=== PATIENT | female | born 1965 | race Native Hawaiian/Other Pacific Islander ===

== ENCOUNTER → 2018-08-21 | Outpatient (CLI) | payer OTHER ==
--- NOTE | 2018-08-22 11:48 | XR ---
Lumbosacral spine HISTORY: Low back pain 5 views of the lumbosacral spine correlated prior exam 12/30/2013 Lumbar vertebral bodies show preserved height. Bone mineralization is mildly reduced. No evident spon dylolysis. There is multilevel spondylosis. Anterolisthesis grade 1 L5-S1, L4-5. Loss of disc height present at L4-5 and L5-S1. Sclerosis present in the posterior elements. Sclerotic vascular calcifications present within the aorta. IMPRESSION: Degenerative disc disease, facet arthropathy, spinal listheses and osteopenia.
== END | disposition home or self-care (01) ==
LOC: RADXRYALE 16:14
PROVIDERS: ATTEND Internal Medicine
DX: M43.16 Spondylolisthesis, lumbar region (principal); M51.36 Other intervertebral disc degeneration, lumbar region; M46.96 Unspecified inflammatory spondylopathy, lumbar region; M85.88 Other specified disorders of bone density and structure, other site
CPT/HCPCS: 72110

== ENCOUNTER 2018-09-19 16:16 | Observation (INO) | payer OTHER ==
[2018-09-19] MEDS ORDERED: SODIUM CHLORIDE 0.9% 500 ML 500 ML IV STA (16:22)
[2018-09-19] MEDS ORDERED: LORazepam 2 MG/ML INJ IV STA (16:23)
--- NOTE | 2018-09-19 16:25 | ED ---
General Adult HPI - General Stated complaint: Chest Pain Time Seen by Provider: 09/19/18 16:16 Source: RN notes reviewed - History of Present Illness Initial comments: This is a 53-year-old female presents emergency Department with a past medical history significant for anxiety. Patient denies any history of diabetes hypertension high cholesterol or smoking. Patient states she just got 79 when she was given a sit down and watch TV and she felt a tingling sensation and tightness across her chest. Patient states he felt as though she couldn't get a full breath. Patient states she started getting tingling down both of her arms and into her hands and then both of her hands cramped up. Patient denies any recent fever chills or cough. Patient denies any headache patient denies numbness weakness. Patient denies lightheadedness dizziness or near syncopal episode. Patient denies any abdominal pain. Patient denies nausea vomiting or diarrhea. Patient denies any swelling to the legs or calf tenderness. Patient states by the time EMS got there all symptoms had resolved. - Related Data Home Medications Medication Instructions Recorded Confirmed Acetaminophen [Tylenol Arthritis] 650 mg PO Q8H PRN 09/19/18 09/19/18 Ibuprofen [Motrin] 600 mg PO BID 09/19/18 09/19/18 Naproxen Sodium [Aleve] 220 mg PO BID PRN 09/19/18 09/19/18 Allergies Allergy/AdvReac Type Severity Reaction Status Date / Time codeine AdvReac naueated Verified 09/19/18 16:52 and sleepy Review of Systems ROS Statement: Those systems with pertinent positive or pertinent negative responses have been documented in the HPI. ROS Other: All systems not noted in ROS Statement are negative. Past Medical History Past Medical History: COPD History of Any Multi-Drug Resistant Organisms: None Reported Past Surgical History: Section Past Psychological History: No Psychological Hx Reported Smoking Status: Former smoker Past Alcohol Use History: Occasional Past Drug Use History: None Reported General Exam - General Exam Comments Initial Comments: GENERAL: Patient is well-developed and well-nourished. Patient is nontoxic and well-h ydrated and is in mild distress. Patient seems very anxious. ENT: Neck is soft and supple. No significant lymphadenopathy is noted. Oropharynx is clear. Moist mucous membranes. Neck has full range of motion without eliciting any pain. EYES: The sclera were anicteric and conjunctiva were pink and moist. Extraocular movements were intact and pupils were equal round and reactive to light. E yelids were unremarkable. PULMONARY: Unlabored respirations. Good breath sounds bilaterally. No audible rales rhonchi or wheezing was noted. CARDIOVASCULAR: There is a regular rate and rhythm without any murmurs gallops or rubs. ABDOMEN: Soft and nontender with normal bowel sounds. No palpable organomegaly was noted. There is no palpable pulsatile mass. SKIN: Skin is clear with no lesions or rashes and otherwise unremarkable. NEUROLOGIC: Patient is alert and oriented x3. Cranial nerves II through XII are grossly intact. Motor and sensory are also intact. Normal speech, volume and content. Symmetrical smile. MUSCULOSKELETAL: Normal extremities with adequate strength and full range of motion. No lower extremity swelling or edema. No calf tenderness. LYMPHATICS: No significant lymphadenopathy is noted PSYCHIATRIC: Normal psychiatric evaluation. Course Vital Signs 09/19/18 16:20 Temperature 97.7 F Pulse Rate 64 Respiratory 20 Rate Blood Pressure 133/76 O2 Sat by Pulse 100 Oximetry Medical Decision Making - Medical Decision Making EKG shows normal sinus rhythm at 66 bpm GA interval 130 QRS is 94 QT interval 422 QTC is 442. Patient's EKG shows no ST segment elevation or depression or T wave abnormalities are noted. Patient felt better in the emergency department after the Ativan because of her chest pain shortness of breath I will keep her for 23 hours and repeat cardiac enzymes. I spoke with Dr. Soler he agreed to admit the patient admitted the patient wrote admitting orders. - Lab Data Result diagrams: 09/19/18 16:30 09/19/18 16:30 Lab Results 09/19/18 09/19/18 09/19/18 Range/Units 16:30 16:30 16:30 WBC 5.7 (3.8-10.6) k/uL RBC 4.44 (3.80-5.40) m/uL Hgb 13.7 (11.4-16.0) gm/dL Hct 40.6 (34.0-46.0) % MCV 91.4 (80.0-100.0) fL MCH 30.8 (25.0-35.0) pg MCHC 33.7 (31.0-37.0) g/dL RDW 13.2 (11.5-15.5) % Plt Count 261 (150-450) k/uL Neutrophils % 67 % Lymphocytes % 27 % Monocytes % 3 % Eosinophils % 2 % Basophils % 1 % Neutrophils # 3.8 (1.3-7.7) k/uL Lymphocytes # 1.5 (1.0-4.8) k/uL Monocytes # 0.1 (0-1.0) k/uL Eosinophils # 0.1 (0-0.7) k/uL Basophils # 0.0 (0-0.2) k/uL PT 9.8 (9.0-12.0) sec INR 0.9 (<1.2) APTT 24.3 (22.0-30.0) sec Sodium 141 (137-145) mmol/L Potassium 4.1 (3.5-5.1) mmol/L Chloride 111 H (98-107) mmol/L Carbon Dioxide 20 L (22-30) mmol/L Anion Gap 10 mmol/L BUN 12 (7-17) mg/dL Creatinine 0.73 (0.52-1.04) mg/dL Est GFR (CKD-EPI)AfAm >90 (>60 ml/min/1.73 sqM) Est GFR (CKD-EPI)NonAf >90 (>60 ml/min/1.73 sqM) Glucose 154 H (74-99) mg/dL Calcium 9.5 (8.4-10.2) mg/dL Magnesium 1.8 (1.6-2.3) mg/dL Total Bilirubin 0.7 (0.2-1.3) mg/dL AST 25 (14-36) U/L ALT 34 (9-52) U/L Alkaline Phosphatase 58 (38-126) U/L Troponin I (0.000-0.034) ng/mL Total Protein 6.9 (6.3-8.2) g/dL Albumin 4.1 (3.5-5.0) g/dL 09/19/18 Range/Units 16:30 WBC (3.8-10.6) k/uL RBC (3.80-5.40) m/uL Hgb (11.4-16.0) gm/dL Hct (34.0-46.0) % MCV (80.0-100.0) fL MCH (25.0-35.0) pg MCHC (31.0-37.0) g/dL RDW (11.5-15.5) % Plt Count (150-450) k/uL Neutrophils % % Lymphocytes % % Monocytes % % Eosinophils % % Basophils % % Neutrophils # (1.3-7.7) k/uL Lymphocytes # (1.0-4.8) k/uL Monocytes # (0-1.0) k/uL Eosinophils # (0-0.7) k/uL Basophils # (0-0.2) k/uL PT (9.0-12.0) sec INR (<1.2) APTT (22.0-30.0) sec Sodium (137-145) mmol/L Potassium (3.5-5.1) mmol/L Chloride (98-107) mmol/L Carbon Dioxide (22-30) mmol/L Anion Gap mmol/L BUN (7-17) mg/dL Creatinine (0.52-1.04) mg/dL Est GFR (CKD-EPI)AfAm (>60 ml/min/1.73 sqM) Est GFR (CKD-EPI)NonAf (>60 ml/min/1.73 sqM) Glucose (74-99) mg/dL Calcium (8.4-10.2) mg/dL Magnesium (1.6-2.3) mg/dL Total Bilirubin (0.2-1.3) mg/dL AST (14-36) U/L ALT (9-52) U/L Alkaline Phosphatase (38-126) U/L Troponin I <0.012 (0.000-0.034) ng/mL Total Protein (6.3-8.2) g/dL Albumin (3.5-5.0) g/dL Disposition Clinical Impression: Chest pain Disposition: ADMITTED IP TO THIS [facility] Referrals: Pat Tao MD [Primary Care Provider] - 1-2 days Time of Disposition: 18:28
[2018-09-19 16:54] LABS: ALT 34 U/L (9-52); AST 25 U/L (14-36); Albumin 4.1 g/dL (3.5-5.0); Alkaline Phosphatase 58 U/L (38-126); Anion Gap 10 mmol/L; Basophils % (A) 1 %; Blood Urea Nitrogen 12 mg/dL (7-17); Calcium 9.5 mg/dL (8.4-10.2); Carbon Dioxide 20 mmol/L (22-30); Chloride 111 mmol/L (98-107); Eosinophils # (A) 0.1 k/uL (0-0.7); Eosinophils % (A) 2 %; Glucose 154 mg/dL (74-99); HCT 40.6 % (34.0-46.0); HGB 13.7 gm/dL (11.4-16.0); Lymphocytes # (A) 1.5 k/uL (1.0-4.8); Lymphocytes % (A) 27 %; MCH 30.8 pg (25.0-35.0); MCHC 33.7 g/dL (31.0-37.0); MCV 91.4 fL (80.0-100.0); Magnesium 1.8 mg/dL (1.6-2.3); Monocytes # (A) 0.1 k/uL (0-1.0); Monocytes % (A) 3 %; Neutrophils # (A) 3.8 k/uL (1.3-7.7); Neutrophils % (A) 67 %; Platelet Count 261 k/uL (150-450); Potassium 4.1 mmol/L (3.5-5.1); RBC 4.44 m/uL (3.80-5.40); RDW 13.2 % (11.5-15.5); Sodium 141 mmol/L (137-145); Total Bilirubin 0.7 mg/dL (0.2-1.3); Total Protein 6.9 g/dL (6.3-8.2); WBC 5.7 k/uL (3.8-10.6)
[2018-09-19 16:56] LABS: INR 0.9 (<1.2); Partial Thromboplastin Time 24.3 sec (22.0-30.0); Prothrombin Time 9.8 sec (9.0-12.0)
--- NOTE | 2018-09-19 17:11 | XR ---
EXAMINATION TYPE: XR chest 2V DATE OF EXAM: 09/19/2018 COMPARISON: 11/14/2015 HISTORY: Chest pain TECHNIQUE: Frontal and lateral views of the chest are obtained. FINDINGS: Heart and mediastinum are normal. Lungs are clear. Diaphragm is normal. Bony thorax appear s normal. IMPRESSION: Normal chest. No change.
[2018-09-19] MEDS ORDERED: NITROGLYCERIN SL TABS 0.4 MG TAB SUBLINGUAL PRN (18:29)
[2018-09-20] MEDS: NITROGLYCERIN OINT 1 INCH/GM PACKET TOPICAL SCH ×2 (00:08→05:38)
[2018-09-20 05:51] LABS: Cholesterol 169 mg/dL (<200); HDL Cholesterol 34 mg/dL (40-60); LDL Cholesterol,Calculated 112 mg/dL (0-99); Triglycerides 115 mg/dL (<150)
[2018-09-20 07:52] VITALS: RESP 16
[2018-09-20] MEDS ORDERED: DOBUTamine DRIP for NUC MED 500 MG in DEXTROSE/WATER 1 250ML.BAG IV ONE (08:50)
[2018-09-20] MEDS ORDERED: ASPIRIN 325 MG TAB PO SCH (09:00)
[2018-09-20] MEDS ORDERED: ASPIRIN 81 MG PO SCH (09:00)
--- NOTE | 2018-09-20 09:40 | P.CRDCN ---
History of Present Illness History of present illness: This is a pleasant 53-year-old female past medical history significant for former nicotine dependence, she quit 15 years ago and chronic back pain secondary to arthritis. She denies history of hypertension, dyslipidemia, diabetes mellitus or coronary artery disease. She has never seen a cosmetics counter manager for any reason in the past. We have been asked to see her in consultation secondary to chest discomfort. She states yesterday he woke up after sleeping all day, she works the midnight shift, she had something small to eat and a wine cooler. About 15 minutes after eating and consuming a wine cooler she had an acute onset of a tightness in her chest. It started in the midsternal region and radiated out on both sides and the anterior chest wall. There is no radiation through to the back however she did feel bilateral arm heavy tingly sensation. The symptoms persisted for approximately 5 minutes and then started to increase in intensity. At that time she went to the restroom and forced herself to vomit to see if this would make her feel better unfortunately her pain persisted and then she started becoming short of breath. In total her symptoms lasted approximately 10 minutes and slowly started to subside and her own. By the time she arrived at the emergency department she was chest pain- free. She has had no further episodes of chest discomfort since arriving at the hospital. She is seen and examined resting comfortably in bed in no acute distress. EKG reveals sinus mechanism with no acute ST or T wave abnormalities noted. There is nonspecific male is noted on the EKG obtained at 345, repeat this morning was unremarkable. Chest x-ray is negative for an acute cardiopulmonary process. Laboratory data reviewed, WBC 5.7, hemoglobin 13.7, platelets 13.2, sodium 141, potassium 4.1, creatinine 0.73, magnesium 1.8, cardiac enzymes negative 3, LDL 112 and HDL 34. She takes no daily cardiac medications. At the time of my exam: CONSTITUTIONAL: Denies fever. Denies chills. EYES: Denies blurred vision. Denies vision changes. Denies eye pain. EARS, NOSE, MOUTH & THROAT: Denies headache. Denies sore throat. Denies ear pain. CARDIOVASCULAR: Denies chest pain. Denies shortness of breath. Denies orthopnea. Denies PND. Denies palpitations. RESPIRATORY: Denies cough. GASTROINTESTINAL: Denies abdominal pain. Denies diarrhea. Denies constipation. Denies nausea. Denies vomiting. MUSCULOSKELETAL: Denies myalgias. INTEGUMENTARY: Denies pruitis. Denies rash. NEUROLOGIC: Denies numbness. Denies tingling. Denies weakness. PSYCHIATRIC: Denies anxiety. Denies depression. ENDOCRINE: Denies fatigue. Denies weight change. Denies polydipsia. Denies polyurina. GENITOURINARY: Denies burning, hematuria or urgency with micturation. HEMATOLOGIC: Denies history of anemia. Denies bleeding. Blood pressure 133/60 heart rate 60 afebrile maintaining oxygen saturation on ro om air GENERAL: This is a 53-year-old female in no apparent distress at the time of my examination. HEENT: Head is atraumatic, normocephalic. Pupils are equal, round. Sclerae anicteric. Conjunctivae are clear. Mucous membranes of the mouth are moist. Neck is supple. There is no jugular venous distention. No carotid bruit is heard. LUNGS: Clear to auscultation no wheezes, rales or rhonchi. No chest wall tenderness is noted on palpation or with deep breathing. HEART: Regular rate and rhythm without murmurs, rubs or gallops. S1 and S2 heard. ABDOMEN: Soft, nontender. Bowel sounds are heard. No organomegaly noted. EXTREMITIES: No evidence of peripheral edema and no calf tenderness noted. VASCULAR: Radial and dorsalis pedis pulses palpated, no evidence of clubbing. NEUROLOGIC: Patient is awake, alert and oriented x3. ASSESSMENT Chest pain, atypical for angina. An acute coronary event has been ruled out. Dyslipidemia Significant family history of premature coronary artery disease with her mother suffering her first heart attack at approximately 50 years old resulting in bypass surgery. PLAN An acute coronary event has been ruled out. Check d-dimer and hemoglobin A1c. Obtain 2-D echocardiogram and Doppler study to assess cardiac structure and function. Perform dobutamine stress echocardiogram to assess for stress-induced ischemia. If stress test is normal she is stable from a cardiac perspective. Lifestyle modifications are recommended for lower LDL cholesterol no form of diet and exercise. Thank you kindly for this consultation. Nurse Practitioner note has been reviewed, I agree with a documented findings and plan of care. Patient was seen and examined. Past Medical History Past Medical History: COPD Additional Past Medical History / Comment(s): chronic lower back pain, arthritis in back History of Any Multi-Drug Resistant Organisms: None Reported Past Surgical History: Section Past Anesthesia/Blood Transfusion Reactions: No Reported Reaction Past Psychological History: No Psychological Hx Reported Smoking Status: Former smoker Past Alcohol Use History: Occasional Past Drug Use History: None Reported - Past Family History Mother Family Medical History: Coronary Artery Disease (CAD), Diabetes Mellitus, Myocardial Infarction ([place]) Additional Family Medical History / Comment(s): CABG, arthritis Father Family Medical History: Cancer Additional Family Medical History / Comment(s): lung cancer Sister(s) Family Medical History: Asthma Additional Family Medical History / Comment(s): depression, border line DM Brother(s) Additional Family Medical History / Comment(s): back surgeries, psoriasis Son(s) Family Medical History: No Reported History Medications and Allergies Home Medications Medication Instructions Recorded Confirmed Type Acetaminophen [Tylenol Arthritis] 650 mg PO Q8H PRN 09/19/18 09/19/18 History Ibuprofen [Motrin] 600 mg PO BID 09/19/18 09/19/18 History Naproxen Sodium [Aleve] 220 mg PO BID PRN 09/19/18 09/19/18 History Allergies Allergy/AdvReac Type Severity Reaction Status Date / Time codeine AdvReac naueated Verified 09/19/18 21:11 and sleepy Physical Exam Vitals: Vital Signs Temp Pulse Pulse Pulse Pulse Resp BP 09/20/18 07:47 98 F 60 16 09/20/18 03:54 98.5 F 70 14 09/20/18 03:05 15 09/19/18 23:36 15 09/19/18 23:23 98.0 F 90 15 09/19/18 20:00 15 09/19/18 19:27 97.9 F 54 L 15 09/19/18 19:00 133/61 09/19/18 18:30 131/39 09/19/18 18:15 127/77 09/19/18 18:00 118/67 09/19/18 17:45 118/67 09/19/18 17:30 127/73 09/19/18 17:15 122/63 09/19/18 17:00 151/77 09/19/18 16:30 133/76 09/19/18 16:20 97.7 F 64 20 133/76 BP BP Pulse Ox 09/20/18 07:47 133/60 97 09/20/18 03:54 135/79 99 09/20/18 03:05 09/19/18 23:36 09/19/18 23:23 153/77 97 09/19/18 20:00 09/19/18 19:27 131/80 99 09/19/18 19:00 97 09/19/18 18:30 97 09/19/18 18:15 96 09/19/18 18:00 09/19/18 17:45 98 09/19/18 17:30 09/19/18 17:15 94 L 09/19/18 17:00 98 09/19/18 16:30 97 09/19/18 16:20 100 Intake and Output 09/19/18 09/20/18 09/20/18 22:59 06:59 14:59 Other: Voiding Method Toilet Toilet Toilet # Voids 1 Weight 94.347 kg Results 09/19/18 16:30 09/19/18 16:30 Cardiac Enzymes 09/19/18 09/19/18 09/19/18 Range/Units 16:30 16:30 21:55 AST 25 (14-36) U/L Troponin I <0.012 <0.012 (0.000-0.034) ng/mL 09/20/18 Range/Units 05:31 AST (14-36) U/L Troponin I <0.012 (0.000-0.034) ng/mL Coagulation 09/19/18 Range/Units 16:30 PT 9.8 (9.0-12.0) sec APTT 24.3 (22.0-30.0) sec Lipids 09/20/18 Range/Units 05:31 Triglycerides 115 (<150) mg/dL Cholesterol 169 (<200) mg/dL HDL Cholesterol 34 L (40-60) mg/dL CBC 09/19/18 Range/Units 16:30 WBC 5.7 (3.8-10.6) k/uL RBC 4.44 (3.80-5.40) m/uL Hgb 13.7 (11.4-16.0) gm/dL Hct 40.6 (34.0-46.0) % Plt Count 261 (150-450) k/uL Comprehensive Metabolic Panel 09/19/18 Range/Units 16:30 Sodium 141 (137-145) mmol/L Potassium 4.1 (3.5-5.1) mmol/L Chloride 111 H (98-107) mmol/L Carbon Dioxide 20 L (22-30) mmol/L BUN 12 (7-17) mg/dL Creatinine 0.73 (0.52-1.04) mg/dL Glucose 154 H (74-99) mg/dL Calcium 9.5 (8.4-10.2) mg/dL AST 25 (14-36) U/L ALT 34 (9-52) U/L Alkaline Phosphatase 58 (38-126) U/L Total Protein 6.9 (6.3-8.2) g/dL Albumin 4.1 (3.5-5.0) g/dL Current Medications Generic Name Dose Route Start Last Admin Trade Name Freq PRN Reason Stop Dose Admin Aspirin 325 mg 09/20/18 09:00 Aspirin PO DAILY [facility] Nitroglycerin 1 inch 09/20/18 00:00 09/20/18 05:38 Nitro-Bid Oint TOPICAL Not Given Q6HR [facility] Nitroglycerin 0.4 mg 09/19/18 18:29 Nitrostat SUBLINGUAL Q5M PRN Chest Pain Intake and Output 09/19/18 09/20/18 09/20/18 22:59 06:59 14:59 Other: Voiding Method Toilet Toilet Toilet # Voids 1 Weight 94.347 kg 09/19/18 16:30 09/19/18 16:30
--- NOTE | 2018-09-20 10:35 | ECHOF ---
Referral Reason:cp MEASUREMENTS -------- HEIGHT: 152.4 cm WEIGHT: 94.3 kg BP: 133/60 RVIDd: 2.8 cm (< 3.3) IVSd: 0.9 cm (0.6 - 1.1) LVIDd: 4.6 cm (3.9 - 5.3) LVPWd: 1.3 cm (0.6 - 1.1) IVSs: 1.5 cm LVIDs: 3.6 cm LVPWs: 1.3 cm LAESV Index (A-L): 24.67 ml/m Ao Diam: 2.7 cm (2.0 - 3.7) AV Cusp: 1.9 cm (1.5 - 2.6) LA Diam: 3.7 cm (2.7 - 3.8) MV EXCURSION: 13.536 mm (> 18.000) MV EF SLOPE: 60 mm/s (70 - 150) EPSS: 1.0 cm MV E Omar: 1.07 m/s MV DecT: 286 ms MV A Omar: 0.80 m/s MV E/A Ratio: 1.34 RAP: 5.00 mmHg RVSP: 23.14 mmHg FINDINGS -------- Resting bradycardia (HR<60bpm). This was a technically adequate study. Left ventricular wall thickness is normal. Overall left ventricular systolic function is normal wit h, an EF between 55 - 60 %. The right ventricle is normal in size. The left atrium is mildly dilated. LA is midly dilated 29-33ml/m2. The right atrium is normal in size. Interatrial and interventricular septum intact. Trace amount of aortic regurgitation. There is trace mitral regurgitation. Mild tricuspid regurgitation present. Right ventricular systolic pressure is normal at < 35 mmHg. Trace/mild (physiologic) pulmonic regurgitation. The aortic root size is normal. Normal inferior vena cava with normal inspiratory collapse consistent with estimated right atrial pre ssure of 5 mmHg. There is no pericardial effusion. CONCLUSIONS -------- 1. Resting bradycardia (HR<60bpm). 2. This was a technically adequate study. 3. Left ventricular wall thickness is normal. 4. Overall left ventricular systolic function is normal with, an EF between 55 - 60 %. 5. The right ventricle is normal in size. 6. The left atrium is mildly dilated. 7. LA is midly dilated 29-33ml/m2. 8. The right atrium is normal in size. 9. Interatrial and interventricular septum intact. 10. Trace amount of aortic regurgitation. 11. There is trace mitral regurgitation. 12. Mild tricuspid regurgitation present. 13. Right ventricular systolic pressure is normal at < 35 mmHg. 14. Trace/mild (physiologic) pulmonic regurgitation. 15. The aortic root size is normal. 16. Normal inferior vena cava with normal inspiratory collapse consistent with estimated right atrial pressure of 5 mmHg. 17. There is no pericardial effusion. POT TENDER: Karli Archer RDCS
[2018-09-20 13:02] VITALS: BP 118/77; PULSE 86; TEMP 98.6
--- NOTE | 2018-09-20 13:02 | ECHOS ---
STRESS ECHOCARDIOGRAM INDICATIONS: Chest pain. MEDICATIONS: Aleve, Motrin, Tylenol arthritis. BASELINE HEART RATE: 64 BASELINE BLOOD PRESSURE: 105/72 MAXIMUM HEART RATE: 151 MAXIMUM BLOOD PRESSURE: 122/56 85% MPHR: 143 100% MPHR: 168 MAXIMUM STAGE REACHED: 3 TOTAL EXERCISE TIME: 7:35 CLINICAL INFORMATION: Baseline heart rate 64 beats per minute. Baseline blood pressure 105/72 mmHg. Baseline 12-lead ECG shows normal sinus rhythm with normal cardiac intervals. Patient received dobutamine infusion per protocol. There was no ECG evidence for ischemia. No arrhythmias were noted. No symptoms were noted. The baseline 2D echo images showed normal LV size systolic function without segmental wall motion abnormalities. With dobutamine infusion there was stepwise increment in overall LV contractility without development of any wall motion abnormalities. At recovery, regional global LV systolic function remained normal. IMPRESSION: No ECG or echocardiographic evidence for ischemia during dobutamine stress echo. MMODL / IJN: [id number] /
--- NOTE | 2018-09-20 14:54 | P.HPIM ---
History of Present Illness 53-year-old pleasant female came in with the retrosternal chest pain which is a sharp to pressure-like sensation without any radiation started after eating. Minutes immediately after eating and the having some wine. Patient does take naproxen, ibuprofen and extra strength Tylenol as needed for chronic back pain. Patient denied any cough patient's chest pain is not associated with the bleeding, not associated with the diaphoresis nausea lightheadedness. Patient was evaluated by cardiology patient's 3 sets of troponins are negative patient will stress test if that's negative patient will be discharged today he shouldn't does have a family history of premature coronary artery disease. Patient's LDL is 112. She does not have any history out of this medicine hypertension. Patient denied any shortness of breath patient's d-dimer is negative chest x-ray did not show any pneumonia. Review of Systems REVIEW OF SYSTEMS: CONSTITUTIONAL: No fever, no malaise, no fatigue. HEENT: No recent visual problems or hearing problems. Denied any sore throat. CARDIOVASCULAR: No orthopnea, PND, no palpitations, no syncope. PULMONARY: No shortness of breath, no cough, no hemoptysis. GASTROINTESTINAL: No diarrhea, no nausea, no vomiting, no abdominal pain. NEUROLOGICAL: No headaches, no weakness, no numbness. HEMATOLOGICAL: Denies any bleeding or petechiae. GENITOURINARY: Denies any burning micturition, frequency, or urgency. MUSCULOSKELETAL/RHEUMATOLOGICAL: Denies any joint pain, swelling, or any muscle pain. ENDOCRINE: Denies any polyuria or polydipsia. The rest of the 14-point review of systems is negative. Past Medical History Past Medical History: COPD Additional Past Medical History / Comment(s): chronic lower back pain, arthritis in back History of Any Multi-Drug Resistant Organisms: None Reported Past Surgical History: Section Past Anesthesia/Blood Transfusion Reactions: No Reported Reaction Past Psychological History: No Psychological Hx Reported Smoking Status: Former smoker Past Alcohol Use History: Occasional Past Drug Use History: None Reported - Past Family History Mother Family Medical History: Coronary Artery Disease (CAD), Diabetes Mellitus, Myocardial Infarction ([place]) Additional Family Medical History / Comment(s): CABG, arthritis Father Family Medical History: Cancer Additional Family Medical History / Comment(s): lung cancer Sister(s) Family Medical History: Asthma Additional Family Medical History / Comment(s): depression, border line DM Brother(s) Additional Family Medical History / Comment(s): back surgeries, psoriasis Son(s) Family Medical History: No Reported History Medications and Allergies Home Medications Medication Instructions Recorded Confirmed Type Acetaminophen [Tylenol Arthritis] 650 mg PO Q8H PRN 09/19/18 09/19/18 History Naproxen Sodium [Aleve] 220 mg PO BID PRN 09/19/18 09/19/18 History Omeprazole [PriLOSEC] 40 mg PO AC-BRKFST #14 capsule. 09/20/18 Rx Allergies Allergy/AdvReac Type Severity Reaction Status Date / Time codeine AdvReac naueated Verified 09/19/18 21:11 and sleepy Physical Exam Vitals: Vital Signs Temp Pulse Pulse Pulse Pulse Resp BP 09/20/18 13:00 98.6 F 86 16 09/20/18 07:47 98 F 60 16 09/20/18 03:54 98.5 F 70 14 09/20/18 03:05 15 09/19/18 23:36 15 09/19/18 23:23 98.0 F 90 15 09/19/18 20:00 15 09/19/18 19:27 97.9 F 54 L 15 09/19/18 19:00 133/61 09/19/18 18:30 131/39 09/19/18 18:15 127/77 09/19/18 18:00 118/67 09/19/18 17:45 118/67 09/19/18 17:30 127/73 09/19/18 17:15 122/63 09/19/18 17:00 151/77 09/19/18 16:30 133/76 09/19/18 16:20 97.7 F 64 20 133/76 BP BP BP Pulse Ox 09/20/18 13:00 118/77 98 09/20/18 07:47 133/60 97 09/20/18 03:54 135/79 99 09/20/18 03:05 09/19/18 23:36 09/19/18 23:23 153/77 97 09/19/18 20:00 09/19/18 19:27 131/80 99 09/19/18 19:00 97 05/09/19 18:30 97 09/19/18 18:15 96 09/19/18 18:00 09/19/18 17:45 98 09/19/18 17:30 09/19/18 17:15 94 L 09/19/18 17:00 98 09/19/18 16:30 97 09/19/18 16:20 100 Intake and Output 09/19/18 09/20/18 09/20/18 22:59 06:59 14:59 Other: Voiding Method Toilet Toilet Toilet # Voids 1 1 Weight 94.347 kg 94.347 kg PHYSICAL EXAMINATION: GENERAL: The patient is alert and oriented x3, not in any acute distress. Well developed, well nourished. HEENT: Pupils are round and equally reacting to light. EOMI. No scleral icterus. No conjunctival pallor. Normocephalic, atraumatic. No pharyngeal erythema. No thyromegaly. CARDIOVASCULAR: S1 and S2 present. No murmurs, rubs, or gallops. PULMONARY: Chest is clear to auscultation, no wheezing or crackles. ABDOMEN: Soft, nontender, nondistended, normoactive bowel sounds. No palpable organomegaly. MUSCULOSKELETAL: No joint swelling or deformity. EXTREMITIES: No cyanosis, clubbing, or pedal edema. NEUROLOGICAL: Gross neurological examination did not reveal any focal deficits. SKIN: No rashes. Results CBC & Chem 7: 09/19/18 16:30 09/19/18 16:30 Labs: Abnormal Lab Results - Last 24 Hours (Table) 09/19/18 09/20/18 Range/Units 16:30 05:31 Chloride 111 H (98-107) mmol/L Carbon Dioxide 20 L (22-30) mmol/L Glucose 154 H (74-99) mg/dL LDL Cholesterol, Calc 112 H (0-99) mg/dL HDL Cholesterol 34 L (40-60) mg/dL Thrombosis Risk Factor Assmnt - Choose All That Apply Any of the Below Risk Factors Present?: Yes Each Factor Represents 1 point: Abnormal pulmonary function (COPD), Age 41-60 years, Obesity (BMI >25) Other Risk Factors: No Other congenital or acquired thrombophilia - If yes, enter type in comment: No Thrombosis Risk Factor Assessment Total Risk Factor Score: 3 Thrombosis Risk Factor Assessment Level: Moderate Risk Assessment and Plan Plan: -chest pain atypical most related to gastroesophageal reflux disease patient was started on Prilosec asked her to avoid the nonsteroidal anti-inflammatories and if he she has to take those medications asked her to take Zantac with that after she is done with Prilosec course. Patient was ruled out acute coronary syndromes and unstable angina, underwent stress test if that's negative patient will be discharged today. Obesity: Counseling was provided -chronic low back pain.
--- NOTE | 2018-09-20 14:55 | P.DS ---
Providers Date of admission: 09/19/18 18:31 Attending physician: Aram Soler Consults: 09/19/18 18:31 Consult Physician Urgent Consulting Provider: [facility] Consult Reason/Comments: Chest pain Do you want consulting provider notified?: Yes Primary care physician: Pat Tao Hospital Course: please refer to my HPI Plan - Discharge Summary Discharge Rx Participant: No New Discharge Prescriptions: New Omeprazole [PriLOSEC] 40 mg PO AC-BRKFST #14 capsule. Discontinued Ibuprofen [Motrin] 600 mg PO BID No Action Naproxen Sodium [Aleve] 220 mg PO BID PRN PRN Reason: Pain Acetaminophen [Tylenol Arthritis] 650 mg PO Q8H PRN PRN Reason: Pain Discharge Medication List Acetaminophen [Tylenol Arthritis] 650 mg PO Q8H PRN 09/19/18 [History] Naproxen Sodium [Aleve] 220 mg PO BID PRN 09/19/18 [History] Omeprazole [PriLOSEC] 40 mg PO AC-BRKFST #14 capsule. 09/20/18 [Rx] Follow up Appointment(s)/Referral(s): Pat Tao MD [Primary Care Provider] - 3 Days Patient Instructions/Handouts: Chest Pain (DC) Discharge Disposition: HOME SELF-CARE
[2018-09-20 20:04] LABS: Hemoglobin A1C 5.8 % (4.0-6.0)
== END 2018-09-20 13:58 | disposition home or self-care (01) ==
LOC: EC 16:16 → 1SOBS 18:31
PROVIDERS: ADMIT Internal Medicine; ATTEND Internal Medicine
DX: R07.89 Other chest pain (principal); M47.9 Spondylosis, unspecified; K21.9 Gastro-esophageal reflux disease without esophagitis; J44.9 Chronic obstructive pulmonary disease, unspecified; E66.9 Obesity, unspecified; Z68.41 Body mass index [BMI] 40.0-44.9, adult; E78.5 Hyperlipidemia, unspecified; Z71.3 Dietary counseling and surveillance; I25.2 Old myocardial infarction; Z87.891 Personal history of nicotine dependence; Z82.49 Family history of ischemic heart disease and other diseases of the circulatory system; Z83.3 Family history of diabetes mellitus; Z82.5 Family history of asthma and other chronic lower respiratory diseases; Z81.8 Family history of other mental and behavioral disorders; Z80.1 Family history of malignant neoplasm of trachea, bronchus and lung
CPT/HCPCS: 96361; 96374; 99285; 36415; 93005; 93306; 93351; 85379; 80061; 80053; 83735; 84484 ×2; 85025; 85610; 85730; 83036; 71046; G0378 ×2; J2060; J1250

== ENCOUNTER → 2018-10-14 | Outpatient (CLI) | payer OTHER ==
--- NOTE | 2018-10-14 12:50 | XR ---
Right leg HISTORY: Trauma and pain 2 views of the right leg Bone mineralization, joint spaces and alignment are maintained. Soft tissue swelling suspected. There is a plantar calcaneal spur. IMPRESSION: No fracture or dislocation.
--- NOTE | 2018-10-14 12:52 | XR ---
Left ankle HISTORY: Trauma and pain 3 views of the left ankle Bone mineralization, joint spaces and alignment are maintained. There is a plantar calcaneal spur pre sent. Mild degenerative changes present within the foot and ankle with marginal spurring. IMPRESSION: No fracture or dislocation.
== END | disposition home or self-care (01) ==
LOC: RADXRYALE 11:18
PROVIDERS: ATTEND Internal Medicine
DX: M25.572 Pain in left ankle and joints of left foot (principal); M79.604 Pain in right leg

== ENCOUNTER 2018-11-03 07:07 | Emergency (ER) | payer OTHER ==
[2018-11-03] MEDS ORDERED: KETOROLAC 30 MG/ML 1 ML VIAL IVP STA (07:27)
[2018-11-03] MEDS ORDERED: SODIUM CHLORIDE 0.9% 500 ML 500 ML IV STA (07:27)
[2018-11-03] MEDS ORDERED: SODIUM CHLORIDE 0.9% 1,000 ML IV STA (07:27)
--- NOTE | 2018-11-03 07:43 | ED ---
Back Pain HPI - General Chief Complaint: Back Pain/Injury Stated Complaint: Back Pain Time Seen by Provider: 11/03/18 07:17 Source: patient, RN notes reviewed Mode of arrival: ambulatory Limitations: no limitations - History of Present Illness Initial Comments: 53-year-old female presents emergency Department with chief complaint of back pain. Patient she normally has chronic back pain and only takes Motrin for it. Patient is scheduled for injections from orthopedics. Patient reaches riding [place] and felt that she exacerbated her pain because of the bones. Patient states she does have mid low back pain but also complains of right flank pain which is new. Patient states she had chills last night states that she could not get warm. Patient states that she still feels worse today. She has not taken Tylenol or Motrin this morning. Denies any bowel bladder incontinence or retention. She has no current nausea vomiting diarrhea, melena hematochezia no dysuria no hematuria. - Related Data Home Medications Medication Instructions Recorded Confirmed Naproxen Sodium [Aleve] 220 mg PO BID PRN 09/19/18 09/19/18 Ibuprofen [Motrin] 800 mg PO Q6H PRN 11/03/18 11/03/18 Previous Rx's Medication Instructions Recorded Ibuprofen [Motrin] 600 mg PO Q8HR PRN #30 tab 11/03/18 Methocarbamol [Robaxin] 500 mg PO TID PRN #15 tab 11/03/18 traMADol HCl [Ultram] 50 mg PO Q6H PRN #12 tab 11/03/18 Allergies Allergy/AdvReac Type Severity Reaction Status Date / Time codeine AdvReac naueated Verified 11/03/18 09:16 and sleepy Review of Systems ROS Statement: Those systems with pertinent positive or pertinent negative responses have been documented in the HPI. ROS Other: All systems not noted in ROS Statement are negative. Past Medical History Past Medical History: COPD Additional Past Medical History / Comment(s): chronic lower back pain, arthritis in back History of Any Multi-Drug Resistant Organisms: None Reported Past Surgical History: Section Past Anesthesia/Blood Transfusion Reactions: No Reported Reaction Past Psychological History: No Psychological Hx Reported Smoking Status: Former smoker Past Alcohol Use History: Occasional Past Drug Use History: None Reported - Past Family History Mother Family Medical History: Coronary Artery Disease (CAD), Diabetes Mellitus, Myocardial Infarction ([place]) Additional Family Medical History / Comment(s): CABG, arthritis Father Family Medical History: Cancer Additional Family Medical History / Comment(s): lung cancer Sister(s) Family Medical History: Asthma Additional Family Medical History / Comment(s): depression, border line DM Brother(s) Additional Family Medical History / Comment(s): back surgeries, psoriasis Son(s) Family Medical History: No Reported History General Exam Limitations: no limitations General appearance: alert, in no apparent distress Head exam: Present: atraumatic, normocephalic, normal inspection Eye exam: Present: normal appearance, PERRL, EOMI. Absent: scleral icterus, conjunctival injection, periorbital swelling ENT exam: Present: normal exam, mucous membranes moist Neck exam: Present: normal inspection, full ROM. Absent: tenderness, meningismus, lymphadenopathy Respiratory exam: Present: normal lung sounds bilaterally. Absent: respiratory distress, wheezes, rales, rhonchi, stridor Cardiovascular Exam: Present: regular rate, normal rhythm, normal heart sounds. Absent: systolic murmur, diastolic murmur, rubs, gallop, clicks GI/Abdominal exam: Present: soft, tenderness, normal bowel sounds. Absent: distended, guarding, rebound, rigid Back exam: Present: CVA tenderness (R). Absent: CVA tenderness (L) Neurological exam: Present: alert, oriented X3, CN II-XII intact Skin exam: Present: warm, dry, intact, normal color. Absent: rash Course Vital Signs 11/03/18 11/03/18 07:11 07:45 Temperature 99 F 100.3 F H Pulse Rate 103 H Respiratory 18 Rate Blood Pressure 135/83 O2 Sat by Pulse 97 Oximetry Medical Decision Making - Medical Decision Making 53-year-old female presented for low back pain. Patient did have initial temperature 100.3. Patient CT, lab and urinalysis. There is no clear source for infection. Patient improved after Toradol. Patient will be discharged with ibuprofen, tramadol and Robaxin. Patient will follow-up with orthopedics return for any worsening symptoms. - Lab Data Result diagrams: 11/03/18 07:35 11/03/18 07:35 Lab Results 11/03/18 11/03/18 11/03/18 Range/Units 07:35 07:35 07:35 WBC 9.6 (3.8-10.6) k/uL RBC 4.69 (3.80-5.40) m/uL Hgb 14.3 (11.4-16.0) gm/dL Hct 42.3 (34.0-46.0) % MCV 90.2 (80.0-100.0) fL MCH 30.4 (25.0-35.0) pg MCHC 33.7 (31.0-37.0) g/dL RDW 14.0 (11.5-15.5) % Plt Count 290 (150-450) k/uL Neutrophils % 84 % Lymphocytes % 12 % Monocytes % 3 % Eosinophils % 0 % Basophils % 0 % Neutrophils # 8.0 H (1.3-7.7) k/uL Lymphocytes # 1.1 (1.0-4.8) k/uL Monocytes # 0.3 (0-1.0) k/uL Eosinophils # 0.0 (0-0.7) k/uL Basophils # 0.0 (0-0.2) k/uL Sodium 141 (137-145) mmol/L Potassium 4.0 (3.5-5.1) mmol/L Chloride 106 (98-107) mmol/L Carbon Dioxide 25 (22-30) mmol/L Anion Gap 10 mmol/L BUN 10 (7-17) mg/dL Creatinine 0.88 (0.52-1.04) mg/dL Est GFR (CKD-EPI)AfAm 88 (>60 ml/min/1.73 sqM) Est GFR (CKD-EPI)NonAf 76 (>60 ml/min/1.73 sqM) Glucose 113 H (74-99) mg/dL Plasma Lactic Acid Abdirizak 0.9 (0.7-2.0) mmol/L Calcium 9.1 (8.4-10.2) mg/dL Total Bilirubin 0.8 (0.2-1.3) mg/dL AST 22 (14-36) U/L ALT 36 (9-52) U/L Alkaline Phosphatase 78 (38-126) U/L Total Protein 7.3 (6.3-8.2) g/dL Albumin 4.4 (3.5-5.0) g/dL Lipase 93 (23-300) U/L Urine Color Urine Appearance (Clear) Urine pH (5.0-8.0) Ur Specific Lavinia (1.001-1.035) Urine Protein (Negative) Urine Glucose (UA) (Negative) Urine Ketones (Negative) Urine Blood (Negative) Urine Nitrite (Negative) Urine Bilirubin (Negative) Urine Urobilinogen (<2.0) mg/dL Ur Leukocyte Esterase (Negative) Urine RBC (0-5) /hpf Urine WBC (0-5) /hpf Urine Mucus (None) /hpf 11/03/18 Range/Units 07:35 WBC (3.8-10.6) k/uL RBC (3.80-5.40) m/uL Hgb (11.4-16.0) gm/dL Hct (34.0-46.0) % MCV (80.0-100.0) fL MCH (25.0-35.0) pg MCHC (31.0-37.0) g/dL RDW (11.5-15.5) % Plt Count (150-450) k/uL Neutrophils % % Lymphocytes % % Monocytes % % Eosinophils % % Basophils % % Neutrophils # (1.3-7.7) k/uL Lymphocytes # (1.0-4.8) k/uL Monocytes # (0-1.0) k/uL Eosinophils # (0-0.7) k/uL Basophils # (0-0.2) k/uL Sodium (137-145) mmol/L Potassium (3.5-5.1) mmol/L Chloride (98-107) mmol/L Carbon Dioxide (22-30) mmol/L Anion Gap mmol/L BUN (7-17) mg/dL Creatinine (0.52-1.04) mg/dL Est GFR (CKD-EPI)AfAm (>60 ml/min/1.73 sqM) Est GFR (CKD-EPI)NonAf (>60 ml/min/1.73 sqM) Glucose (74-99) mg/dL Plasma Lactic Acid Abdirizak (0.7-2.0) mmol/L Calcium (8.4-10.2) mg/dL Total Bilirubin (0.2-1.3) mg/dL AST (14-36) U/L ALT (9-52) U/L Alkaline Phosphatase (38-126) U/L Total Protein (6.3-8.2) g/dL Albumin (3.5-5.0) g/dL Lipase (23-300) U/L Urine Color Light Yellow Urine Appearance Clear (Clear) Urine pH 6.0 (5.0-8.0) Ur Specific Lavinia 1.007 (1.001-1.035) Urine Protein Negative (Negative) Urine Glucose (UA) Negative (Negative) Urine Ketones Negative (Negative) Urine Blood Small H (Negative) Urine Nitrite Negative (Negative) Urine Bilirubin Negative (Negative) Urine Urobilinogen <2.0 (<2.0) mg/dL Ur Leukocyte Esterase Trace H (Negative) Urine RBC 3 (0-5) /hpf Urine WBC 2 (0-5) /hpf Urine Mucus Rare H (None) /hpf Disposition Clinical Impression: Lumbar back pain Disposition: HOME SELF-CARE Condition: Stable Instructions (If sedation given, give patient instructions): Acute Low Back Pain (ED) Additional Instructions: Please return to the Emergency Department if symptoms worsen or any other concerns. Prescriptions: Ibuprofen [Motrin] 600 mg PO Q8HR PRN #30 tab PRN Reason: Pain Methocarbamol [Robaxin] 500 mg PO TID PRN #15 tab PRN Reason: muscle spasms traMADol HCl [Ultram] 50 mg PO Q6H PRN #12 tab PRN Reason: Pain Is patient prescribed a controlled substance at d/c from ED?: Yes When asked, does pt state using other controlled substances?: No If prescribed controlled substance>3 days was MAPS reviewed?: Prescribed <3 Days Referrals: Pat Tao MD [Primary Care Provider] - 1-2 days Time of Disposition: 09:18
[2018-11-03 08:05] LABS: Basophils % (A) 0 %; Eosinophils % (A) 0 %; HCT 42.3 % (34.0-46.0); HGB 14.3 gm/dL (11.4-16.0); Lymphocytes # (A) 1.1 k/uL (1.0-4.8); Lymphocytes % (A) 12 %; MCH 30.4 pg (25.0-35.0); MCHC 33.7 g/dL (31.0-37.0); MCV 90.2 fL (80.0-100.0); Mean Platelet Volume 6.9; Monocytes # (A) 0.3 k/uL (0-1.0); Monocytes % (A) 3 %; Neutrophils % (A) 84 %; Platelet Count 290 k/uL (150-450); RBC 4.69 m/uL (3.80-5.40); WBC 9.6 k/uL (3.8-10.6)
[2018-11-03 08:12] LABS: Appearance,Urine Clear (Clear); Bilirubin,Urine Negative (Negative); Blood,Urine Small (Negative); Color,Urine Light Yellow; Glucose,Urine (UA) Negative (Negative); Ketones,Urine Negative (Negative); Leukocyte Esterase,Urine Trace (Negative); Mucus,Urine Rare /hpf; Nitrite,Urine Negative (Negative); Protein,Urine Negative (Negative); RBC,Urine 3 /hpf (0-5); Specific Gravity,Urine 1.007 (1.001-1.035); Urobilinogen,Urine <2.0 mg/dL (<2.0)
[2018-11-03 08:16] LABS: Albumin 4.4 g/dL (3.5-5.0); Calcium 9.1 mg/dL (8.4-10.2); Total Bilirubin 0.8 mg/dL (0.2-1.3); Total Protein 7.3 g/dL (6.3-8.2)
--- NOTE | 2018-11-03 09:10 | CT ---
EXAMINATION TYPE: CT abdomen pelvis w con DATE OF EXAM: 11/03/2018 REFERENCE: Previous study dated 11/14/2015. HISTORY: Pain HISTORY: Bilat flank pain with fever CT DLP: 1257.9 mGy Automated exposure control for dose reduction was used. TECHNIQUE: Helical acquisition through the abdomen and pelvis was obtained following the oral ingesti on of without Oral Contrast and following intravenous administration of 100 mL of Isovue 300. The tamanna a was reformatted in axial, coronal and sagittal projections. FINDINGS: Visualized portions of the lungs are clear. There is no pleural or pericardial fluid. The heart is not enlarged. There is a stable 9 mm lesion in the lateral aspect of the left breast. There are 2 smaller lesions i n the lateral aspect of the right breast, also unchanged from previous. Within the abdomen, the liver, spleen and gallbladder appear normal. Both adrenal glands appear normal. There is no evidence of hydronephrosis or nephrolithiasis. The kidneys enhance homogeneously. The pancreas is unremarkable. There is mild atheromatous calcification of the aorta. There is no significant retroperitoneal, iliac or inguinal adenopathy. Uterus and ovaries appear unremarkable. The bladder is slightly thickened. There is minimal stranding in the perivesical the appendix is norm al. There are scattered diverticula throughout the left side of the colon without radiographic evidence o f diverticulitis. The appendix is normal. Small bowel loops are of normal caliber. No free fluid and no free air is seen. There is facet arthropathy in the lower lumbar spine and hypertrophic spondylosis in the upper spine. IMPRESSION: 1. NO EVIDENCE OF NEPHROLITHIASIS, HYDRONEPHROSIS OR PYELONEPHRITIS. NORMAL APPENDIX. 2. THICKENING OF THE BLADDER WALL WITH MILD STRANDING IN THE PERIVESICULAR FAT. PLEASE CORRELATE FOR CYSTITIS. 3. STABLE LESIONS IN BOTH BREASTS. 4. UNCOMPLICATED DIVERTICULOSIS OF THE LEFT SIDE OF THE COLON.
[2018-11-03 09:32] VITALS: BP 132/80; PULSE 86; RESP 16; TEMP 98.9
== END 2018-11-03 09:31 | disposition home or self-care (01) ==
LOC: EC 07:07
DX: M54.5 Low back pain (principal); Z88.5 Allergy status to narcotic agent; Z87.891 Personal history of nicotine dependence
CPT/HCPCS: 36415; 80053; 83605; 83690; 85025; 81001; 87040; 74177; 99284; 96374; 96361; J1885; Q9967

== ENCOUNTER 2018-12-05 15:34 | Observation (INO) | payer OTHER ==
--- NOTE | 2018-12-05 15:57 | ED ---
Chest Pain HPI - General Chief Complaint: Chest Pain Stated Complaint: Chest pain Time Seen by Provider: 12/05/18 15:46 Source: patient, family, RN notes reviewed, old records reviewed Mode of arrival: ambulatory Limitations: no limitations - History of Present Illness Initial Comments: This is a 51-year-old female the ER for evaluation chest pain. Patient has left-sided chest pain shortness of breath strong history of family heart disease. Patient has no prior cardiac evaluation. Patient very concerned with chest pain and shortness of breath currently sweating, no recent travel history no sick contacts no fever cough or congestion MD Complaint: chest pain -: hour(s) Onset: during rest Pain Location: substernal, left chest Pain Radiation: LUE Severity: moderate Severity scale (1-10): 4 Quality: aching, heaviness Improves With: nothing Worsens With: nothing Anginal Symptoms: diaphoresis, dyspnea Treatments Prior to Arrival: none - Related Data Home Medications Medication Instructions Recorded Confirmed Ibuprofen [Motrin] 800 mg PO Q6H PRN 11/03/18 12/05/18 Allergies Allergy/AdvReac Type Severity Reaction Status Date / Time codeine AdvReac Nausea & Verified 12/05/18 16:04 Vomiting Review of Systems ROS Statement: Those systems with pertinent positive or pertinent negative responses have been documented in the HPI. ROS Other: All systems not noted in ROS Statement are negative. EKG Findings - EKG Comments: EKG Findings:: EKG shows sinus rhythm rate of 63, WA 136, QRS 80, QTC 427 Past Medical History Past Medical History: COPD Additional Past Medical History / Comment(s): chronic lower back pain, arthritis in back History of Any Multi-Drug Resistant Organisms: None Reported Past Surgical History: Section Past Anesthesia/Blood Transfusion Reactions: No Reported Reaction Past Psychological History: No Psychological Hx Reported Smoking Status: Former smoker Past Alcohol Use History: Occasional Past Drug Use History: None Reported - Past Family History Mother Family Medical History: Coronary Artery Disease (CAD), Diabetes Mellitus, Myocardial Infarction ([place]) Additional Family Medical History / Comment(s): CABG, arthritis Father Family Medical History: Cancer Additional Family Medical History / Comment(s): lung cancer Sister(s) Family Medical History: Asthma Additional Family Medical History / Comment(s): depression, border line DM Brother(s) Additional Family Medical History / Comment(s): back surgeries, psoriasis Son(s) Family Medical History: No Reported History General Exam Limitations: no limitations General appearance: alert, in no apparent distress Head exam: Present: atraumatic, normocephalic, normal inspection Eye exam: Present: normal appearance, PERRL, EOMI. Absent: scleral icterus, conjunctival injection, periorbital swelling ENT exam: Present: normal exam, mucous membranes moist Neck exam: Present: normal inspection. Absent: tenderness, meningismus, lymphadenopathy Respiratory exam: Present: normal lung sounds bilaterally. Absent: respiratory distress, wheezes, rales, rhonchi, stridor Cardiovascular Exam: Present: regular rate, normal rhythm, normal heart sounds. Absent: systolic murmur, diastolic murmur, rubs, gallop, clicks GI/Abdominal exam: Present: soft, normal bowel sounds. Absent: distended, tenderness, guarding, rebound, rigid Extremities exam: Present: normal inspection, full ROM, normal capillary refill. Absent: tenderness, pedal edema, joint swelling, calf tenderness Back exam: Present: normal inspection Neurological exam: Present: alert, oriented X3, CN II-XII intact Psychiatric exam: Present: normal affect, normal mood Skin exam: Present: warm, dry, intact, normal color. Absent: rash Course Vital Signs 12/05/18 12/05/18 15:40 16:30 Temperature 97.8 F Pulse Rate 68 70 Respiratory 16 17 Rate Blood Pressure 145/92 142/79 O2 Sat by Pulse 100 97 Oximetry - Reevaluation(s) Reevaluation #1: 12/05/18 17:29 Medical record is reviewed Reevaluation #2: 12/05/18 17:29 Patient still currently and has been Chest Pain MDM - MDM 53 female the ER for evaluation. The for evasive chest pain history of heart disease family history of heart disease will admit for cardiac observation secondary shortness factors Critical Care Time Critical Care Time: Yes Total Critical Care Time: 31 Disposition Clinical Impression: Chest pain Disposition: ADMITTED IP TO THIS HOSP Condition: Undetermined Instructions (If sedation given, give patient instructions): Chest Pain (ED) Is patient prescribed a controlled substance at d/c from ED?: No Referrals: Pat Tao MD [Primary Care Provider] - 1-2 days
[2018-12-05 16:26] LABS: Basophils % (A) 1 %; Eosinophils # (A) 0.2 k/uL (0-0.7); Eosinophils % (A) 2 %; HCT 44.3 % (34.0-46.0); HGB 14.6 gm/dL (11.4-16.0); Lymphocytes # (A) 1.6 k/uL (1.0-4.8); Lymphocytes % (A) 21 %; MCH 30.3 pg (25.0-35.0); MCV 91.7 fL (80.0-100.0); Mean Platelet Volume 6.3; Monocytes # (A) 0.4 k/uL (0-1.0); Monocytes % (A) 5 %; Neutrophils # (A) 5.4 k/uL (1.3-7.7); Neutrophils % (A) 71 %; Platelet Count 283 k/uL (150-450); RBC 4.83 m/uL (3.80-5.40); RDW 12.8 % (11.5-15.5); WBC 7.7 k/uL (3.8-10.6)
--- NOTE | 2018-12-05 16:29 | XR ---
EXAMINATION TYPE: XR chest 2V DATE OF EXAM: 12/05/2018 COMPARISON: Chest x-ray September 19, 2018. HISTORY: Chest pain. TECHNIQUE: Frontal and lateral views of the chest are obtained. FINDINGS: There is lateral left basilar linear atelectasis. Low lung volumes are redemonstrated. Rig ht lung remains clear. Overlying EKG leads are present on current study. The cardiac silhouette size is within normal limits. The osseous structures are intact. IMPRESSION: New lateral left basilar linear atelectasis.
[2018-12-05 16:36] LABS: ALT 29 U/L (9-52); AST 28 U/L (14-36); African American GFR (CKD) >90 (>60 ml/min/1.73 sqM); Albumin 4.4 g/dL (3.5-5.0); Alkaline Phosphatase 71 U/L (38-126); Anion Gap 11 mmol/L; Blood Urea Nitrogen 16 mg/dL (7-17); Calcium 9.4 mg/dL (8.4-10.2); Carbon Dioxide 21 mmol/L (22-30); Chloride 110 mmol/L (98-107); Creatine Kinase 68 U/L (30-135); Glucose 118 mg/dL (74-99); Magnesium 1.9 mg/dL (1.6-2.3); Potassium 4.1 mmol/L (3.5-5.1); Sodium 142 mmol/L (137-145); Total Bilirubin 0.8 mg/dL (0.2-1.3); Total Protein 7.7 g/dL (6.3-8.2)
[2018-12-05 16:38] LABS: D-Dimer 0.38 mg/L FEU (<0.60); INR 0.9 (<1.2); Partial Thromboplastin Time 24.4 sec (22.0-30.0)
[2018-12-05] MEDS ORDERED: ASPIRIN 81 MG PO STA (17:27)
[2018-12-05] MEDS ORDERED: NITROGLYCERIN SL TABS 0.4 MG TAB SUBLINGUAL PRN (17:27)
[2018-12-05] MEDS ORDERED: HEPARIN SODIUM,PORCINE 5,000 UNIT/ML 1 ML VIAL IV ONE (17:27)
[2018-12-05] MEDS ORDERED: HEPARIN SODIUM,PORCINE 5,000 UNIT/ML 1 ML VIAL IV PRN (17:27)
[2018-12-05] MEDS ORDERED: HEPARIN SOD,PORK IN 0.45% NACL 25,000 UNIT in 0.45% NACL 1 250ML.BAG IV SCH (17:30)
[2018-12-05] MEDS: SODIUM CHLORIDE 0.9% 1,000 ML IV SCH (17:55)
[2018-12-05] MEDS ORDERED: IBUPROFEN 800 MG TAB PO PRN (18:50)
[2018-12-06 07:30] VITALS: BP 120/69; PULSE 53; RESP 17; TEMP 97.8
--- NOTE | 2018-12-06 07:30 | CONS ---
CONSULTATION Mrs. Breanne Murdock is a 53-year-old obese lady who has been in and out of the hospital with atypical chest pain. As recently as September of this year, she came into the hospital with episode of chest pain, had a dobutamine echo which was unremarkable for any ischemia. Her heart rate during the dobutamine echo was about 151 beats per minute. She came into the hospital with complaints of what she describes as having discomfort under her left breast, deep inside, like a cramp that comes and goes and lasts about 10- 15 seconds each time. This occurs randomly, not related to any physical activity. She does some work and doing some small parts, movement, she does not lift heavy objects and she does not recall doing any heavy work with the left arm. However, the pain seems very musculoskeletal, crampy, lasting a few seconds. She is asymptomatic at the time of my evaluation. PAST MEDICAL HISTORY: Remarkable for COPD. She has no history of diabetes, hypertension, or CVA. MEDICATIONS: She takes Motrin p.r.n. ALLERGIES: To CODEINE. REVIEW OF SYSTEMS: Unremarkable other than the above-mentioned facts. Recent hospitalization with chest pain and negative dobutamine echo. PHYSICAL EXAMINATION: Blood pressure is 118/70, pulse rate is 60 per minute. HEENT: Unremarkable, fundus was not examined by me. Neck is supple. No JVD. I do not hear a carotid bruit. There is no thyromegaly. Heart exam reveals S1, S2 heard normally in all areas without a rub, murmur or gallop. Lungs are clear. Abdomen is soft, nontender. Lower extremities reveal normal pulses. No edema. Central nervous system is normal. EKG revealed sinus mechanism, no acute changes. IMPRESSION: 1. Atypical chest pain in a patient with a negative dobutamine echo within the last 3- 4 months, specifically in September of this year. 2. Obesity. 3. History of chronic obstructive pulmonary disease, past history of smoker. RECOMMENDATIONS: I explained to the patient that the pain is atypical, musculoskeletal and recent dobutamine echo was negative. No further intervention is necessary. We will increase activity and she can take some nonsteroidal anti-inflammatory medications and consider physical therapy. No intervention is necessary from a cardiac standpoint. She can be discharged. Thank you very much for the consult. She has quit smoking according to her. MMODL / IJN: [id number] /
[2018-12-06] MEDS: SODIUM CHLORIDE 0.9% 1,000 ML IV SCH (07:35)
[2018-12-06 07:58] LABS: Mean Platelet Volume 6.9; Platelet Count 236 k/uL (150-450)
[2018-12-06 07:59] LABS: Cholesterol 175 mg/dL (<200); HDL Cholesterol 33 mg/dL (40-60); LDL Cholesterol,Calculated 120 mg/dL (0-99); Triglycerides 108 mg/dL (<150)
[2018-12-06] MEDS ORDERED: ATORVASTATIN 80 MG TAB PO SCH (09:00)
[2018-12-06] MEDS ORDERED: ASPIRIN 325 MG TAB PO SCH (09:00)
--- NOTE | 2018-12-06 10:54 | P.HPIM ---
History of Present Illness This is combined tension. And discharge summary Discharge diagnoses: Atypical chest pain, mostly musculoskeletal. Results Obesity Chronic back pain History of COPD. Not in acute exacerbation This is a pleasant 53 years old female with past medical history of COPD and chronic back pain and arthritis. Present because of chest pain of 2 days' duration. The patient chest pain felt like a cramp below her left breast associated with some tenderness with no dyspnea or fever. Patient's vitals is stable except for mild asymptomatic bradycardia. Labs are unremarkable CBC, BMP and liver enzymes. Troponin is negative x3, d-dimer is negative as 0.38 which is within normal limits. EKG showing normal sinus rhythm at 63. Chest x-ray left atelectasis. Patient has been evaluated by cardiology team, patient has recent negative dobutamine echo within the last 3-4 months. Patient was treated symptomatically and she showed interval improvement in her symptoms On the day of discharge patient denies chest pain as it is completely resolved, denies dyspnea, denied change in urine or bowel habits. No fever Cardiology cleared the patient for discharge Problems and management plan were discussed with the patient and he verbalized understanding and acceptance Patient was found stable and can be discharged home however he needs follow-up as an outpatient Gen: patient is a AAOx3, no distress CVS: S1-S2, RRR, no murmur Lungs: B/L CTA, no wheezing Abdomen: soft, no distention, no tenderness, positive bowel sounds Extremity: no leg edema or induration Time spent more than 35 minutes Past Medical History Past Medical History: COPD Additional Past Medical History / Comment(s): chronic lower back pain, arthritis in back History of Any Multi-Drug Resistant Organisms: None Reported Past Surgical History: Section Past Anesthesia/Blood Transfusion Reactions: No Reported Reaction Past Psychological History: No Psychological Hx Reported Smoking Status: Former smoker Past Alcohol Use History: Occasional Past Drug Use History: None Reported - Past Family History Mother Family Medical History: Coronary Artery Disease (CAD), Diabetes Mellitus, Myocardial Infarction ([place]) Additional Family Medical History / Comment(s): CABG, arthritis Father Family Medical History: Cancer Additional Family Medical History / Comment(s): lung cancer Sister(s) Family Medical History: Asthma Additional Family Medical History / Comment(s): depression, border line DM Brother(s) Additional Family Medical History / Comment(s): back surgeries, psoriasis Son(s) Family Medical History: No Reported History Medications and Allergies Home Medications Medication Instructions Recorded Confirmed Type Ibuprofen [Motrin] 800 mg PO Q6H PRN 11/03/18 12/05/18 History Allergies Allergy/AdvReac Type Severity Reaction Status Date / Time codeine AdvReac Nausea & Verified 12/05/18 16:04 Vomiting Physical Exam Vitals: Vital Signs Temp Pulse Pulse Resp BP BP Pulse Ox 12/06/18 07:29 97.8 F 53 L 17 120/69 100 12/06/18 03:58 97.7 F 57 L 16 102/62 97 12/05/18 23:41 98.1 F 57 L 16 116/70 99 12/05/18 18:21 97.8 F 61 18 123/79 99 12/05/18 18:13 70 18 131/82 99 12/05/18 17:30 79 18 132/63 12/05/18 17:00 64 18 142/79 97 12/05/18 16:30 70 17 142/79 97 12/05/18 15:40 97.8 F 68 16 145/92 100 Intake and Output 12/05/18 12/06/18 12/06/18 22:59 06:59 14:59 Intake Total 55 440 Balance 55 440 Intake: Intake, IV Titration 55 Amount Heparin Sod,Pork in 0.45% 55 NaCl 25,000 unit In 0.45 % NaCl 1 250ml.bag @ 10. 807 UNITS/KG/HR 10 mls/hr IV .Q24H JAYLAN Rx#: [id number] Oral 240 Other 200 Other: Voiding Method Toilet Toilet # Voids 2 Weight 92.533 kg Results CBC & Chem 7: 12/06/18 07:04 12/05/18 16:08 Labs: Abnormal Lab Results - Last 24 Hours (Table) 12/05/18 12/05/18 12/06/18 Range/Units 16:08 22:07 07:04 APTT 63.0 H (22.0-30.0) sec Chloride 110 H (98-107) mmol/L Carbon Dioxide 21 L (22-30) mmol/L Glucose 118 H (74-99) mg/dL LDL Cholesterol, Calc 120 H (0-99) mg/dL HDL Cholesterol 33 L (40-60) mg/dL Thrombosis Risk Factor Assmnt - Choose All That Apply Any of the Below Risk Factors Present?: Yes Each Factor Represents 1 point: Abnormal pulmonary function (COPD), Age 41-60 years, Obesity (BMI >25) Other Risk Factors: No Thrombosis Risk Factor Assessment Total Risk Factor Score: 3 Thrombosis Risk Factor Assessment Level: Moderate Risk
== END 2018-12-06 12:03 | disposition home or self-care (01) ==
LOC: EC 15:34 → 1SOBS 17:27
PROVIDERS: ADMIT Hospitalist; ATTEND Hospitalist
DX: R07.89 Other chest pain (principal); Z88.5 Allergy status to narcotic agent; E66.9 Obesity, unspecified; Z68.38 Body mass index [BMI] 38.0-38.9, adult; J44.9 Chronic obstructive pulmonary disease, unspecified; G89.29 Other chronic pain; M46.90 Unspecified inflammatory spondylopathy, site unspecified; Z87.891 Personal history of nicotine dependence; Z83.3 Family history of diabetes mellitus; Z80.1 Family history of malignant neoplasm of trachea, bronchus and lung; Z81.8 Family history of other mental and behavioral disorders; Z82.49 Family history of ischemic heart disease and other diseases of the circulatory system; Z82.5 Family history of asthma and other chronic lower respiratory diseases
CPT/HCPCS: 96366 ×2; 96376; 96365; 99291; 36415; 93005; 85379; 83880; 80061; 80053; 82550; 83690; 83735; 84484 ×2; 85025; 85049; 85610; 85730; 71046; G0378 ×2; J1644 ×2

== ENCOUNTER 2022-12-20 13:52 | Emergency (ER) | payer OTHER ==
[2022-12-20] MEDS ORDERED: SODIUM CHLORIDE 0.9% 1,000 ML IV STA (14:39)
--- NOTE | 2022-12-20 14:51 | ED ---
General Adult HPI - General Chief complaint: Abdominal Pain Stated complaint: abd pain, post op Time Seen by Provider: 12/20/22 14:10 Source: patient, RN notes reviewed Mode of arrival: wheelchair Limitations: no limitations - History of Present Illness Initial comments: 57-year-old female presents to the emergency department with chief complaint of abdominal pain. She states that recently underwent bowel resection with ileostomy placement. She states that the surgery was on . She was discharged home last , [id number]. She states that she was doing well was walking and had minimal pain at discharge. Since then, she has had pain in her rectum and abdomen. She states that she was initially passing blood clots through her rectum she states that this has improved but she reports she had some blood today. Dr. Marshall did her surgery at [facility]. She denies fever, chills. She states that she has been having good output in her ostomy bag. - Related Data Home Medications Medication Instructions Recorded Confirmed Acetaminophen [Tylenol Extra 500 - 1,000 mg PO Q6H PRN 12/20/22 12/20/22 Strength] Enoxaparin [Lovenox] 40 mg SQ HS 12/20/22 12/20/22 Ibuprofen [Motrin Ib] 400 mg PO Q6H PRN 12/20/22 12/20/22 Pregabalin [Lyrica] 25 mg PO Q6H 12/20/22 12/20/22 Allergies Allergy/AdvReac Type Severity Reaction Status Date / Time codeine AdvReac Nausea & Verified 12/20/22 15:02 Vomiting Review of Systems ROS Statement: Those systems with pertinent positive or pertinent negative responses have been documented in the HPI. ROS Other: All systems not noted in ROS Statement are negative. Past Medical History Past Medical History: Cancer, COPD Additional Past Medical History / Comment(s): chronic lower back pain, arthritis in back History of Any Multi-Drug Resistant Organisms: None Reported Past Surgical History: Bowel Resection, Section Additional Past Surgical History / Comment(s): + colostomy Past Anesthesia/Blood Transfusion Reactions: No Reported Reaction Past Psychological History: No Psychological Hx Reported Smoking Status: Never smoker Past Alcohol Use History: Occasional Past Drug Use History: None Reported - Past Family History Mother Family Medical History: Coronary Artery Disease (CAD), Diabetes Mellitus, Myocardial Infarction ([place]) Additional Family Medical History / Comment(s): CABG, arthritis Father Family Medical History: Cancer Additional Family Medical History / Comment(s): lung cancer Sister(s) Family Medical History: Asthma Additional Family Medical History / Comment(s): depression, border line DM Brother(s) Additional Family Medical History / Comment(s): back surgeries, psoriasis Son(s) Family Medical History: No Reported History General Exam Limitations: no limitations General appearance: alert, in no apparent distress Head exam: Present: atraumatic, normocephalic, normal inspection Eye exam: Present: normal appearance, PERRL, EOMI. Absent: scleral icterus, conjunctival injection, periorbital swelling ENT exam: Present: normal exam, mucous membranes moist Neck exam: Present: normal inspection. Absent: tenderness, meningismus, lymphadenopathy Respiratory exam: Present: normal lung sounds bilaterally. Absent: respiratory distress, wheezes, rales, rhonchi, stridor Cardiovascular Exam: Present: regular rate, normal rhythm, normal heart sounds. Absent: systolic murmur, diastolic murmur, rubs, gallop, clicks GI/Abdominal exam: Present: distended, tenderness, guarding, hyperactive bowel sounds. Absent: rebound, rigid Extremities exam: Present: normal inspection, full ROM, normal capillary refill. Absent: tenderness, pedal edema, joint swelling, calf tenderness Back exam: Present: normal inspection Neurological exam: Present: alert, oriented X3 Psychiatric exam: Present: normal affect, normal mood Skin exam: Present: warm, dry, intact, normal color. Absent: rash Course Vital Signs 12/20/22 12/20/22 12/20/22 13:53 14:00 15:04 Temperature 98.2 F 98.3 F 98.4 F Pulse Rate 110 H 92 90 Respiratory 26 H 20 18 Rate Blood Pressure 119/80 135/84 129/83 O2 Sat by Pulse 97 96 95 Oximetry 12/20/22 12/20/22 17:49 18:57 Temperature 98.9 F 99.1 F Pulse Rate 67 84 Respiratory 18 18 Rate Blood Pressure 111/61 109/76 O2 Sat by Pulse 100 99 Oximetry Medical Decision Making - Medical Decision Making Was pt. sent in by a medical professional or institution (, PA, SURVEILLANCE MANAGER, urgent care, hospital, or shelter...) When possible be specific @ -No Did you speak to anyone other than the patient for history (EMS, parent, family, police, friend...)? What history was obtained from this source @ -No Did you review nursing and triage notes (agree or disagree)? Why? @ -I reviewed and agree with nursing and triage notes Were old charts reviewed (outside hosp., previous admission, EMS record, old EKG, old radiological studies, urgent care reports/EKG's, shelter records)? Report findings @ -No old charts were reviewed Differential Diagnosis (chest pain, altered mental status, abdominal pain women, abdominal pain men, vaginal bleeding, weakness, fever, dyspnea, syncope, headache, dizziness, GI bleed, back pain, seizure, CVA, palpatations, mental health, musculoskeletal)? @ -Differential Abdominal Pain Women: Appendicitis, Cholecystitis, diverticulosis, ischemic bowel, pancreatitis, hepatitis, UTI, gastroenteritis, AAA, incarcerated hernia, bowel obstruction, constipation, inflammatory bowel, hepatitis, peptic ulcer disease, splenic infarction, perforated viscus, vulvitis, ovarian torsion, PID, kidney stone, placenta abruption, this is not meant to be an all-inclusive list EKG interpreted by me (3pts min.). @ -None X-rays interpreted by me (1pt min.). @ -None done CT interpreted by me (1pt min.). @ -CT abd pelvis showed large fluid collection with internal foci of air felt to reflect a leak and/or abscess, small bowel obstruction with possible in carceration or strangulation U/S interpreted by me (1pt. min.). @ -None done What testing was considered but not performed or refused? (CT, X-rays, U/S, labs)? Why? @ -None What meds were considered but not given or refused? Why? @ -None Did you discuss the management of the patient with other professionals (professionals i.e. DrNiyah, PA, SURVEILLANCE MANAGER, lab, RT, psych nurse, web content & social media manager, hoop cutter, teacher, field health officer, returned case inspector)? Give summary @ -Case discussed with Dr[facility] Carver at [facility] who is excepting of the ER to ER transfer.] Was smoking cessation discussed for >3mins.? @ -No Was critical care preformed (if so, how long)? @ -No Were there social determinants of health that impacted care today? How? (Homelessness, low income, unemployed, alcoholism, drug addiction, transportation, low edu. Level, literacy, decrease access to med. care, intermediate, rehab)? @ -No Was there de-escalation of care discussed even if they declined (Discuss DNR or withdrawal of care, Hospice)? DNR status @ -No What co-morbidities impacted this encounter? (DM, HTN, Smoking, COPD, CAD, Can cer, CVA, ARF, Chemo, Hep., AIDS, mental health diagnosis, sleep apnea, morbid obesity)? @ -None Was patient admitted / discharged? Hospital course, mention meds given and route, prescriptions, significant lab abnormalities, going to OR and other pertinent info. @ -Transferred. Patient presented to emergency department with chief complaint of abdominal pain. She recently underwent an ileostomy on at [facility] by Dr. Marshall and continues to have abdominal pain and rectal pain. CBC shows WBC 12.2, hemoglobin 11.2; UA shows sodium 131, potassium 4.6, UA shows 1+ protein, 1+ ketones, trace blood, 14 rbcs, [address] abd pelvis showed large fluid collection with internal foci of air which likely to reflect a leak and/or abscess, small bowel obstruction likely due to parastomal hernia with possible incarceration or strangulation. Patient received 3g of unasyn. Case was discussed with Dr. Carver [facility]. who is accepting of the ER to ER transfer of the patient for continuation of care. She was stable at time of transfer with fluids hanging at 75 mL/h. Case discussed with my attending, Dr. Cespedes Undiagnosed new problem with uncertain prognosis? @ -No Drug Therapy requiring intensive monitoring for toxicity (Heparin, Nitro, Insulin, Cardizem)? @ -No Were any procedures done? @ -No Diagnosis/symptom? @ -small bowel obstruction Acute, or Chronic, or Acute on Chronic? @ -acute Uncomplicated (without systemic symptoms) or Complicated (systemic symptoms)? @ -uncomplicated Side effects of treatment? @ -No Exacerbation, Progression, or Severe Exacerbation? @ -No Poses a threat to life or bodily function? How? (Chest pain, [place], [place], pneumonia, PE, COPD, DKA, ARF, appy, cholecystitis, CVA, Diverticulitis, Homicidal, Suicidal, threat to staff... and all critical care pts) @ -No - Lab Data Result diagrams: 12/20/22 14:45 12/20/22 14:45 Lab Results 12/20/22 12/20/22 12/20/22 Range/Units 14:45 14:45 14:45 WBC 12.2 H (3.8-10.6) k/uL RBC 3.57 L (3.80-5.40) m/uL Hgb 11.2 L (11.4-16.0) gm/dL Hct 33.4 L (34.0-46.0) % MCV 93.4 (80.0-100.0) fL MCH 31.4 (25.0-35.0) pg MCHC 33.6 (31.0-37.0) g/dL RDW 13.1 (11.5-15.5) % Plt Count 432 (150-450) k/uL MPV 7.5 Neutrophils % 85 % Lymphocytes % 8 % Monocytes % 5 % Eosinophils % 1 % Basophils % 0 % Neutrophils # 10.4 H (1.3-7.7) k/uL Lymphocytes # 1.0 (1.0-4.8) k/uL Monocytes # 0.6 (0-1.0) k/uL Eosinophils # 0.1 (0-0.7) k/uL Basophils # 0.0 (0-0.2) k/uL PT 10.5 (9.0-12.0) sec INR 1.0 (<1.2) APTT 26.6 (22.0-30.0) sec Sodium (137-145) mmol/L Potassium (3.5-5.1) mmol/L Chloride (98-107) mmol/L Carbon Dioxide (22-30) mmol/L Anion Gap mmol/L BUN (7-17) mg/dL Creatinine (0.52-1.04) mg/dL Est GFR (CKD-EPI)AfAm (>60 ml/min/1.73 sqM) Est GFR (CKD-EPI)NonAf (>60 ml/min/1.73 sqM) Glucose (74-99) mg/dL Plasma Lactic Acid Abdirizak (0.7-2.0) mmol/L Calcium (8.4-10.2) mg/dL Total Bilirubin (0.2-1.3) mg/dL AST (14-36) U/L ALT (4-34) U/L Alkaline Phosphatase (38-126) U/L Total Protein (6.3-8.2) g/dL Albumin (3.5-5.0) g/dL Amylase (30-110) U/L Lipase (23-300) U/L Urine Color Light Red Urine Appearance Cloudy H (Clear) Urine pH 6.0 (5.0-8.0) Ur Specific Overgaard 1.032 (1.001-1.035) Urine Protein 1+ H (Negative) Urine Glucose (UA) Negative (Negative) Urine Ketones 1+ H (Negative) Urine Blood Trace H (Negative) Urine Nitrite Negative (Negative) Urine Bilirubin 1+ H (Negative) Urine Urobilinogen 4.0 (<2.0) mg/dL Ur Leukocyte Esterase Moderate H (Negative) Urine RBC 14 H (0-5) /hpf Urine WBC 10 H (0-5) /hpf Ur Squamous Epith Cells 2 (0-4) /hpf Urine Mucus Few H (None) /hpf 12/20/22 12/20/22 Range/Units 14:45 14:45 WBC (3.8-10.6) k/uL RBC (3.80-5.40) m/uL Hgb (11.4-16.0) gm/dL Hct (34.0-46.0) % MCV (80.0-100.0) fL MCH (25.0-35.0) pg MCHC (31.0-37.0) g/dL RDW (11.5-15.5) % Plt Count (150-450) k/uL MPV Neutrophils % % Lymphocytes % % Monocytes % % Eosinophils % % Basophils % % Neutrophils # (1.3-7.7) k/uL Lymphocytes # (1.0-4.8) k/uL Monocytes # (0-1.0) k/uL Eosinophils # (0-0.7) k/uL Basophils # (0-0.2) k/uL PT (9.0-12.0) sec INR (<1.2) APTT (22.0-30.0) sec Sodium 131 L (137-145) mmol/L Potassium 4.6 (3.5-5.1) mmol/L Chloride 96 L (98-107) mmol/L Carbon Dioxide 23 (22-30) mmol/L Anion Gap 12 mmol/L BUN 15 (7-17) mg/dL Creatinine 0.71 (0.52-1.04) mg/dL Est GFR (CKD-EPI)AfAm >90 (>60 ml/min/1.73 sqM) Est GFR (CKD-EPI)NonAf >90 (>60 ml/min/1.73 sqM) Glucose 111 H (74-99) mg/dL Plasma Lactic Acid Abdirizak 1.2 (0.7-2.0) mmol/L Calcium 8.6 (8.4-10.2) mg/dL Total Bilirubin 1.1 (0.2-1.3) mg/dL AST 78 H (14-36) U/L ALT 59 H (4-34) U/L Alkaline Phosphatase 131 H (38-126) U/L Total Protein 6.9 (6.3-8.2) g/dL Albumin 3.3 L (3.5-5.0) g/dL Amylase 43 (30-110) U/L Lipase 169 (23-300) U/L Urine Color Urine Appearance (Clear) Urine pH (5.0-8.0) Ur Specific Overgaard (1.001-1.035) Urine Protein (Negative) Urine Glucose (UA) (Negative) Urine Ketones (Negative) Urine Blood (Negative) Urine Nitrite (Negative) Urine Bilirubin (Negative) Urine Urobilinogen (<2.0) mg/dL Ur Leukocyte Esterase (Negative) Urine RBC (0-5) /hpf Urine WBC (0-5) /hpf Ur Squamous Epith Cells (0-4) /hpf Urine Mucus (None) /hpf Disposition Clinical Impression: Small bowel obstruction, Post surgical complication, Anastomotic leak of intestine Disposition: OTHER INSTITUTION NOT DEFINED Condition: Stable Is patient prescribed a controlled substance at d/c from ED?: No Referrals: Pat Tao MD [Primary Care Provider] - 1-2 days Time of Disposition: 18:41 - Out of Hospital Transfer - Req. Specs Out of Hospital Transfer - Requested Specifics: Other Emergency Center ([facility]
[2022-12-20 14:56] LABS: Basophils % (A) 0 %; Eosinophils # (A) 0.1 k/uL (0-0.7); Eosinophils % (A) 1 %; HCT 33.4 % (34.0-46.0); HGB 11.2 gm/dL (11.4-16.0); Lymphocytes % (A) 8 %; MCH 31.4 pg (25.0-35.0); MCHC 33.6 g/dL (31.0-37.0); MCV 93.4 fL (80.0-100.0); Mean Platelet Volume 7.5; Monocytes # (A) 0.6 k/uL (0-1.0); Monocytes % (A) 5 %; Neutrophils # (A) 10.4 k/uL (1.3-7.7); Neutrophils % (A) 85 %; Platelet Count 432 k/uL (150-450); RBC 3.57 m/uL (3.80-5.40); RDW 13.1 % (11.5-15.5); WBC 12.2 k/uL (3.8-10.6)
[2022-12-20 15:04] LABS: Partial Thromboplastin Time 26.6 sec (22.0-30.0); Prothrombin Time 10.5 sec (9.0-12.0)
[2022-12-20 15:06] VITALS: RESP 18
[2022-12-20 15:12] LABS: ALT 59 U/L (4-34); AST 78 U/L (14-36); African American GFR (CKD) >90 (>60 ml/min/1.73 sqM); Albumin 3.3 g/dL (3.5-5.0); Alkaline Phosphatase 131 U/L (38-126); Amylase 43 U/L (30-110); Anion Gap 12 mmol/L; Blood Urea Nitrogen 15 mg/dL (7-17); Calcium 8.6 mg/dL (8.4-10.2); Carbon Dioxide 23 mmol/L (22-30); Chloride 96 mmol/L (98-107); Glucose 111 mg/dL (74-99); Lipase 169 U/L (23-300); Non-African American GFR(CKD) >90 (>60 ml/min/1.73 sqM); Potassium 4.6 mmol/L (3.5-5.1); Sodium 131 mmol/L (137-145); Total Bilirubin 1.1 mg/dL (0.2-1.3); Total Protein 6.9 g/dL (6.3-8.2)
[2022-12-20 15:35] LABS: Appearance,Urine Cloudy (Clear); Bilirubin,Urine 1+ (Negative); Blood,Urine Trace (Negative); Color,Urine Light Red; Glucose,Urine (UA) Negative (Negative); Ketones,Urine 1+ (Negative); Leukocyte Esterase,Urine Moderate (Negative); Mucus,Urine Few /hpf; Nitrite,Urine Negative (Negative); Protein,Urine 1+ (Negative); RBC,Urine 14 /hpf (0-5); Specific Gravity,Urine 1.032 (1.001-1.035); Squamous Epithelial Cell,Urine 2 /hpf (0-4); WBC,Urine 10 /hpf (0-5)
--- NOTE | 2022-12-20 16:28 | CT ---
EXAMINATION TYPE: CT abdomen pelvis w con DATE OF EXAM: 12/20/2022 COMPARISON: 11/03/2018 HISTORY: abdominal pain around stoma CT DLP: 1629.4 mGycm CONTRAST: CT scan of the abdomen and pelvis is performed without Oral Contrast and with IV Contrast, patient in jected with 100 mL of Isovue 300. FINDINGS: LUNG BASES-: No visible nodule. No infiltrate. LIVER/GB: No calcified gallstones. No space occupying hepatic lesion. Biliary tree is of normal ca liber. PANCREAS: No inflammation. No distinct mass. SPLEEN: No splenic enlargement. No lesion seen. ADRENALS: No nodule. No thickening. KIDNEYS/BLADDER: No hydronephrosis. No nephrolithiasis. No distinct renal mass. Urinary bladder g rossly unremarkable. BOWEL: Right upper quadrant ileostomy is noted. There appears to be a peristomal hernia which contain s a segment of small bowel. There is proximal dilatation of small bowel measuring up to 3.7 cm. There is stranding within the stomal sac. Anastomotic sutures low rectum. There is a large fluid collectio n with internal foci of air felt to reflect a leak and/or abscess measuring 8.6 x 6.3 x 3.4 cm within the presacral space. Normal appendix is visualized. No evidence for free intra-abdominal air. GENITAL ORGANS: No gross abnormality. LYMPH NODES: No greater than 1cm abdominal or pelvic lymph nodes are appreciated. AORTA: No significant abnormality. OSSEOUS STRUCTURES: No significant abnormality is seen. OTHER: No significant additional abnormality is seen. IMPRESSION: 1. Anastomotic sutures low rectum. There is a large fluid collection with internal foci of air felt t o reflect a leak and/or abscess measuring 8.6 x 6.3 x 3.4 cm within the presacral space. 2. Small bowel obstruction felt to be secondary to parastomal hernia with possible incarceration or s trangulation.
[2022-12-20] MEDS ORDERED: AMPICILLIN-SULBACTAM 3 GM in SODIUM CHLORIDE 0.9% 100 ML IVPB STA (16:41)
[2022-12-20] MEDS ORDERED: SODIUM CHLORIDE 0.9% 1,000 ML IV SCH (18:45)
[2022-12-20] MEDS ORDERED: PIPERACILLIN-TAZOBACTAM 3.375 GM in SODIUM CHLORIDE 0.9% 100 ML IVPB STA (18:48)
[2022-12-20 18:59] VITALS: BP 109/76; PULSE 84; TEMP 99.1
[2022-12-20] MEDS ORDERED: HYDROmorphone 0.5 MG/0.5 ML SYRINGE IVP STA (19:08)
== END 2022-12-20 19:14 | disposition other institution (70) ==
LOC: EC 13:52
DX: K91.83 Postprocedural hepatorenal syndrome (principal); K43.5 Parastomal hernia without obstruction or gangrene; K56.609 Unspecified intestinal obstruction, unspecified as to partial versus complete obstruction; J44.9 Chronic obstructive pulmonary disease, unspecified; Z88.5 Allergy status to narcotic agent
CPT/HCPCS: 36415; 80053; 82150; 83605; 83690; 85025; 85610; 85730; 81001; 87040; 74177; 99285; 96365; 96375; 96361; J0295; J1170; Q9967

== ENCOUNTER 2022-12-29 23:14 | Emergency (ER) | payer OTHER ==
[2022-12-29 23:51] VITALS: TEMP 98.1
[2022-12-30 01:06] LABS: Basophils % (A) 0 %; Eosinophils # (A) 0.1 k/uL (0-0.7); Eosinophils % (A) 1 %; HCT 33.6 % (34.0-46.0); HGB 10.9 gm/dL (11.4-16.0); Lymphocytes # (A) 0.8 k/uL (1.0-4.8); Lymphocytes % (A) 11 %; MCH 30.3 pg (25.0-35.0); MCHC 32.4 g/dL (31.0-37.0); MCV 93.6 fL (80.0-100.0); Mean Platelet Volume 7.1; Monocytes # (A) 0.4 k/uL (0-1.0); Monocytes % (A) 6 %; Neutrophils # (A) 5.4 k/uL (1.3-7.7); Neutrophils % (A) 81 %; Platelet Count 501 k/uL (150-450); RBC 3.59 m/uL (3.80-5.40); RDW 13.8 % (11.5-15.5); WBC 6.7 k/uL (3.8-10.6)
[2022-12-30 01:19] LABS: ALT 36 U/L (4-34); AST 35 U/L (14-36); African American GFR (CKD) >90 (>60 ml/min/1.73 sqM); Albumin 3.4 g/dL (3.5-5.0); Alkaline Phosphatase 81 U/L (38-126); Anion Gap 9 mmol/L; Blood Urea Nitrogen 17 mg/dL (7-17); Calcium 8.9 mg/dL (8.4-10.2); Carbon Dioxide 20 mmol/L (22-30); Chloride 109 mmol/L (98-107); Glucose 104 mg/dL (74-99); Lipase 414 U/L (23-300); Magnesium 1.9 mg/dL (1.6-2.3); Non-African American GFR(CKD) >90 (>60 ml/min/1.73 sqM); Potassium 4.2 mmol/L (3.5-5.1); Sodium 138 mmol/L (137-145); Total Bilirubin 0.4 mg/dL (0.2-1.3); Total Protein 6.9 g/dL (6.3-8.2)
[2022-12-30] MEDS ORDERED: PREGABALIN 25 MG CAP PO STA (01:50)
--- NOTE | 2022-12-30 03:05 | CT ---
EXAMINATION TYPE: CT abdomen pelvis w con CT DLP: 2014.8 mGycm, Automated exposure control for dose reduction was used. DATE OF EXAM: 12/30/2022 1:22 AM COMPARISON: CT abdomen pelvis most recent from 12/20/2022 . CLINICAL INDICATION:Female, 57 years old with history of Colostomy pain, inflammation; TECHNIQUE: Standard CT of the abdomen and pelvis following the administration of 100 cc of Isovue 3 00 IV contrast material. Coronal and sagittal reformats were performed. FINDINGS: LOWER CHEST: The visualized lungs are clear. Elevation the right hemidiaphragm. ABDOMEN LIVER: Unremarkable GALLBLADDER AND BILE DUCTS: Unremarkable. PANCREAS: Unremarkable. SPLEEN: Unremarkable. ADRENAL GLANDS: Unremarkable. KIDNEYS AND URETERS: No evidence of hydronephrosis or renal calculus. The kidneys enhance symmetrical ly. Contrast demonstrated within both collecting systems on the delayed phase. PELVIS BLADDER: Incompletely distended but grossly unremarkable. REPRODUCTIVE: Unremarkable. ABDOMEN & PELVIS STOMACH AND BOWEL: Stomach and duodenum are unremarkable. Anastomotic sutures are redemonstrated with in region of the rectum. Right lower quadrant ileostomy with similar parastomal hernia containing non obstructive small bowel. No fluid collection at the ileostomy site. The appendix is within normal madrigal its. No evidence of bowel obstruction. PERITONEUM/RETROPERITONEUM: No evidence of pneumoperitoneum or free fluid. There is a surgical drain identified in the presacral space with thickened decrease in previously seen gas and fluid collection with trace fluid and single focus of gas identified. VASCULATURE: Mild atherosclerotic calcifications are present throughout the abdominal aorta and its b ranches. No evidence of aortic aneurysm. MUSCULOSKELETAL: No acute osseous abnormalities. Grade 1 anterolisthesis of L4 on L5 without evidence of pars defects. LYMPH NODES: No gross evidence for lymphadenopathy. SOFT TISSUE/ABDOMINAL WALL: Few foci of gas and stranding within the anterior abdominal wall soft tis sues likely related to medication injection. IMPRESSION: 1. Significant decrease in previously seen air-fluid collection in the presacral space with trace fl uid and single focus of gas at the tip of the surgical drain. 2. Post surgical changes with right lower quadrant ileostomy with small parastomal hernia redemonstra cristopher. No organized fluid collection.
--- NOTE | 2022-12-30 03:23 | ED ---
General Adult HPI - General Chief complaint: Abdominal Pain Stated complaint: Pain in colostomy area Time Seen by Provider: 12/29/22 23:57 Source: patient Mode of arrival: wheelchair Limitations: no limitations - History of Present Illness Initial comments: This is a 57-year-old female with a past medical history including stage III: Cancer status post colectomy with ileostomy and rectal tube status post abscess presents emergency department for abdominal pain and troubles with her ostomy. The patient stated that she has had troubles with the ostomy sticking to her skin with tenderness around the ostomy site. The patient stated that she also had abdominal pain but did state that the information has decreased. The patient denied any fevers and chills was resting in bed in come to be. The patient denied any other acute pain or complaints. - Related Data Home Medications Medication Instructions Recorded Confirmed Acetaminophen [Tylenol Extra 500 - 1,000 mg PO Q6H PRN 12/20/22 12/20/22 Strength] Enoxaparin [Lovenox] 40 mg SQ HS 12/20/22 12/20/22 Ibuprofen [Motrin Ib] 400 mg PO Q6H PRN 12/20/22 12/20/22 Pregabalin [Lyrica] 25 mg PO Q6H 12/20/22 12/20/22 Allergies Allergy/AdvReac Type Severity Reaction Status Date / Time codeine AdvReac Nausea & Verified 12/20/22 15:02 Vomiting Review of Systems ROS Statement: Those systems with pertinent positive or pertinent negative responses have been documented in the HPI. ROS Other: All systems not noted in ROS Statement are negative. Past Medical History Past Medical History: Cancer, COPD Additional Past Medical History / Comment(s): chronic lower back pain, arthritis in back History of Any Multi-Drug Resistant Organisms: None Reported Past Surgical History: Bowel Resection, Section Additional Past Surgical History / Comment(s): + colostomy Past Anesthesia/Blood Transfusion Reactions: No Reported Reaction Past Psychological History: No Psychological Hx Reported Smoking Status: Never smoker Past Alcohol Use History: Occasional Past Drug Use History: None Reported - Past Family History Mother Family Medical History: Coronary Artery Disease (CAD), Diabetes Mellitus, Myocardial Infarction (IA) Additional Family Medical History / Comment(s): CABG, arthritis Father Family Medical History: Cancer Additional Family Medical History / Comment(s): lung cancer Sister(s) Family Medical History: Asthma Additional Family Medical History / Comment(s): depression, border line DM Brother(s) Additional Family Medical History / Comment(s): back surgeries, psoriasis Son(s) Family Medical History: No Reported History General Exam Limitations: no limitations General appearance: alert, in no apparent distress, obese Head exam: Present: atraumatic, normocephalic, normal inspection Eye exam: Present: normal appearance, PERRL Pupils: Present: normal accommodation ENT exam: Present: normal exam, normal oropharynx, mucous membranes moist Neck exam: Present: normal inspection, full ROM Respiratory exam: Present: normal lung sounds bilaterally Cardiovascular Exam: Present: regular rate, normal rhythm, normal heart sounds GI/Abdominal exam: Present: soft, tenderness (Mild TTP over the mid abdomen around the ostomy. Ileostomy in place and draining), normal bowel sounds Extremities exam: Present: normal inspection, full ROM Back exam: Present: normal inspection, full ROM Neurological exam: Present: alert, oriented X3, CN II-XII intact Psychiatric exam: Present: normal affect, normal mood Skin exam: Present: warm, dry Course Vital Signs 12/29/22 23:47 Temperature 98.1 F Pulse Rate 100 Respiratory 18 Rate Blood Pressure 114/71 O2 Sat by Pulse 100 Oximetry Medical Decision Making - Medical Decision Making Was pt. sent in by a medical professional or institution (RIMMA Christian, EDUCATION MANAGER, urgent care, hospital, or penitentiary...) When possible be specific @ -No Did you speak to anyone other than the patient for history (EMS, parent, family, police, friend...)? What history was obtained from this source @ -No Did you review nursing and triage notes (agree or disagree)? Why? @ -I reviewed and agree with nursing and triage notes Were old charts reviewed (outside hosp., previous admission, EMS record, old EKG, old radiological studies, urgent care reports/EKG's, penitentiary records)? Report findings @ -No old charts were reviewed Differential Diagnosis (chest pain, altered mental status, abdominal pain women, abdominal pain men, vaginal bleeding, weakness, fever, dyspnea, syncope, headache, dizziness, GI bleed, back pain, seizure, CVA, palpatations, mental health)? @ -Gastroenteritis, ostomy pain, cellulitis at the ostomy site, stomal hernia EKG interpreted by me (3pts min.). @ -None X-rays interpreted by me (1pt min.). @ -None done CT interpreted by me (1pt min.). @ -CT abdomen and pelvis with contrast was obtained and was interpreted by myself showing significant decrease in previously seen air fluid collection in the presacral space with trace fluid in single focus of gas the tip of the surgical drain. There is posterior cervical changes with right lower quadrant ileostomy with small parastomal hernia redemonstrated. There was no denies fluid collection. U/S interpreted by me (1pt. min.). @ -None done What testing was considered but not performed or refused? (CT, X-rays, U/S, labs)? Why? @ -None What meds were considered but not given or refused? Why? @ -None Did you discuss the management of the patient with other professionals (professionals i.e. , PA, EDUCATION MANAGER, lab, RT, psych nurse, social sciences professor, host/hostess ground, teacher, restoration officer, major case detective)? Give summary @ -No Was smoking cessation discussed for >3mins.? @ -No Was critical care preformed (if so, how long)? @ -No Were there social determinants of health that impacted care today? How? (Homelessness, low income, unemployed, alcoholism, drug addiction, marx sportation, low edu. Level, literacy, decrease access to med. care, [facility], rehab)? @ -No Was there de-escalation of care discussed even if they declined (Discuss DNR or withdrawal of care, Hospice)? DNR status @ -No What co-morbidities impacted this encounter? (DM, HTN, Smoking, COPD, CAD, Cancer, CVA, ARF, Chemo, Hep., AIDS, mental health diagnosis, sleep apnea, morbid obesity)? @ -Stage III colon cancer, ileostomy in place Was patient admitted / discharged? Hospital course, mention meds given and route, prescriptions, significant lab abnormalities, going to OR and other pertinent info. @ -The patient was seen and evaluated emergency department. Physical exam, the patient was resting in bed without any acute distress. Vital signs admission were stable. Due to the nature the patient's complaints, laboratory workup was obtained and was within normal limits. The patient's computed tomography scan was also obtained that was negative for any acute or worsening pathology. Myself and the nurse replaced the patient's ostomy bag and had good adhesive to the skin however was noted that we rechecked it, there was folding of the adhesive over the skin. The patient complained of continued leaking. The patient did have the ostia bag replaced once again and was told that there was no further material. In the emergency department that could assist with this. The patient was advised to follow-up with her surgeon for continued workup and evaluation as well as her ostomy nurse. The patient was agreeable to this and all her questions were answered. The patient was discharged home in stable condition. Undiagnosed new problem with uncertain prognosis? @ -No Drug Therapy requiring intensive monitoring for toxicity (Heparin, Nitro, Insulin, Cardizem)? @ -No Were any procedures done? @ -No Diagnosis/symptom? @ -Ostomy malfunction, abdominal pain Acute, or Chronic, or Acute on Chronic? @ -Acute on chronic Uncomplicated (without systemic symptoms) or Complicated (systemic symptoms)? @ -Complicated Side effects of treatment? @ -No Exacerbation, Progression, or Severe Exacerbation? @ -No Poses a threat to life or bodily function? How? (Chest pain, USA, IA, pneumonia, PE, COPD, DKA, ARF, appy, cholecystitis, CVA, Diverticulitis, Homicidal, Suicidal, threat to staff... and all critical care pts) @ -No - Lab Data Result diagrams: 12/30/22 00:55 12/30/22 00:55 Lab Results 12/30/22 12/30/22 Range/Units 00:55 00:55 WBC 6.7 (3.8-10.6) k/uL RBC 3.59 L (3.80-5.40) m/uL Hgb 10.9 L (11.4-16.0) gm/dL Hct 33.6 L (34.0-46.0) % MCV 93.6 (80.0-100.0) fL MCH 30.3 (25.0-35.0) pg MCHC 32.4 (31.0-37.0) g/dL RDW 13.8 (11.5-15.5) % Plt Count 501 H (150-450) k/uL MPV 7.1 Neutrophils % 81 % Lymphocytes % 11 % Monocytes % 6 % Eosinophils % 1 % Basophils % 0 % Neutrophils # 5.4 (1.3-7.7) k/uL Lymphocytes # 0.8 L (1.0-4.8) k/uL Monocytes # 0.4 (0-1.0) k/uL Eosinophils # 0.1 (0-0.7) k/uL Basophils # 0.0 (0-0.2) k/uL Sodium 138 (137-145) mmol/L Potassium 4.2 (3.5-5.1) mmol/L Chloride 109 H (98-107) mmol/L Carbon Dioxide 20 L (22-30) mmol/L Anion Gap 9 mmol/L BUN 17 (7-17) mg/dL Creatinine 0.74 (0.52-1.04) mg/dL Est GFR (CKD-EPI)AfAm >90 (>60 ml/min/1.73 sqM) Est GFR (CKD-EPI)NonAf >90 (>60 ml/min/1.73 sqM) Glucose 104 H (74-99) mg/dL Calcium 8.9 (8.4-10.2) mg/dL Magnesium 1.9 (1.6-2.3) mg/dL Total Bilirubin 0.4 (0.2-1.3) mg/dL AST 35 (14-36) U/L ALT 36 H (4-34) U/L Alkaline Phosphatase 81 (38-126) U/L Total Protein 6.9 (6.3-8.2) g/dL Albumin 3.4 L (3.5-5.0) g/dL Lipase 414 H (23-300) U/L Disposition Clinical Impression: Complication of ostomy, Abdominal pain Disposition: HOME SELF-CARE Condition: Stable Instructions (If sedation given, give patient instructions): Colostomy Care (ED), Abdominal Pain (ED) Is patient prescribed a controlled substance at d/c from ED?: No Referrals: Pat Tao MD [Primary Care Provider] - 1-2 days Time of Disposition: 03:20
[2022-12-30 05:12] VITALS: BP 124/71; PULSE 68; RESP 20
== END 2022-12-30 05:00 | disposition home or self-care (01) ==
LOC: EC 23:14
DX: K94.00 Colostomy complication, unspecified (principal); K43.5 Parastomal hernia without obstruction or gangrene; J44.9 Chronic obstructive pulmonary disease, unspecified; Z88.5 Allergy status to narcotic agent
CPT/HCPCS: 36415; 80053; 83690; 83735; 85025; 74177; 99284; Q9967

== ENCOUNTER 2023-06-29 22:14 | Emergency (ER) | payer OTHER ==
[2023-06-29 23:23] LABS: Basophils % (A) 1 %; Eosinophils # (A) 0.1 k/uL (0-0.7); Eosinophils % (A) 2 %; HCT 38.2 % (34.0-46.0); HGB 13.1 gm/dL (11.4-16.0); Lymphocytes # (A) 1.1 k/uL (1.0-4.8); Lymphocytes % (A) 18 %; MCH 31.7 pg (25.0-35.0); MCHC 34.3 g/dL (31.0-37.0); MCV 92.3 fL (80.0-100.0); Monocytes # (A) 0.4 k/uL (0-1.0); Monocytes % (A) 6 %; Neutrophils # (A) 4.2 k/uL (1.3-7.7); Neutrophils % (A) 72 %; Platelet Count 225 k/uL (150-450); RBC 4.14 m/uL (3.80-5.40); RDW 14.9 % (11.5-15.5); WBC 5.8 k/uL (3.8-10.6)
[2023-06-29 23:39] LABS: INR 0.9 (<1.2); Prothrombin Time 10.5 sec (10.0-12.5)
[2023-06-29 23:50] LABS: ALT 48 U/L (4-34); AST 53 U/L (14-36); African American GFR (CKD) >90 (>60 ml/min/1.73 sqM); Alkaline Phosphatase 76 U/L (38-126); Amylase 67 U/L (30-110); Anion Gap 7 mmol/L; Blood Urea Nitrogen 11 mg/dL (7-17); Calcium 9.3 mg/dL (8.4-10.2); Carbon Dioxide 24 mmol/L (22-30); Chloride 108 mmol/L (98-107); Glucose 130 mg/dL (74-99); Lipase 289 U/L (23-300); Non-African American GFR(CKD) 81 (>60 ml/min/1.73 sqM); Potassium 3.8 mmol/L (3.5-5.1); Sodium 139 mmol/L (137-145); Total Bilirubin 0.5 mg/dL (0.2-1.3)
[2023-06-30] MEDS: PANTOPRAZOLE 40 MG/10 ML VIAL IVP STA
[2023-06-30] MEDS: ONDANSETRON 4 MG/2 ML VIAL IVP STA (00:01)
[2023-06-30] MEDS: SODIUM CHLORIDE 0.9% 1,000 ML IV STA (00:01)
[2023-06-30] MEDS: MORPHINE SULFATE 4 MG/ML SYRINGE IVP STA (00:01)
--- NOTE | 2023-06-30 01:23 | CT ---
EXAM: CT Abdomen and Pelvis With Intravenous Contrast CLINICAL HISTORY: CT Reason: abdominal pain near hernia/colostomy TECHNIQUE: Axial computed tomography images of the abdomen and pelvis with intravenous contrast. CTDI is 28.3 mGy and DLP is 1428.6 mGy-cm. This CT exam was performed using one or more of the following dose reduction techniques: automated exposure control, adjustment of the mA and/or kV according to patient size, and/or use of iterative reconstruction technique. Coronal and sagittal reformatted images were created and reviewed. 462 images COMPARISON: 12/30/22 FINDINGS: Lung bases: Unremarkable. No mass. No consolidation. ABDOMEN: Liver: Mildly enlarged fatty liver. Gallbladder and bile ducts: Tiny stones in the gallbladder. No ductal dilation. Pancreas: Unremarkable. No mass. No ductal dilation. Spleen: Unremarkable. No splenomegaly. Adrenals: Unremarkable. No mass. Kidneys and ureters: Unremarkable. No solid mass. No hydronephrosis. Stomach and bowel: Rectal anastomosis. Moderate colonic ankylosis. Right mid abdominal parastomal hernia containing short segment of small bowel without associated bowel dilatation. Subtle stranding of herniated mesenteric fat and mild circumferential wall thickening of herniated loops of small bowel may suggest enteritis and possibly strangulation. PELVIS: Appendix: No findings to suggest acute appendicitis. Bladder: Unremarkable. No mass. Reproductive: Unremarkable as visualized. ABDOMEN and PELVIS: Intraperitoneal space: Unremarkable. No free air. No significant fluid collection. Bones/joints: 4 mm anterolisthesis of L4 on L5 and L5 on S1. Moderate compression defect at L5, new from the prior study, appears chronic. Soft tissues: See above. Vasculature: Unremarkable. No abdominal aortic aneurysm. Lymph nodes: Unremarkable. No enlarged lymph nodes. IMPRESSION: Right mid abdominal parastomal hernia containing short segment of small bowel without associated bowel dilatation. Subtle stranding of herniated mesenteric fat and mild circumferential wall thickening of herniated loops of small bowel may suggest enteritis and possibly strangulation. Please correlate clinically.
--- NOTE | 2023-06-30 01:54 | ED ---
General Adult HPI - General Chief complaint: Abdominal Pain Stated complaint: abd pain-hernia Time Seen by Provider: 06/29/23 22:33 Source: patient, RN notes reviewed, old records reviewed Mode of arrival: ambulatory Limitations: no limitations - History of Present Illness Initial comments: Patient is a 58-year-old female presents emergency department complaining of abdominal pain. Started earlier today when she was holding a baby. Has a known history of a hernia near her colostomy site. Is due to follow-up with her surgeon for reversal of the colostomy. Had a colostomy due to colon cancer. Was recently told she is cancer free. She denies any nausea or vomiting. Denies any change in bowel movements. Is still having adequate gas output into the ostomy bag as well as adequate stool output. Presents for further evaluation at this time. - Related Data Home Medications Medication Instructions Recorded Confirmed Acetaminophen [Tylenol Extra 500 - 1,000 mg PO Q6H PRN 12/20/22 12/20/22 Strength] Enoxaparin [Lovenox] 40 mg SQ HS 12/20/22 12/20/22 Ibuprofen [Motrin Ib] 400 mg PO Q6H PRN 12/20/22 12/20/22 Pregabalin [Lyrica] 25 mg PO Q6H 12/20/22 12/20/22 Allergies Allergy/AdvReac Type Severity Reaction Status Date / Time codeine AdvReac Nausea & Verified 06/29/23 22:19 Vomiting Review of Systems ROS Statement: Those systems with pertinent positive or pertinent negative responses have been documented in the HPI. Review of Systems: CONST: Denies fever EYES: Denies blurry vision ENT: Denies nasal congestion C/V: Denies Chest pain RESP: Denies shortness of breath GI: Endorses abdominal pain : Denies dysuria SKIN: Denies rash. MSK: Denies joint pain. NEURO: Denies headache ROS Other: All systems not noted in ROS Statement are negative. Past Medical History Past Medical History: Cancer, COPD Additional Past Medical History / Comment(s): chronic lower back pain, arthritis in back History of Any Multi-Drug Resistant Organisms: None Reported Past Surgical History: Bowel Resection, Section Additional Past Surgical History / Comment(s): + colostomy Past Anesthesia/Blood Transfusion Reactions: No Reported Reaction Past Psychological History: No Psychological Hx Reported Smoking Status: Never smoker Past Alcohol Use History: Occasional Past Drug Use History: None Reported - Past Family History Mother Family Medical History: Coronary Artery Disease (CAD), Diabetes Mellitus, Myocardial Infarction ([place]) Additional Family Medical History / Comment(s): CABG, arthritis Father Family Medical History: Cancer Additional Family Medical History / Comment(s): lung cancer Sister(s) Family Medical History: Asthma Additional Family Medical History / Comment(s): depression, border line DM Brother(s) Additional Family Medical History / Comment(s): back surgeries, psoriasis Son(s) Family Medical History: No Reported History General Exam - General Exam Comments Initial Comments: General: Appears in mild distress. HEAD: Normal with no signs of head trauma. EYES: PERRLA, EOMI, conjunctiva normal, no discharge. ENT: Hearing grossly intact, normal oropharynx. RESPIRATORY: Clear breath sounds bilaterally. No wheezes, rales, or rhonchi. C/V: Regular rate and rhythm. S1 and S2 auscultated, no edema, peripheral pulses 2+ and intact throughout ABD: Abdomen is soft, nondistended. Tender palpation around the ostomy site. Adequate drainage and stool output. No obvious skin changes. Hernia seems to be reducible on palpation. EXT: Normal range of motion, no obvious deformity SKIN: No rashes or lesions observed on exposed skin. NEURO: Alert and oriented x 4. Limitations: no limitations Course Vital Signs 06/29/23 06/30/23 22:16 00:02 Temperature 97.6 F Pulse Rate 88 74 Respiratory 26 H 12 Rate Blood Pressure 131/82 139/89 O2 Sat by Pulse 97 96 Oximetry Medical Decision Making - Medical Decision Making Was pt. sent in by a medical professional or institution (, PA, LEAD SOFTWARE DEVELOPER, urgent care, hospital, or fci...) When possible be specific @ -No Did you speak to anyone other than the patient for history (EMS, parent, family, police, friend...)? What history was obtained from this source @ -No Did you review nursing and triage notes (agree or disagree)? Why? @ -I reviewed and agree with nursing and triage notes Were old charts reviewed (outside hosp., previous admission, EMS record, old EKG, old radiological studies, urgent care reports/EKG's, fci records)? Report findings @ -Old charts reviewed Differential Diagnosis (chest pain, altered mental status, abdominal pain women, abdominal pain men, vaginal bleeding, weakness, fever, dyspnea, syncope, headache, dizziness, GI bleed, back pain, seizure, CVA, palpatations, mental health, musculoskeletal)? @ -Differential Abdominal Pain Women: Appendicitis, Cholecystitis, diverticulosis, ischemic bowel, pancreatitis, hepatitis, UTI, gastroenteritis, AAA, incarcerated hernia, bowel obstruction, constipation, inflammatory bowel, hepatitis, peptic ulcer disease, splenic infarction, perforated viscus, vulvitis, ovarian torsion, PID, kidney stone, placenta abruption, this is not meant to be an all-inclusive list EKG interpreted by me (3pts min.). @ -As above X-rays interpreted by me (1pt min.). @ -None done CT interpreted by me (1pt min.). @ -CT imaging reveals hernia with some surrounding mild inflammation. Could be enteritis. Clinically, does not appear to be strangulation. U/S interpreted by me (1pt. min.). @ -None done What testing was considered but not performed or refused? (CT, X-rays, U/S, labs)? Why? @ -None What meds were considered but not given or refused? Why? @ -None Did you discuss the management of the patient with other professionals (professionals i.e. , PA, LEAD SOFTWARE DEVELOPER, lab, RT, psych nurse, social work msw, book repairer, teacher, delinquency prevention officer, case checker)? Give summary @ -No Was smoking cessation discussed for >3mins.? @ -No Was critical care preformed (if so, how long)? @ -No Were there social determinants of health that impacted care today? How? (Homelessness, low income, unemployed, alcoholism, drug addiction, transportation, low edu. Level, literacy, decrease access to med. care, [facility], rehab)? @ -No Was there de-escalation of care discussed even if they declined (Discuss DNR or withdrawal of care, Hospice)? DNR status @ -No What co-morbidities impacted this encounter? (DM, HTN, Smoking, COPD, CAD, Cancer, CVA, ARF, Chemo, Hep., AIDS, mental health diagnosis, sleep apnea, morbid obesity)? @ -Colostomy Was patient admitted / discharged? Hospital course, mention meds given and route, prescriptions, significant lab abnormalities, going to OR and other pertinent info. @ -Based on the patient's presentation and physical exam, presents with hernia pain. Has slight pain at the site of her hernia. We will obtain abdominal labs laboratory studies as well as CT imaging. She will be given analgesia medications through the IV as well as fluids, Protonix, Zofran. Vital signs are within acceptable limits. Screening EKG shows no signs of acute ischemia. Patient's laboratory studies within acceptable limits including a normal lactic acid. No leukocytosis. Imaging does show presence of the hernia and in the correct clinical picture could be strangulation but could also be enteritis. I am not concerned for a strangulated hernia at this time with a normal lactic acid as well as resolution of the patient's symptoms. She is still having adequate stool output as well as gas output through the ostomy site. On reevaluation, patient is feeling improved. No pain. I discussed results with her. She feels comfortable going home. Follows up with her surgeon next week. Strict return precautions discussed. I instructed the patient to follow up with their PCP in the next 1-3 days. I explained that the patient should return to the emergency department if they experience any worsening symptoms. Strict return precautions were discussed with the patient. The patient expressed understanding of these instructions. I answered all questions that the patient had. The patient was discharged home in good condition with their prescriptions and follow up information. Undiagnosed new problem with uncertain prognosis? @ -No Drug Therapy requiring intensive monitoring for toxicity (Heparin, Nitro, Insulin, Cardizem)? @ -No Were any procedures done? @ -No Diagnosis/symptom? @ -Abdominal hernia pain Acute, or Chronic, or Acute on Chronic? @ -Acute Uncomplicated (without systemic symptoms) or Complicated (systemic symptoms)? @ -Complicated Side effects of treatment? @ -No Exacerbation, Progression, or Severe Exacerbation? @ -No Poses a threat to life or bodily function? How? (Chest pain, [place], [place], pneumonia, PE, COPD, DKA, ARF, appy, cholecystitis, CVA, Diverticulitis, Homicidal, Suicidal, threat to staff... and all critical care pts) @ -Unlikely - Lab Data Result diagrams: 06/29/23 23:00 06/29/23 23:00 Lab Results 02/16/24 02/16/24 02/16/24 Range/Units 23:00 23:00 23:00 WBC 5.8 (3.8-10.6) k/uL RBC 4.14 (3.80-5.40) m/uL Hgb 13.1 (11.4-16.0) gm/dL Hct 38.2 (34.0-46.0) % MCV 92.3 (80.0-100.0) fL MCH 31.7 (25.0-35.0) pg MCHC 34.3 (31.0-37.0) g/dL RDW 14.9 (11.5-15.5) % Plt Count 225 (150-450) k/uL MPV 7.0 Neutrophils % 72 % Lymphocytes % 18 % Monocytes % 6 % Eosinophils % 2 % Basophils % 1 % Neutrophils # 4.2 (1.3-7.7) k/uL Lymphocytes # 1.1 (1.0-4.8) k/uL Monocytes # 0.4 (0-1.0) k/uL Eosinophils # 0.1 (0-0.7) k/uL Basophils # 0.0 (0-0.2) k/uL PT 10.5 (10.0-12.5) sec INR 0.9 (<1.2) APTT 24.0 (22.0-30.0) sec Sodium 139 (137-145) mmol/L Potassium 3.8 (3.5-5.1) mmol/L Chloride 108 H (98-107) mmol/L Carbon Dioxide 24 (22-30) mmol/L Anion Gap 7 mmol/L BUN 11 (7-17) mg/dL Creatinine 0.81 (0.52-1.04) mg/dL Est GFR (CKD-EPI)AfAm >90 (>60 ml/min/1.73 sqM) Est GFR (CKD-EPI)NonAf 81 (>60 ml/min/1.73 sqM) Glucose 130 H (74-99) mg/dL Plasma Lactic Acid Abdirizak (0.7-2.0) mmol/L Calcium 9.3 (8.4-10.2) mg/dL Total Bilirubin 0.5 (0.2-1.3) mg/dL AST 53 H (14-36) U/L ALT 48 H (4-34) U/L Alkaline Phosphatase 76 (38-126) U/L Total Protein 7.0 (6.3-8.2) g/dL Albumin 4.0 (3.5-5.0) g/dL Amylase 67 (30-110) U/L Lipase 289 (23-300) U/L 06/29/23 Range/Units 23:00 WBC (3.8-10.6) k/uL RBC (3.80-5.40) m/uL Hgb (11.4-16.0) gm/dL Hct (34.0-46.0) % MCV (80.0-100.0) fL MCH (25.0-35.0) pg MCHC (31.0-37.0) g/dL RDW (11.5-15.5) % Plt Count (150-450) k/uL MPV Neutrophils % % Lymphocytes % % Monocytes % % Eosinophils % % Basophils % % Neutrophils # (1.3-7.7) k/uL Lymphocytes # (1.0-4.8) k/uL Monocytes # (0-1.0) k/uL Eosinophils # (0-0.7) k/uL Basophils # (0-0.2) k/uL PT (10.0-12.5) sec INR (<1.2) APTT (22.0-30.0) sec Sodium (137-145) mmol/L Potassium (3.5-5.1) mmol/L Chloride (98-107) mmol/L Carbon Dioxide (22-30) mmol/L Anion Gap mmol/L BUN (7-17) mg/dL Creatinine (0.52-1.04) mg/dL Est GFR (CKD-EPI)AfAm (>60 ml/min/1.73 sqM) Est GFR (CKD-EPI)NonAf (>60 ml/min/1.73 sqM) Glucose (74-99) mg/dL Plasma Lactic Acid Abdirizak 1.4 (0.7-2.0) mmol/L Calcium (8.4-10.2) mg/dL Total Bilirubin (0.2-1.3) mg/dL AST (14-36) U/L ALT (4-34) U/L Alkaline Phosphatase (38-126) U/L Total Protein (6.3-8.2) g/dL Albumin (3.5-5.0) g/dL Amylase (30-110) U/L Lipase (23-300) U/L - EKG Data -: EKG Interpreted by Me EKG Comments: 12-lead Electrocardiogram Interpretation Note EKG was reviewed and interpreted by myself. 12-lead ECG performed at 2311 is interpreted by me as revealing normal sinus rhythm at a rate of 59 beats per mi nute. [place] is normal. MI interval is 136 ms, QRS duration is 89 ms, QTc is 420 ms.. There were no ST or T wave abnormalities to suggest myocardial ischemia or injury. R wave progression across the precordium was satisfactory. By my interpretation this EKG is non-diagnostic for acute ischemia. Disposition Clinical Impression: Hernia, Abdominal pain Disposition: HOME SELF-CARE Condition: Good Instructions (If sedation given, give patient instructions): Abdominal Pain (ED) Is patient prescribed a controlled substance at d/c from ED?: No Referrals: Pat Tao MD [Primary Care Provider] - 1-2 days Time of Disposition: 01:52
[2023-06-30 02:41] VITALS: BP 136/74; PULSE 79; RESP 19; TEMP 98.4
== END 2023-06-30 02:46 | disposition home or self-care (01) ==
LOC: EC 22:14
DX: K43.5 Parastomal hernia without obstruction or gangrene (principal); J44.9 Chronic obstructive pulmonary disease, unspecified; Z88.5 Allergy status to narcotic agent
CPT/HCPCS: 74177; 80053; 82150; 83605; 83690; 85025; 85610; 85730; 93005; 96361; 96374; 96375; 99285

== ENCOUNTER 2024-10-27 13:31 | Inpatient (IN) | payer MEDICARE, OTHER ==
--- NOTE | 2024-10-27 13:47 | ED ---
General Adult HPI - General Chief complaint: Abdominal Pain Stated complaint: abd pain Time Seen by Provider: 10/27/24 13:34 Source: patient, RN notes reviewed Mode of arrival: EMS Limitations: no limitations - History of Present Illness Initial comments: Patient is a 59-year-old female present to the emergency department with concerns with abdominal discomfort. Onset of symptoms was 2 or 3 days ago. Patient has abdominal discomfort with associated nausea vomiting and diarrhea. Patient is having vomiting and diarrhea over 6 or 7 times per day. Patient does have history of colon cancer with colectomy and reversal. No fever. - Related Data Home Medications Medication Instructions Recorded Confirmed Acetaminophen Tab [Tylenol] 650 mg PO Q6H PRN 10/11/24 10/27/24 Naproxen Sodium [Aleve] 220 mg PO Q8H PRN 10/27/24 10/27/24 Allergies Allergy/AdvReac Type Severity Reaction Status Date / Time codeine AdvReac Nausea & Verified 10/27/24 15:06 Vomiting Review of Systems ROS Statement: Those systems with pertinent positive or pertinent negative responses have been documented in the HPI. ROS Other: All systems not noted in ROS Statement are negative. Constitutional: Denies: fever Eyes: Denies: eye pain ENT: Denies: ear pain Cardiovascular: Denies: chest pain Gastrointestinal: Reports: as per HPI, abdominal pain, nausea, vomiting, diarrhea Genitourinary: Denies: dysuria Musculoskeletal: Denies: back pain Past Medical History Past Medical History: Cancer, COPD Additional Past Medical History / Comment(s): chronic lower back pain, arthritis in back History of Any Multi-Drug Resistant Organisms: None Reported Past Surgical History: Bowel Resection, Section Additional Past Surgical History / Comment(s): + colostomy Past Anesthesia/Blood Transfusion Reactions: No Reported Reaction Past Psychological History: No Psychological Hx Reported Smoking Status: Never smoker Past Alcohol Use History: Occasional Past Drug Use History: Marijuana - Past Family History Mother Family Medical History: Coronary Artery Disease (CAD), Diabetes Mellitus, Myocardial Infarction ([place]) Additional Family Medical History / Comment(s): CABG, arthritis Father Family Medical History: Cancer Additional Family Medical History / Comment(s): lung cancer Sister(s) Family Medical History: Asthma Additional Family Medical History / Comment(s): depression, border line DM Brother(s) Additional Family Medical History / Comment(s): back surgeries, psoriasis Son(s) Family Medical History: No Reported History General Exam Limitations: no limitations General appearance: alert, in no apparent distress Head exam: Present: normocephalic Eye exam: Present: normal appearance Neck exam: Present: normal inspection Respiratory exam: Present: normal lung sounds bilaterally Cardiovascular Exam: Present: tachycardia Expanded Peripheral pulses: 2+: Radial (R), Radial (L), Posterior Tibialis (R), Posterior Tibialis (L) GI/Abdominal exam: Present: soft, tenderness (Moderate diffuse tenderness), normal bowel sounds. Absent: distended, guarding, rebound, rigid, pulsatile ma ss Extremities exam: Present: normal inspection. Absent: pedal edema, calf tenderness Neurological exam: Present: alert Psychiatric exam: Present: normal affect, normal mood Skin exam: Present: normal color Course Vital Signs 10/27/24 10/27/24 10/27/24 13:39 13:42 14:42 Temperature 96 F L Pulse Rate 114 H 111 H 102 H Respiratory 20 16 24 Rate Blood Pressure 113/99 98/62 164/102 O2 Sat by Pulse 94 L 95 98 Oximetry 10/27/24 14:53 Temperature Pulse Rate 79 Respiratory 24 Rate Blood Pressure 122/78 O2 Sat by Pulse 97 Oximetry EKG Findings - EKG Results: EKG: interpreted by ERMD (LVH criteria. Nonspecific T waves.), sinus rhythm, normal axis EKG shows: tachycardia Medical Decision Making - Medical Decision Making Was pt. sent in by a medical professional or institution (, PA, CONVEYOR MAN, urgent care, hospital, or intermediate...) When possible be specific @ -No Did you speak to anyone other than the patient for history (EMS, parent, family, police, friend...)? What history was obtained from this source @ -No Did you review nursing and triage notes (agree or disagree)? Why? @ -I reviewed and agree with nursing and triage notes Were old charts reviewed (outside hosp., previous admission, EMS record, old EKG, old radiological studies, urgent care reports/EKG's, intermediate records)? Report findings @ -No old charts were reviewed Differential Diagnosis (chest pain, altered mental status, abdominal pain women, abdominal pain men, vaginal bleeding, weakness, fever, dyspnea, syncope, headache, dizziness, GI bleed, back pain, seizure, CVA, palpatations, mental health, musculoskeletal)? @ -Differential Abdominal Pain Women: Appendicitis, Cholecystitis, diverticulosis, ischemic bowel, pancreatitis, hepatitis, UTI, gastroenteritis, AAA, incarcerated hernia, bowel obstruction, constipation, inflammatory bowel, hepatitis, peptic ulcer disease, splenic infarction, perforated viscus, vulvitis, ovarian torsion, PID, kidney stone, placenta abruption, this is not meant to be an all-inclusive list EKG interpreted by me (3pts min.). @ -As above X-rays interpreted by me (1pt min.). @ -None done CT interpreted by me (1pt min.). @ -CT scan shows significant edema/colitis to the entire colon. There are some ascites. This was discussed with radiologist U/S interpreted by me (1pt. min.). @ -None done What testing was considered but not performed or refused? (CT, X-rays, U/S, labs)? Why? @ -None What meds were considered but not given or refused? Why? @ -None Did you discuss the management of the patient with other professionals (professionals i.e. , PA, CONVEYOR MAN, lab, RT, psych nurse, social service worker, brick chimney builder, teacher, chief financial officer, correctional case records supervisor)? Give summary @ -Case discussed with radiologist. Case also discussed with Dr. Bull who will admit covering Dr. Tao. Was smoking cessation discussed for >3mins.? @ -No Was critical care preformed (if so, how long)? @ -No Were there social determinants of health that impacted care today? How? (Homelessness, low income, unemployed, alcoholism, drug addiction, transportation, low edu. Level, literacy, decrease access to med. care, long term, rehab)? @ -No Was there de-escalation of care discussed even if they declined (Discuss DNR or withdrawal of care, Hospice)? DNR status @ -No What co-morbidities impacted this encounter? (DM, HTN, Smoking, COPD, CAD, Cancer, CVA, ARF, Chemo, Hep., AIDS, mental health diagnosis, sleep apnea, morbid obesity)? @ -History of colostomy reversal 1 year ago Was patient admitted / discharged? Hospital course, mention meds given and route, prescriptions, significant lab abnormalities, going to OR and other pertinent info. @ -Patient presents with abdominal discomfort. White blood cell count elevated. CT scan concerning for severe edema/colitis. Patient will be admitted with surgical consult. Admission orders written. Consult placed. Patient was reevaluated, patient and family are updated. Undiagnosed new problem with uncertain prognosis? @ -No Drug Therapy requiring intensive monitoring for toxicity (Heparin, Nitro, Insuli n, Cardizem)? @ -No Were any procedures done? @ -No Diagnosis/symptom? @ -Colitis Acute, or Chronic, or Acute on Chronic? @ -Acute Uncomplicated (without systemic symptoms) or Complicated (systemic symptoms)? @ -Default Side effects of treatment? @ -No Exacerbation, Progression, or Severe Exacerbation? @ -No Poses a threat to life or bodily function? How? (Chest pain, [place], [place], pneumonia, PE, COPD, DKA, ARF, appy, cholecystitis, CVA, Diverticulitis, Homicidal, Suicidal, threat to staff... and all critical care pts) @ -No - Lab Data Result diagrams: 10/27/24 13:41 10/27/24 13:41 Lab Results 10/27/24 10/27/24 10/27/24 Range/Units 13:41 13:41 13:42 WBC 51.57 H* (4.50-10.00) 10*3/uL RBC 6.01 H (4.10-5.20) 10*6/uL Hgb 18.5 H D (12.0-15.0) g/dL Hct 53.5 H (37.2-46.3) % MCV 89.0 (80.0-97.0) fL MCH 30.8 (27.0-32.0) pg MCHC 34.6 (32.0-37.0) g/dL Plt Count 458 H (140-440) 10*3/uL MPV 8.8 L (9.5-12.2) fL Immature Gran % (Auto) 6.4 % Neutrophils % (Manual) 90 % Band Neuts % (Manual) 3 % Lymphocytes % (Manual) 3 % Monocytes % (Manual) 4 % Immature Gran # 3.31 H (0.00-0.04) 10*3/uL Neutrophils # (Manual) 47.96 H (1.3-7.7) k/uL Lymphocytes # (Manual) 1.55 (1.0-4.8) k/uL Monocytes # (Manual) 2.06 H (0-1.0) k/uL Nucleated RBCs 0 (0-0) /100 WBC Manual Slide Review Performed PT 14.3 H (10.0-12.5) sec INR 1.4 H (<1.2) APTT 24.4 (22.0-30.0) sec Sodium 136 L (137-145) mmol/L Potassium 4.8 (3.5-5.1) mmol/L Chloride 100 (98-107) mmol/L Carbon Dioxide 18 L (22-30) mmol/L Anion Gap 18 mmol/L BUN 17 (7-17) mg/dL Creatinine 2.05 H (0.52-1.04) mg/dL Est GFR (CKD-EPI)AfAm 30 (>60 ml/min/1.73 sqM) Est GFR (CKD-EPI)NonAf 26 (>60 ml/min/1.73 sqM) Glucose 191 H (74-99) mg/dL Calcium 8.6 (8.4-10.2) mg/dL Total Bilirubin 1.7 H (0.2-1.3) mg/dL AST 48 H (14-36) U/L ALT 24 (4-34) U/L Alkaline Phosphatase 86 (38-126) U/L Total Protein 6.5 (6.3-8.2) g/dL Albumin 3.3 L (3.5-5.0) g/dL Amylase 35 (30-110) U/L Lipase 18 L (23-300) U/L Disposition Clinical Impression: Colitis Disposition: ADMITTED IP TO THIS [facility] Condition: Serious Is patient prescribed a controlled substance at d/c from ED?: No Referrals: Pat Tao MD [Primary Care Provider] - 1-2 days Time of Disposition: 15:35
[2024-10-27] MEDS: SODIUM CHLORIDE 0.9% 1,000 ML IV ONE (13:51)
[2024-10-27] MEDS: DICYCLOMINE 10 MG/ML 2 ML AMP IM STA (13:52)
[2024-10-27] MEDS: FAMOTIDINE 20 MG/2 ML VIAL IV STA (13:52)
[2024-10-27 14:22] LABS: HCT 53.5 % (37.2-46.3); HGB 18.5 g/dL (12.0-15.0); MCH 30.8 pg (27.0-32.0); MCHC 34.6 g/dL (32.0-37.0); Mean Platelet Volume 8.8 fL (9.5-12.2); Platelet Count 458 10*3/uL (140-440); RBC 6.01 10*6/uL (4.10-5.20); RDW 13.4 % (11.5-14.5)
[2024-10-27 14:25] LABS: ALT 24 U/L (4-34); African American GFR (CKD) 30 (>60 ml/min/1.73 sqM); Amylase 35 U/L (30-110); Anion Gap 18 mmol/L; Blood Urea Nitrogen 17 mg/dL (7-17); Calcium 8.6 mg/dL (8.4-10.2); Carbon Dioxide 18 mmol/L (22-30); Chloride 100 mmol/L (98-107); Glucose 191 mg/dL (74-99); Lipase 18 U/L (23-300); Non-African American GFR(CKD) 26 (>60 ml/min/1.73 sqM); Sodium 136 mmol/L (137-145)
[2024-10-27 14:27] LABS: WBC 51.57 10*3/uL (4.50-10.00)
[2024-10-27 14:39] LABS: Albumin 3.3 g/dL (3.5-5.0); Potassium 4.8 mmol/L (3.5-5.1); Total Bilirubin 1.7 mg/dL (0.2-1.3); Total Protein 6.5 g/dL (6.3-8.2)
[2024-10-27 14:40] LABS: AST 48 U/L (14-36); Alkaline Phosphatase 86 U/L (38-126)
[2024-10-27] MEDS: ONDANSETRON 4 MG/2 ML VIAL IVP STA (14:50)
[2024-10-27] MEDS: HYDROmorphone 1 MG/ML 1 ML SYRINGE IVP STA (14:50)
--- NOTE | 2024-10-27 14:52 | CT ---
EXAMINATION TYPE: CT abdomen pelvis w con DATE OF EXAM: 10/27/2024 COMPARISON: 10/11/2024 CLINICAL INDICATION: Female, 59 years old with history of abdominal pain; PHH, low abd pain TECHNIQUE: Performed without Oral Contrast and with IV Contrast, patient injected with 100 ml mL of Isovue 300. CT DLP: 1187.[address] CTDI: mGy Automated exposure control for dose reduction was used. FINDINGS: There is been interval development of a small right effusion and a tiny left pleural effusion. There is a persistent 10 mm nodule in the left lung base posteriorly. There are stable small gallstones but no gallbladder wall thickening or distention. There is no bilia ry ductal dilatation. There is no focal mass or organomegaly involving the liver, pancreas, spleen or adrenal glands. There is no solid renal mass or hydronephrosis and there is homogeneous contrast enhancement of the r enal parenchyma. The caliber the abdominal aorta is normal is no retroperitoneal adenopathy or hemorr fabiana. There is marked diffuse submucosal edema and wall thickening throughout the colon consistent with an acute inflammatory process either inflammatory bowel disease such as ulcerative colitis or diffuse ba cterial infection of the colon. There is no bowel obstruction. There is no free air but there is mode rate ascites particularly within the pelvis and surrounding the liver and spleen. There are no focal osseous lesions. IMPRESSION: 1. Interval development of marked diffuse thickening of the colon wall from marked subcutaneous mucos al edema consistent with ulcerative colitis or other diffuse colitis. 2. Interval development of moderate ascites. 3. No bowel obstruction or abscess. 4. Interval development of small right pleural effusion and tiny left pleural effusion. 5. Persistent 10 mm left lower lobe pulmonary nodule. The nodule was not present on the prior CT abdo men and pelvis dated 12/30/2022 and was present on the CT abdomen pelvis dated 04/29/2024 but has grow n in the interval. CT of the chest is recommended to evaluate for the possibility of neoplasm. 6. Stable cholelithiasis. [facility], , 10/27/2024 2:50 PM
[2024-10-27 14:56] LABS: Band Neutrophils % 3 %; Lymphocytes # (M) 1.55 k/uL (1.0-4.8); Monocytes # (M) 2.06 k/uL (0-1.0); Neutrophils # (M) 47.96 k/uL (1.3-7.7); Neutrophils % (M) 90 %; Nucleated Red Blood Cells 0 /100 WBC (0-0); Total Cells Counted 100
[2024-10-27 15:01] LABS: INR 1.4 (<1.2); Partial Thromboplastin Time 24.4 sec (22.0-30.0); Prothrombin Time 14.3 sec (10.0-12.5)
[2024-10-27] MEDS: PIPERACILLIN-TAZOBACTAM 3.375 GM in SODIUM CHLORIDE 0.9% 100 ML IVPB SCH (15:08)
[2024-10-27] MEDS ORDERED: NALOXONE 0.4 MG/ML 1 ML VIAL IV PRN (15:35)
[2024-10-27] MEDS: SODIUM CHLORIDE 0.9% 1,000 ML IV SCH (15:59)
[2024-10-27] MEDS: VANCOMYCIN 125 MG CAPSULE PO STA (16:32)
[2024-10-27] MEDS: metroNIDAZOLE-NS PMX 500 MG in SALINE 1 100ML.BAG IVPB SCH (17:27)
[2024-10-27] MEDS: METOCLOPRAMIDE 5 MG/ML 2 ML VIAL IVP STA (17:27)
--- NOTE | 2024-10-27 20:59 | HP ---
HISTORY AND PHYSICAL CHIEF COMPLAINT: Abdomen discomfort, vomiting and diarrhea. HISTORY OF PRESENT ILLNESS: This 59-year-old woman with a past history of multiple medical problems including colon cancer reversal, was recently treated with UTI. The patient received a course of antibiotics, Augmentin for 10 days. There is no history of fever, rigors, or chills. White count is significantly elevated. The CT scan of the abdomen showed significant colitis. The patient had colon cancer surgery in [facility]. PAST MEDICAL HISTORY: Reviewed. Include COPD, colon cancer, DJD. Rest of history and chart is also reviewed. HOME MEDICATIONS: Reviewed include Naprosyn. ALLERGIES: Codeine. FAMILY HISTORY: History of CAD, myocardial infarction, CVA, and diabetes. SOCIAL HISTORY: Occasional alcohol. REVIEW OF SYSTEMS: A 14-point review of systems is negative, except as mentioned earlier. PHYSICAL EXAMINATION: VITAL SIGNS: Pulse is 79, blood pressure 110/70, and respirations 24. HEENT: Conjunctivae normal. NECK: No JVD. CARDIOVASCULAR: S1, S2. ABDOMEN: Soft mild diffuse discomfort. No guarding. No rigidity. LEGS: No edema. nervous system: Nonfocal. LABORATORY DATA: WBC 10.7, rest of the labs are noted. ASSESSMENT: 1. Significant severe colitis, possibly C difficile colitis. 2. Elevated WBC. 3. History of colon cancer. 4. Hyponatremia. 5. History of chronic obstructive pulmonary disease. 6. History of degenerative joint disease. RECOMMENDATIONS AND DISCUSSION: This 59-year-old woman presented with multiple complex medical issues. We will monitor the patient closely. I would recommend to continue current medications, symptomatic treatment. Vancomycin p.o. Closely follow with Dr. Park. C difficile testing. Guarded prognosis because of multiple complex medical conditions. For further recommendations, see orders for details. MMODL / IJN: [id number] /
[2024-10-27] MEDS: VANCOMYCIN 125 MG CAPSULE PO SCH (21:49)
[2024-10-27] MEDS: HEPARIN SODIUM,PORCINE 5,000 UNIT/ML 1 ML VIAL SQ SCH (21:49)
[2024-10-27] MEDS: HYDROmorphone 0.5 MG/0.5 ML SYRINGE IVP PRN (21:50)
[2024-10-28] MEDS: SIMETHICONE 40 MG/0.6 ML DROPS 2,000 MG/30 ML BOTTLE PO PRN (03:40)
[2024-10-28] MEDS: SODIUM CHLORIDE 0.9% 1,000 ML IV ONE (03:40)
[2024-10-28 04:34] LABS: HGB 18.8 g/dL (12.0-15.0); MCH 30.4 pg (27.0-32.0); MCHC 33.2 g/dL (32.0-37.0); MCV 91.7 fL (80.0-97.0); Mean Platelet Volume 9.3 fL (9.5-12.2); Platelet Count 477 10*3/uL (140-440); RBC 6.18 10*6/uL (4.10-5.20); RDW 13.9 % (11.5-14.5)
[2024-10-28 05:00] LABS: ALT 21 U/L (4-34); AST 31 U/L (14-36); African American GFR (CKD) 25 (>60 ml/min/1.73 sqM); Albumin 2.9 g/dL (3.5-5.0); Alkaline Phosphatase 111 U/L (38-126); Anion Gap 19 mmol/L; Blood Urea Nitrogen 24 mg/dL (7-17); Calcium 8.4 mg/dL (8.4-10.2); Carbon Dioxide 14 mmol/L (22-30); Chloride 103 mmol/L (98-107); Glucose 165 mg/dL (74-99); Non-African American GFR(CKD) 21 (>60 ml/min/1.73 sqM); Potassium 4.2 mmol/L (3.5-5.1); Sodium 136 mmol/L (137-145); Total Bilirubin 0.8 mg/dL (0.2-1.3); Total Protein 5.7 g/dL (6.3-8.2)
[2024-10-28 05:08] LABS: HCT 56.7 % (37.2-46.3); WBC 56.25 10*3/uL (4.50-10.00)
--- NOTE | 2024-10-28 05:20 | P.CONS ---
History of Present Illness - Reason for Consult Consult date: 10/27/24 Colitis Requesting physician: Harlan Valle - Chief Complaint Abdominal pain and diarrhea x 3 days - History of Present Illness Patient is a 59-year-old female with a past medical history significant for COPD chronic lower back pain recently completed course of antibiotic for UTI presenting to the hospital for evaluation of abdominal pain and diarrhea patient symptoms started with diarrhea about 3 days ago and the patient did have multiple episodes of loose stools on a daily basis patient denies any blood or mucus in the stool has been complaining of crampy lower abdominal pain moderate intensity did have nausea but no vomiting patient denies any high-grade fever on presentation to the hospital patient was afebrile and no fever have recorded subsequently patient was tachycardic mildly hypotensive not requiring pressor support not hypoxic or need for supplemental oxygen patient did have a white count of 51,000 creatinine is 2.05 lactic acid is elevated patient did have a abdominal pelvis CT that was reported as development of mild diffuse thickening of the colon wall from submucosal edema consistent with ulcerative colitis or diffuse colitis no bowel obstruction or abscess patient was started on Zosyn Case was discussed with me by the ER physician recommended to start the patient on oral vancomycin pending evaluation Review of Systems Positive point and negatives has been mentioned in the HPI, complete review of systems was performed and all other systems are negative Past Medical History Past Medical History: Cancer, COPD Additional Past Medical History / Comment(s): chronic lower back pain, arthritis in back History of Any Multi-Drug Resistant Organisms: None Reported Past Surgical History: Bowel Resection, Section Additional Past Surgical History / Comment(s): + colostomy Past Anesthesia/Blood Transfusion Reactions: No Reported Reaction Past Psychological History: No Psychological Hx Reported Smoking Status: Never smoker Past Alcohol Use History: Occasional Past Drug Use History: Marijuana - Past Family History Mother Family Medical History: Coronary Artery Disease (CAD), Diabetes Mellitus, Myocardial Infarction ([place]) Additional Family Medical History / Comment(s): CABG, arthritis Father Family Medical History: Cancer Additional Family Medical History / Comment(s): lung cancer Sister(s) Family Medical History: Asthma Additional Family Medical History / Comment(s): depression, border line DM Brother(s) Additional Family Medical History / Comment(s): back surgeries, psoriasis Son(s) Family Medical History: No Reported History Medications and Allergies Home Medications Medication Instructions Recorded Confirmed Type Acetaminophen Tab [Tylenol] 650 mg PO Q6H PRN 10/11/24 10/27/24 History Naproxen Sodium [Aleve] 220 mg PO Q8H PRN 10/27/24 10/27/24 History Allergies Allergy/AdvReac Type Severity Reaction Status Date / Time codeine AdvReac Nausea & Verified 10/27/24 15:06 Vomiting Physical Exam Vitals: Vital Signs Temp Pulse Resp BP Pulse Ox 10/27/24 17:00 98 20 101/80 95 10/27/24 16:00 100 20 126/80 98 10/27/24 14:53 79 24 122/78 97 10/27/24 14:42 102 H 24 164/102 98 10/27/24 13:42 111 H 16 98/62 95 10/27/24 13:39 96 F L 114 H 20 113/99 94 L Intake and Output 10/27/24 10/27/24 10/27/24 06:59 14:59 22:59 Other: Weight 80.513 kg GENERAL DESCRIPTION: Middle-age female lying in bed, no distress. No tachypnea or accessory muscle of respiration use. HEENT: Shows Pallor , no scleral icterus. Oral mucous membrane is dry. No ph aryngeal erythema or thrush NECK: Trachea central, no thyromegaly. LUNGS: Unlabored breathing. Clear to auscultation anteriorly. No wheeze or crackle. HEART: S1, S2, regular rate and rhythm. No loud murmur ABDOMEN: Soft, tenderness but no distention EXTREMITIES: No edema of feet. SKIN: No rash, no masses palpable. NEUROLOGICAL: The patient is awake, alert, oriented x3, mood and affect normal. Results CBC & Chem 7: 10/28/24 04:15 10/28/24 04:15 Labs: Abnormal Lab Results - Last 24 Hours (Table) 10/27/24 10/27/24 10/27/24 Range/Units 13:41 13:41 13:42 WBC 51.57 H* (4.50-10.00) 10*3/uL RBC 6.01 H (4.10-5.20) 10*6/uL Hgb 18.5 H D (12.0-15.0) g/dL Hct 53.5 H (37.2-46.3) % Plt Count 458 H (140-440) 10*3/uL MPV 8.8 L (9.5-12.2) fL Immature Gran # 3.31 H (0.00-0.04) 10*3/uL Neutrophils # (Manual) 47.96 H (1.3-7.7) k/uL Monocytes # (Manual) 2.06 H (0-1.0) k/uL PT 14.3 H (10.0-12.5) sec INR 1.4 H (<1.2) Sodium 136 L (137-145) mmol/L Carbon Dioxide 18 L (22-30) mmol/L Creatinine 2.05 H (0.52-1.04) mg/dL Glucose 191 H (74-99) mg/dL Plasma Lactic Acid Abdirizak (0.7-2.0) mmol/L Total Bilirubin 1.7 H (0.2-1.3) mg/dL AST 48 H (14-36) U/L Albumin 3.3 L (3.5-5.0) g/dL Lipase 18 L (23-300) U/L /16/ Range/Units 15:06 WBC (4.50-10.00) 10*3/uL RBC (4.10-5.20) 10*6/uL Hgb (12.0-15.0) g/dL Hct (37.2-46.3) % Plt Count (140-440) 10*3/uL MPV (9.5-12.2) fL Immature Gran # (0.00-0.04) 10*3/uL Neutrophils # (Manual) (1.3-7.7) k/uL Monocytes # (Manual) (0-1.0) k/uL PT (10.0-12.5) sec INR (<1.2) Sodium (137-145) mmol/L Carbon Dioxide (22-30) mmol/L Creatinine (0.52-1.04) mg/dL Glucose (74-99) mg/dL Plasma Lactic Acid Abdirizak 5.4 H* (0.7-2.0) mmol/L Total Bilirubin (0.2-1.3) mg/dL AST (14-36) U/L Albumin (3.5-5.0) g/dL Lipase (23-300) U/L Assessment and Plan (1) Sepsis Current Visit: Yes Status: Acute Code(s): A41.9 - SEPSIS, UNSPECIFIED ORGANISM SNOMED Code(s): 64681869 (2) Colitis Current Visit: Yes Status: Acute Code(s): K52.9 - NONINFECTIVE GASTROENTERITIS AND COLITIS, UNSPECIFIED SNOMED Code(s): 46278533 Plan: 1patient presented to hospital with sepsis in this patient who did have tachycardia mild hypotension elevated white count meeting currently for SIRS/sepsis source is likely C. difficile colitis in this patient with evidence of diffuse colitis seen on the CT and has recently completed a course of antibiotic for the UTI 2-we will recommend oral vancomycin 500 mg p.o. every 6 hours and IV Flagyl however discontinue Zosyn to decrease risk of any further worsening of her C. difficile colitis 3-stool for C. difficile has been requested pending collection also check a stool culture Family is at bedside question answered We will follow on clinical condition and cultures to further adjust medication if needed Thank you for this consultation we will follow the patient along with you Dictation was produced using [employer] dictation software. please excuse any gram matical, word or spelling errors. Time with Patient: Greater than 30
[2024-10-28 07:14] LABS: Band Neutrophils % 8 %; Lymphocytes # (M) 2.25 k/uL (1.0-4.8); Metamyelocytes # (M) 1.13 k/uL (0); Metamyelocytes % 2 %; Monocytes # (M) 3.94 k/uL (0-1.0); Neutrophils # (M) 48.93 k/uL (1.3-7.7); Neutrophils % (M) 79 %; Nucleated Red Blood Cells 0 /100 WBC (0-0); Total Cells Counted 100
[2024-10-28 07:57] LABS: Glucose,Whole Blood 205 mg/dL (70-110)
[2024-10-28] MEDS: ONDANSETRON 4 MG/2 ML VIAL IVP PRN (08:11)
[2024-10-28 08:20] LABS: Glucose,Whole Blood 191 mg/dL (70-110)
--- NOTE | 2024-10-28 08:43 | P.EN ---
A team was called for hypotension, severe abdominal pain, nausea, vomiting. Briefly, this is a 59-year-old female who presented to the ER on 10/27 with abdominal discomfort, associated nausea, vomiting, diarrhea. Patient has past medical history of colon cancer with colectomy and colostomy reversal. Per chart review, her urine cultures from 10/01 were positive for Klebsiella pneumonia and Citrobacter. She completed course of antibiotics. CT abdomen was done on admission and showed diffuse colitis. ID consulted, patient was started empirically on oral vancomycin and Flagyl for concern for possible C. difficile colitis. Upon my arrival, patient is in acute distress, having nausea, NBNB vomiting, her abdomen is soft, generalized severe tenderness to light touch, unable to appr eciate bowel sounds as patient does not allow for deeper pressure for auscultation. Her temperature was 96.6, heart rate in 100s, unmeasurable blood pressure, patient does have 1 peripheral IV, a team attempted multiple times to establish another peripheral IV without success. extremities are cool to touch, she is awake, alert, complains of generalized severe abdominal pain, nausea, vomiting. Family at bedside, updated. ICU called for patient to be transferred to room 265. Stat abdominal x-ray ordered and personally reviewed at bedside, colon appears to be distended,no free air, morning blood work reviewed, worsening leukocytosis 56.2, significant left shift, polycythemia sodium 136, potassium 4.2, worsening HOLDEN creatinine up to 2.43., Lactic acid persistently elevated and worsening to 8.2. Patient was continued on IV fluids at 100 cc/h Assessment and plan Shock, likely septic , unable to measure blood pressure Lactic acidosis Severe abdominal pain Diffuse colitis Differential diagnosis included fulminant C. difficile, ischemic colitis (no hx of CAD per chart review), bowel obstruction. Patient to continue IV fluids, vancomycin 500 p.o. every 6 hours plus IV metronidazole 500 mg every 8 hours, ID consulted, ICU nurse calling general surgery, patient to be transferred to ICU, plan for central line placement, possible a line. NPO. Family at bedside, updated. Continue symptomatic management with Zofran, opioids, continue IV Protonix 40 daily.Continue management per ICU.
--- NOTE | 2024-10-28 08:52 | XR ---
EXAMINATION TYPE: XR abdomen 1V DATE OF EXAM: 10/28/2024 8:27 AM COMPARISON: None. CLINICAL INDICATION: Female, 59 years old with history of increasing abd pain hx hernia repair, TECHNIQUE: XR abdomen 1V view(s) obtained. FINDINGS: There is a nonspecific bowel gas pattern. Psoas margins are normal. No organomegaly is present. IMPRESSION: 1. Nonspecific abdomen [facility], , 10/28/2024 8:49 AM
--- NOTE | 2024-10-28 09:20 | P.GSCN ---
History of Present Illness Consult date: 10/28/24 Reason for Consult: Abdominal pain, sepsis History of present illness: This a 59-year-old female who presented to the emergency room last night with complaints of abdominal pain. Patient was admitted to the hospitalist. Patient underwent CT scan which shows diffuse pancolitis with extremely thickened colonic wall. Patient developed hypotension this morning. She was transferred to the ICU. Patient has a previous history of antibiotic use. She underwent repair of hernia in August at [facility]. Patient was on antibiotics for suppose of UTI. Patient presented to [facility] ER on 531 with similar complaints of abdominal pain. Her CAT scan was reviewed and it appears that she may have had colitis at that time. Patient states her pain is increased. Past Medical History Past Medical History: Cancer, COPD Additional Past Medical History / Comment(s): chronic lower back pain, arthritis in back History of Any Multi-Drug Resistant Organisms: None Reported Past Surgical History: Bowel Resection, Section Additional Past Surgical History / Comment(s): + colostomy Past Anesthesia/Blood Transfusion Reactions: No Reported Reaction Past Psychological History: No Psychological Hx Reported Smoking Status: Never smoker Past Alcohol Use History: Occasional Past Drug Use History: Marijuana - Past Family History Mother Family Medical History: Coronary Artery Disease (CAD), Diabetes Mellitus, Myocardial Infarction ([place]) Additional Family Medical History / Comment(s): CABG, arthritis Father Family Medical History: Cancer Additional Family Medical History / Comment(s): lung cancer Sister(s) Family Medical History: Asthma Additional Family Medical History / Comment(s): depression, border line DM Brother(s) Additional Family Medical History / Comment(s): back surgeries, psoriasis Son(s) Family Medical History: No Reported History Medications and Allergies Home Medications Medication Instructions Recorded Confirmed Type Acetaminophen Tab [Tylenol] 650 mg PO Q6H PRN 10/11/24 10/27/24 History Naproxen Sodium [Aleve] 220 mg PO Q8H PRN 10/27/24 10/27/24 History Allergies Allergy/AdvReac Type Severity Reaction Status Date / Time codeine AdvReac Nausea & Verified 10/27/24 15:06 Vomiting Surgical - Exam Vital Signs Temp Pulse Resp BP Pulse Ox 96 F L 114 H 20 113/99 94 L 10/27/24 13:39 10/27/24 13:39 10/27/24 13:39 10/27/24 13:39 10/27/24 13:39 - General well developed, moderate distress - Eyes PERRL - ENT normal pinna - Neck no masses - Respiratory normal expansion - Cardiovascular Rhythm: regular - Abdomen Abdomen: tender (Diffuse tenderness with rebound guarding) Results - Labs 10/28/24 04:15 10/28/24 04:15 Abnormal Lab Results - Last 24 Hours (Table) 10/27/24 10/27/24 10/27/24 Range/Units 13:41 13:41 13:42 WBC 51.57 H* (4.50-10.00) 10*3/uL RBC 6.01 H (4.10-5.20) 10*6/uL Hgb 18.5 H D (12.0-15.0) g/dL Hct 53.5 H (37.2-46.3) % Plt Count 458 H (140-440) 10*3/uL MPV 8.8 L (9.5-12.2) fL Immature Gran # 3.31 H (0.00-0.04) 10*3/uL Neutrophils # (Manual) 47.96 H (1.3-7.7) k/uL Monocytes # (Manual) 2.06 H (0-1.0) k/uL Metamyelocytes # (Man) (0) k/uL PT 14.3 H (10.0-12.5) sec INR 1.4 H (<1.2) Sodium 136 L (137-145) mmol/L Carbon Dioxide 18 L (22-30) mmol/L BUN (7-17) mg/dL Creatinine 2.05 H (0.52-1.04) mg/dL Glucose 191 H (74-99) mg/dL POC Glucose (mg/dL) (70-110) mg/dL Plasma Lactic Acid Abdirizak (0.7-2.0) mmol/L Total Bilirubin 1.7 H (0.2-1.3) mg/dL AST 48 H (14-36) U/L Total Protein (6.3-8.2) g/dL Albumin 3.3 L (3.5-5.0) g/dL Lipase 18 L (23-300) U/L 10/27/24 10/27/24 10/27/24 Range/Units 15:06 18:02 21:06 WBC (4.50-10.00) 10*3/uL RBC (4.10-5.20) 10*6/uL Hgb (12.0-15.0) g/dL Hct (37.2-46.3) % Plt Count (140-440) 10*3/uL MPV (9.5-12.2) fL Immature Gran # (0.00-0.04) 10*3/uL Neutrophils # (Manual) (1.3-7.7) k/uL Monocytes # (Manual) (0-1.0) k/uL Metamyelocytes # (Man) (0) k/uL PT (10.0-12.5) sec INR (<1.2) Sodium (137-145) mmol/L Carbon Dioxide (22-30) mmol/L BUN (7-17) mg/dL Creatinine (0.52-1.04) mg/dL Glucose (74-99) mg/dL POC Glucose (mg/dL) (70-110) mg/dL Plasma Lactic Acid Abdirizak 5.4 H* 4.5 H* 3.5 H* (0.7-2.0) mmol/L Total Bilirubin (0.2-1.3) mg/dL AST (14-36) U/L Total Protein (6.3-8.2) g/dL Albumin (3.5-5.0) g/dL Lipase (23-300) U/L 10/27/24 10/28/24 10/28/24 Range/Units 23:54 04:15 04:15 WBC 56.25 H* (4.50-10.00) 10*3/uL RBC 6.18 H (4.10-5.20) 10*6/uL Hgb 18.8 H (12.0-15.0) g/dL Hct 56.7 H (37.2-46.3) % Plt Count 477 H (140-440) 10*3/uL MPV 9.3 L (9.5-12.2) fL Immature Gran # 5.06 H (0.00-0.04) 10*3/uL Neutrophils # (Manual) 48.93 H (1.3-7.7) k/uL Monocytes # (Manual) 3.94 H (0-1.0) k/uL Metamyelocytes # (Man) 1.13 H (0) k/uL PT (10.0-12.5) sec INR (<1.2) Sodium 136 L (137-145) mmol/L Carbon Dioxide 14 L (22-30) mmol/L BUN 24 H (7-17) mg/dL Creatinine 2.43 H (0.52-1.04) mg/dL Glucose 165 H (74-99) mg/dL POC Glucose (mg/dL) (70-110) mg/dL Plasma Lactic Acid Abdirizak 3.9 H* (0.7-2.0) mmol/L Total Bilirubin (0.2-1.3) mg/dL AST (14-36) U/L Total Protein 5.7 L (6.3-8.2) g/dL Albumin 2.9 L (3.5-5.0) g/dL Lipase (23-300) U/L 10/28/24 10/28/24 10/28/24 Range/Units 04:15 07:36 07:54 WBC (4.50-10.00) 10*3/uL RBC (4.10-5.20) 10*6/uL Hgb (12.0-15.0) g/dL Hct (37.2-46.3) % Plt Count (140-440) 10*3/uL MPV (9.5-12.2) fL Immature Gran # (0.00-0.04) 10*3/uL Neutrophils # (Manual) (1.3-7.7) k/uL Monocytes # (Manual) (0-1.0) k/uL Metamyelocytes # (Man) (0) k/uL PT (10.0-12.5) sec INR (<1.2) Sodium (137-145) mmol/L Carbon Dioxide (22-30) mmol/L BUN (7-17) mg/dL Creatinine (0.52-1.04) mg/dL Glucose (74-99) mg/dL POC Glucose (mg/dL) 205 H (70-110) mg/dL Plasma Lactic Acid Abdirizak 4.6 H* 8.2 H* (0.7-2.0) mmol/L Total Bilirubin (0.2-1.3) mg/dL AST (14-36) U/L Total Protein (6.3-8.2) g/dL Albumin (3.5-5.0) g/dL Lipase (23-300) U/L 10/28/24 Range/Units 08:19 WBC (4.50-10.00) 10*3/uL RBC (4.10-5.20) 10*6/uL Hgb (12.0-15.0) g/dL Hct (37.2-46.3) % Plt Count (140-440) 10*3/uL MPV (9.5-12.2) fL Immature Gran # (0.00-0.04) 10*3/uL Neutrophils # (Manual) (1.3-7.7) k/uL Monocytes # (Manual) (0-1.0) k/uL Metamyelocytes # (Man) (0) k/uL PT (10.0-12.5) sec INR (<1.2) Sodium (137-145) mmol/L Carbon Dioxide (22-30) mmol/L BUN (7-17) mg/dL Creatinine (0.52-1.04) mg/dL Glucose (74-99) mg/dL POC Glucose (mg/dL) 191 H (70-110) mg/dL Plasma Lactic Acid Abdirizak (0.7-2.0) mmol/L Total Bilirubin (0.2-1.3) mg/dL AST (14-36) U/L Total Protein (6.3-8.2) g/dL Albumin (3.5-5.0) g/dL Lipase (23-300) U/L Diabetes panel 10/27/24 10/28/24 Range/Units 13:41 04:15 Sodium 136 L 136 L (137-145) mmol/L Potassium 4.8 4.2 (3.5-5.1) mmol/L Chloride 100 103 (98-107) mmol/L Carbon Dioxide 18 L 14 L (22-30) mmol/L BUN 17 24 H (7-17) mg/dL Creatinine 2.05 H 2.43 H (0.52-1.04) mg/dL Glucose 191 H 165 H (74-99) mg/dL Calcium 8.6 8.4 (8.4-10.2) mg/dL AST 48 H 31 (14-36) U/L ALT 24 21 (4-34) U/L Alkaline Phosphatase 86 111 (38-126) U/L Total Protein 6.5 5.7 L (6.3-8.2) g/dL Albumin 3.3 L 2.9 L (3.5-5.0) g/dL Calcium panel 10/27/24 10/28/24 Range/Units 13:41 04:15 Calcium 8.6 8.4 (8.4-10.2) mg/dL Albumin 3.3 L 2.9 L (3.5-5.0) g/dL Pituitary panel 10/27/24 10/28/24 Range/Units 13:41 04:15 Sodium 136 L 136 L (137-145) mmol/L Potassium 4.8 4.2 (3.5-5.1) mmol/L Chloride 100 103 (98-107) mmol/L Carbon Dioxide 18 L 14 L (22-30) mmol/L BUN 17 24 H (7-17) mg/dL Creatinine 2.05 H 2.43 H (0.52-1.04) mg/dL Glucose 191 H 165 H (74-99) mg/dL Calcium 8.6 8.4 (8.4-10.2) mg/dL Adrenal panel 10/27/24 10/28/24 Range/Units 13:41 04:15 Sodium 136 L 136 L (137-145) mmol/L Potassium 4.8 4.2 (3.5-5.1) mmol/L Chloride 100 103 (98-107) mmol/L Carbon Dioxide 18 L 14 L (22-30) mmol/L BUN 17 24 H (7-17) mg/dL Creatinine 2.05 H 2.43 H (0.52-1.04) mg/dL Glucose 191 H 165 H (74-99) mg/dL Calcium 8.6 8.4 (8.4-10.2) mg/dL Total Bilirubin 1.7 H 0.8 (0.2-1.3) mg/dL AST 48 H 31 (14-36) U/L ALT 24 21 (4-34) U/L Alkaline Phosphatase 86 111 (38-126) U/L Total Protein 6.5 5.7 L (6.3-8.2) g/dL Albumin 3.3 L 2.9 L (3.5-5.0) g/dL - Imaging CT scan - abdomen: report reviewed (Evidence of toxic megacolon) Assessment and Plan Plan: 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 Patient's colitis source is not known at this time. She may have C. difficile or ischemic colitis. The patient will be fluid resuscitated. I discussed with the patient's family that she will require a subtotal colectomy due to her declining condition.
[2024-10-28] MEDS: LACTATED RINGERS 1,000 ML IV ONE ×3 (09:30→13:20)
--- NOTE | 2024-10-28 09:33 | OP ---
OPERATIVE REPORT DATE OF SERVICE : PROCEDURE: Left internal jugular triple-lumen catheter. PREOPERATIVE DIAGNOSIS: Administration of fluids and pressors. POSTOPERATIVE DIAGNOSIS: Administration of fluids and pressors. TRIPLE LUMEN CATHETER PLACEMENT: Indication: Hemodynamic monitoring/Intravenous access. A time-out was completed verifying correct patient, procedure, site, positioning, and implant(s) or special equipment if applicable. The patient was placed in a dependent position appropriate for triple lumen catheter placement based on the vein to be cannulated. The patient's left neck was prepped and draped in sterile fashion. 1% Lidocaine was used to anesthetize the surrounding skin area. A triple lumen 9F Cordis catheter was introduced into the left internal jugular using Seldinger technique. The catheter was threaded smoothly over the guide wire and appropriate blood return was obtained. Each lumen of the catheter was evacuated of air and flushed with sterile saline. The catheter was then sutured in place to the skin and a sterile dressing applied. Perfusion to the extremity distal to the point of catheter insertion was checked and found to be adequate. There was informed consent and universal timeout. The patient's procedure took place in room 265. We used the left internal jugular vein, we went via the posterior approach. There was good blood return from all 3 ports. The catheter was sutured in place. A sterile dressing was applied by the nurse. A chest x-ray was ordered. The tip of the catheter will be seen at the junction of the superior vena cava, right atrium. There was no immediate complication. The patient tolerated the procedure well. MMODL / IJN: [id number] /
--- NOTE | 2024-10-28 10:21 | XR ---
EXAMINATION TYPE: XR chest 1V portable DATE OF EXAM: 10/28/2024 10:03 AM COMPARISON: 12/05/2018 CLINICAL INDICATION: Female, 59 years old with history of central line insertion + NGT placement, TECHNIQUE: XR chest 1V portable view(s) obtained. FINDINGS: The heart size is normal. The pulmonary vasculature is normal. Left lower lobe infiltrate is present. Correlate for pneumonia Nasogastric tube is present with tip in the right upper quadrant. Left central venous catheter tip is within the deep right atrium. No pneumothorax evident. IMPRESSION: 1. Left lower lobe infiltrate. Correlate for atelectasis or pneumonia. 2. Lines and catheters discussed above. [facility], , 10/28/2024 10:19 AM
[2024-10-28] MEDS ORDERED: NOREPINEPHRINE 32 MG in SODIUM CHLORIDE 0.9% 218 ML IV SCH (10:30)
[2024-10-28] MEDS: PANTOPRAZOLE 40 MG/10 ML VIAL IV SCH (10:30)
[2024-10-28] MEDS ORDERED: fentaNYL (PF) 50 MCG/ML 2 ML AMP ONE (11:29)
[2024-10-28] MEDS ORDERED: LIDOCAINE 1% INJ 10MG/ML (20 ML MDV) ONE (11:29)
[2024-10-28] MEDS ORDERED: PROPOFOL 10 MG/ML 20 ML VIAL IV ONE (11:29)
[2024-10-28] MEDS ORDERED: PHENYLEPHRINE 10 MG/ML VIAL ONE (11:29)
[2024-10-28] MEDS ORDERED: ROCURONIUM 10 MG/ML (5 ML VIAL) IV ONE (11:29)
[2024-10-28] MEDS ORDERED: SUCCINYLCHOLINE CHLORIDE 200 MG/10 ML VIAL IV ONE (11:29)
[2024-10-28] MEDS ORDERED: MIDAZOLAM 2 MG/2 ML VIAL ONE (11:29)
[2024-10-28] MEDS ORDERED: ALBUMIN HUMAN 5% (25gm) 500 ML VIAL IVPB ONE (11:29)
[2024-10-28] MEDS: IV FLUID CONTINUATION 1,000 ML IV ONE (11:34)
--- NOTE | 2024-10-28 12:49 | P.CNPUL ---
History of Present Illness Consult date: 10/28/24 Requesting physician: Ed Bull Reason for consult: other Chief complaint: Abdominal pain. History of present illness: Pulmonary consult dated October 28, 2024. 59-year-old female seen today in the intensive care unit, room 265. The patient apparently came to the emergency department, on October 27 complaining of abdominal pain, nausea and vomiting. She was in the emergency room on October 11, with abdominal pain, and was discharged. Back on September 03, at [facility], she had surgery on her abdomen, i.e. hernia repair, and may be something more. Anyway, a rapid response was called on this patient this morning, for severe abdominal pain, tachycardia, and hypotension. For that reason, we brought the patient to the ICU, to be further evaluated. We see her today in room 265. She is on room air. She is getting saline bolus. She got Zosyn IV, and p.o. Flagyl. We placed a left internal jugular triple-lumen catheter in her. I did speak to the surgeon, who plans on taking her to the operating room. She does have a history of colon cancer, with previous colectomy and subsequent reversal. Current laboratory data includes a white count of 56.3, hemoglobin 18.8, hematocrit 56.7, and a platelet count of 477,000. Sodium 136, potassium 4.2, chlorides 103, CO2 14, anion gap 19, BUN 24, creatinine 2.43. Lactic acid went from 3.9 up to 10.2. Glucose 191. Calcium 8.4. Lipase 18. Amylase 35. Albumin 2.9. CT of the abdomen and pelvis shows marked diffuse thickening of the colon wall from marked subcutaneous mucosal edema consistent with ulcerative colitis or other diffuse colitis, moderate ascites, small right pleural effusion, 10 mm left lower lobe pulmonary nodule, and stable cholelithiasis. Plain film of the abdomen was nonspecific. Chest x-ray showed infiltrate or atelectasis in the left lower lobe, and a properly inserted, left internal jugular triple-lumen catheter. Review of Systems REVIEW OF SYSTEMS: CONSTITUTIONAL: [Negative.] NEUROLOGIC: [ Negative.] HEENT: [ Negative.] CARDIAC: [Negative.] PULMONARY: [Negative.] GI: Nausea, vomiting, abdominal pain. : [Negative.] RHEUMATOLOGIC: [ Negative.] IMMUNOLOGIC: [ Negative.] ENDOCRINE: [Negative. ] DERMATOLOGIC: [Negative.] Past Medical History Past Medical History: Cancer, COPD Additional Past Medical History / Comment(s): chronic lower back pain, arthritis in back History of Any Multi-Drug Resistant Organisms: None Reported Past Surgical History: Bowel Resection, Section Additional Past Surgical History / Comment(s): + colostomy Past Anesthesia/Blood Transfusion Reactions: No Reported Reaction Past Psychological History: No Psychological Hx Reported Smoking Status: Never smoker Past Alcohol Use History: Occasional Past Drug Use History: Marijuana - Past Family History Mother Family Medical History: Coronary Artery Disease (CAD), Diabetes Mellitus, Myocardial Infarction (SD) Additional Family Medical History / Comment(s): CABG, arthritis Father Family Medical History: Cancer Additional Family Medical History / Comment(s): lung cancer Sister(s) Family Medical History: Asthma Additional Family Medical History / Comment(s): depression, border line DM Brother(s) Additional Family Medical History / Comment(s): back surgeries, psoriasis Son(s) Family Medical History: No Reported History Medications and Allergies Home Medications Medication Instructions Recorded Confirmed Type Acetaminophen Tab [Tylenol] 650 mg PO Q6H PRN 10/11/24 10/27/24 History Naproxen Sodium [Aleve] 220 mg PO Q8H PRN 10/27/24 10/27/24 History Allergies Allergy/AdvReac Type Severity Reaction Status Date / Time codeine AdvReac Nausea & Verified 10/27/24 15:06 Vomiting Physical Exam Osteopathic Statement: *. No significant issues noted on an osteopathic structural exam other than those noted in the History and Physical/Consult. Vitals: Vital Signs Temp Pulse Pulse Resp BP BP Pulse Ox 10/28/24 11:15 123 H 21 119/106 96 10/28/24 11:00 117 H 14 129/109 93 L 10/28/24 10:45 121 H 19 126/98 10/28/24 10:30 118 H 17 114/86 91 L 10/28/24 10:15 122 H 17 67/50 92 L 10/28/24 10:00 126 H 27 H 100/43 91 L 10/28/24 09:45 134 H 21 140/117 96 10/28/24 09:30 138 H 16 140/117 90 L 10/28/24 09:15 97.5 F L 126 H 22 131/95 89 L 10/28/24 09:00 122 H 28 H 81/48 92 L 10/28/24 08:45 129 H 10 L 98/70 92 L 10/28/24 08:30 124 H 19 101/61 90 L 10/28/24 08:21 138 H 28 H 10/28/24 07:50 97.2 F L 130 H 18 99 10/28/24 04:00 97.6 F 106 H 18 119/87 95 10/28/24 01:03 109 H 17 10/28/24 00:00 98.0 F 112 H 18 90/62 94 L 10/27/24 21:00 97.8 F 105 H 17 92/64 93 L 10/27/24 20:02 103 H 20 123/86 96 10/27/24 18:59 104 H 20 133/90 96 10/27/24 17:00 98 20 101/80 95 10/27/24 16:00 100 20 126/80 98 10/27/24 14:53 79 24 122/78 97 10/27/24 14:42 102 H 24 164/102 98 10/27/24 13:42 111 H 16 98/62 95 10/27/24 13:39 96 F L 114 H 20 113/99 94 L Intake and Output 10/27/24 10/28/24 10/28/24 22:59 06:59 14:59 Intake Total 945 28 4502 Output Total 220 515 Balance 628 96 3541 Intake: IV 10 2120 Invasive Line 1 10 Invasive Line 2 20 Lactated Ringers 1,000 ml 1000 @ 999 mls/hr IV .Q1H1M ONE Rx#:[id number] Lactated Ringers 1,000 ml 1000 @ 999 mls/hr IV .Q1H1M ONE Rx#:[id number] metroNIDAZOLE-NS PMX 500 100 mg In Saline 1 100ml.bag @ 100 mls/hr IVPB Q8HR [facility] Rx#:[id number] Oral 520 Output: Gastric Drainage 450 Urine 200 45 Emesis 20 20 Other: Voiding Method Toilet Toilet Indwelling Catheter # Voids 1 1 Weight 80.513 kg 83.5 kg Oriented x 3, moderate to severe abdominal pain. HEENT examination is grossly unremarkable. Mucous membranes are dry. Neck supple. Full range of motion. No adenopathy thyromegaly or neck vein distention. Cardiovascular examination reveals regular rhythm rate. S1-S2 normal. No S3 or S4. No discernible murmur noted. Heart rate 130 bpm. Lungs reveal clear breath sounds. Breath sounds are equal bilaterally. No adventitious lung sounds including wheezes rhonchi or crackles. Abdomen soft and diffusely tender on palpation. No bowel sounds. Extremities are intact. No cyanosis clubbing or edema. Skin is without rash or lesion. Neurologic examination is brief but nonfocal. Results - Laboratory Findings CBC and BMP: 10/28/24 04:15 10/28/24 04:15 PT/INR, D-dimer PT 14.3 sec (10.0-12.5) H 10/27/24 13:42 INR 1.4 (<1.2) H 10/27/24 13:42 Abnormal lab findings: Abnormal Labs 10/27/24 10/27/24 10/27/24 13:41 13:41 13:42 WBC 51.57 H* RBC 6.01 H Hgb 18.5 H D Hct 53.5 H Plt Count 458 H MPV 8.8 L Immature Gran # 3.31 H Neutrophils # (Manual) 47.96 H Monocytes # (Manual) 2.06 H Metamyelocytes # (Man) PT 14.3 H INR 1.4 H Sodium 136 L Carbon Dioxide 18 L BUN Creatinine 2.05 H Glucose 191 H POC Glucose (mg/dL) Plasma Lactic Acid Abdirizak Total Bilirubin 1.7 H AST 48 H Total Protein Albumin 3.3 L Lipase 18 L 10/27/24 10/27/24 10/27/24 15:06 18:02 21:06 WBC RBC Hgb Hct Plt Count MPV Immature Gran # Neutrophils # (Manual) Monocytes # (Manual) Metamyelocytes # (Man) PT INR Sodium Carbon Dioxide BUN Creatinine Glucose POC Glucose (mg/dL) Plasma Lactic Acid Abdirizak 5.4 H* 4.5 H* 3.5 H* Total Bilirubin AST Total Protein Albumin Lipase 10/27/24 10/28/24 10/28/24 23:54 04:15 04:15 WBC 56.25 H* RBC 6.18 H Hgb 18.8 H Hct 56.7 H Plt Count 477 H MPV 9.3 L Immature Gran # 5.06 H Neutrophils # (Manual) 48.93 H Monocytes # (Manual) 3.94 H Metamyelocytes # (Man) 1.13 H PT INR Sodium 136 L Carbon Dioxide 14 L BUN 24 H Creatinine 2.43 H Glucose 165 H POC Glucose (mg/dL) Plasma Lactic Acid Abdirizak 3.9 H* Total Bilirubin AST Total Protein 5.7 L Albumin 2.9 L Lipase 10/28/24 10/28/24 10/28/24 04:15 07:36 07:54 WBC RBC Hgb Hct Plt Count MPV Immature Gran # Neutrophils # (Manual) Monocytes # (Manual) Metamyelocytes # (Man) PT INR Sodium Carbon Dioxide BUN Creatinine Glucose POC Glucose (mg/dL) 205 H Plasma Lactic Acid Abdirizak 4.6 H* 8.2 H* Total Bilirubin AST Total Protein Albumin Lipase 10/28/24 10/28/24 08:19 10:25 WBC RBC Hgb Hct Plt Count MPV Immature Gran # Neutrophils # (Manual) Monocytes # (Manual) Metamyelocytes # (Man) PT INR Sodium Carbon Dioxide BUN Creatinine Glucose POC Glucose (mg/dL) 191 H Plasma Lactic Acid Abdirizak 10.2 H* Total Bilirubin AST Total Protein Albumin Lipase - Diagnostic Findings Chest x-ray: image reviewed Assessment and Plan Assessment: Severe abdominal pain, with associated nausea and vomiting, secondary to diffuse colitis. Recent hernia repair, [facility], September 03, 2024. Profound leukocytosis, secondary to intra-abdominal process. Anion gap metabolic acidosis, secondary to lactic acidosis. Lactic acidemia. Acute kidney injury, likely secondary to hypotension, and ATN. Prior history of colon cancer, with colectomy/colostomy and subsequent reversal. Plan: Plan dated October 28, 2024. The patient was initially evaluated by the charge nurse in the ICU, because of a rapid response called on this patient. The patient was tachycardic and hypotensive, had severe abdominal pain, she was brought down to the intensive care unit, room 265. She was seen there, and we placed a left internal jugular triple-lumen catheter. She was seen by the surgeon, and the plan is for her to go to the operating room, sometime today. The patient had severe nausea, vom iting, and abdominal pain. CT scan of the abdomen and pelvis showed significant colitis, and the patient is acting septic. In addition, the patient may have acute kidney injury, secondary to ATN, and hypotension, as well as profound anion gap metabolic acidosis, secondary to lactic acidemia. All labs, x-rays, and medications are reviewed. The patient was placed on antibiotics. We will continue to follow the patient, make recommendations. She may end up coming back on the mechanical ventilator. Dictation was produced using [employer] dictation software. Please excuse any grammatical, word or spelling errors. Time with Patient: Greater than 30
[2024-10-28] MEDS ORDERED: PIPERACILLIN-TAZOBACTAM 3.375 GM in SODIUM CHLORIDE 0.9% 100 ML IVPB SCH (14:00)
[2024-10-28 14:03] LABS: ABG Base Excess -13.4 mmol/L; ABG HCO3 14 mmol/L (21-25); ABG Oxygen Saturation 99.2 % (94-97); ABG PCO2 37 mmHg (35-45); ABG PO2 169 mmHg (83-108); ABG TCO2 15 mmol/L (19-24); Allen Test Performed? Yes
[2024-10-28 14:06] LABS: ABG PH 7.19 (7.35-7.45)
--- NOTE | 2024-10-28 14:22 | XR ---
EXAMINATION TYPE: XR chest 1V portable DATE OF EXAM: 10/28/2024 2:04 PM COMPARISON: None. CLINICAL INDICATION: Female, 59 years old with history of ETT placement, difficulty breathing TECHNIQUE: XR chest 1V portable view(s) obtained. FINDINGS: The heart size is normal. The pulmonary vasculature is normal. Left lower lobe infiltrate is present. Left central venous catheter is present with tip in the superior vena cava region. No pneumothorax ev ident. Endotracheal tube tip is 1.2 cm above the blaine. This could be pulled back 1 cm for better po sitioning. Nasogastric transverse thorax. There is no pneumoperitoneum evident. Additional history obtained from the ICU nurse is the Patient h as had recent abdomen surgery. Report was called and case discussed with the patient's nurse by Dr. Ulloa by telephone at the time of interpretation. IMPRESSION: 1. Small left lower lobe infiltrate. Correlate for atelectasis. 2. Pneumoperitoneum from recent abdomen surgery. 3. Endotracheal tube 1.2 cm above the blaine. This can be pulled back 1 cm. 4. Additional lines and catheters discussed above. [facility], , 10/28/2024 2:19 PM
[2024-10-28] MEDS: PIPERACILLIN-TAZOBACTAM 3.375 GM in SODIUM CHLORIDE 0.9% 100 ML IVPB SCH (14:34)
[2024-10-28] MEDS: SODIUM BICARB 8.4% 50 ML SYR (1 MEQ/ML) IV STA (14:36)
[2024-10-28] MEDS: VANCOMYCIN ORAL SOLUTION 250 MG/5 ML BOTTLE PO SCH (14:37)
[2024-10-28] MEDS: HYDROmorphone 1 MG/ML 1 ML SYRINGE IVP PRN (14:45)
--- NOTE | 2024-10-28 15:29 | P.OP ---
Date of Procedure: 10/28/24 Preoperative Diagnosis: Toxic megacolon Postoperative Diagnosis: toxic megacolon Procedure(s) Performed: subtotal colectomy Anesthesia: JOLIE Surgeon: Reynaldo Pereira Estimated Blood Loss (ml): 150 Pathology: other (Colon) Condition: critical Disposition: ICU Operative Findings: toxic megacolon Description of Procedure: the patient was placed on the operative table in the supine position. She received general endotracheal anesthesia. Her abdomen was prepped and draped you sterile fashion. A midline skin incision was made and use electrocautery the subcu tissue divided. There was a previous hernia mesh located near the umbilicus. This was transected with the cautery. The adhesions to the anterior abdominal wall were lysed with sharp dissection. The Bookwalter space the wound. There was approximately 300 cc of ascites in the [place] cavity. This was aspirated. The colon was visualized. The colon appeared appeared to be dilated and very edematous. It had the appearance of a toxic colon. The right colon was mobilized by divide the white line of Toldt's. And then the terminal ileum was transected with a NICOLE stapler.P The right colon was mobilized. Then using electrocautery the white line of Toldt's was divided. The mesentery of the right colon was then transected with the LigaSure device.Patient presents today for suture removal. His left thigh incision is well-healed. The gastrocolic ligament was divided. And then the transverse colon mesentery was divided with the LigaSure device. The splenic flexure was mobilized with sharp and blunt dissectionP. And then the left colon was mobilized using was mobilized using electrocautery. The mesentery of the left colon was divided with the LigaSure device. The patient had a previous low anterior resection. The rectum was transected as long as possible. This was divided with a contour stapler. And then the mesentery was divided with the LigaSure device. The specimen sent to pathology. Several small bleeding points were coagulated.P Using electrocautery. The ileostomy was then brought up in the left upper quadrant the fascia was closed with looped #1 PDS suture. The skin was closed with radhames. The ileostomy was then matured using 3-0 Vicryl suture. Sterile dressing was applied. Patient was sent to the ICU Sterile dressing was applied. Patient was sent to the ICU In critical condition.
[2024-10-28] MEDS: IPRATROPIUM-ALBUTEROL 3 ML NEB INHALATION SCH (15:44)
--- NOTE | 2024-10-28 16:10 | P.PN ---
Subjective Progress Note Date: 10/28/24 Principal diagnosis: Reason for follow-up is sepsis/toxic megacolon Patient is a 59-year-old female with a past medical history significant for COPD chronic lower back pain recently completed course of antibiotic for UTI presenting to the hospital for evaluation of abdominal pain and diarrhea and evidence of significant colitis on the CT prompted this consultation patient was taken to the OR this morning status post subtotal colectomy. On today's evaluation that is 10/28/2024, Patient is afebrile this morning patient is currently intubated on the vent FiO2 of 60% patient is hemodynamic stable not requiring any pressor support no other changes reported by the nursing staff. Patient white count up to 56.25 this morning creatinine is 2.43 lactic acid of 6.0 Objective - Vital Signs Vital signs: Vital Signs Temp 97.5 F L 10/28/24 09:15 Pulse 123 H 10/28/24 11:15 Resp 21 10/28/24 11:15 BP 119/106 10/28/24 11:15 Pulse Ox 96 10/28/24 11:15 FiO2 Intake & Output 10/27/24 10/28/24 10/28/24 18:59 06:59 18:59 Intake Total 530 2110 Output Total 220 515 Balance 310 1595 Weight 80.513 kg 83.5 kg Intake: IV 10 2110 Invasive Line 1 10 Invasive Line 2 10 Lactated Ringers 1,000 ml 1000 @ 999 mls/hr IV .Q1H1M ONE Rx#:[id number] Lactated Ringers 1,000 ml 1000 @ 999 mls/hr IV .Q1H1M ONE Rx#:[id number] metroNIDAZOLE-NS PMX 500 100 mg In Saline 1 100ml.bag @ 100 mls/hr IVPB Q8HR [facility] Rx#:[id number] Oral 520 Output: Gastric Drainage 450 Urine 200 45 Emesis 20 20 Other: Voiding Method Toilet Indwelling Catheter # Voids 1 - Exam GENERAL DESCRIPTION: Middle-age female intubated on the vent RESPIRATORY SYSTEM: Unlabored breathing , decreased breath sounds at bases HEART: S1 S2 regular rate and rhythm , ABDOMEN: Soft , no tenderness EXTREMITIES: No edema feet - Labs CBC & Chem 7: 10/28/24 04:15 10/28/24 04:15 Labs: Abnormal Lab Results - Last 24 Hours (Table) 10/27/24 10/27/24 10/27/24 Range/Units 13:41 13:41 13:42 WBC 51.57 H* (4.50-10.00) 10*3/uL RBC 6.01 H (4.10-5.20) 10*6/uL Hgb 18.5 H D (12.0-15.0) g/dL Hct 53.5 H (37.2-46.3) % Plt Count 458 H (140-440) 10*3/uL MPV 8.8 L (9.5-12.2) fL Immature Gran # 3.31 H (0.00-0.04) 10*3/uL Neutrophils # (Manual) 47.96 H (1.3-7.7) k/uL Monocytes # (Manual) 2.06 H (0-1.0) k/uL Metamyelocytes # (Man) (0) k/uL PT 14.3 H (10.0-12.5) sec INR 1.4 H (<1.2) Sodium 136 L (137-145) mmol/L Carbon Dioxide 18 L (22-30) mmol/L BUN (7-17) mg/dL Creatinine 2.05 H (0.52-1.04) mg/dL Glucose 191 H (74-99) mg/dL POC Glucose (mg/dL) (70-110) mg/dL Plasma Lactic Acid Abdirizak (0.7-2.0) mmol/L Total Bilirubin 1.7 H (0.2-1.3) mg/dL AST 48 H (14-36) U/L Total Protein (6.3-8.2) g/dL Albumin 3.3 L (3.5-5.0) g/dL Lipase 18 L (23-300) U/L 10/27/24 10/27/24 10/27/24 Range/Units 15:06 18:02 21:06 WBC (4.50-10.00) 10*3/uL RBC (4.10-5.20) 10*6/uL Hgb (12.0-15.0) g/dL Hct (37.2-46.3) % Plt Count (140-440) 10*3/uL MPV (9.5-12.2) fL Immature Gran # (0.00-0.04) 10*3/uL Neutrophils # (Manual) (1.3-7.7) k/uL Monocytes # (Manual) (0-1.0) k/uL Metamyelocytes # (Man) (0) k/uL PT (10.0-12.5) sec INR (<1.2) Sodium (137-145) mmol/L Carbon Dioxide (22-30) mmol/L BUN (7-17) mg/dL Creatinine (0.52-1.04) mg/dL Glucose (74-99) mg/dL POC Glucose (mg/dL) (70-110) mg/dL Plasma Lactic Acid Abdirizak 5.4 H* 4.5 H* 3.5 H* (0.7-2.0) mmol/L Total Bilirubin (0.2-1.3) mg/dL AST (14-36) U/L Total Protein (6.3-8.2) g/dL Albumin (3.5-5.0) g/dL Lipase (23-300) U/L 10/27/24 10/28/24 10/28/24 Range/Units 23:54 04:15 04:15 WBC 56.25 H* (4.50-10.00) 10*3/uL RBC 6.18 H (4.10-5.20) 10*6/uL Hgb 18.8 H (12.0-15.0) g/dL Hct 56.7 H (37.2-46.3) % Plt Count 477 H (140-440) 10*3/uL MPV 9.3 L (9.5-12.2) fL Immature Gran # 5.06 H (0.00-0.04) 10*3/uL Neutrophils # (Manual) 48.93 H (1.3-7.7) k/uL Monocytes # (Manual) 3.94 H (0-1.0) k/uL Metamyelocytes # (Man) 1.13 H (0) k/uL PT (10.0-12.5) sec INR (<1.2) Sodium 136 L (137-145) mmol/L Carbon Dioxide 14 L (22-30) mmol/L BUN 24 H (7-17) mg/dL Creatinine 2.43 H (0.52-1.04) mg/dL Glucose 165 H (74-99) mg/dL POC Glucose (mg/dL) (70-110) mg/dL Plasma Lactic Acid Abdirizak 3.9 H* (0.7-2.0) mmol/L Total Bilirubin (0.2-1.3) mg/dL AST (14-36) U/L Total Protein 5.7 L (6.3-8.2) g/dL Albumin 2.9 L (3.5-5.0) g/dL Lipase (23-300) U/L 10/28/24 10/28/24 10/28/24 Range/Units 04:15 07:36 07:54 WBC (4.50-10.00) 10*3/uL RBC (4.10-5.20) 10*6/uL Hgb (12.0-15.0) g/dL Hct (37.2-46.3) % Plt Count (140-440) 10*3/uL MPV (9.5-12.2) fL Immature Gran # (0.00-0.04) 10*3/uL Neutrophils # (Manual) (1.3-7.7) k/uL Monocytes # (Manual) (0-1.0) k/uL Metamyelocytes # (Man) (0) k/uL PT (10.0-12.5) sec INR (<1.2) Sodium (137-145) mmol/L Carbon Dioxide (22-30) mmol/L BUN (7-17) mg/dL Creatinine (0.52-1.04) mg/dL Glucose (74-99) mg/dL POC Glucose (mg/dL) 205 H (70-110) mg/dL Plasma Lactic Acid Abdirizak 4.6 H* 8.2 H* (0.7-2.0) mmol/L Total Bilirubin (0.2-1.3) mg/dL AST (14-36) U/L Total Protein (6.3-8.2) g/dL Albumin (3.5-5.0) g/dL Lipase (23-300) U/L 10/28/24 10/28/24 Range/Units 08:19 10:25 WBC (4.50-10.00) 10*3/uL RBC (4.10-5.20) 10*6/uL Hgb (12.0-15.0) g/dL Hct (37.2-46.3) % Plt Count (140-440) 10*3/uL MPV (9.5-12.2) fL Immature Gran # (0.00-0.04) 10*3/uL Neutrophils # (Manual) (1.3-7.7) k/uL Monocytes # (Manual) (0-1.0) k/uL Metamyelocytes # (Man) (0) k/uL PT (10.0-12.5) sec INR (<1.2) Sodium (137-145) mmol/L Carbon Dioxide (22-30) mmol/L BUN (7-17) mg/dL Creatinine (0.52-1.04) mg/dL Glucose (74-99) mg/dL POC Glucose (mg/dL) 191 H (70-110) mg/dL Plasma Lactic Acid Abdirizak 10.2 H* (0.7-2.0) mmol/L Total Bilirubin (0.2-1.3) mg/dL AST (14-36) U/L Total Protein (6.3-8.2) g/dL Albumin (3.5-5.0) g/dL Lipase (23-300) U/L Assessment and Plan (1) Sepsis Current Visit: Yes Status: Acute Code(s): A41.9 - SEPSIS, UNSPECIFIED ORGANISM SNOMED Code(s): 88354147 (2) Colitis Current Visit: Yes Status: Acute Code(s): K52.9 - NONINFECTIVE GASTROENTERITIS AND COLITIS, UNSPECIFIED SNOMED Code(s): 48747094 Plan: 1patient presented to hospital with sepsis in this patient who did have tachycardia mild hypotension elevated white count meeting currently for SIRS/sepsis source is likely C. difficile colitis in this patient with evidence of diffuse colitis seen on the CT and has recently completed a course of antibiotic for the UTI 2-patient did have significant worsening of her clinical condition was taken to the OR status post subtotal colectomy concerning for toxic megacolon likely related to C. difficile ischemic colitis less likely but not excluded we will wait for the biopsy to be completed as stool for C. difficile was not collected 3patient has been started on Zosyn to continue long with oral vancomycin while waiting for the workup to be completed Family the bedside question answered Dictation was produced using [employer] dictation software. please excuse any grammatical, word or spelling errors. Time with Patient: Less than 30
[2024-10-28] MEDS: NOREPINEPHRINE 8 MG in SODIUM CHLORIDE 0.9% 250 ML IV SCH (16:45)
[2024-10-28] MEDS: CHLORHEXIDINE GLUCONATE 15 ML CUP MUCOUS MEM SCH (19:41)
--- NOTE | 2024-10-28 21:03 | PN ---
PROGRESS NOTE DATE OF SERVICE: 10/28/2024 SUBJECTIVE: This 59-year-old woman, who was admitted with significant colitis, had possibly ischemic colitis also. Dr. Caceres is planning surgery at this time. The patient had hypotension last night. The patient is on broad-spectrum IV antibiotics at this time. The patient has toxic megacolon also. PAST MEDICAL HISTORY: Reviewed. CURRENT MEDICATIONS: Reviewed. PHYSICAL EXAMINATION: VITAL SIGNS: Pulse is 117, blood pressure n and respirations 14. HEENT: Conjunctivae normal. NECK: No JVD. CARDIOVASCULAR: S1, S2. RESPIRATIONS: Decreased breath sound at the bases. A few scattered rhonchi. ABDOMEN: Soft, mild diffuse tenderness. No guarding. No mass. LEGS: No edema. NERVOUS SYSTEM: Nonfocal. LABORATORY DATA: Reviewed. Creatinine is 2.43. ASSESSMENT: 1. Significant severe colitis, possibly ischemic colitis or C diff colitis with toxic megacolon with hypotension and sepsis. toxic megacolon 2. Elevated WBC. 3. History of colon cancer. 4. Developing renal failure, acute. 5. Hyponatremia. 6. Chronic obstructive pulmonary disease. 7. History of degenerative joint disease. RECOMMENDATIONS: Recommend to continue current management and symptomatic treatment. Otherwise, closely follow with Surgery, continue broad-spectrum IV antibiotics and I would also recommend Nephrology consultation. Guarded prognosis because of multiple complex medical issues. Further recommendations, see orders for details. MMODL / IJN: [id number] / MTDD
[2024-10-29 05:11] LABS: HCT 34.2 % (37.2-46.3); MCHC 34.2 g/dL (32.0-37.0); MCV 90.7 fL (80.0-97.0); Mean Platelet Volume 9.3 fL (9.5-12.2); Platelet Count 333 10*3/uL (140-440); RBC 3.77 10*6/uL (4.10-5.20); RDW 13.8 % (11.5-14.5); WBC 28.69 10*3/uL (4.50-10.00)
[2024-10-29 05:23] LABS: ALT 13 U/L (4-34); AST 23 U/L (14-36); African American GFR (CKD) 30 (>60 ml/min/1.73 sqM); Albumin 2.1 g/dL (3.5-5.0); Alkaline Phosphatase 53 U/L (38-126); Anion Gap 10 mmol/L; Blood Urea Nitrogen 28 mg/dL (7-17); Calcium 7.6 mg/dL (8.4-10.2); Carbon Dioxide 19 mmol/L (22-30); Chloride 107 mmol/L (98-107); Glucose 146 mg/dL (74-99); Non-African American GFR(CKD) 26 (>60 ml/min/1.73 sqM); Potassium 3.2 mmol/L (3.5-5.1); Sodium 136 mmol/L (137-145); Total Bilirubin 0.7 mg/dL (0.2-1.3)
[2024-10-29 05:56] LABS: HGB 11.7 g/dL (12.0-15.0)
[2024-10-29 06:05] LABS: ABG Base Excess -4.2 mmol/L; ABG HCO3 22 mmol/L (21-25); ABG Oxygen Saturation 96.8 % (94-97); ABG PCO2 41 mmHg (35-45); ABG PH 7.33 (7.35-7.45); ABG PO2 84 mmHg (83-108); ABG TCO2 23 mmol/L (19-24)
[2024-10-29 06:07] LABS: Allen Test Performed? no
[2024-10-29] MEDS: POTASSIUM CHLORIDE 20 MEQ in WATER FOR INJECTION 1 100ML.BAG IVPB SCH (06:27)
[2024-10-29] MEDS: MAGNESIUM SULFATE-D5W PMX 1 GM in DEXTROSE/WATER 1 100ML.BAG IVPB SCH (06:28)
--- NOTE | 2024-10-29 07:42 | XR ---
"EXAMINATION TYPE: XR chest 1V portable DATE OF EXAM: 10/29/2024 5:40 AM COMPARISON: 10/28/2024 CLINICAL INDICATION: Female, 59 years old with history of Tube placement, difficulty breathing TECHNIQUE: XR chest 1V portable view(s) obtained. FINDINGS: The heart size is normal. The pulmonary vasculature is normal. Left lower lobe infiltrate is present. Small effusion may be present. Mild lateral right lung base i nfiltrate may be present. Correlate for atelectasis. Endotracheal tube tip 0.6 cm above the blaine. Pullback 2 cm. Nasogastric tube transverses the thorax with tip in the left upper quadrant of the abdomen. Left central venous catheter tip is in the right atrium Pneumoperitoneum remains present. IMPRESSION: 1. Bibasilar infiltrates, greater on the left. Correlate for atelectasis. A small left pleural effusi on may be present. 2. Persistent pneumoperitoneum. 3. Endotracheal tube tip low-lying and should be pulled back 2 cm. 4. Additional lines and catheters discussed above. A [place] level critical message alert has been initiated for Lee Posadas DO via the [employer] 36 0 | Critical Results System on 10/29/2024 7:39 AM. This message alert has been sent to Lee Posadas DO via the preferences provided by the clinician for the receipt of Radiology Critical Findings. [facility] ID [id number]. [facility], , 10/29/2024 7:39 AM"
[2024-10-29 08:32] LABS: Lymphocytes # (M) 1.43 k/uL (1.0-4.8); Monocytes # (M) 1.72 k/uL (0-1.0); Neutrophils # (M) 25.53 k/uL (1.3-7.7); Neutrophils % (M) 89 %; Nucleated Red Blood Cells 0 /100 WBC (0-0)
[2024-10-29 08:33] LABS: Total Cells Counted 100
--- NOTE | 2024-10-29 08:49 | P.EN ---
Attempted to see Ms. Murdock in consult yesterday. She was off the floor in OR for exploratory laparatomy. Full consult note will be available today.
--- NOTE | 2024-10-29 09:32 | P.NPCON ---
History of Present Illness - Reason for Consult acute renal failure - History of Present Illness Reason for consultation: Acute kidney injury History of present illness: Patient is a 59-year-old female seen in renal consultation for acute kidney injury. Patient came to the hospital on October 27, 2024 due to abdominal discomfort going on for about 2 to 3 days. She was also having nausea vomiting and diarrhea prior to admission. Patient does have history of colon cancer with colectomy and reversal. Patient was subsequently diagnosed with toxic megacolon and underwent subtotal colectomy on October 28, 2024. She did undergo CT with IV contrast on October 27, 2024. Currently intubated. On Levophed. Nonoliguric. Creatinine peaked at 2.4 this admission and is 2.08 today. Baseline creatinine from September 2024 0.7-0.8. I do see naproxen in her home medication list but unsure as to how often she was taking this. She is also receiving maintenance IV fluids and has received over 4 L of fluid bolus as well. Vital signs are stable. On Levophed. General: Resting in bed. HEENT: Intubated. LUNGS: Scattered rhonchi. HEART: Rate and Rhythm are regular. ABDOMEN: Colostomy noted. EXTREMITITES: No edema. Past Medical History Past Medical History: Cancer, COPD Additional Past Medical History / Comment(s): chronic lower back pain, arthritis in back History of Any Multi-Drug Resistant Organisms: None Reported Past Surgical History: Bowel Resection, Section Additional Past Surgical History / Comment(s): + colostomy Past Anesthesia/Blood Transfusion Reactions: No Reported Reaction Past Psychological History: No Psychological Hx Reported Smoking Status: Never smoker Past Alcohol Use History: Occasional Past Drug Use History: Marijuana - Past Family History Mother Family Medical History: Coronary Artery Disease (CAD), Diabetes Mellitus, Myocardial Infarction ([place]) Additional Family Medical History / Comment(s): CABG, arthritis Father Family Medical History: Cancer Additional Family Medical History / Comment(s): lung cancer Sister(s) Family Medical History: Asthma Additional Family Medical History / Comment(s): depression, border line DM Brother(s) Additional Family Medical History / Comment(s): back surgeries, psoriasis Son(s) Family Medical History: No Reported History Medications and Allergies Home Medications Medication Instructions Recorded Confirmed Type Acetaminophen Tab [Tylenol] 650 mg PO Q6H PRN 10/11/24 10/27/24 History Naproxen Sodium [Aleve] 220 mg PO Q8H PRN 10/27/24 10/27/24 History Allergies Allergy/AdvReac Type Severity Reaction Status Date / Time codeine AdvReac Nausea & Verified 10/27/24 15:06 Vomiting Physical Exam Vitals: Vital Signs Temp Pulse Resp BP Pulse Ox FiO2 10/29/24 08:00 97.8 F 118 H 20 85/55 98 50 10/29/24 07:00 134 H 20 99/64 97 10/29/24 06:00 140 H 20 96/60 97 10/29/24 05:00 141 H 14 103/61 96 10/29/24 04:00 99.4 F 141 H 14 106/72 95 50 10/29/24 03:36 50 10/29/24 03:18 80 10/29/24 03:16 80 10/29/24 03:00 135 H 20 89/63 97 10/29/24 02:00 137 H 20 96/61 97 10/29/24 01:00 135 H 20 108/69 97 10/29/24 00:45 50 10/29/24 00:00 129 H 20 95/58 96 10/28/24 23:00 129 H 20 101/58 97 10/28/24 22:58 80 10/28/24 22:57 80 10/28/24 22:00 123 H 20 94/49 97 10/28/24 21:00 122 H 20 81/63 97 10/28/24 20:31 116 H 20 10/28/24 20:24 116 H 20 50 10/28/24 20:00 97.6 F 116 H 20 93/59 97 60 10/28/24 19:57 80 10/28/24 19:00 118 H 20 86/66 98 10/28/24 18:00 124 H 20 131/89 99 10/28/24 17:00 121 H 20 138/88 99 10/28/24 16:03 117 H 10/28/24 16:00 97.6 F 115 H 20 147/96 98 60 10/28/24 15:47 116 H 10/28/24 15:43 60 10/28/24 15:28 80 10/28/24 15:15 109 H 20 145/89 99 10/28/24 15:00 104 H 20 100 80 10/28/24 14:45 126 H 20 100 10/28/24 14:30 113 H 20 149/91 100 10/28/24 14:15 108 H 20 145/94 100 10/28/24 14:00 106 H 20 145/94 100 10/28/24 13:48 104 H 23 10/28/24 13:37 100 10/28/24 13:31 100 10/28/24 11:15 123 H 21 119/106 96 10/28/24 11:00 117 H 14 129/109 93 L 10/28/24 10:45 121 H 19 126/98 10/28/24 10:30 118 H 17 114/86 91 L 10/28/24 10:15 122 H 17 67/50 92 L 10/28/24 10:00 126 H 27 H 100/43 91 L 10/28/24 09:45 134 H 21 140/117 96 10/28/24 09:30 138 H 16 140/117 90 L Intake and Output 10/28/24 10/29/24 10/29/24 22:59 06:59 14:59 Intake Total 999.532 887.676 5.063 Output Total 355 770 Balance 644.532 117.676 5.063 Intake: IV 900 800 Sodium Chloride 0.9% 1, 900 800 000 ml @ 100 mls/hr IV . Q10H JAYLAN Rx#:[id number] Intake, IV Titration 99.532 87.676 5.063 Amount Norepinephrine 8 mg In 5.063 Sodium Chloride 0.9% 250 ml @ 0.03 MCG/KG/MIN 4. 847 mls/hr IV .Q24H JAYLAN Rx#:[id number] propofoL 1,000 mg In 99.532 87.676 Empty Bag 1 bag @ 15 MCG/ KG/MIN 7.515 mls/hr IV . [id number] JAYLAN Rx#:[id number] Output: Gastric Drainage 500 Urine 355 270 Other: Voiding Method Indwelling Catheter Indwelling Catheter Weight 86.7 kg ABP, PAP, CO, CI - Last 8 Hours Arterial Blood Pressure 86/48 Arterial Blood Pressure 94/54 Results - Lab Results Most recent lab results ABG pH 7.33 (7.35-7.45) L 10/29/24 06:00 ABG pCO2 41 mmHg (35-45) 10/29/24 06:00 ABG pO2 84 mmHg (83-108) 10/29/24 06:00 ABG HCO3 22 mmol/L (21-25) 10/29/24 06:00 ABG O2 Saturation 96.8 % (94-97) 10/29/24 06:00 Calcium 7.6 mg/dL (8.4-10.2) L 10/29/24 05:00 Magnesium 1.6 mg/dL (1.6-2.3) 10/29/24 05:00 10/29/24 05:00 10/29/24 05:00 Assessment and Plan Plan: Assessment: 1. Acute kidney injury secondary to ATN secondary to septic shock. Also received IV contrast on October 27, 2024. Baseline creatinine 0.7-0.8 from September 30. Creatinine peaked at 2.4 this admission and is 2.0 today. No hydronephrosis noted on CAT scan. 2. 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 3. Metabolic acidosis secondary to acute kidney injury, GI losses, lactic acidosis and IV fluids. 4. Hypokalemia from poor intake. Replaced. 5. Septic shock secondary to colitis. Plan: Maintain IV fluids. Wean Levophed. 2 A of sodium bicarb IV push today. Potassium replaced. Continue to monitor renal function and urine output. Thank you for the consultation. I will continue to follow the patient with you during her hospital stay.
[2024-10-29] MEDS: SODIUM BICARB 8.4% 50 ML SYR (1 MEQ/ML) IV STA (09:35)
[2024-10-29 12:07] LABS: ABG Base Excess -1.1 mmol/L; ABG HCO3 24 mmol/L (21-25); ABG Oxygen Saturation 96.5 % (94-97); ABG PCO2 41 mmHg (35-45); ABG PH 7.38 (7.35-7.45); ABG PO2 80 mmHg (83-108); ABG TCO2 25 mmol/L (19-24)
[2024-10-29 16:31] LABS: Appearance,Urine Clear (Clear); Bilirubin,Urine Negative (Negative); Blood,Urine Trace (Negative); Color,Urine Yellow; Glucose,Urine (UA) Negative (Negative); Influenza A Not Detected (Not Detectd); Influenza B Not Detected (Not Detectd); Ketones,Urine Negative (Negative); Leukocyte Esterase,Urine Trace (Negative); Mucus,Urine Rare /hpf; Nitrite,Urine Negative (Negative); PH, Urine 5.5 (5.0-8.0); Protein,Urine Trace (Negative); RBC,Urine <1 /hpf (0-5); RSV Not Detected (Not Detectd); Specific Gravity,Urine 1.024 (1.001-1.035); Urobilinogen,Urine <2.0 mg/dL (<2.0); WBC,Urine 3 /hpf (0-5)
--- NOTE | 2024-10-29 18:55 | P.CONS ---
History of Present Illness - Reason for Consult Consult date: 10/29/24 hx rectal cancer Requesting physician: Ed Bull - Chief Complaint abd pain - History of Present Illness Ms Murdock is a pleasant 59 year old female with a history of rectal cancer, who follows with Dr. Patel. The patient first developed bleeding per rectum in late 2019. She was scheduled for a colonoscopy at the time but this was canceled due to the ongoing pandemic. She continued to have similar symptoms, and was ultimately scheduled for a colonoscopy and EGD on 03/02/22. EGD showed some chemical gastropathy in the antrum. However a mass was found in the rectum starting about 10 cm from the anal verge and extending for about 8 cm proximally. Biopsy was positive for invasive adenocarcinoma. The patient was then seen by colorectal surgery at [facility] and subsequently radiation oncology. CT of the chest abdomen and pelvis on 03/24/22 showed no evidence of metastatic disease. There was some mild hepatic steatosis noted. MRI of the rectum with and without contrast on 03/17/22 showed a T3c tumor penetrating greater than 5-15 mm beyond the muscularis. There was a 5 mm extranodal tumor deposits noted in the mesorectal space, as well as one lymph node, 0.8 cm that appeared to be positive in the mesorectal space, staging this as T3c N1 The patient was therefore recommended neoadjuvant treatment. The patient started concurrent chemoradiation with Xeloda in the last week of 04/04. She completed chemoradiation on 05/22/22. She then started FOLFOX on 06/21/22. She completed cycle 6 on 08/30/22. She was seen by CRS, and proceeded to surgery on 12/04/22. He had resection with creation of an ileostomy. Pathology revealed 2.8 cm residual tumor with 1/12 n odes positive. As the patient had had 6 cycles of preop, and had some residual disease at the time of surgery, it was decided to give her additional chemotherapy. She was started back on FOLFOX on 04/11/23, and is status post 4 more cycles ( total 10), completing those on 06/06/23. The patient then had ostomy reversal in 10/04. She was referred to surgery for follow-up colonoscopy, and ventral hernia repair with CRS at [facility]. She had attempted surgery in 04/06, but was found to have marked adhesions, which required lysis, as well as additional bowel resection. Hernia repair was not possible. At her last f/u in 06/2024 CT scan show no evidence of recurrence. The summary mentions previously noted lung nodules as being possibly in a different location compared to before, but review of the body of the report does not indicate any significant, concerning change. Plan was to continue surveillance and was referred to Dr. Kaufman locally to schedule follow-up colonoscopy. She had f/u scheduled on 10/28/[address] Patel but was missed due to current hospitalization. Patient presented to the emergency room with complaints of abdominal pain associated nausea vomiting diarrhea. CT abdomen pelvis showed interval development of marked diffuse thickening of the colon wall from marked subcutaneous mucosal edema consistent with ulcerative colitis or other diffuse colitis. Interval development of moderate ascites. No bowel obstruction or abscess noted. Persistent 10 mm left lower lobe pulmonary nodule. Patient underwent exploratory lap was noted to have toxic megacolon and underwent subtotal colectomy. Labs reviewed, WBC elevated at 56.2, hemoglobin 18.8, platelets 477,000. Creatinine 2.05, GFR 26. Lactic acid elevated at 5.4, bilirubin 1.7, AST 48, ALT 24, ALP 86. Amylase lipase WNL. Patient was seen in ICU today, currently ventilated. She continues on IV antibiotics. Blood culture negative. She has been hypotensive and is on pressors. Review of Systems 10 point ROS is negative except as stated in the HPI Past Medical History Past Medical History: Cancer, COPD Additional Past Medical History / Comment(s): chronic lower back pain, arthritis in back History of Any Multi-Drug Resistant Organisms: None Reported Past Surgical History: Bowel Resection, Section Additional Past Surgical History / Comment(s): + colostomy Past Anesthesia/Blood Transfusion Reactions: No Reported Reaction Past Psychological History: No Psychological Hx Reported Smoking Status: Never smoker Past Alcohol Use History: Occasional Past Drug Use History: Marijuana - Past Family History Mother Family Medical History: Coronary Artery Disease (CAD), Diabetes Mellitus, Myocardial Infarction ([place]) Additional Family Medical History / Comment(s): CABG, arthritis Father Family Medical History: Cancer Additional Family Medical History / Comment(s): lung cancer Sister(s) Family Medical History: Asthma Additional Family Medical History / Comment(s): depression, border line DM Brother(s) Additional Family Medical History / Comment(s): back surgeries, psoriasis Son(s) Family Medical History: No Reported History Medications and Allergies Home Medications Medication Instructions Recorded Confirmed Type Acetaminophen Tab [Tylenol] 650 mg PO Q6H PRN 10/11/24 10/27/24 History Naproxen Sodium [Aleve] 220 mg PO Q8H PRN 10/27/24 10/27/24 History Allergies Allergy/AdvReac Type Severity Reaction Status Date / Time codeine AdvReac Nausea & Verified 10/27/24 15:06 Vomiting Physical Exam Vitals: Vital Signs Temp Pulse Pulse Resp BP BP Pulse Ox 10/28/24 07:50 97.2 F L 130 H 18 99 10/28/24 04:00 97.6 F 106 H 18 119/87 95 10/28/24 01:03 109 H 17 10/28/24 00:00 98.0 F 112 H 18 90/62 94 L 10/27/24 21:00 97.8 F 105 H 17 92/64 93 L 10/27/24 20:02 103 H 20 123/86 96 10/27/24 18:59 104 H 20 133/90 96 10/27/24 17:00 98 20 101/80 95 10/27/24 16:00 100 20 126/80 98 10/27/24 14:53 79 24 122/78 97 10/27/24 14:42 102 H 24 164/102 98 10/27/24 13:42 111 H 16 98/62 95 10/27/24 13:39 96 F L 114 H 20 113/99 94 L Intake and Output 10/27/24 10/28/24 10/28/24 22:59 06:59 14:59 Intake Total 520 10 10 Output Total 220 Balance 300 10 10 Intake: IV 10 10 Invasive Line 1 10 Invasive Line 2 10 Oral 520 Output: Urine 200 Emesis 20 Other: Voiding Method Toilet Toilet Toilet # Voids 1 1 Weight 80.513 kg 83.5 kg - Constitutional General appearance: no acute distress - Respiratory ventilated - Cardiovascular skin warm and dry - Integumentary Integumentary: no cyanotic, no jaundiced - Neurologic sedated Results CBC & Chem 7: 10/29/24 05:00 10/29/24 05:00 Labs: Abnormal Lab Results - Last 24 Hours (Table) 10/27/24 10/27/24 10/27/24 Range/Units 13:41 13:41 13:42 WBC 51.57 H* (4.50-10.00) 10*3/uL RBC 6.01 H (4.10-5.20) 10*6/uL Hgb 18.5 H D (12.0-15.0) g/dL Hct 53.5 H (37.2-46.3) % Plt Count 458 H (140-440) 10*3/uL MPV 8.8 L (9.5-12.2) fL Immature Gran # 3.31 H (0.00-0.04) 10*3/uL Neutrophils # (Manual) 47.96 H (1.3-7.7) k/uL Monocytes # (Manual) 2.06 H (0-1.0) k/uL Metamyelocytes # (Man) (0) k/uL PT 14.3 H (10.0-12.5) sec INR 1.4 H (<1.2) Sodium 136 L (137-145) mmol/L Carbon Dioxide 18 L (22-30) mmol/L BUN (7-17) mg/dL Creatinine 2.05 H (0.52-1.04) mg/dL Glucose 191 H (74-99) mg/dL POC Glucose (mg/dL) (70-110) mg/dL Plasma Lactic Acid Abdirizak (0.7-2.0) mmol/L Total Bilirubin 1.7 H (0.2-1.3) mg/dL AST 48 H (14-36) U/L Total Protein (6.3-8.2) g/dL Albumin 3.3 L (3.5-5.0) g/dL Lipase 18 L (23-300) U/L 10/27/24 10/27/24 10/27/24 Range/Units 15:06 18:02 21:06 WBC (4.50-10.00) 10*3/uL RBC (4.10-5.20) 10*6/uL Hgb (12.0-15.0) g/dL Hct (37.2-46.3) % Plt Count (140-440) 10*3/uL MPV (9.5-12.2) fL Immature Gran # (0.00-0.04) 10*3/uL Neutrophils # (Manual) (1.3-7.7) k/uL Monocytes # (Manual) (0-1.0) k/uL Metamyelocytes # (Man) (0) k/uL PT (10.0-12.5) sec INR (<1.2) Sodium (137-145) mmol/L Carbon Dioxide (22-30) mmol/L BUN (7-17) mg/dL Creatinine (0.52-1.04) mg/dL Glucose (74-99) mg/dL POC Glucose (mg/dL) (70-110) mg/dL Plasma Lactic Acid Abdirizak 5.4 H* 4.5 H* 3.5 H* (0.7-2.0) mmol/L Total Bilirubin (0.2-1.3) mg/dL AST (14-36) U/L Total Protein (6.3-8.2) g/dL Albumin (3.5-5.0) g/dL Lipase (23-300) U/L 10/27/24 10/28/24 10/28/24 Range/Units 23:54 04:15 04:15 WBC 56.25 H* (4.50-10.00) 10*3/uL RBC 6.18 H (4.10-5.20) 10*6/uL Hgb 18.8 H (12.0-15.0) g/dL Hct 56.7 H (37.2-46.3) % Plt Count 477 H (140-440) 10*3/uL MPV 9.3 L (9.5-12.2) fL Immature Gran # 5.06 H (0.00-0.04) 10*3/uL Neutrophils # (Manual) 48.93 H (1.3-7.7) k/uL Monocytes # (Manual) 3.94 H (0-1.0) k/uL Metamyelocytes # (Man) 1.13 H (0) k/uL PT (10.0-12.5) sec INR (<1.2) Sodium 136 L (137-145) mmol/L Carbon Dioxide 14 L (22-30) mmol/L BUN 24 H (7-17) mg/dL Creatinine 2.43 H (0.52-1.04) mg/dL Glucose 165 H (74-99) mg/dL POC Glucose (mg/dL) (70-110) mg/dL Plasma Lactic Acid Abdirizak 3.9 H* (0.7-2.0) mmol/L Total Bilirubin (0.2-1.3) mg/dL AST (14-36) U/L Total Protein 5.7 L (6.3-8.2) g/dL Albumin 2.9 L (3.5-5.0) g/dL Lipase (23-300) U/L 10/28/24 10/28/24 10/28/24 Range/Units 04:15 07:36 07:54 WBC (4.50-10.00) 10*3/uL RBC (4.10-5.20) 10*6/uL Hgb (12.0-15.0) g/dL Hct (37.2-46.3) % Plt Count (140-440) 10*3/uL MPV (9.5-12.2) fL Immature Gran # (0.00-0.04) 10*3/uL Neutrophils # (Manual) (1.3-7.7) k/uL Monocytes # (Manual) (0-1.0) k/uL Metamyelocytes # (Man) (0) k/uL PT (10.0-12.5) sec INR (<1.2) Sodium (137-145) mmol/L Carbon Dioxide (22-30) mmol/L BUN (7-17) mg/dL Creatinine (0.52-1.04) mg/dL Glucose (74-99) mg/dL POC Glucose (mg/dL) 205 H (70-110) mg/dL Plasma Lactic Acid Abdirizak 4.6 H* 8.2 H* (0.7-2.0) mmol/L Total Bilirubin (0.2-1.3) mg/dL AST (14-36) U/L Total Protein (6.3-8.2) g/dL Albumin (3.5-5.0) g/dL Lipase (23-300) U/L 10/28/24 Range/Units 08:19 WBC (4.50-10.00) 10*3/uL RBC (4.10-5.20) 10*6/uL Hgb (12.0-15.0) g/dL Hct (37.2-46.3) % Plt Count (140-440) 10*3/uL MPV (9.5-12.2) fL Immature Gran # (0.00-0.04) 10*3/uL Neutrophils # (Manual) (1.3-7.7) k/uL Monocytes # (Manual) (0-1.0) k/uL Metamyelocytes # (Man) (0) k/uL PT (10.0-12.5) sec INR (<1.2) Sodium (137-145) mmol/L Carbon Dioxide (22-30) mmol/L BUN (7-17) mg/dL Creatinine (0.52-1.04) mg/dL Glucose (74-99) mg/dL POC Glucose (mg/dL) 191 H (70-110) mg/dL Plasma Lactic Acid Adbirizak (0.7-2.0) mmol/L Total Bilirubin (0.2-1.3) mg/dL AST (14-36) U/L Total Protein (6.3-8.2) g/dL Albumin (3.5-5.0) g/dL Lipase (23-300) U/L Abdominal x-ray: report reviewed CT scan - abdomen: report reviewed CT scan - pelvis: report reviewed Assessment and Plan (1) Rectal cancer Current Visit: No Status: Acute Priority: Medium Code(s): C20 - MALIGNANT NEOPLASM OF RECTUM SNOMED Code(s): 519306073 (2) Colitis Current Visit: Yes Status: Acute Priority: High Code(s): K52.9 - NONINFECTIVE GASTROENTERITIS AND COLITIS, UNSPECIFIED SNOMED Code(s): 44033900 (3) Sepsis Current Visit: Yes Status: Acute Priority: High Code(s): A41.9 - SEPSIS, UNSPECIFIED ORGANISM SNOMED Code(s): 34725349 Plan: Colitis, sepsis: Presented to the emergency room with complaints of abdominal pain associated nausea vomiting diarrhea. -CT abdomen pelvis showed interval development of marked diffuse thickening of the colon wall from marked subcutaneous mucosal edema. Interval development of moderate ascites. No bowel obstruction or abscess noted. -Underwent exploratory lap was noted to have toxic megacolon and underwent subtotal colectomy. Pathology pending -WBC elevated at 56.2, improving, today 28.6, likely leukemoid reaction -Continues on IV abx -Defer management to surgery and intensive care teams Rectal adenocarcinoma: -Oncology history as dictated in the HPI -Completed treatment in May 2023 -At last f/u, CT scans showed no evidence of recurrence. LLL nodule has been overall stable, continue to monitor -Plan was to continue in surveillance. Pt was referred to Dr. Kaufman for follow up colonoscopy. This will need to be rescheduled once patient has recovered from surgery/infection -Clinic f/u on 10/28 will be rescheduled Doctor attests: I performed a history and physical examination of this patient, developed impression and plan of care. Discussed with dictator. I agree with dictators note, documented as a scribe.
[2024-10-29] MEDS: IPRATROPIUM-ALBUTEROL 3 ML NEB INHALATION SCH (20:51)
--- NOTE | 2024-10-29 22:51 | P.PN ---
Subjective Progress Note Date: 10/29/24 Principal diagnosis: Reason for follow-up is sepsis/toxic megacolon Patient is a 59-year-old female with a past medical history significant for COPD chronic lower back pain recently completed course of antibiotic for UTI presenting to the hospital for evaluation of abdominal pain and diarrhea and evidence of significant colitis on the CT prompted this consultation patient was taken to the OR this morning status post subtotal colectomy. On today's evaluation that is 10/29/2024,the patient remains to be afebrile patient was intubated on the vent at the time of evaluation this morning FiO2 was 50% however the plan was for weaning off the vent patient is to be hemodynamically stable not requiring pressor support no other changes reported by nursing staff. Patient white count is down to 28.6,Creatinine is 2.08 blood cultures pending Objective - Vital Signs Vital signs: Vital Signs Temp 97.8 F 10/29/24 08:00 Pulse 126 H 10/29/24 10:07 Resp 20 10/29/24 10:07 BP 99/54 10/29/24 10:00 Pulse Ox 97 10/29/24 10:00 FiO2 50 10/29/24 09:57 Intake & Output 10/28/24 10/29/24 10/29/24 18:59 06:59 18:59 Intake Total 3069.369 1534.102 559.702 Output Total 855 925 155 Balance 2214.369 609.102 404.702 Weight 86.7 kg Intake: IV 3010 1300 500 Invasive Line 2 10 Lactated Ringers 1,000 ml 1000 @ 999 mls/hr IV .Q1H1M ONE Rx#:[id number] Lactated Ringers 1,000 ml 1000 @ 999 mls/hr IV .Q1H1M ONE Rx#:[id number] Sodium Chloride 0.9% 1, 500 1300 400 000 ml @ 100 mls/hr IV . Q10H [facility] Rx#:[id number] metroNIDAZOLE-NS PMX 500 100 100 mg In Saline 1 100ml.bag @ 100 mls/hr IVPB Q8HR [facility] Rx#:[id number] Intake, IV Titration 59.369 234.102 59.702 Amount Norepinephrine 8 mg In 29.434 Sodium Chloride 0.9% 250 ml @ 0.03 MCG/KG/MIN 4. 847 mls/hr IV .Q24H [facility] Rx#:[id number] propofoL 1,000 mg In 59.369 234.102 30.268 Empty Bag 1 bag @ 15 MCG/ KG/MIN 7.515 mls/hr IV . [id number] [facility] Rx#:[id number] Output: Gastric Drainage 450 500 Urine 285 425 155 Emesis 20 Estimated Blood Loss 100 Other: Voiding Method Indwelling Catheter Indwelling Catheter ABP, PAP, CO, CI - Last Documented Arterial Blood Pressure 119/56 - Exam GENERAL DESCRIPTION: Middle-age female intubated on the vent RESPIRATORY SYSTEM: Unlabored breathing , decreased breath sounds at bases HEART: S1 S2 regular rate and rhythm , ABDOMEN: Soft , no tenderness EXTREMITIES: No edema feet - Labs CBC & Chem 7: 10/29/24 05:00 10/29/24 05:00 Labs: Abnormal Lab Results - Last 24 Hours (Table) 10/28/24 10/28/24 10/28/24 Range/Units 07:36 13:50 13:58 WBC (4.50-10.00) 10*3/uL RBC (4.10-5.20) 10*6/uL Hgb (12.0-15.0) g/dL Hct (37.2-46.3) % MPV (9.5-12.2) fL Immature Gran # (0.00-0.04) 10*3/uL Neutrophils # (Manual) (1.3-7.7) k/uL Monocytes # (Manual) (0-1.0) k/uL ABG pH 7.19 L* (7.35-7.45) ABG pO2 169 H (83-108) mmHg ABG HCO3 14 L (21-25) mmol/L ABG Total CO2 15 L (19-24) mmol/L ABG O2 Saturation 99.2 H (94-97) % Sodium (137-145) mmol/L Potassium (3.5-5.1) mmol/L Carbon Dioxide (22-30) mmol/L BUN (7-17) mg/dL Creatinine (0.52-1.04) mg/dL Glucose (74-99) mg/dL Plasma Lactic Acid Abdirizak 6.0 H* (0.7-2.0) mmol/L Calcium (8.4-10.2) mg/dL Total Protein (6.3-8.2) g/dL Albumin (3.5-5.0) g/dL Procalcitonin 1.97 H (0.02-0.50) ng/mL 10/28/24 10/28/24 10/29/24 Range/Units 16:39 19:23 05:00 WBC 28.69 H (4.50-10.00) 10*3/uL RBC 3.77 L (4.10-5.20) 10*6/uL Hgb 11.7 L D (12.0-15.0) g/dL Hct 34.2 L (37.2-46.3) % MPV 9.3 L (9.5-12.2) fL Immature Gran # 3.14 H (0.00-0.04) 10*3/uL Neutrophils # (Manual) 25.53 H (1.3-7.7) k/uL Monocytes # (Manual) 1.72 H (0-1.0) k/uL ABG pH (7.35-7.45) ABG pO2 (83-108) mmHg ABG HCO3 (21-25) mmol/L ABG Total CO2 (19-24) mmol/L ABG O2 Saturation (94-97) % Sodium (137-145) mmol/L Potassium (3.5-5.1) mmol/L Carbon Dioxide (22-30) mmol/L BUN (7-17) mg/dL Creatinine (0.52-1.04) mg/dL Glucose (74-99) mg/dL Plasma Lactic Acid Abdirizak 3.6 H* 2.6 H* (0.7-2.0) mmol/L Calcium (8.4-10.2) mg/dL Total Protein (6.3-8.2) g/dL Albumin (3.5-5.0) g/dL Procalcitonin (0.02-0.50) ng/mL 10/29/24 10/29/24 Range/Units 05:00 06:00 WBC (4.50-10.00) 10*3/uL RBC (4.10-5.20) 10*6/uL Hgb (12.0-15.0) g/dL Hct (37.2-46.3) % MPV (9.5-12.2) fL Immature Gran # (0.00-0.04) 10*3/uL Neutrophils # (Manual) (1.3-7.7) k/uL Monocytes # (Manual) (0-1.0) k/uL ABG pH 7.33 L (7.35-7.45) ABG pO2 (83-108) mmHg ABG HCO3 (21-25) mmol/L ABG Total CO2 (19-24) mmol/L ABG O2 Saturation (94-97) % Sodium 136 L (137-145) mmol/L Potassium 3.2 L (3.5-5.1) mmol/L Carbon Dioxide 19 L (22-30) mmol/L BUN 28 H (7-17) mg/dL Creatinine 2.08 H (0.52-1.04) mg/dL Glucose 146 H (74-99) mg/dL Plasma Lactic Acid Abdirizak (0.7-2.0) mmol/L Calcium 7.6 L (8.4-10.2) mg/dL Total Protein 4.0 L (6.3-8.2) g/dL Albumin 2.1 L (3.5-5.0) g/dL Procalcitonin (0.02-0.50) ng/mL Microbiology - Last 24 Hours (Table) 10/27/24 14:40 Blood Culture - Preliminary Blood Assessment and Plan (1) Sepsis Current Visit: Yes Status: Acute Priority: High Code(s): A41.9 - SEPSIS, UNSPECIFIED ORGANISM SNOMED Code(s): 46071709 (2) Colitis Current Visit: Yes Status: Acute Priority: High Code(s): K52.9 - NONINFECTIVE GASTROENTERITIS AND COLITIS, UNSPECIFIED SNOMED Code(s): 83603396 Plan: 1patient presented to hospital with sepsis in this patient who did have tachycardia mild hypotension elevated white count meeting currently for SIRS/sepsis source is likely C. difficile colitis in this patient with evidence of diffuse colitis seen on the CT and has recently completed a course of antibiotic for the UTI 2-patient did have significant worsening of her clinical condition was taken to the OR status post subtotal colectomy concerning for toxic megacolon likely related to C. difficile ischemic colitis less likely but not excluded we will wait for the biopsy to be completed as stool for C. difficile was not collected 3patient white count is trending down down to 20,000, patient to continue Zosyn along with oral vancomycin and monitor clinical course closely Dictation was produced using [employer] dictation software. please excuse any grammatical, word or spelling errors. Time with Patient: Less than 30
[2024-10-30 00:04] LABS: Glucose,Whole Blood 91 mg/dL (70-110)
--- NOTE | 2024-10-30 04:30 | PN ---
PROGRESS NOTE DATE OF SERVICE: 10/29/2024 SUBJECTIVE: A 59-year-old female who was seen recently in the hospital, for abdominal pain. She came in with nausea, vomiting, abdominal pain. She was in the hospital previously, evaluated on the discharge. Prior to that, in August, she had surgery done at [facility]. The patient ended up going to the operating room yesterday. She is postop day #1, status post subtotal colectomy and ileostomy. She remains on mechanical ventilator. She is on volume assist-control, rate 20, tidal volume 350, FiO2 of 50%, and PEEP of 5. Blood gases show a pO2 of 84, pCO2 of 41, pH of 7.33. The patient is on propofol at 50 mcg/kg/minute, saline at 100 mL an hour, and norepinephrine has been weaned off. The patient will be coming off the propofol, for daily interruption of sedation and spontaneous breathing trial. She will get a full set of weaning parameters after 30 minutes, including a cuff leak test, RSBI, and evaluation of her neurologic status. If everything looks good, she may require extubation. Other than that, the patient is doing relatively well. She had an uneventful night according to the nurses. PHYSICAL EXAMINATION: VITAL SIGNS: Vital signs are unavailable. HEENT EXAMINATION: Grossly unremarkable. There is an orally placed endotracheal tube and NG tube. NECK: Supple, full range of motion. No adenopathy. Neck veins are flat. CARDIOVASCULAR EXAMINATION: Regular rhythm and rate. S1, S2 normal. Heart sounds are distant. LUNGS: Reveal scattered rhonchi. No wheezes or crackles. Breath sounds are equal. ABDOMEN: Soft. No bowel sounds. Ileostomy is noted. EXTREMITIES: Intact. No cyanosis, clubbing, or edema. SKIN: Without rash. NEUROLOGIC EXAMINATION: Could not be assessed as the patient is currently sedated. LABS: Unavailable. ASSESSMENT: 1. Postoperative day #1, status post subtotal colectomy and ileostomy for severe abdominal pain. 2. Recent hernia repair, at [facility]. 3. Previous history of colon cancer, with colectomy, colostomy, and reversal. 4. Abdominal sepsis with hypotension, resolved. PLAN: The patient will continue on antibiotics. The patient is postop day #1, status post subtotal colectomy with ileostomy. The patient is currently on propofol at 50. We will wean that off and give the patient a spontaneous breathing trial. The patient is also getting saline at 100 mL an hour. Blood gases this morning were good with a pO2 of 84, pCO2 of 41, and pH of 7.33. Those blood gases are consistent with a mild metabolic acidosis. We will continue to follow. Overall prognosis remains guarded. No additional recommendations are made. MMSHABNAML / IJN: [id number] /
--- NOTE | 2024-10-30 04:54 | PN ---
PROGRESS NOTE DATE OF SERVICE: 10/29/2024 SUBJECTIVE: This 59-year-old woman was admitted with significant colitis as well as toxic megacolon. Underwent surgery by Dr. Caceres. The patient is being mechanically intubated postoperative, the patient was on IV antibiotics. Multiple consultants are following the patient closely. The colon was dilated and very edematous. REVIEW OF SYSTEMS: A 14-point review of systems negative except as mentioned earlier. CURRENT MEDICATIONS: Reviewed. PHYSICAL EXAMINATION: VITAL SIGNS: Pulse is 121, blood pressure n respirations 14. HEENT: Conjunctivae normal. NECK: No JVD. CARDIOVASCULAR: S1, S2. RESPIRATIONS: Bilateral scattered rhonchi and crackles. ABDOMEN: Soft. n LABORATORY DATA: WBC 28.69, rest of the labs are noted. ASSESSMENT: 1. Significant severe colitis with toxic megacolon, with hypotension, sepsis, status post exploratory laparotomy and subtotal colectomy. 2. Postoperative mechanical ventilation and acute respiratory failure. 3. Acute renal failure, multifactorial. 4. History of colon cancer. 5. Elevated WBC. 6. Hypernatremia. 7. Chronic obstructive pulmonary disease. 8. History of degenerative joint disease. RECOMMENDATIONS: Continue current management and treatment otherwise at this time. Continue with broad- spectrum IV antibiotics. The cultures are negative so far. We will continue to monitor. White count is still elevated. Closely follow with multiple consultants. Prognosis extremely guarded because of the multiple complex medical issues and further recommendations to follow. MMODL / IJN: [id number] / MTDD
[2024-10-30 04:55] LABS: HCT 29.5 % (37.2-46.3); MCH 30.3 pg (27.0-32.0); MCHC 32.9 g/dL (32.0-37.0); MCV 92.2 fL (80.0-97.0); Mean Platelet Volume 9.1 fL (9.5-12.2); Platelet Count 244 10*3/uL (140-440); RDW 14.4 % (11.5-14.5)
[2024-10-30 05:02] LABS: HGB 9.7 g/dL (12.0-15.0)
--- NOTE | 2024-10-30 05:06 | PN ---
PROGRESS NOTE DATE OF SERVICE: 10/29/2024 SUBJECTIVE: The patient is postop day 1, status post subtotal colectomy for toxic megacolon. She remains in the ICU, intubated on mechanical ventilation. She is on a small dose of Levophed. She had been tachycardic. They did give Dilaudid, which did help bring down the heart rate some. Heart rate had been in the 130s, now down into 120s. WBC is down from 56 to 28. PHYSICAL EXAM: GENERAL: The patient is intubated and sedated. ABDOMEN: Soft. Incisional dressing clean, dry, and intact. ASSESSMENT: Toxic megacolon, status post subtotal colectomy. PLAN: Continue ICU management. Continue supportive care. Continue antibiotics. Continue blood pressure support. MMODL / IJN: [id number] /
[2024-10-30 05:07] LABS: ALT 14 U/L (4-34); AST 29 U/L (14-36); African American GFR (CKD) 46 (>60 ml/min/1.73 sqM); Albumin 1.9 g/dL (3.5-5.0); Alkaline Phosphatase 61 U/L (38-126); Anion Gap 4 mmol/L; Blood Urea Nitrogen 23 mg/dL (7-17); Calcium 7.5 mg/dL (8.4-10.2); Carbon Dioxide 25 mmol/L (22-30); Chloride 110 mmol/L (98-107); Glucose 110 mg/dL (74-99); Magnesium 2.3 mg/dL (1.6-2.3); Non-African American GFR(CKD) 40 (>60 ml/min/1.73 sqM); Potassium 3.3 mmol/L (3.5-5.1); Sodium 139 mmol/L (137-145); Total Bilirubin 0.7 mg/dL (0.2-1.3); Total Protein 3.8 g/dL (6.3-8.2)
[2024-10-30 05:26] LABS: Band Neutrophils % 14 %; Eosinophils # (M) 0.19 k/uL (0-0.7); Lymphocytes # (M) 0.76 k/uL (1.0-4.8); Metamyelocytes # (M) 0.57 k/uL (0); Metamyelocytes % 3 %; Monocytes # (M) 1.14 k/uL (0-1.0); Neutrophils # (M) 16.47 k/uL (1.3-7.7); Neutrophils % (M) 73 %; Nucleated Red Blood Cells 3 /100 WBC (0-0); Total Cells Counted 200; WBC 18.94 10*3/uL (4.50-10.00)
[2024-10-30] MEDS ORDERED: Potassium Replacement Protocol 1 EACH MISC MISCELLANE PRN (06:08)
[2024-10-30 06:28] LABS: Glucose,Whole Blood 96 mg/dL (70-110)
[2024-10-30] MEDS: POTASSIUM CHLORIDE 20 MEQ in WATER FOR INJECTION 1 100ML.BAG IVPB SCH (06:31)
--- NOTE | 2024-10-30 07:44 | XR ---
EXAMINATION TYPE: XR chest 1V portable DATE OF EXAM: 10/30/2024 5:29 AM COMPARISON: 10/29/2024 CLINICAL INDICATION: Female, 59 years old with history of Tube placement, TECHNIQUE: XR chest 1V portable view(s) obtained. FINDINGS: The heart size is normal. The pulmonary vasculature is normal. Bibasilar infiltrates are present. Small right pleural effusion may be present. Nasogastric tube transverses the thorax. Left central venous catheter tip is within the right atrium region IMPRESSION: 1. Bibasilar infiltrates with small right pleural effusion. [facility], , 10/30/2024 7:41 AM
--- NOTE | 2024-10-30 10:15 | P.PN ---
Subjective Patient is seen in follow-up for acute kidney injury. Renal function improving. On IV fluids. Extubated. Off Levophed. Vital signs are stable. General: No acute distress. HEENT: NG tube noted. LUNGS: No audible rhonchi or wheezes. HEART: Rate and Rhythm are regular. ABDOMEN: Colostomy noted. EXTREMITITES: No edema. Objective - Vital Signs Vital signs: Vital Signs Temp 97.8 F 10/30/24 08:00 Pulse 97 10/30/24 09:00 Resp 17 10/30/24 09:00 BP 103/70 10/30/24 07:00 Pulse Ox 95 10/30/24 09:00 FiO2 50 10/29/24 12:00 Intake & Output 10/29/24 10/30/24 10/30/24 18:59 06:59 18:59 Intake Total 1460.328 700 300 Output Total 495 725 255 Balance 965.328 -25 45 Weight 93.9 kg Intake: IV 1400 700 300 Piperacillin-Tazobactam 3 100 .375 gm In Sodium Chloride 0.9% 100 ml @ 25 mls/hr IVPB Q12H [facility] Rx# :[id number] Sodium Chloride 0.9% 1, 1100 600 300 000 ml @ 100 mls/hr IV . Q10H [facility] Rx#:[id number] metroNIDAZOLE-NS PMX 500 200 100 mg In Saline 1 100ml.bag @ 100 mls/hr IVPB Q8HR [facility] Rx#:[id number] Intake, IV Titration 60.328 Amount Norepinephrine 8 mg In 29.434 Sodium Chloride 0.9% 250 ml @ 0.03 MCG/KG/MIN 4. 847 mls/hr IV .Q24H [facility] Rx#:[id number] propofoL 1,000 mg In 30.894 Empty Bag 1 bag @ 15 MCG/ KG/MIN 7.515 mls/hr IV . [id number] [facility] Rx#:[id number] Output: Gastric Drainage 50 Urine 495 725 205 Other: Voiding Method Indwelling Catheter Indwelling Catheter Indwelling Catheter ABP, PAP, CO, CI - Last Documented Arterial Blood Pressure 136/57 - Labs CBC & Chem 7: 10/30/24 04:20 10/30/24 04:20 Labs: Abnormal Lab Results - Last 24 Hours (Table) 10/29/24 10/29/24 10/30/24 Range/Units 12:05 15:40 04:20 WBC 18.94 H (4.50-10.00) 10*3/uL RBC 3.20 L (4.10-5.20) 10*6/uL Hgb 9.7 L D (12.0-15.0) g/dL Hct 29.5 L (37.2-46.3) % MPV 9.1 L (9.5-12.2) fL Immature Gran # 1.66 H (0.00-0.04) 10*3/uL Neutrophils # (Manual) 16.47 H (1.3-7.7) k/uL Lymphocytes # (Manual) 0.76 L (1.0-4.8) k/uL Monocytes # (Manual) 1.14 H (0-1.0) k/uL Metamyelocytes # (Man) 0.57 H (0) k/uL Nucleated RBCs 3 H (0-0) /100 WBC ABG pO2 80 L (83-108) mmHg ABG Total CO2 25 H (19-24) mmol/L Potassium (3.5-5.1) mmol/L Chloride (98-107) mmol/L BUN (7-17) mg/dL Creatinine (0.52-1.04) mg/dL Glucose (74-99) mg/dL Calcium (8.4-10.2) mg/dL Total Protein (6.3-8.2) g/dL Albumin (3.5-5.0) g/dL Urine Protein Trace H (Negative) Urine Blood Trace H (Negative) Ur Leukocyte Esterase Trace H (Negative) Urine Mucus Rare H (None) /hpf 10/30/24 Range/Units 04:20 WBC (4.50-10.00) 10*3/uL RBC (4.10-5.20) 10*6/uL Hgb (12.0-15.0) g/dL Hct (37.2-46.3) % MPV (9.5-12.2) fL Immature Gran # (0.00-0.04) 10*3/uL Neutrophils # (Manual) (1.3-7.7) k/uL Lymphocytes # (Manual) (1.0-4.8) k/uL Monocytes # (Manual) (0-1.0) k/uL Metamyelocytes # (Man) (0) k/uL Nucleated RBCs (0-0) /100 WBC ABG pO2 (83-108) mmHg ABG Total CO2 (19-24) mmol/L Potassium 3.3 L (3.5-5.1) mmol/L Chloride 110 H (98-107) mmol/L BUN 23 H (7-17) mg/dL Creatinine 1.46 H (0.52-1.04) mg/dL Glucose 110 H (74-99) mg/dL Calcium 7.5 L (8.4-10.2) mg/dL Total Protein 3.8 L (6.3-8.2) g/dL Albumin 1.9 L (3.5-5.0) g/dL Urine Protein (Negative) Urine Blood (Negative) Ur Leukocyte Esterase (Negative) Urine Mucus (None) /hpf Microbiology - Last 24 Hours (Table) 10/27/24 14:40 Blood Culture - Preliminary Blood Assessment and Plan Plan: Assessment: 1. Acute kidney injury secondary to ATN secondary to septic shock. Also received IV contrast on October 27, 2024. Baseline creatinine 0.7-0.8 from September 2024. Creatinine peaked at 2.4 this admission and is 1.46 today. No hydronephrosis noted on CAT scan. 2. 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 3. Metabolic acidosis secondary to acute kidney injury, GI losses, lactic acidosis and IV fluids. Improved. 4. Hypokalemia from poor intake. Replaced. 5. Septic shock secondary to colitis. Currently off Levophed. Plan: Maintain IV fluids. Potassium replaced. Continue to monitor renal function and urine output.
--- NOTE | 2024-10-30 12:09 | P.PN ---
Subjective Progress Note Date: 10/30/24 Principal diagnosis: Abdominal pain. Pulmonary consult dated October 28, 2024. 59-year-old female seen today in the intensive care unit, room 265. The patient apparently came to the emergency department, on October 27 complaining of abdominal pain, nausea and vomiting. She was in the emergency room on October 11, with abdominal pain, and was discharged. Back on September 03, at [facility], she had surgery on her abdomen, i.e. hernia repair, and may be something more. Anyway, a rapid response was called on this patient this morning, for severe abdominal pain, tachycardia, and hypotension. For that reason, we brought the patient to the ICU, to be further evaluated. We see her today in room 265. She is on room air. She is getting saline bolus. She got Zosyn IV, and p.o. Flagyl. We placed a left internal jugular triple-lumen catheter in her. I did speak to the surgeon, who plans on taking her to the operating room. She does have a history of colon cancer, with previous colectomy and subsequent reversal. Current laboratory data includes a white count of 56.3, hemoglobin 18.8, hematocrit 56.7, and a platelet count of 477,000. Sodium 136, potassium 4.2, chlorides 103, CO2 14, anion gap 19, BUN 24, creatinine 2.43. Lactic acid went from 3.9 up to 10.2. Glucose 191. Calcium 8.4. Lipase 18. Amylase 35. Albumin 2.9. CT of the abdomen and pelvi s shows marked diffuse thickening of the colon wall from marked subcutaneous mucosal edema consistent with ulcerative colitis or other diffuse colitis, moderate ascites, small right pleural effusion, 10 mm left lower lobe pulmonary nodule, and stable cholelithiasis. Plain film of the abdomen was nonspecific. Chest x-ray showed infiltrate or atelectasis in the left lower lobe, and a properly inserted, left internal jugular triple-lumen catheter. Progress note dated October 30, 2024. The patient is seen today in room 265. She is postop day #2, status post subtotal colectomy with ileostomy. She was extubated yesterday, October 29. She is getting saline at 100 cc an hour. NG tube in place. She is getting nasal O2 at 4 L. She is resting comfortably in bed. She does have some abdominal disc omfort, at the surgical site. White count was 18.9, hemoglobin 9.7, hematocrit 29.5, platelet count 344,000. Sodium 139, potassium 3.3, chlorides 110, CO2 25, BUN 23, creatinine 1.46. Glucose was 96. Albumin 1.9. Blood gases prior to extubation, showed a PO2 of 80, pCO2 of 41, pH of 7.38. Blood cultures are currently negative or pending. Chest x-ray shows bibasilar infiltrates, with small right-sided pleural effusion. Objective - Vital Signs Vital signs: Vital Signs Temp 97.8 F 10/30/24 08:00 Pulse 65 10/30/24 11:21 Resp 18 10/30/24 11:21 BP 103/70 10/30/24 07:00 Pulse Ox 96 10/30/24 11:00 FiO2 50 10/29/24 12:00 Intake & Output 10/29/24 10/30/24 10/30/24 18:59 06:59 18:59 Intake Total 1460.328 700 700 Output Total 495 725 325 Balance 965.328 -25 375 Weight 93.9 kg Intake: IV 1400 700 700 Piperacillin-Tazobactam 3 100 100 .375 gm In Sodium Chloride 0.9% 100 ml @ 25 mls/hr IVPB Q12H [facility] Rx# :[id number] Sodium Chloride 0.9% 1, 1100 600 500 000 ml @ 100 mls/hr IV . Q10H [facility] Rx#:[id number] metroNIDAZOLE-NS PMX 500 200 100 100 mg In Saline 1 100ml.bag @ 100 mls/hr IVPB Q8HR [facility] Rx#:[id number] Intake, IV Titration 60.328 Amount Norepinephrine 8 mg In 29.434 Sodium Chloride 0.9% 250 ml @ 0.03 MCG/KG/MIN 4. 847 mls/hr IV .Q24H [facility] Rx#:[id number] propofoL 1,000 mg In 30.894 Empty Bag 1 bag @ 15 MCG/ KG/MIN 7.515 mls/hr IV . [id number] [facility] Rx#:[id number] Output: Gastric Drainage 50 Urine 495 725 275 Other: Voiding Method Indwelling Catheter Indwelling Catheter Indwelling Catheter ABP, PAP, CO, CI - Last Documented Arterial Blood Pressure 111/52 - Exam No acute distress, oriented 3. NG tube in place. Nasal O2 noted. HEENT examination is grossly unremarkable. Mucous membranes are moist. No oral lesions. Neck supple. Full range of motion. No adenopathy thyromegaly or neck vein distention. Cardiovascular examination reveals regular rhythm rate. S1-S2 normal. No S3 or S4. No discernible murmur noted. Lungs reveal mild scattered rhonchi. No wheezes. No crackles. Breath sounds equal bilaterally. Abdomen soft without bowel sounds. Ileostomy is noted. Extremities are intact. No cyanosis clubbing or edema. Skin is without rash or lesion. Neurologic examination is brief but nonfocal. - Labs CBC & Chem 7: 10/30/24 04:20 10/30/24 04:20 Labs: Abnormal Lab Results - Last 24 Hours (Table) 10/29/24 10/29/24 10/30/24 Range/Units 12:05 15:40 04:20 WBC 18.94 H (4.50-10.00) 10*3/uL RBC 3.20 L (4.10-5.20) 10*6/uL Hgb 9.7 L D (12.0-15.0) g/dL Hct 29.5 L (37.2-46.3) % MPV 9.1 L (9.5-12.2) fL Immature Gran # 1.66 H (0.00-0.04) 10*3/uL Neutrophils # (Manual) 16.47 H (1.3-7.7) k/uL Lymphocytes # (Manual) 0.76 L (1.0-4.8) k/uL Monocytes # (Manual) 1.14 H (0-1.0) k/uL Metamyelocytes # (Man) 0.57 H (0) k/uL Nucleated RBCs 3 H (0-0) /100 WBC ABG pO2 80 L (83-108) mmHg ABG Total CO2 25 H (19-24) mmol/L Potassium (3.5-5.1) mmol/L Chloride (98-107) mmol/L BUN (7-17) mg/dL Creatinine (0.52-1.04) mg/dL Glucose (74-99) mg/dL Calcium (8.4-10.2) mg/dL Total Protein (6.3-8.2) g/dL Albumin (3.5-5.0) g/dL Urine Protein Trace H (Negative) Urine Blood Trace H (Negative) Ur Leukocyte Esterase Trace H (Negative) Urine Mucus Rare H (None) /hpf 10/30/24 Range/Units 04:20 WBC (4.50-10.00) 10*3/uL RBC (4.10-5.20) 10*6/uL Hgb (12.0-15.0) g/dL Hct (37.2-46.3) % MPV (9.5-12.2) fL Immature Gran # (0.00-0.04) 10*3/uL Neutrophils # (Manual) (1.3-7.7) k/uL Lymphocytes # (Manual) (1.0-4.8) k/uL Monocytes # (Manual) (0-1.0) k/uL Metamyelocytes # (Man) (0) k/uL Nucleated RBCs (0-0) /100 WBC ABG pO2 (83-108) mmHg ABG Total CO2 (19-24) mmol/L Potassium 3.3 L (3.5-5.1) mmol/L Chloride 110 H (98-107) mmol/L BUN 23 H (7-17) mg/dL Creatinine 1.46 H (0.52-1.04) mg/dL Glucose 110 H (74-99) mg/dL Calcium 7.5 L (8.4-10.2) mg/dL Total Protein 3.8 L (6.3-8.2) g/dL Albumin 1.9 L (3.5-5.0) g/dL Urine Protein (Negative) Urine Blood (Negative) Ur Leukocyte Esterase (Negative) Urine Mucus (None) /hpf Microbiology - Last 24 Hours (Table) 10/27/24 14:40 Blood Culture - Preliminary Blood Assessment and Plan Assessment: Severe abdominal pain, with associated nausea and vomiting, secondary to diffuse colitis. Postoperative day #2, S/P exploratory laparotomy, subtotal colectomy, end ileostomy. Recent hernia repair, [facility], September 03, 2024. Profound leukocytosis, secondary to intra-abdominal process. Anion gap metabolic acidosis, secondary to lactic acidosis. Lactic acidemia. Acute kidney injury, likely secondary to hypotension, and ATN. Prior history of colon cancer, with colectomy/colostomy and subsequent reversal. Plan: Plan dated October 28, 2024. The patient was initially evaluated by the charge nurse in the ICU, because of a rapid response called on this patient. The patient was tachycardic and hypotensive, had severe abdominal pain, she was brought down to the intensive care unit, room 265. She was seen there, and we placed a left internal jugular triple-lumen catheter. She was seen by the surgeon, and the plan is for her to go to the operating room, sometime today. The patient had severe nausea, vomiting, and abdominal pain. CT scan of the abdomen and pelvis showed signi ficant colitis, and the patient is acting septic. In addition, the patient may have acute kidney injury, secondary to ATN, and hypotension, as well as profound anion gap metabolic acidosis, secondary to lactic acidemia. All labs, x-rays, and medications are reviewed. The patient was placed on antibiotics. We will continue to follow the patient, make recommendations. She may end up coming back on the mechanical ventilator. Dictation was produced using [employer] software. Please excuse any grammatical, word or spelling errors. Plan dated October 30, 2024. The patient is seen today in room 265. She is resting comfortably in bed. She is laying flat on her back. She is nasal O2 at 4 L. She has an NG tube in place. She is getting saline at 100 cc an hour. Today is postoperative day #2, status post subtotal colectomy with ileostomy. She came in with severe abdominal pain, nausea and vomiting. Labs, x-rays, and all medications are reviewed. We will continue to follow make recommendations along the way. Overall prognosis remains guarded. Recommend deep breathing, coughing, clearing of secretions, and hourly use of the incentive spirometer. Dictation was produced using [employer] software. Please excuse any grammatical, word or spelling errors. Time with Patient: Greater than 30
[2024-10-30 12:12] LABS: Phosphorus 2.8 mg/dL (2.5-4.5)
--- NOTE | 2024-10-30 12:22 | P.PN ---
Subjective Progress Note Date: 10/30/24 SURGICAL PROGRESS NOTE CHIEF COMPLAINT: Toxic megacolon HISTORY OF PRESENT ILLNESS: Postop day #2 status post subtotal colectomy for toxic megacolon. Patient was extubated yesterday. Patient reports pain is controlled. No output from her ostomy. Afebrile. Tachycardia improved. On 4 L nasal cannula. WBC is down from 28-18 Hgb 11.7-9.7 platelets 244 potassium 3.3 and being replaced albumin 1.9 creatinine 1.46 NG tube 50 mL output PHYSICAL EXAM: VITAL SIGNS: Reviewed. GENERAL: Well-developed in no acute distress. HEENT: No sclera icterus. Extraocular movements grossly intact. Moist buccal mucosa. Head is atraumatic, normocephalic. ABDOMEN: Soft. Nondistended. Incisional dressing clean dry and intact. Ostomy with no output. NEUROLOGIC: Alert and oriented. Cranial nerves II through XII grossly intact. ASSESSMENT: 1. Toxic megacolon 2. Severe protein calorie malnutrition 3. Hypokalemia PLAN: - Continue NG tube for decompression -Keep patient n.p.o. - Consult dietitian for TPN for nutrition support - Patient receiving potassium supplement - Continue pain management -Continue antibiotic -DVT prophylaxis subcu heparin and GI prophylaxis Proton[employer] Physician Vocational Nursing Instructor note has been reviewed by physician. Signing provider agrees with the documented findings, assessment, and plan of care. Objective - Vital Signs Vital signs: Vital Signs Temp 97.8 F 10/30/24 08:00 Pulse 65 10/30/24 11:21 Resp 18 10/30/24 11:21 BP 103/70 10/30/24 07:00 Pulse Ox 96 10/30/24 11:00 FiO2 50 10/29/24 12:00 Intake & Output 10/29/24 10/30/24 10/30/24 18:59 06:59 18:59 Intake Total 1460.328 700 700 Output Total 495 725 325 Balance 965.328 -25 375 Weight 93.9 kg Intake: IV 1400 700 700 Piperacillin-Tazobactam 3 100 100 .375 gm In Sodium Chloride 0.9% 100 ml @ 25 mls/hr IVPB Q12H [facility] Rx# :[id number] Sodium Chloride 0.9% 1, 1100 600 500 000 ml @ 100 mls/hr IV . Q10H [facility] Rx#:[id number] metroNIDAZOLE-NS PMX 500 200 100 100 mg In Saline 1 100ml.bag @ 100 mls/hr IVPB Q8HR [facility] Rx#:[id number] Intake, IV Titration 60.328 Amount Norepinephrine 8 mg In 29.434 Sodium Chloride 0.9% 250 ml @ 0.03 MCG/KG/MIN 4. 847 mls/hr IV .Q24H [facility] Rx#:[id number] propofoL 1,000 mg In 30.894 Empty Bag 1 bag @ 15 MCG/ KG/MIN 7.515 mls/hr IV . [id number] [facility] Rx#:[id number] Output: Gastric Drainage 50 Urine 495 725 275 Other: Voiding Method Indwelling Catheter Indwelling Catheter Indwelling Catheter ABP, PAP, CO, CI - Last Documented Arterial Blood Pressure 111/52 - Labs CBC & Chem 7: 10/30/24 04:20 10/30/24 04:20 Labs: Abnormal Lab Results - Last 24 Hours (Table) 10/29/24 10/30/24 10/30/24 Range/Units 15:40 04:20 04:20 WBC 18.94 H (4.50-10.00) 10*3/uL RBC 3.20 L (4.10-5.20) 10*6/uL Hgb 9.7 L D (12.0-15.0) g/dL Hct 29.5 L (37.2-46.3) % MPV 9.1 L (9.5-12.2) fL Immature Gran # 1.66 H (0.00-0.04) 10*3/uL Neutrophils # (Manual) 16.47 H (1.3-7.7) k/uL Lymphocytes # (Manual) 0.76 L (1.0-4.8) k/uL Monocytes # (Manual) 1.14 H (0-1.0) k/uL Metamyelocytes # (Man) 0.57 H (0) k/uL Nucleated RBCs 3 H (0-0) /100 WBC Potassium 3.3 L (3.5-5.1) mmol/L Chloride 110 H (98-107) mmol/L BUN 23 H (7-17) mg/dL Creatinine 1.46 H (0.52-1.04) mg/dL Glucose 110 H (74-99) mg/dL Calcium 7.5 L (8.4-10.2) mg/dL Total Protein 3.8 L (6.3-8.2) g/dL Albumin 1.9 L (3.5-5.0) g/dL Urine Protein Trace H (Negative) Urine Blood Trace H (Negative) Ur Leukocyte Esterase Trace H (Negative) Urine Mucus Rare H (None) /hpf Microbiology - Last 24 Hours (Table) 10/27/24 14:40 Blood Culture - Preliminary Blood
[2024-10-30] MEDS: FUROSEMIDE 10 MG/ML 4 ML VIAL IV STA (13:58)
[2024-10-30] MEDS: PIPERACILLIN-TAZOBACTAM 3.375 GM in SODIUM CHLORIDE 0.9% 100 ML IVPB SCH (14:10)
[2024-10-30] MEDS: SODIUM CHLORIDE 0.9% 1,000 ML IV ONE (14:11)
--- NOTE | 2024-10-30 14:45 | PN ---
PROGRESS NOTE DATE OF SERVICE: 10/30/2024 SUBJECTIVE: This is a 59-year-old woman was admitted with toxic megacolon, who underwent surgery by Dr. Pereira. The patient is mechanically ventilated, intubated, but currently the patient extubated. Also planning to start TPN at this time. The chest x-ray, which I reviewed personally showed somewhat fluid overload and some atelectasis also. I would recommend a single dose of Lasix and monitor the renal functions closely. Creatinine is 1.46, which is rather improvement from yesterday. Biopsies are pending at this time. Procalcitonin is elevated. Cultures also were negative so far. PAST MEDICAL HISTORY: Reviewed. REVIEW OF SYSTEMS: Could not be taken, the patient is slightly drowsy. CURRENT MEDICATIONS: Reviewed. PHYSICAL EXAMINATION: VITAL SIGNS: Pulse is 86, blood pressure 111/52, and respirations 10. HEENT: Conjunctivae normal. NECK: No JVD. CARDIOVASCULAR: S1, S2. RESPIRATIONS: Decreased breath sound at the bases. A few scattered rhonchi. ABDOMEN: Soft status post surgery. LEGS: No edema. NERVOUS SYSTEM: Nonfocal. LABORATORY DATA: WBC 18.94, which is improved. Rest of the labs are noted. ASSESSMENT: 1. Significant severe colitis with toxic megacolon with hypotension, sepsis, status post exploratory laparotomy and subtotal colectomy. 2. Postoperative mechanical ventilation with acute hypoxic respiratory failure, status post extubation. 3. Rule out acute congestive heart failure. 4. Acute renal failure, multifactorial. 5. History of colon cancer. 6. Elevated WBC. 7. Hypernatremia. 8. Hypokalemia. 9. Multiple complex medical issues. 10.History of chronic obstructive pulmonary disease. 11.History of degenerative joint disease. RECOMMENDATIONS AND DISCUSSION: Recommend to continue current management and continue symptomatic treatment. Otherwise TPN and monitor fluid electrolyte balance closely. Single dose of Lasix as mentioned earlier and I would also recommend a 2D echo with Doppler to evaluate the cardiac function. The previous 2D echo in 2019 showed ejection fraction about 55% to 60%. We will continue to monitor. See orders for further details and I will add bronchodilators also to the current regimen. Further recommendations to follow. MMODL / IJN: [id number] /
[2024-10-30] MEDS: LACTATED RINGERS 1,000 ML IV SCH (15:05)
[2024-10-30] MEDS: MVI, ADULT NO.4 WITH VIT K 10 ML, TRACE (CONC-1ML/DOSE) 1 ML in AMINO ACID 5%-D20W+LYTE... IV ONE (15:15)
[2024-10-30 19:09] LABS: Glucose,Whole Blood 124 mg/dL (70-110)
[2024-10-30] MEDS: ACETAMINOPHEN TAB 325 MG TAB PO PRN (21:03)
[2024-10-31 06:11] LABS: Glucose,Whole Blood 156 mg/dL (70-110)
[2024-10-31 06:31] LABS: HCT 26.4 % (37.2-46.3); HGB 8.6 g/dL (12.0-15.0); MCH 30.4 pg (27.0-32.0); MCHC 32.6 g/dL (32.0-37.0); MCV 93.3 fL (80.0-97.0); Mean Platelet Volume 8.8 fL (9.5-12.2); Platelet Count 189 10*3/uL (140-440); RBC 2.83 10*6/uL (4.10-5.20); RDW 14.9 % (11.5-14.5); WBC 10.85 10*3/uL (4.50-10.00)
[2024-10-31 07:24] LABS: Ionized Calcium 4.6 mg/dL (4.5-5.3)
[2024-10-31 07:33] LABS: ALT 13 U/L (4-34); AST 28 U/L (14-36); African American GFR (CKD) 77 (>60 ml/min/1.73 sqM); Albumin 1.8 g/dL (3.5-5.0); Alkaline Phosphatase 59 U/L (38-126); Anion Gap 3 mmol/L; Blood Urea Nitrogen 15 mg/dL (7-17); Calcium 7.5 mg/dL (8.4-10.2); Carbon Dioxide 25 mmol/L (22-30); Chloride 113 mmol/L (98-107); Glucose 124 mg/dL (74-99); Magnesium 2.2 mg/dL (1.6-2.3); Non-African American GFR(CKD) 67 (>60 ml/min/1.73 sqM); Phosphorus 2.1 mg/dL (2.5-4.5); Potassium 3.7 mmol/L (3.5-5.1); Sodium 141 mmol/L (137-145); Total Bilirubin 0.5 mg/dL (0.2-1.3); Total Protein 3.7 g/dL (6.3-8.2)
--- NOTE | 2024-10-31 08:42 | XR ---
EXAMINATION TYPE: XR chest 1V portable DATE OF EXAM: 10/31/2024 5:47 AM COMPARISON: 10/30/2024 CLINICAL INDICATION: Female, 59 years old with history of Tube placement, TECHNIQUE: XR chest 1V portable views of the chest are obtained. FINDINGS: Demonstrated are scattered senescent parenchymal change. Again noted are bilateral pleural effusions with underlying infiltrates and/or atelectasis. Cardiomegaly with pulmonary venous congestion. Left- sided central venous line unchanged in position. NG tube with its tip at the GE junction and should b e advanced. Hilar and mediastinal structures are within normal limits. Degenerative changes are seen of the dorsal spine. IMPRESSION: 1. Again noted are bilateral pleural effusions with underlying infiltrates and/or atelectasis. Cardi omegaly with pulmonary venous congestion. Left-sided central venous line unchanged in position. NG tu be with its tip at the GE junction and should be advanced. [facility], , 10/31/2024 8:39 AM
[2024-10-31] MEDS: POTASSIUM CHLORIDE 10 MEQ in WATER FOR INJECTION 1 100ML.BAG IVPB SCH (09:28)
[2024-10-31] MEDS: FAT EMULSION 20% 250 ML in EMPTY BAG 1 BAG IV SCH (09:52)
[2024-10-31 09:53] LABS: Lymphocytes # (M) 0.22 k/uL (1.0-4.8); Metamyelocytes # (M) 0.33 k/uL (0); Metamyelocytes % 3 %; Monocytes # (M) 0.43 k/uL (0-1.0); Myelocytes # (M) 0.22 k/uL (0); Myelocytes % 2 %; Neutrophils # (M) 9.77 k/uL (1.3-7.7); Neutrophils % (M) 90 %; Nucleated Red Blood Cells 1 /100 WBC (0-0); Total Cells Counted 200
[2024-10-31 09:55] LABS: Anisocytosis (M) Present
--- NOTE | 2024-10-31 10:06 | P.PN ---
Subjective Progress Note Date: 10/31/24 Patient is improving. She has no significant output through ileostomy. Her abdominal pain is improved. She is alert awake following commands. On exam vital signs appear stable. Abdomen is soft. Ileostomy is pink. Status post subtotal colectomy for toxic colon. Patient will continue receive supportive care. Objective - Vital Signs Vital signs: Vital Signs Temp 98.8 F 10/31/24 04:00 Pulse 93 10/31/24 09:22 Resp 14 10/31/24 07:00 BP 103/70 10/30/24 07:00 Pulse Ox 93 L 10/31/24 09:12 FiO2 50 10/29/24 12:00 Intake & Output 10/30/24 10/31/24 10/31/24 18:59 06:59 18:59 Intake Total 2200 1500 100 Output Total 1130 950 60 Balance 1070 550 40 Weight 93.9 kg 91.6 kg Intake: IV 2200 1500 100 Lactated Ringers 1,000 ml 210 840 70 @ 70 mls/hr IV .[id number] [facility] Rx#:[id number] Mvi, Adult No.4 with Vit 90 360 30 K 10 ml Trace (Conc-1Ml/ Dose) 1 ml In Amino Acid 5%-D20w+Lytes*E* 1,000 ml @ 30 mls/hr IV .Q24H [facility] Rx#:[id number] Piperacillin-Tazobactam 3 100 200 .375 gm In Sodium Chloride 0.9% 100 ml @ 25 mls/hr IVPB Q12H [facility] Rx# :[id number] Sodium Chloride 0.9% 1, 1700 000 ml @ 75 mls/hr IV . [id number] [facility] Rx#:[id number] metroNIDAZOLE-NS PMX 500 100 100 mg In Saline 1 100ml.bag @ 100 mls/hr IVPB Q8HR [facility] Rx#:[id number] Output: Gastric Drainage 250 150 Drainage 10 0 LUQ Ostomy 10 0 Urine 880 790 60 Other: Voiding Method Indwelling Catheter Indwelling Catheter ABP, PAP, CO, CI - Last Documented Arterial Blood Pressure 113/46 - Labs CBC & Chem 7: 10/31/24 06:10 10/31/24 06:10 Labs: Abnormal Lab Results - Last 24 Hours (Table) 10/30/24 10/31/24 10/31/24 Range/Units 19:08 06:10 06:10 WBC 10.85 H (4.50-10.00) 10*3/uL RBC 2.83 L (4.10-5.20) 10*6/uL Hgb 8.6 L (12.0-15.0) g/dL Hct 26.4 L (37.2-46.3) % MPV 8.8 L (9.5-12.2) fL Immature Gran # 0.75 H (0.00-0.04) 10*3/uL Neutrophils # (Manual) 9.77 H (1.3-7.7) k/uL Lymphocytes # (Manual) 0.22 L (1.0-4.8) k/uL Metamyelocytes # (Man) 0.33 H (0) k/uL Myelocytes # (Manual) 0.22 H (0) k/uL Nucleated RBCs 1 H (0-0) /100 WBC Chloride 113 H (98-107) mmol/L Glucose 124 H (74-99) mg/dL POC Glucose (mg/dL) 124 H (70-110) mg/dL Calcium 7.5 L (8.4-10.2) mg/dL Phosphorus 2.1 L (2.5-4.5) mg/dL Total Protein 3.7 L (6.3-8.2) g/dL Albumin 1.8 L (3.5-5.0) g/dL 10/31/24 Range/Units 06:10 WBC (4.50-10.00) 10*3/uL RBC (4.10-5.20) 10*6/uL Hgb (12.0-15.0) g/dL Hct (37.2-46.3) % MPV (9.5-12.2) fL Immature Gran # (0.00-0.04) 10*3/uL Neutrophils # (Manual) (1.3-7.7) k/uL Lymphocytes # (Manual) (1.0-4.8) k/uL Metamyelocytes # (Man) (0) k/uL Myelocytes # (Manual) (0) k/uL Nucleated RBCs (0-0) /100 WBC Chloride (98-107) mmol/L Glucose (74-99) mg/dL POC Glucose (mg/dL) 156 H (70-110) mg/dL Calcium (8.4-10.2) mg/dL Phosphorus (2.5-4.5) mg/dL Total Protein (6.3-8.2) g/dL Albumin (3.5-5.0) g/dL Microbiology - Last 24 Hours (Table) 10/27/24 14:40 Blood Culture - Preliminary Blood
--- NOTE | 2024-10-31 10:10 | P.PN ---
Subjective Patient is seen in follow-up for acute kidney injury. Renal function improving. On IV fluids. Also receiving TPN. Vital signs are stable. General: No acute distress. HEENT: NG tube noted. LUNGS: No audible rhonchi or wheezes. HEART: Rate and Rhythm are regular. ABDOMEN: Colostomy noted. EXTREMITITES: No edema. Objective - Vital Signs Vital signs: Vital Signs Temp 98.8 F 10/31/24 04:00 Pulse 93 10/31/24 09:22 Resp 14 10/31/24 07:00 BP 103/70 10/30/24 07:00 Pulse Ox 93 L 10/31/24 09:12 FiO2 50 10/29/24 12:00 Intake & Output 10/30/24 10/31/24 10/31/24 18:59 06:59 18:59 Intake Total 2200 1500 100 Output Total 1130 950 60 Balance 1070 550 40 Weight 93.9 kg 91.6 kg Intake: IV 2200 1500 100 Lactated Ringers 1,000 ml 210 840 70 @ 70 mls/hr IV .[id number] [facility] Rx#:[id number] Mvi, Adult No.4 with Vit 90 360 30 K 10 ml Trace (Conc-1Ml/ Dose) 1 ml In Amino Acid 5%-D20w+Lytes*E* 1,000 ml @ 30 mls/hr IV .Q24H [facility] Rx#:[id number] Piperacillin-Tazobactam 3 100 200 .375 gm In Sodium Chloride 0.9% 100 ml @ 25 mls/hr IVPB Q12H [facility] Rx# :[id number] Sodium Chloride 0.9% 1, 1700 000 ml @ 75 mls/hr IV . [id number] [facility] Rx#:[id number] metroNIDAZOLE-NS PMX 500 100 100 mg In Saline 1 100ml.bag @ 100 mls/hr IVPB Q8HR [facility] Rx#:[id number] Output: Gastric Drainage 250 150 Drainage 10 0 LUQ Ostomy 10 0 Urine 880 790 60 Other: Voiding Method Indwelling Catheter Indwelling Catheter ABP, PAP, CO, CI - Last Documented Arterial Blood Pressure 113/46 - Labs CBC & Chem 7: 10/31/24 06:10 10/31/24 06:10 Labs: Abnormal Lab Results - Last 24 Hours (Table) 10/30/24 10/31/24 10/31/24 Range/Units 19:08 06:10 06:10 WBC 10.85 H (4.50-10.00) 10*3/uL RBC 2.83 L (4.10-5.20) 10*6/uL Hgb 8.6 L (12.0-15.0) g/dL Hct 26.4 L (37.2-46.3) % MPV 8.8 L (9.5-12.2) fL Immature Gran # 0.75 H (0.00-0.04) 10*3/uL Neutrophils # (Manual) 9.77 H (1.3-7.7) k/uL Lymphocytes # (Manual) 0.22 L (1.0-4.8) k/uL Metamyelocytes # (Man) 0.33 H (0) k/uL Myelocytes # (Manual) 0.22 H (0) k/uL Nucleated RBCs 1 H (0-0) /100 WBC Chloride 113 H (98-107) mmol/L Glucose 124 H (74-99) mg/dL POC Glucose (mg/dL) 124 H (70-110) mg/dL Calcium 7.5 L (8.4-10.2) mg/dL Phosphorus 2.1 L (2.5-4.5) mg/dL Total Protein 3.7 L (6.3-8.2) g/dL Albumin 1.8 L (3.5-5.0) g/dL 10/31/24 Range/Units 06:10 WBC (4.50-10.00) 10*3/uL RBC (4.10-5.20) 10*6/uL Hgb (12.0-15.0) g/dL Hct (37.2-46.3) % MPV (9.5-12.2) fL Immature Gran # (0.00-0.04) 10*3/uL Neutrophils # (Manual) (1.3-7.7) k/uL Lymphocytes # (Manual) (1.0-4.8) k/uL Metamyelocytes # (Man) (0) k/uL Myelocytes # (Manual) (0) k/uL Nucleated RBCs (0-0) /100 WBC Chloride (98-107) mmol/L Glucose (74-99) mg/dL POC Glucose (mg/dL) 156 H (70-110) mg/dL Calcium (8.4-10.2) mg/dL Phosphorus (2.5-4.5) mg/dL Total Protein (6.3-8.2) g/dL Albumin (3.5-5.0) g/dL Microbiology - Last 24 Hours (Table) 10/27/24 14:40 Blood Culture - Preliminary Blood Assessment and Plan Plan: Assessment: 1. Acute kidney injury secondary to ATN secondary to septic shock. Also received IV contrast on October 27, 2024. Baseline creatinine 0.7-0.8 from September 2024. Creatinine peaked at 2.4 this admission and is 0.95 today. No hydronephrosis noted on CAT scan. 2. 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 3. Metabolic acidosis secondary to acute kidney injury, GI losses, lactic acidosis and IV fluids. Improved. 4. Hypokalemia from poor intake. Replaced. 5. Septic shock secondary to colitis. Currently off Levophed. Plan: Maintain IV fluids. TPN per surgery. Replace potassium as needed. Continue to monitor renal function and urine output.
[2024-10-31 11:32] LABS: Glucose,Whole Blood 139 mg/dL (70-110)
--- NOTE | 2024-10-31 12:17 | P.PN ---
Subjective Progress Note Date: 10/31/24 Principal diagnosis: Abdominal pain. Pulmonary consult dated October 28, 2024. 59-year-old female seen today in the intensive care unit, room 265. The patient apparently came to the emergency department, on October 27 complaining of abdominal pain, nausea and vomiting. She was in the emergency room on October 11, with abdominal pain, and was discharged. Back on September 03, at [facility], she had surgery on her abdomen, i.e. hernia repair, and may be something more. Anyway, a rapid response was called on this patient this morning, for severe abdominal pain, tachycardia, and hypotension. For that reason, we brought the patient to the ICU, to be further evaluated. We see her today in room 265. She is on room air. She is getting saline bolus. She got Zosyn IV, and p.o. Flagyl. We placed a left internal jugular triple-lumen catheter in her. I did speak to the surgeon, who plans on taking her to the operating room. She does have a history of colon cancer, with previous colectomy and subsequent reversal. Current laboratory data includes a white count of 56.3, hemoglobin 18.8, hematocrit 56.7, and a platelet count of 477,000. Sodium 136, potassium 4.2, chlorides 103, CO2 14, anion gap 19, BUN 24, creatinine 2.43. Lactic acid went from 3.9 up to 10.2. Glucose 191. Calcium 8.4. Lipase 18. Amylase 35. Albumin 2.9. CT of the abdomen and pelvi s shows marked diffuse thickening of the colon wall from marked subcutaneous mucosal edema consistent with ulcerative colitis or other diffuse colitis, moderate ascites, small right pleural effusion, 10 mm left lower lobe pulmonary nodule, and stable cholelithiasis. Plain film of the abdomen was nonspecific. Chest x-ray showed infiltrate or atelectasis in the left lower lobe, and a properly inserted, left internal jugular triple-lumen catheter. Progress note dated October 30, 2024. The patient is seen today in room 265. She is postop day #2, status post subtotal colectomy with ileostomy. She was extubated yesterday, October 29. She is getting saline at 100 cc an hour. NG tube in place. She is getting nasal O2 at 4 L. She is resting comfortably in bed. She does have some abdominal disc omfort, at the surgical site. White count was 18.9, hemoglobin 9.7, hematocrit 29.5, platelet count 344,000. Sodium 139, potassium 3.3, chlorides 110, CO2 25, BUN 23, creatinine 1.46. Glucose was 96. Albumin 1.9. Blood gases prior to extubation, showed a PO2 of 80, pCO2 of 41, pH of 7.38. Blood cultures are currently negative or pending. Chest x-ray shows bibasilar infiltrates, with small right-sided pleural effusion. Progress note dated November 08, 2024. 59-year-old female seen today in room 265. She is resting comfortably in bed. The patient is on 2 L nasal O2. NG tube remains in place. She is getting LR at 70 cc an hour, TPN at 30 cc an hour. She is on Zosyn. She is also getting p.o. Flagyl and vancomycin. Current laboratory data includes a white count of 10.9, hemoglobin 8.6, hematocrit 26.4, platelet count of 189,000. Sodium 141, potassium 3.7, chlorides 113, CO2 25, BUN 15, creatinine 0.95. Glucose is 139. Calcium 7.5. The rest of the labs look reasonable. Chest x-ray again shows bilateral pleural effusions, with bibasilar infiltrates, or atelectasis. Objective - Vital Signs Vital signs: Vital Signs Temp 98.7 F 10/31/24 08:00 Pulse 70 10/31/24 11:00 Resp 11 L 10/31/24 11:00 BP 103/70 10/30/24 07:00 Pulse Ox 96 10/31/24 11:00 FiO2 50 10/29/24 12:00 Intake & Output 10/30/24 10/31/24 10/31/24 18:59 06:59 18:59 Intake Total 2200 1500 380 Output Total 1130 950 510 Balance 1070 550 -130 Weight 93.9 kg 91.6 kg Intake: IV 2200 1500 380 Lactated Ringers 1,000 ml 210 840 350 @ 70 mls/hr IV .[id number] [facility] Rx#:[id number] Mvi, Adult No.4 with Vit 90 360 30 K 10 ml Trace (Conc-1Ml/ Dose) 1 ml In Amino Acid 5%-D20w+Lytes*E* 1,000 ml @ 30 mls/hr IV .Q24H [facility] Rx#:[id number] Piperacillin-Tazobactam 3 100 200 .375 gm In Sodium Chloride 0.9% 100 ml @ 25 mls/hr IVPB Q12H [facility] Rx# :[id number] Sodium Chloride 0.9% 1, 1700 000 ml @ 75 mls/hr IV . [id number] [facility] Rx#:[id number] metroNIDAZOLE-NS PMX 500 100 100 mg In Saline 1 100ml.bag @ 100 mls/hr IVPB Q8HR [facility] Rx#:[id number] Output: Gastric Drainage 250 150 Drainage 10 0 LUQ Ostomy 10 0 Urine 880 790 510 Other: Voiding Method Indwelling Catheter Indwelling Catheter Indwelling Catheter ABP, PAP, CO, CI - Last Documented Arterial Blood Pressure 135/50 - Exam No acute distress, oriented 3. NG tube in place. Nasal O2 noted. HEENT examination is grossly unremarkable. Mucous membranes are moist. No oral lesions. Neck supple. Full range of motion. No adenopathy thyromegaly or neck vein distention. Cardiovascular examination reveals regular rhythm rate. S1-S2 normal. No S3 or S4. No discernible murmur noted. Lungs reveal mild scattered rhonchi. No wheezes. No crackles. Breath sounds equal bilaterally. Abdomen soft without bowel sounds. Ileostomy is noted. Extremities are intact. No cyanosis clubbing or edema. Skin is without rash or lesion. Neurologic examination is brief but nonfocal. - Labs CBC & Chem 7: 10/31/24 06:10 10/31/24 06:10 Labs: Abnormal Lab Results - Last 24 Hours (Table) 10/30/24 10/31/24 10/31/24 Range/Units 19:08 06:10 06:10 WBC 10.85 H (4.50-10.00) 10*3/uL RBC 2.83 L (4.10-5.20) 10*6/uL Hgb 8.6 L (12.0-15.0) g/dL Hct 26.4 L (37.2-46.3) % MPV 8.8 L (9.5-12.2) fL Immature Gran # 0.75 H (0.00-0.04) 10*3/uL Neutrophils # (Manual) 9.77 H (1.3-7.7) k/uL Lymphocytes # (Manual) 0.22 L (1.0-4.8) k/uL Metamyelocytes # (Man) 0.33 H (0) k/uL Myelocytes # (Manual) 0.22 H (0) k/uL Nucleated RBCs 1 H (0-0) /100 WBC Chloride 113 H (98-107) mmol/L Glucose 124 H (74-99) mg/dL POC Glucose (mg/dL) 124 H (70-110) mg/dL Calcium 7.5 L (8.4-10.2) mg/dL Phosphorus 2.1 L (2.5-4.5) mg/dL Total Protein 3.7 L (6.3-8.2) g/dL Albumin 1.8 L (3.5-5.0) g/dL 10/31/24 10/31/24 Range/Units 06:10 11:30 WBC (4.50-10.00) 10*3/uL RBC (4.10-5.20) 10*6/uL Hgb (12.0-15.0) g/dL Hct (37.2-46.3) % MPV (9.5-12.2) fL Immature Gran # (0.00-0.04) 10*3/uL Neutrophils # (Manual) (1.3-7.7) k/uL Lymphocytes # (Manual) (1.0-4.8) k/uL Metamyelocytes # (Man) (0) k/uL Myelocytes # (Manual) (0) k/uL Nucleated RBCs (0-0) /100 WBC Chloride (98-107) mmol/L Glucose (74-99) mg/dL POC Glucose (mg/dL) 156 H 139 H (70-110) mg/dL Calcium (8.4-10.2) mg/dL Phosphorus (2.5-4.5) mg/dL Total Protein (6.3-8.2) g/dL Albumin (3.5-5.0) g/dL Microbiology - Last 24 Hours (Table) 10/27/24 14:40 Blood Culture - Preliminary Blood Assessment and Plan Assessment: Severe abdominal pain, with associated nausea and vomiting, secondary to diffuse colitis. Postoperative day #3, S/P exploratory laparotomy, subtotal colectomy, end ileostomy. Recent hernia repair, [facility], September 03, 2024. Profound leukocytosis, secondary to intra-abdominal process. Anion gap metabolic acidosis, secondary to lactic acidosis. Lactic acidemia. Acute kidney injury, likely secondary to hypotension, and ATN. Prior history of colon cancer, with colectomy/colostomy and subsequent reversal. Plan: Plan dated October 28, 2024. The patient was initially evaluated by the charge nurse in the ICU, because of a rapid response called on this patient. The patient was tachycardic and hypotensive, had severe abdominal pain, she was brought down to the intensive care unit, room 265. She was seen there, and we placed a left internal jugular triple-lumen catheter. She was seen by the surgeon, and the plan is for her to go to the operating room, sometime today. The patient had severe nausea, vomiting, and abdominal pain. CT scan of the abdomen and pelvis showed significant colitis, and the patient is acting septic. In addition, the patient may have acute kidney injury, secondary to ATN, and hypotension, as well as profound anion gap metabolic acidosis, secondary to lactic acidemia. All labs, x-rays, and medications are reviewed. The patient was placed on antibiotics. We will continue to follow the patient, make recommendations. She may end up coming back on the mechanical ventilator. Dictation was produced using [employer] software. Please excuse any grammatical, word or spelling errors. Plan dated October 30, 2024. The patient is seen today in room 265. She is resting comfortably in bed. She is laying flat on her back. She is nasal O2 at 4 L. She has an NG tube in place. She is getting saline at 100 cc an hour. Today is postoperative day #2, status post subtotal colectomy with ileostomy. She came in with severe abdominal pain, nausea and vomiting. Labs, x-rays, and all medications are reviewed. We will continue to follow make recommendations along the way. Overall prognosis remains guarded. Recommend deep breathing, coughing, clearing of secretions, and hourly use of the incentive spirometer. Dictation was produced using [employer] software. Please excuse any grammatical, word or spelling errors. Plan dated October 31, 2024. The patient is seen today in room 265. She remains critically ill. She is on 2 L of oxygen. She has an NG tube in place. She is getting LR at 70 cc an hour, and TPN at 30 cc an hour. She continues on IV Zosyn. She is also on oral Flagyl and oral vancomycin. All labs, x-rays, and medications are reviewed. The patient is postoperative day #3. She had a subtotal colectomy with ileostomy. She presented with severe abdominal pain. We will continue to follow and make recommendations along the way. Prognosis is guarded. Dictation was produced using [employer] software. Please excuse any grammatical, word or spelling errors. Time with Patient: Greater than 30
[2024-10-31] MEDS: SODIUM PHOSPHATE 15 MMOL in DEXTROSE 5% IN WATER 250 ML IVPB ONE (13:00)
--- NOTE | 2024-10-31 15:16 | P.PN ---
Subjective Progress Note Date: 10/30/24 Principal diagnosis: Reason for follow-up is sepsis/toxic megacolon Patient is a 59-year-old female with a past medical history significant for COPD chronic lower back pain recently completed course of antibiotic for UTI presenting to the hospital for evaluation of abdominal pain and diarrhea and evidence of significant colitis on the CT prompted this consultation patient was taken to the OR this morning status post subtotal colectomy. On today's evaluation that is 10/30/2024,the patient remains to be afebrile, patient has been extubated currently breathing comfortably on 4 L nasal cannula oxygen slightly poorly tolerated good historian, patient not requiring any pressor support no other changes reported by nursing staff Patient white count is down to 18.94 creatinine is 1.46 Objective - Vital Signs Vital signs: Vital Signs Temp 97.8 F 10/30/24 08:00 Pulse 87 10/30/24 11:01 Resp 14 10/30/24 11:01 BP 103/70 10/30/24 07:00 Pulse Ox 95 10/30/24 09:00 FiO2 50 10/29/24 12:00 Intake & Output 10/29/24 10/30/24 10/30/24 18:59 06:59 18:59 Intake Total 1460.328 700 600 Output Total 495 725 295 Balance 965.328 -25 305 Weight 93.9 kg Intake: IV 1400 700 600 Piperacillin-Tazobactam 3 100 100 .375 gm In Sodium Chloride 0.9% 100 ml @ 25 mls/hr IVPB Q12H [facility] Rx# :[id number] Sodium Chloride 0.9% 1, 1100 600 400 000 ml @ 100 mls/hr IV . Q10H [facility] Rx#:[id number] metroNIDAZOLE-NS PMX 500 200 100 100 mg In Saline 1 100ml.bag @ 100 mls/hr IVPB Q8HR [facility] Rx#:[id number] Intake, IV Titration 60.328 Amount Norepinephrine 8 mg In 29.434 Sodium Chloride 0.9% 250 ml @ 0.03 MCG/KG/MIN 4. 847 mls/hr IV .Q24H [facility] Rx#:[id number] propofoL 1,000 mg In 30.894 Empty Bag 1 bag @ 15 MCG/ KG/MIN 7.515 mls/hr IV . [id number] [facility] Rx#:[id number] Output: Gastric Drainage 50 Urine 495 725 245 Other: Voiding Method Indwelling Catheter Indwelling Catheter Indwelling Catheter ABP, PAP, CO, CI - Last Documented Arterial Blood Pressure 136/57 - Exam GENERAL DESCRIPTION: Middle-age female intubated on the vent RESPIRATORY SYSTEM: Unlabored breathing , decreased breath sounds at bases HEART: S1 S2 regular rate and rhythm , ABDOMEN: Soft , no tenderness EXTREMITIES: No edema feet - Labs CBC & Chem 7: 10/31/24 06:10 10/31/24 06:10 Labs: Abnormal Lab Results - Last 24 Hours (Table) 10/29/24 10/29/24 10/30/24 Range/Units 12:05 15:40 04:20 WBC 18.94 H (4.50-10.00) 10*3/uL RBC 3.20 L (4.10-5.20) 10*6/uL Hgb 9.7 L D (12.0-15.0) g/dL Hct 29.5 L (37.2-46.3) % MPV 9.1 L (9.5-12.2) fL Immature Gran # 1.66 H (0.00-0.04) 10*3/uL Neutrophils # (Manual) 16.47 H (1.3-7.7) k/uL Lymphocytes # (Manual) 0.76 L (1.0-4.8) k/uL Monocytes # (Manual) 1.14 H (0-1.0) k/uL Metamyelocytes # (Man) 0.57 H (0) k/uL Nucleated RBCs 3 H (0-0) /100 WBC ABG pO2 80 L (83-108) mmHg ABG Total CO2 25 H (19-24) mmol/L Potassium (3.5-5.1) mmol/L Chloride (98-107) mmol/L BUN (7-17) mg/dL Creatinine (0.52-1.04) mg/dL Glucose (74-99) mg/dL Calcium (8.4-10.2) mg/dL Total Protein (6.3-8.2) g/dL Albumin (3.5-5.0) g/dL Urine Protein Trace H (Negative) Urine Blood Trace H (Negative) Ur Leukocyte Esterase Trace H (Negative) Urine Mucus Rare H (None) /hpf 10/30/24 Range/Units 04:20 WBC (4.50-10.00) 10*3/uL RBC (4.10-5.20) 10*6/uL Hgb (12.0-15.0) g/dL Hct (37.2-46.3) % MPV (9.5-12.2) fL Immature Gran # (0.00-0.04) 10*3/uL Neutrophils # (Manual) (1.3-7.7) k/uL Lymphocytes # (Manual) (1.0-4.8) k/uL Monocytes # (Manual) (0-1.0) k/uL Metamyelocytes # (Man) (0) k/uL Nucleated RBCs (0-0) /100 WBC ABG pO2 (83-108) mmHg ABG Total CO2 (19-24) mmol/L Potassium 3.3 L (3.5-5.1) mmol/L Chloride 110 H (98-107) mmol/L BUN 23 H (7-17) mg/dL Creatinine 1.46 H (0.52-1.04) mg/dL Glucose 110 H (74-99) mg/dL Calcium 7.5 L (8.4-10.2) mg/dL Total Protein 3.8 L (6.3-8.2) g/dL Albumin 1.9 L (3.5-5.0) g/dL Urine Protein (Negative) Urine Blood (Negative) Ur Leukocyte Esterase (Negative) Urine Mucus (None) /hpf Microbiology - Last 24 Hours (Table) 10/27/24 14:40 Blood Culture - Preliminary Blood Assessment and Plan (1) Sepsis Current Visit: Yes Status: Acute Priority: High Code(s): A41.9 - SEPSIS, UNSPECIFIED ORGANISM SNOMED Code(s): 03558125 (2) Colitis Current Visit: Yes Status: Acute Priority: High Code(s): K52.9 - NONINFECTIVE GASTROENTERITIS AND COLITIS, UNSPECIFIED SNOMED Code(s): 73709305 Plan: 1patient presented to hospital with sepsis in this patient who did have tachycardia mild hypotension elevated white count meeting currently for SIRS/sepsis source is likely C. difficile colitis in this patient with evidence of diffuse colitis seen on the CT and has recently completed a course of antibiotic for the UTI 2-patient did have significant worsening of her clinical condition was taken to the OR status post subtotal colectomy concerning for toxic megacolon likely related to C. difficile ischemic colitis less likely but not excluded we will wait for the biopsy to be completed as stool for C. difficile was not collected 3patient white count is trending down and the patient has been extubated, patient to continue Zosyn along with oral vancomycin and continue with supportive care Dictation was produced using [employer] dictation software. please excuse any grammatical, word or spelling errors. Time with Patient: Less than 30
--- NOTE | 2024-10-31 15:18 | P.PN ---
Subjective Progress Note Date: 10/31/24 Principal diagnosis: Reason for follow-up is sepsis/toxic megacolon Patient is a 59-year-old female with a past medical history significant for COPD chronic lower back pain recently completed course of antibiotic for UTI presenting to the hospital for evaluation of abdominal pain and diarrhea and evidence of significant colitis on the CT prompted this consultation patient was taken to the OR this morning status post subtotal colectomy. On today's evaluation that is 10/31/2024, the patient continues to be afebrile, the patient is on 2 L nasal oxygen and breathing comfortably, the Pt denies having any chest pain or cough, the patient abdominal pain is current controlled no nausea vomiting. Patient white count is down to 10.85 creatinine 0.95 Objective - Vital Signs Vital signs: Vital Signs Temp 98.7 F 10/31/24 08:00 Pulse 70 10/31/24 11:00 Resp 11 L 10/31/24 11:00 BP 103/70 10/30/24 07:00 Pulse Ox 96 10/31/24 11:00 FiO2 50 10/29/24 12:00 Intake & Output 10/30/24 10/31/24 10/31/24 18:59 06:59 18:59 Intake Total 2200 1500 380 Output Total 1130 950 510 Balance 1070 550 -130 Weight 93.9 kg 91.6 kg Intake: IV 2200 1500 380 Lactated Ringers 1,000 ml 210 840 350 @ 70 mls/hr IV .[id number] [facility] Rx#:[id number] Mvi, Adult No.4 with Vit 90 360 30 K 10 ml Trace (Conc-1Ml/ Dose) 1 ml In Amino Acid 5%-D20w+Lytes*E* 1,000 ml @ 30 mls/hr IV .Q24H [facility] Rx#:[id number] Piperacillin-Tazobactam 3 100 200 .375 gm In Sodium Chloride 0.9% 100 ml @ 25 mls/hr IVPB Q12H [facility] Rx# :[id number] Sodium Chloride 0.9% 1, 1700 000 ml @ 75 mls/hr IV . [id number] [facility] Rx#:[id number] metroNIDAZOLE-NS PMX 500 100 100 mg In Saline 1 100ml.bag @ 100 mls/hr IVPB Q8HR [facility] Rx#:[id number] Output: Gastric Drainage 250 150 Drainage 10 0 LUQ Ostomy 10 0 Urine 880 790 510 Other: Voiding Method Indwelling Catheter Indwelling Catheter Indwelling Catheter ABP, PAP, CO, CI - Last Documented Arterial Blood Pressure 135/50 - Exam GENERAL DESCRIPTION: Middle-age female lying in bed in no distress HEENT: Oral thrush RESPIRATORY SYSTEM: Unlabored breathing , decreased breath sounds at bases HEART: S1 S2 regular rate and rhythm , ABDOMEN: Soft , no tenderness EXTREMITIES: No edema feet - Labs CBC & Chem 7: 10/31/24 06:10 10/31/24 06:10 Labs: Abnormal Lab Results - Last 24 Hours (Table) 10/30/24 10/31/24 10/31/24 Range/Units 19:08 06:10 06:10 WBC 10.85 H (4.50-10.00) 10*3/uL RBC 2.83 L (4.10-5.20) 10*6/uL Hgb 8.6 L (12.0-15.0) g/dL Hct 26.4 L (37.2-46.3) % MPV 8.8 L (9.5-12.2) fL Immature Gran # 0.75 H (0.00-0.04) 10*3/uL Neutrophils # (Manual) 9.77 H (1.3-7.7) k/uL Lymphocytes # (Manual) 0.22 L (1.0-4.8) k/uL Metamyelocytes # (Man) 0.33 H (0) k/uL Myelocytes # (Manual) 0.22 H (0) k/uL Nucleated RBCs 1 H (0-0) /100 WBC Chloride 113 H (98-107) mmol/L Glucose 124 H (74-99) mg/dL POC Glucose (mg/dL) 124 H (70-110) mg/dL Calcium 7.5 L (8.4-10.2) mg/dL Phosphorus 2.1 L (2.5-4.5) mg/dL Total Protein 3.7 L (6.3-8.2) g/dL Albumin 1.8 L (3.5-5.0) g/dL 10/31/24 10/31/24 Range/Units 06:10 11:30 WBC (4.50-10.00) 10*3/uL RBC (4.10-5.20) 10*6/uL Hgb (12.0-15.0) g/dL Hct (37.2-46.3) % MPV (9.5-12.2) fL Immature Gran # (0.00-0.04) 10*3/uL Neutrophils # (Manual) (1.3-7.7) k/uL Lymphocytes # (Manual) (1.0-4.8) k/uL Metamyelocytes # (Man) (0) k/uL Myelocytes # (Manual) (0) k/uL Nucleated RBCs (0-0) /100 WBC Chloride (98-107) mmol/L Glucose (74-99) mg/dL POC Glucose (mg/dL) 156 H 139 H (70-110) mg/dL Calcium (8.4-10.2) mg/dL Phosphorus (2.5-4.5) mg/dL Total Protein (6.3-8.2) g/dL Albumin (3.5-5.0) g/dL Microbiology - Last 24 Hours (Table) 10/27/24 14:40 Blood Culture - Preliminary Blood Assessment and Plan (1) Sepsis Current Visit: Yes Status: Acute Priority: High Code(s): A41.9 - SEPSIS, UNSPECIFIED ORGANISM SNOMED Code(s): 70189983 (2) Colitis Current Visit: Yes Status: Acute Priority: High Code(s): K52.9 - NONINFEC TIVE GASTROENTERITIS AND COLITIS, UNSPECIFIED SNOMED Code(s): 74987033 (3) Oral thrush Current Visit: Yes Status: Acute Code(s): B37.0 - CANDIDAL STOMATITIS SNOM ED Code(s): 08683991 Plan: 1patient presented to hospital with sepsis in this patient who did have tachycardia mild hypotension elevated white count meeting currently for SIRS/sepsis source is likely C. 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 difficile ischemic colitis less likely but not excluded, histopathology given the differential of ischemic colitis versus C. difficile colitis 3patient white count has normalized patient is currently being Zosyn along with oral vancomycin stool for C. difficile collected results will be followed 4oral thrush we will add nystatin swish and swallow Dictation was produced using [employer] software. please excuse any grammatical, word or spelling errors. Time with Patient: Less than 30
[2024-10-31] MEDS: NYSTATIN 100,000 UNIT/ML SUSP 500,000 UNIT/5 ML CUP PO SCH (15:32)
--- NOTE | 2024-10-31 17:14 | P.PN ---
Subjective Progress Note Date: 10/31/24 59-year-old female, came to the emergency department, on October 27 complaining of abdominal pain, nausea and vomiting. She was in the emergency room on October 11, with abdominal pain, and was discharged. Back on September 03, at [facility], she had surgery on her abdomen. Earlier this morning, a rapid response was called on this patient this morning, for severe abdominal pain, tachycardia, and hypotension. Patient was transferred to the ICU, to be further evaluated. --She got Zosyn IV, and p.o. Flagyl. We placed a left internal jugular triple- lumen catheter in her. I did speak to the surgeon, who plans on taking her to the operating room. She does have a history of colon cancer, with previous colectomy and subsequent reversal. Blood work revealed a white count of 56.3, hemoglobin 18.8, hematocrit 56.7, and a platelet count of 477,000. Sodium 136, potassium 4.2, chlorides 103, CO2 14, anion gap 19, BUN 24, creatinine 2.43. Lactic acid went from 3.9 up to 10.2. Glucose 191. Calcium 8.4. Lipase 18. Amylase 35. Albumin 2.9. -CT of the abdomen and pelvis shows marked diffuse thickening of the colon wall from marked subcutaneous mucosal edema consistent with ulcerative colitis or other diffuse colitis, moderate ascites, small right pleural effusion, 10 mm left lower lobe pulmonary nodule, and stable cholelithiasis. - Abdominal x-ray was nonspecific. Chest x-ray showed infiltrate or atelectasis in the left lower lobe, and a properly inserted, left internal jugular triple- lumen catheter. Objective - Vital Signs Vital signs: Vital Signs Temp 98.7 F 10/31/24 08:00 Pulse 70 10/31/24 11:00 Resp 11 L 10/31/24 11:00 BP 103/70 10/30/24 07:00 Pulse Ox 96 10/31/24 11:00 FiO2 50 10/29/24 12:00 Intake & Output 10/30/24 10/31/24 10/31/24 18:59 06:59 18:59 Intake Total 2200 1500 310 Output Total 1130 950 410 Balance 1070 550 -100 Weight 93.9 kg 91.6 kg Intake: IV 2200 1500 310 Lactated Ringers 1,000 ml 210 840 280 @ 70 mls/hr IV .[id number] [facility] Rx#:[id number] Mvi, Adult No.4 with Vit 90 360 30 K 10 ml Trace (Conc-1Ml/ Dose) 1 ml In Amino Acid 5%-D20w+Lytes*E* 1,000 ml @ 30 mls/hr IV .Q24H [facility] Rx#:[id number] Piperacillin-Tazobactam 3 100 200 .375 gm In Sodium Chloride 0.9% 100 ml @ 25 mls/hr IVPB Q12H [facility] Rx# :[id number] Sodium Chloride 0.9% 1, 1700 000 ml @ 75 mls/hr IV . [id number] [facility] Rx#:[id number] metroNIDAZOLE-NS PMX 500 100 100 mg In Saline 1 100ml.bag @ 100 mls/hr IVPB Q8HR [facility] Rx#:[id number] Output: Gastric Drainage 250 150 Drainage 10 0 LUQ Ostomy 10 0 Urine 880 790 410 Other: Voiding Method Indwelling Catheter Indwelling Catheter Indwelling Catheter ABP, PAP, CO, CI - Last Documented Arterial Blood Pressure 135/50 - Exam No acute distress, oriented 3. NG tube in place. Nasal O2 noted. HEENT examination is grossly unremarkable. Mucous membranes are moist. No oral lesions. Neck supple. Full range of motion. No adenopathy thyromegaly or neck vein distention. Cardiovascular examination reveals regular rhythm rate. S1-S2 normal. No S3 or S4. No discernible murmur noted. Lungs reveal mild scattered rhonchi. No wheezes. No crackles. Breath sounds equal bilaterally. Abdomen soft without bowel sounds. Ileostomy is noted. Extremities are intact. No cyanosis clubbing or edema. Skin is without rash or lesion. Neurologic examination is brief but nonfocal. - Labs CBC & Chem 7: 10/31/24 06:10 10/31/24 14:12 Labs: Abnormal Lab Results - Last 24 Hours (Table) 10/30/24 10/31/24 10/31/24 Range/Units 19:08 06:10 06:10 WBC 10.85 H (4.50-10.00) 10*3/uL RBC 2.83 L (4.10-5.20) 10*6/uL Hgb 8.6 L (12.0-15.0) g/dL Hct 26.4 L (37.2-46.3) % MPV 8.8 L (9.5-12.2) fL Immature Gran # 0.75 H (0.00-0.04) 10*3/uL Neutrophils # (Manual) 9.77 H (1.3-7.7) k/uL Lymphocytes # (Manual) 0.22 L (1.0-4.8) k/uL Metamyelocytes # (Man) 0.33 H (0) k/uL Myelocytes # (Manual) 0.22 H (0) k/uL Nucleated RBCs 1 H (0-0) /100 WBC Chloride 113 H (98-107) mmol/L Glucose 124 H (74-99) mg/dL POC Glucose (mg/dL) 124 H (70-110) mg/dL Calcium 7.5 L (8.4-10.2) mg/dL Phosphorus 2.1 L (2.5-4.5) mg/dL Total Protein 3.7 L (6.3-8.2) g/dL Albumin 1.8 L (3.5-5.0) g/dL 10/31/24 Range/Units 06:10 WBC (4.50-10.00) 10*3/uL RBC (4.10-5.20) 10*6/uL Hgb (12.0-15.0) g/dL Hct (37.2-46.3) % MPV (9.5-12.2) fL Immature Gran # (0.00-0.04) 10*3/uL Neutrophils # (Manual) (1.3-7.7) k/uL Lymphocytes # (Manual) (1.0-4.8) k/uL Metamyelocytes # (Man) (0) k/uL Myelocytes # (Manual) (0) k/uL Nucleated RBCs (0-0) /100 WBC Chloride (98-107) mmol/L Glucose (74-99) mg/dL POC Glucose (mg/dL) 156 H (70-110) mg/dL Calcium (8.4-10.2) mg/dL Phosphorus (2.5-4.5) mg/dL Total Protein (6.3-8.2) g/dL Albumin (3.5-5.0) g/dL Microbiology - Last 24 Hours (Table) 10/27/24 14:40 Blood Culture - Preliminary Blood Assessment and Plan Assessment: Severe abdominal pain, with associated nausea and vomiting, secondary to diffuse colitis. -- Postoperative day #3, S/P exploratory laparotomy, subtotal colectomy, end ileostomy. Recent hernia repair, [facility], September 03, 2024. Profound leukocytosis, secondary to intra-abdominal process; patient remains on IV Zosyn, oral Flagyl and oral vancomycin. Anion gap metabolic acidosis, secondary to lactic acidosis. Lactic acidemia related to diffuse colitis; continue to monitor and trend lactic acid levels. Acute kidney injury, likely secondary to hypotension, and ATN; slowly improving; patient remains on IV fluids; nephrology on board. Prior history of colon cancer, with colectomy/colostomy and subsequent reversal DVT prophylaxis; SCDs/subcu heparin CODE STATUS; full code
[2024-10-31] MEDS: MVI, ADULT NO.4 WITH VIT K 10 ML, TRACE (CONC-1ML/DOSE) 1 ML, CALCIUM GLUCONATE 1 GM, S... IV SCH (17:21)
[2024-10-31 18:11] LABS: Glucose,Whole Blood 132 mg/dL (70-110)
--- NOTE | 2024-10-31 18:29 | CA ---
Transthoracic Echo Report Name: Breanne Murdock Age: 59 Gender: F : 1965 Exam Date: 10/31/2024 07:52 Exam Location: [place] Echo Ht (in): 60 Wt (lb): 207 Ordering Physician: Ed Bull MD Attending/Referring Phys: Interface Engineer Jackie Hutchinosn RDCS Procedure CPT: Indications: chf Cardiac Hx: Technical Quality: Fair Contrast 1: Total Dose (mL): Contrast 2: Total Dose (mL): MEASUREMENTS (Male / Female) Normal Values 2D ECHO LV Diastolic Diameter PLAX 4.5 cm 4.2 - 5.9 / 3.9 - 5.3 cm LV Systolic Diameter PLAX 3.0 cm IVS Diastolic Thickness 1.2 cm 0.6 - 1.0 / 0.6 - 0.9 cm LVPW Diastolic Thickness 1.1 cm 0.6 - 1.0 / 0.6 - 0.9 cm LV Relative Wall Thickness 0.5 RV Internal Dim ED PLAX 2.3 cm LVOT Diameter 2.0 cm LA Systolic Diameter LX 3.2 cm 3.0 - 4.0 / 2.7 - 3.8 cm M-MODE Aortic Root Diameter MM 2.7 cm LA Systolic Diameter MM 3.7 cm LA Ao Ratio MM 1.4 AV Cusp Separation MM 1.7 cm DOPPLER AV Peak Velocity 178.6 cm/s AV Peak Gradient 12.8 mmHg MV Area PHT 3.0 cm??? Mitral E Point Velocity 96.2 cm/s Mitral A Point Velocity 112.7 cm/s Mitral E to A Ratio 0.9 MV Deceleration Time 254.5 ms TR Peak Velocity 245.4 cm/s TR Peak Gradient 24.1 mmHg Right Ventricular Systolic Press 28.9 mmHg FINDINGS Left Ventricle Left ventricular ejection fraction is estimated at 55-60 %. Mildly increased septal wall thickness. Mildly increased posterior wall thickness. Normal left ventricular systolic function with no obvious regional wall motion abnormalities. Left ventricular cavity size normal. Right Ventricle Mild right ventricular dilatation. Right ventricular systolic pressure within normal limits. Right Atrium Mild right atrial dilatation. Left Atrium Mild left atrial dilatation. Mitral Valve Structurally normal mitral valve. Trace to mild mitral regurgitation. No mitral stenosis. Aortic Valve Trileaflet aortic valve. No aortic valve stenosis or regurgitation. Tricuspid Valve Structurally normal tricuspid valve. Trace to mild tricuspid regurgitation.no tricuspid stenosis. Pulmonic Valve Structurally normal pulmonic valve. Trace pulmonic regurgitation. No pulmonic stenosis. Pericardium No pericardial effusion. Left pleural effusion. Aorta Normal size aortic root and proximal ascending aorta. CONCLUSIONS Normal LV systolic function Mild RV enlargement No significant valvular abnormalities noted Previewed by: Dr. Ab Navarro MD (Electronically Signed) Final Date: 31 October 2024 18:28
[2024-11-01] LABS: Glucose,Whole Blood 138 mg/dL (70-110)
[2024-11-01 04:00] LABS: ALT 12 U/L (4-34); AST 27 U/L (14-36); African American GFR (CKD) 89 (>60 ml/min/1.73 sqM); Albumin 1.9 g/dL (3.5-5.0); Alkaline Phosphatase 70 U/L (38-126); Anion Gap 5 mmol/L; Blood Urea Nitrogen 11 mg/dL (7-17); Calcium 7.5 mg/dL (8.4-10.2); Carbon Dioxide 27 mmol/L (22-30); Chloride 105 mmol/L (98-107); Glucose 124 mg/dL (74-99); Magnesium 1.9 mg/dL (1.6-2.3); Non-African American GFR(CKD) 77 (>60 ml/min/1.73 sqM); Phosphorus 2.8 mg/dL (2.5-4.5); Potassium 3.7 mmol/L (3.5-5.1); Sodium 137 mmol/L (137-145); Total Bilirubin 0.4 mg/dL (0.2-1.3); Total Protein 3.8 g/dL (6.3-8.2)
[2024-11-01 06:09] LABS: Glucose,Whole Blood 129 mg/dL (70-110)
[2024-11-01] MEDS: MAGNESIUM SULFATE-D5W PMX 1 GM in DEXTROSE/WATER 1 100ML.BAG IVPB ONE (06:13)
[2024-11-01] MEDS: POTASSIUM CHLORIDE 10 MEQ in WATER FOR INJECTION 1 100ML.BAG IVPB SCH (06:14)
[2024-11-01 08:14] LABS: Basophils # (A) 0.04 10*3/uL (0.00-0.10); Basophils % (A) 0.4 %; Eosinophils # (A) 0.08 10*3/uL (0.04-0.35); Eosinophils % (A) 0.8 %; HCT 28.5 % (37.2-46.3); Lymphocytes # (A) 0.58 10*3/uL (0.90-5.00); Lymphocytes % (A) 6.1 %; MCH 30.3 pg (27.0-32.0); MCHC 31.6 g/dL (32.0-37.0); Mean Platelet Volume 9.5 fL (9.5-12.2); Monocytes # (A) 1.02 10*3/uL (0.20-1.00); Monocytes % (A) 10.7 %; Neutrophils # (A) 7.07 10*3/uL (1.80-7.70); Neutrophils % (A) 73.8 %; Platelet Count 237 10*3/uL (140-440); RBC 2.97 10*6/uL (4.10-5.20); RDW 15.1 % (11.5-14.5); WBC 9.57 10*3/uL (4.50-10.00)
--- NOTE | 2024-11-01 09:46 | P.PN ---
Subjective Progress Note Date: 11/01/24 Principal diagnosis: Abdominal pain. Pulmonary consult dated October 28, 2024. 59-year-old female seen today in the intensive care unit, room 265. The patient apparently came to the emergency department, on October 27 complaining of abdominal pain, nausea and vomiting. She was in the emergency room on October 11, with abdominal pain, and was discharged. Back on September 03, at [facility], she had surgery on her abdomen, i.e. hernia repair, and may be something more. Anyway, a rapid response was called on this patient this morning, for severe abdominal pain, tachycardia, and hypotension. For that reason, we brought the patient to the ICU, to be further evaluated. We see her today in room 265. She is on room air. She is getting saline bolus. She got Zosyn IV, and p.o. Flagyl. We placed a left internal jugular triple-lumen catheter in her. I did speak to the surgeon, who plans on taking her to the operating room. She does have a history of colon cancer, with previous colectomy and subsequent reversal. Current laboratory data includes a white count of 56.3, hemoglobin 18.8, hematocrit 56.7, and a platelet count of 477,000. Sodium 136, potassium 4.2, chlorides 103, CO2 14, anion gap 19, BUN 24, creatinine 2.43. Lactic acid went from 3.9 up to 10.2. Glucose 191. Calcium 8.4. Lipase 18. Amylase 35. Albumin 2.9. CT of the abdomen and pelvi s shows marked diffuse thickening of the colon wall from marked subcutaneous mucosal edema consistent with ulcerative colitis or other diffuse colitis, moderate ascites, small right pleural effusion, 10 mm left lower lobe pulmonary nodule, and stable cholelithiasis. Plain film of the abdomen was nonspecific. Chest x-ray showed infiltrate or atelectasis in the left lower lobe, and a properly inserted, left internal jugular triple-lumen catheter. Progress note dated October 30, 2024. The patient is seen today in room 265. She is postop day #2, status post subtotal colectomy with ileostomy. She was extubated yesterday, October 29. She is getting saline at 100 cc an hour. NG tube in place. She is getting nasal O2 at 4 L. She is resting comfortably in bed. She does have some abdominal disc omfort, at the surgical site. White count was 18.9, hemoglobin 9.7, hematocrit 29.5, platelet count 344,000. Sodium 139, potassium 3.3, chlorides 110, CO2 25, BUN 23, creatinine 1.46. Glucose was 96. Albumin 1.9. Blood gases prior to extubation, showed a PO2 of 80, pCO2 of 41, pH of 7.38. Blood cultures are currently negative or pending. Chest x-ray shows bibasilar infiltrates, with small right-sided pleural effusion. Progress note dated October 31, 2024. 59-year-old female seen today in room 265. She is resting comfortably in bed. The patient is on 2 L nasal O2. NG tube remains in place. She is getting LR at 70 cc an hour, TPN at 30 cc an hour. She is on Zosyn. She is also getting p.o. Flagyl and vancomycin. Current laboratory data includes a white count of 10.9, hemoglobin 8.6, hematocrit 26.4, platelet count of 189,000. Sodium 141, potassium 3.7, chlorides 113, CO2 25, BUN 15, creatinine 0.95. Glucose is 139. Calcium 7.5. The rest of the labs look reasonable. Chest x-ray again shows bilateral pleural effusions, with bibasilar infiltrates, or atelectasis. Progress note dated November 01, 2024. 59-year-old female seen in room 265. She is resting comfortably in bed. She is postop day #4. She had a subtotal colectomy with ileostomy. She came in initially with abdominal discomfort. She is on 2 L of oxygen. She is getting LR at 70 cc an hour. She is getting TPN at 55 cc an hour. White count is 9.6, hemoglobin 9, hematocrit 28.5, platelet count is normal. Sodium 137, potassium 3.7, chlorides 105, CO2 27, BUN 11, creatinine 0.84. Glucose 129. Albumin is 1.9. Micro is thus far negative. No chest x-ray today. The patient is currently on Zosyn, Flagyl IV, and oral vancomycin. Objective - Vital Signs Vital signs: Vital Signs Temp 98.5 F 11/01/24 08:00 Pulse 86 11/01/24 09:00 Resp 17 11/01/24 09:00 BP 127/72 11/01/24 09:00 Pulse Ox 96 11/01/24 09:00 FiO2 50 10/29/24 12:00 Intake & Output 10/31/24 11/01/24 11/01/24 18:59 06:59 18:59 Intake Total 2183.5 1675 500 Output Total 1170 1225 465 Balance 1013.5 450 35 Weight 91.5 kg Intake: IV 940 1070 445 Lactated Ringers 1,000 ml 910 770 190 @ 50 mls/hr IV .Q20H [facility] Rx#:[id number] Magnesium Sulfate-D5w Pmx 100 1 gm In Dextrose/Water 1 100ml.bag @ 100 mls/hr IVPB ONCE [facility] Rx#: [id number] Mvi, Adult No.4 with Vit 30 55 K 10 ml Trace (Conc-1Ml/ Dose) 1 ml In Amino Acid 5%-D20w+Lytes*E* 1,000 ml @ 30 mls/hr IV .Q24H [facility] Rx#:[id number] Piperacillin-Tazobactam 3 100 .375 gm In Sodium Chloride 0.9% 100 ml @ 25 mls/hr IVPB Q12H [facility] Rx# :[id number] Potassium Chloride 10 meq 100 100 In Water For Injection 1 100ml.bag @ 100 mls/hr IVPB Q1H [facility] Rx#: [id number] metroNIDAZOLE-NS PMX 500 100 mg In Saline 1 100ml.bag @ 100 mls/hr IVPB Q8HR [facility] Rx#:[id number] Intake, IV Titration 783.5 Amount Mvi, Adult No.4 with Vit 783.5 K 10 ml Trace (Conc-1Ml/ Dose) 1 ml In Amino Acid 5%-D20w+Lytes*E* 1,000 ml @ 30 mls/hr IV .Q24H [facility] Rx#:[id number] TPN/PPN 460 605 55 Mvi, Adult No.4 with Vit 460 605 55 K 10 ml Trace (Conc-1Ml/ Dose) 1 ml In Amino Acid 5%-D20w+Lytes*E* 1,000 ml @ 30 mls/hr IV .Q24H [facility] Rx#:[id number] Output: Drainage 0 LUQ Ostomy 0 Urine 1160 1150 465 Stool 10 75 Other: Voiding Method Indwelling Catheter Indwelling Catheter Indwelling Catheter ABP, PAP, CO, CI - Last Documented Arterial Blood Pressure 136/49 - Exam No acute distress, oriented 3. NG tube in place. Nasal O2 noted. HEENT examination is grossly unremarkable. Mucous membranes are moist. No oral lesions. Neck supple. Full range of motion. No adenopathy thyromegaly or neck vein distention. Cardiovascular examination reveals regular rhythm rate. S1-S2 normal. No S3 or S4. No discernible murmur noted. Lungs reveal mild scattered rhonchi. No wheezes. No crackles. Breath sounds equal bilaterally. Abdomen soft without bowel sounds. Ileostomy is noted. Extremities are intact. No cyanosis clubbing or edema. Skin is without rash or lesion. Neurologic examination is brief but nonfocal. - Labs CBC & Chem 7: 11/01/24 02:50 11/01/24 02:50 Labs: Abnormal Lab Results - Last 24 Hours (Table) 10/31/24 10/31/24 10/31/24 Range/Units 06:10 11:30 18:09 RBC (4.10-5.20) 10*6/uL Hgb (12.0-15.0) g/dL Hct (37.2-46.3) % MCHC (32.0-37.0) g/dL Immature Gran # (0.00-0.04) 10*3/uL Neutrophils # (Manual) 9.77 H (1.3-7.7) k/uL Lymphocytes # (0.90-5.00) 10*3/uL Lymphocytes # (Manual) 0.22 L (1.0-4.8) k/uL Monocytes # (0.20-1.00) 10*3/uL Metamyelocytes # (Man) 0.33 H (0) k/uL Myelocytes # (Manual) 0.22 H (0) k/uL Nucleated RBCs 1 H (0-0) /100 WBC Glucose (74-99) mg/dL POC Glucose (mg/dL) 139 H 132 H (70-110) mg/dL Calcium (8.4-10.2) mg/dL Total Protein (6.3-8.2) g/dL Albumin (3.5-5.0) g/dL Stool Lactoferrin (Negative) 10/31/24 10/31/24 11/01/24 Range/Units 19:26 23:59 02:50 RBC (4.10-5.20) 10*6/uL Hgb (12.0-15.0) g/dL Hct (37.2-46.3) % MCHC (32.0-37.0) g/dL Immature Gran # (0.00-0.04) 10*3/uL Neutrophils # (Manual) (1.3-7.7) k/uL Lymphocytes # (0.90-5.00) 10*3/uL Lymphocytes # (Manual) (1.0-4.8) k/uL Monocytes # (0.20-1.00) 10*3/uL Metamyelocytes # (Man) (0) k/uL Myelocytes # (Manual) (0) k/uL Nucleated RBCs (0-0) /100 WBC Glucose 124 H (74-99) mg/dL POC Glucose (mg/dL) 138 H (70-110) mg/dL Calcium 7.5 L (8.4-10.2) mg/dL Total Protein 3.8 L (6.3-8.2) g/dL Albumin 1.9 L (3.5-5.0) g/dL Stool Lactoferrin Positive A (Negative) 11/01/24 11/01/24 Range/Units 02:50 06:08 RBC 2.97 L (4.10-5.20) 10*6/uL Hgb 9.0 L (12.0-15.0) g/dL Hct 28.5 L (37.2-46.3) % MCHC 31.6 L (32.0-37.0) g/dL Immature Gran # 0.78 H (0.00-0.04) 10*3/uL Neutrophils # (Manual) (1.3-7.7) k/uL Lymphocytes # 0.58 L (0.90-5.00) 10*3/uL Lymphocytes # (Manual) (1.0-4.8) k/uL Monocytes # 1.02 H (0.20-1.00) 10*3/uL Metamyelocytes # (Man) (0) k/uL Myelocytes # (Manual) (0) k/uL Nucleated RBCs (0-0) /100 WBC Glucose (74-99) mg/dL POC Glucose (mg/dL) 129 H (70-110) mg/dL Calcium (8.4-10.2) mg/dL Total Protein (6.3-8.2) g/dL Albumin (3.5-5.0) g/dL Stool Lactoferrin (Negative) Assessment and Plan Assessment: Severe abdominal pain, with associated nausea and vomiting, secondary to diffuse colitis. Postoperative day #4, S/P exploratory laparotomy, subtotal colectomy, end ileostomy. Recent hernia repair, [facility], September 03, 2024. Profound leukocytosis, secondary to intra-abdominal process. Anion gap metabolic acidosis, secondary to lactic acidosis. Lactic acidemia. Acute kidney injury, likely secondary to hypotension, and ATN. Prior history of colon cancer, with colectomy/colostomy and subsequent reversal. Plan: Plan dated October 28, 2024. The patient was initially evaluated by the charge nurse in the ICU, because of a rapid response called on this patient. The patient was tachycardic and hypotensive, had severe abdominal pain, she was brought down to the intensive care unit, room 265. She was seen there, and we placed a left internal jugular triple-lumen catheter. She was seen by the surgeon, and the plan is for her to go to the operating room, sometime today. The patient had severe nausea, vomiting, and abdominal pain. CT scan of the abdomen and pelvis showed significant colitis, and the patient is acting septic. In addition, the patient may have acute kidney injury, secondary to ATN, and hypotension, as well as profound anion gap metabolic acidosis, secondary to lactic acidemia. All labs, x-rays, and medications are reviewed. The patient was placed on antibiotics. We will continue to follow the patient, make recommendations. She may end up coming back on the mechanical ventilator. Dictation was produced using [employer] software. Please excuse any grammatical, word or spelling errors. Plan dated October 30, 2024. The patient is seen today in room 265. She is resting comfortably in bed. She is laying flat on her back. She is nasal O2 at 4 L. She has an NG tube in place. She is getting saline at 100 cc an hour. Today is postoperative day #2, status post subtotal colectomy with ileostomy. She came in with severe abdominal pain, nausea and vomiting. Labs, x-rays, and all medications are reviewed. We will continue to follow make recommendations along the way. Overall prognosis remains guarded. Recommend deep breathing, coughing, clearing of secretions, and hourly use of the incentive spirometer. Dictation was produced using [employer] software. Please excuse any grammatical, word or spelling errors. Plan dated October 31, 2024. The patient is seen today in room 265. She remains critically ill. She is on 2 L of oxygen. She has an NG tube in place. She is getting LR at 70 cc an hour, and TPN at 30 cc an hour. She continues on IV Zosyn. She is also on oral Flagyl and oral vancomycin. All labs, x-rays, and medications are reviewed. The patient is postoperative day #3. She had a subtotal colectomy with ileostomy. She presented with severe abdominal pain. We will continue to follow and make recommendations along the way. Prognosis is guarded. Dictation was produced using [employer] software. Please excuse any grammatical, word or spelling errors. Plan dated November 01, 2024. The patient is seen today in room 265. She continues on nasal O2 2 L. She is getting lactated Ringer's at 70 cc an hour. The patient is getting TPN at 55 cc an hour. Labs, x-rays, and medications are reviewed. Today's postop day #4. She continues to use the incentive spirometer, but is not motivated to use it. We will continue to follow make recommendations. Prognosis is guarded. Dictation was produced using [employer] software. Please excuse any grammatical, word or spelling errors. Time with Patient: Less than 30
--- NOTE | 2024-11-01 09:47 | P.PN ---
Subjective Patient is seen in follow-up for acute kidney injury. Renal function back to baseline. On IV fluids. Also receiving TPN. Vital signs are stable. General: No acute distress. HEENT: NG tube noted. LUNGS: No audible rhonchi or wheezes. HEART: Rate and Rhythm are regular. ABDOMEN: Colostomy noted. EXTREMITITES: No edema. Objective - Vital Signs Vital signs: Vital Signs Temp 98.5 F 11/01/24 08:00 Pulse 86 11/01/24 09:00 Resp 17 11/01/24 09:00 BP 127/72 11/01/24 09:00 Pulse Ox 96 11/01/24 09:00 FiO2 50 10/29/24 12:00 Intake & Output 10/31/24 11/01/24 11/01/24 18:59 06:59 18:59 Intake Total 2183.5 1675 500 Output Total 1170 1225 465 Balance 1013.5 450 35 Weight 91.5 kg Intake: IV 940 1070 445 Lactated Ringers 1,000 ml 910 770 190 @ 50 mls/hr IV .Q20H [facility] Rx#:[id number] Magnesium Sulfate-D5w Pmx 100 1 gm In Dextrose/Water 1 100ml.bag @ 100 mls/hr IVPB ONCE ONE Rx#: [id number] Mvi, Adult No.4 with Vit 30 55 K 10 ml Trace (Conc-1Ml/ Dose) 1 ml In Amino Acid 5%-D20w+Lytes*E* 1,000 ml @ 30 mls/hr IV .Q24H [facility] Rx#:[id number] Piperacillin-Tazobactam 3 100 .375 gm In Sodium Chloride 0.9% 100 ml @ 25 mls/hr IVPB Q12H [facility] Rx# :[id number] Potassium Chloride 10 meq 100 100 In Water For Injection 1 100ml.bag @ 100 mls/hr IVPB Q1H [facility] Rx#: [id number] metroNIDAZOLE-NS PMX 500 100 mg In Saline 1 100ml.bag @ 100 mls/hr IVPB Q8HR [facility] Rx#:[id number] Intake, IV Titration 783.5 Amount Mvi, Adult No.4 with Vit 783.5 K 10 ml Trace (Conc-1Ml/ Dose) 1 ml In Amino Acid 5%-D20w+Lytes*E* 1,000 ml @ 30 mls/hr IV .Q24H [facility] Rx#:[id number] TPN/PPN 460 605 55 Mvi, Adult No.4 with Vit 460 605 55 K 10 ml Trace (Conc-1Ml/ Dose) 1 ml In Amino Acid 5%-D20w+Lytes*E* 1,000 ml @ 30 mls/hr IV .Q24H [facility] Rx#:[id number] Output: Drainage 0 LUQ Ostomy 0 Urine 1160 1150 465 Stool 10 75 Other: Voiding Method Indwelling Catheter Indwelling Catheter Indwelling Catheter ABP, PAP, CO, CI - Last Documented Arterial Blood Pressure 136/49 - Labs CBC & Chem 7: 11/01/24 02:50 11/01/24 02:50 Labs: Abnormal Lab Results - Last 24 Hours (Table) 10/31/24 10/31/24 10/31/24 Range/Units 06:10 11:30 18:09 RBC (4.10-5.20) 10*6/uL Hgb (12.0-15.0) g/dL Hct (37.2-46.3) % MCHC (32.0-37.0) g/dL Immature Gran # (0.00-0.04) 10*3/uL Neutrophils # (Manual) 9.77 H (1.3-7.7) k/uL Lymphocytes # (0.90-5.00) 10*3/uL Lymphocytes # (Manual) 0.22 L (1.0-4.8) k/uL Monocytes # (0.20-1.00) 10*3/uL Metamyelocytes # (Man) 0.33 H (0) k/uL Myelocytes # (Manual) 0.22 H (0) k/uL Nucleated RBCs 1 H (0-0) /100 WBC Glucose (74-99) mg/dL POC Glucose (mg/dL) 139 H 132 H (70-110) mg/dL Calcium (8.4-10.2) mg/dL Total Protein (6.3-8.2) g/dL Albumin (3.5-5.0) g/dL Stool Lactoferrin (Negative) 10/31/24 10/31/24 11/01/24 Range/Units 19:26 23:59 02:50 RBC (4.10-5.20) 10*6/uL Hgb (12.0-15.0) g/dL Hct (37.2-46.3) % MCHC (32.0-37.0) g/dL Immature Gran # (0.00-0.04) 10*3/uL Neutrophils # (Manual) (1.3-7.7) k/uL Lymphocytes # (0.90-5.00) 10*3/uL Lymphocytes # (Manual) (1.0-4.8) k/uL Monocytes # (0.20-1.00) 10*3/uL Metamyelocytes # (Man) (0) k/uL Myelocytes # (Manual) (0) k/uL Nucleated RBCs (0-0) /100 WBC Glucose 124 H (74-99) mg/dL POC Glucose (mg/dL) 138 H (70-110) mg/dL Calcium 7.5 L (8.4-10.2) mg/dL Total Protein 3.8 L (6.3-8.2) g/dL Albumin 1.9 L (3.5-5.0) g/dL Stool Lactoferrin Positive A (Negative) 11/01/24 11/01/24 Range/Units 02:50 06:08 RBC 2.97 L (4.10-5.20) 10*6/uL Hgb 9.0 L (12.0-15.0) g/dL Hct 28.5 L (37.2-46.3) % MCHC 31.6 L (32.0-37.0) g/dL Immature Gran # 0.78 H (0.00-0.04) 10*3/uL Neutrophils # (Manual) (1.3-7.7) k/uL Lymphocytes # 0.58 L (0.90-5.00) 10*3/uL Lymphocytes # (Manual) (1.0-4.8) k/uL Monocytes # 1.02 H (0.20-1.00) 10*3/uL Metamyelocytes # (Man) (0) k/uL Myelocytes # (Manual) (0) k/uL Nucleated RBCs (0-0) /100 WBC Glucose (74-99) mg/dL POC Glucose (mg/dL) 129 H (70-110) mg/dL Calcium (8.4-10.2) mg/dL Total Protein (6.3-8.2) g/dL Albumin (3.5-5.0) g/dL Stool Lactoferrin (Negative) Assessment and Plan Plan: Assessment: 1. Acute kidney injury secondary to ATN secondary to septic shock. Also received IV contrast on October 27, 2024. Baseline creatinine 0.7-0.8 from September 2024. Creatinine peaked at 2.4 this admission and is 0.84 today. No hydronephrosis noted on CAT scan. 2. 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 3. Metabolic acidosis secondary to acute kidney injury, GI losses, lactic acidosis and IV fluids. Improved. 4. Hypokalemia from poor intake. Patient replaced. 5. Septic shock secondary to colitis. Currently off Levophed. Plan: Maintain IV fluids. Decrease rate to 50 cc an hour. TPN per surgery. Continue to monitor renal function and urine output.
--- NOTE | 2024-11-01 10:00 | P.PN ---
Subjective Progress Note Date: 11/01/24 The patient is resting in her bed. She has some complaints incisional pain. She had output through her ileostomy. Exam vital signs appear stable. And soft. Pathology is reviewed. It is presumed the patient had C. difficile colitis. Patient will continue medical management. She is improving. Objective - Vital Signs Vital signs: Vital Signs Temp 98.5 F 11/01/24 08:00 Pulse 86 11/01/24 09:00 Resp 17 11/01/24 09:00 BP 127/72 11/01/24 09:00 Pulse Ox 96 11/01/24 09:00 FiO2 50 10/29/24 12:00 Intake & Output 10/31/24 11/01/24 11/01/24 18:59 06:59 18:59 Intake Total 2183.5 1675 500 Output Total 1170 1225 465 Balance 1013.5 450 35 Weight 91.5 kg Intake: IV 940 1070 445 Lactated Ringers 1,000 ml 910 770 190 @ 50 mls/hr IV .Q20H [facility] Rx#:[id number] Magnesium Sulfate-D5w Pmx 100 1 gm In Dextrose/Water 1 100ml.bag @ 100 mls/hr IVPB ONCE ONE Rx#: [id number] Mvi, Adult No.4 with Vit 30 55 K 10 ml Trace (Conc-1Ml/ Dose) 1 ml In Amino Acid 5%-D20w+Lytes*E* 1,000 ml @ 30 mls/hr IV .Q24H [facility] Rx#:[id number] Piperacillin-Tazobactam 3 100 .375 gm In Sodium Chloride 0.9% 100 ml @ 25 mls/hr IVPB Q12H [facility] Rx# :[id number] Potassium Chloride 10 meq 100 100 In Water For Injection 1 100ml.bag @ 100 mls/hr IVPB Q1H [facility] Rx#: [id number] metroNIDAZOLE-NS PMX 500 100 mg In Saline 1 100ml.bag @ 100 mls/hr IVPB Q8HR [facility] Rx#:[id number] Intake, IV Titration 783.5 Amount Mvi, Adult No.4 with Vit 783.5 K 10 ml Trace (Conc-1Ml/ Dose) 1 ml In Amino Acid 5%-D20w+Lytes*E* 1,000 ml @ 30 mls/hr IV .Q24H [facility] Rx#:[id number] TPN/PPN 460 605 55 Mvi, Adult No.4 with Vit 460 605 55 K 10 ml Trace (Conc-1Ml/ Dose) 1 ml In Amino Acid 5%-D20w+Lytes*E* 1,000 ml @ 30 mls/hr IV .Q24H [facility] Rx#:[id number] Output: Drainage 0 LUQ Ostomy 0 Urine 1160 1150 465 Stool 10 75 Other: Voiding Method Indwelling Catheter Indwelling Catheter Indwelling Catheter ABP, PAP, CO, CI - Last Documented Arterial Blood Pressure 136/49 - Labs CBC & Chem 7: 11/01/24 02:50 11/01/24 02:50 Labs: Abnormal Lab Results - Last 24 Hours (Table) 10/31/24 10/31/24 10/31/24 Range/Units 11:30 18:09 19:26 RBC (4.10-5.20) 10*6/uL Hgb (12.0-15.0) g/dL Hct (37.2-46.3) % MCHC (32.0-37.0) g/dL Immature Gran # (0.00-0.04) 10*3/uL Lymphocytes # (0.90-5.00) 10*3/uL Monocytes # (0.20-1.00) 10*3/uL Glucose (74-99) mg/dL POC Glucose (mg/dL) 139 H 132 H (70-110) mg/dL Calcium (8.4-10.2) mg/dL Total Protein (6.3-8.2) g/dL Albumin (3.5-5.0) g/dL Stool Lactoferrin Positive A (Negative) 10/31/24 11/01/24 11/01/24 Range/Units 23:59 02:50 02:50 RBC 2.97 L (4.10-5.20) 10*6/uL Hgb 9.0 L (12.0-15.0) g/dL Hct 28.5 L (37.2-46.3) % MCHC 31.6 L (32.0-37.0) g/dL Immature Gran # 0.78 H (0.00-0.04) 10*3/uL Lymphocytes # 0.58 L (0.90-5.00) 10*3/uL Monocytes # 1.02 H (0.20-1.00) 10*3/uL Glucose 124 H (74-99) mg/dL POC Glucose (mg/dL) 138 H (70-110) mg/dL Calcium 7.5 L (8.4-10.2) mg/dL Total Protein 3.8 L (6.3-8.2) g/dL Albumin 1.9 L (3.5-5.0) g/dL Stool Lactoferrin (Negative) 11/01/24 Range/Units 06:08 RBC (4.10-5.20) 10*6/uL Hgb (12.0-15.0) g/dL Hct (37.2-46.3) % MCHC (32.0-37.0) g/dL Immature Gran # (0.00-0.04) 10*3/uL Lymphocytes # (0.90-5.00) 10*3/uL Monocytes # (0.20-1.00) 10*3/uL Glucose (74-99) mg/dL POC Glucose (mg/dL) 129 H (70-110) mg/dL Calcium (8.4-10.2) mg/dL Total Protein (6.3-8.2) g/dL Albumin (3.5-5.0) g/dL Stool Lactoferrin (Negative)
[2024-11-01 11:54] LABS: Glucose,Whole Blood 119 mg/dL (70-110)
--- NOTE | 2024-11-01 15:26 | P.PN ---
Subjective Progress Note Date: 11/01/24 Principal diagnosis: Reason for follow-up is sepsis/toxic megacolon Patient is a 59-year-old female with a past medical history significant for COPD chronic lower back pain recently completed course of antibiotic for UTI presenting to the hospital for evaluation of abdominal pain and diarrhea and evidence of significant colitis on the CT prompted this consultation patient was taken to the OR this morning status post subtotal colectomy. On today's evaluation that is 11/02/2023, patient did have a temperature of 99.2 F at noon and denies having any chills, patient is on 2 L nasal cannula oxygen and breathing comfortably no chest pain or cough, the patient did not have any nausea vomiting abdominal pain is currently controlled. Patient white count is 9.57, creatinine 0.84 stool for C. difficile came back negative blood culture negative Objective - Vital Signs Vital signs: Vital Signs Temp 99.2 F 11/01/24 12:00 Pulse 87 11/01/24 12:00 Resp 20 11/01/24 12:00 BP 125/70 11/01/24 12:00 Pulse Ox 94 L 11/01/24 12:00 FiO2 50 10/29/24 12:00 Intake & Output 10/31/24 11/01/24 11/01/24 18:59 06:59 18:59 Intake Total 2183.5 1675 1705.5 Output Total 1170 1225 770 Balance 1013.5 450 935.5 Weight 91.5 kg Intake: IV 940 1070 655 Lactated Ringers 1,000 ml 910 770 290 @ 50 mls/hr IV .Q20H [facility] Rx#:[id number] Magnesium Sulfate-D5w Pmx 100 1 gm In Dextrose/Water 1 100ml.bag @ 100 mls/hr IVPB ONCE ONE Rx#: [id number] Mvi, Adult No.4 with Vit 30 165 K 10 ml Trace (Conc-1Ml/ Dose) 1 ml In Amino Acid 5%-D20w+Lytes*E* 1,000 ml @ 30 mls/hr IV .Q24H [facility] Rx#:[id number] Piperacillin-Tazobactam 3 100 .375 gm In Sodium Chloride 0.9% 100 ml @ 25 mls/hr IVPB Q12H [facility] Rx# :[id number] Potassium Chloride 10 meq 100 100 In Water For Injection 1 100ml.bag @ 100 mls/hr IVPB Q1H [facility] Rx#: [id number] metroNIDAZOLE-NS PMX 500 100 mg In Saline 1 100ml.bag @ 100 mls/hr IVPB Q8HR [facility] Rx#:[id number] Intake, IV Titration 783.5 995.5 Amount Mvi, Adult No.4 with Vit 995.5 K 10 ml Trace (Conc-1Ml/ Dose) 1 ml Calcium Gluconate 1 gm Sodium Acetate 15 meq Potassium Acetate 10 meq Magnesium Sulfate gm 1 gm Potassium Phosphate 15 mmol In Amino Acids 5 %/Dextrose 20 % 1,000 ml @ 55 mls/hr IV .[id number] [facility] Rx#: [id number] Mvi, Adult No.4 with Vit 783.5 K 10 ml Trace (Conc-1Ml/ Dose) 1 ml In Amino Acid 5%-D20w+Lytes*E* 1,000 ml @ 30 mls/hr IV .Q24H [facility] Rx#:[id number] TPN/PPN 460 605 55 Mvi, Adult No.4 with Vit 460 605 55 K 10 ml Trace (Conc-1Ml/ Dose) 1 ml In Amino Acid 5%-D20w+Lytes*E* 1,000 ml @ 30 mls/hr IV .Q24H [facility] Rx#:[id number] Output: Drainage 0 LUQ Ostomy 0 Urine 1160 1150 770 Stool 10 75 Other: Voiding Method Indwelling Catheter Indwelling Catheter Indwelling Catheter ABP, PAP, CO, CI - Last Documented Arterial Blood Pressure 136/49 - Exam GENERAL DESCRIPTION: Middle-age female lying in bed in no distress HEENT: Oral thrush RESPIRATORY SYSTEM: Unlabored breathing , decreased breath sounds at bases HEART: S1 S2 regular rate and rhythm , ABDOMEN: Soft , no tenderness EXTREMITIES: No edema feet - Labs CBC & Chem 7: 11/01/24 02:50 11/01/24 02:50 Labs: Abnormal Lab Results - Last 24 Hours (Table) 10/31/24 10/31/24 10/31/24 Range/Units 18:09 19:26 23:59 RBC (4.10-5.20) 10*6/uL Hgb (12.0-15.0) g/dL Hct (37.2-46.3) % MCHC (32.0-37.0) g/dL Immature Gran # (0.00-0.04) 10*3/uL Lymphocytes # (0.90-5.00) 10*3/uL Monocytes # (0.20-1.00) 10*3/uL Glucose (74-99) mg/dL POC Glucose (mg/dL) 132 H 138 H (70-110) mg/dL Calcium (8.4-10.2) mg/dL Total Protein (6.3-8.2) g/dL Albumin (3.5-5.0) g/dL Stool Lactoferrin Positive A (Negative) 11/01/24 11/01/24 11/01/24 Range/Units 02:50 02:50 06:08 RBC 2.97 L (4.10-5.20) 10*6/uL Hgb 9.0 L (12.0-15.0) g/dL Hct 28.5 L (37.2-46.3) % MCHC 31.6 L (32.0-37.0) g/dL Immature Gran # 0.78 H (0.00-0.04) 10*3/uL Lymphocytes # 0.58 L (0.90-5.00) 10*3/uL Monocytes # 1.02 H (0.20-1.00) 10*3/uL Glucose 124 H (74-99) mg/dL POC Glucose (mg/dL) 129 H (70-110) mg/dL Calcium 7.5 L (8.4-10.2) mg/dL Total Protein 3.8 L (6.3-8.2) g/dL Albumin 1.9 L (3.5-5.0) g/dL Stool Lactoferrin (Negative) 11/01/24 Range/Units 11:52 RBC (4.10-5.20) 10*6/uL Hgb (12.0-15.0) g/dL Hct (37.2-46.3) % MCHC (32.0-37.0) g/dL Immature Gran # (0.00-0.04) 10*3/uL Lymphocytes # (0.90-5.00) 10*3/uL Monocytes # (0.20-1.00) 10*3/uL Glucose (74-99) mg/dL POC Glucose (mg/dL) 119 H (70-110) mg/dL Calcium (8.4-10.2) mg/dL Total Protein (6.3-8.2) g/dL Albumin (3.5-5.0) g/dL Stool Lactoferrin (Negative) Assessment and Plan (1) Sepsis Current Visit: Yes Status: Acute Priority: High Code(s): A41.9 - SEPSIS, UNSPECIFIED ORGANISM SNOMED Code(s): 01544636 (2) Colitis Current Visit: Yes Status: Acute Priority: High Code(s): K52.9 - NONINFECTIVE GASTROENTERITIS AND COLITIS, UNSPECIFIED SNOMED Code(s): 18781687 (3) Oral thrush Current Visit: Yes Status: Acute Code(s): B37.0 - CANDIDAL STOMATITIS SNOMED Code(s): 79220116 Plan: 1patient presented to hospital with sepsis in this patient who did have tachycardia mild hypotension elevated white count meeting currently for S IRS/sepsis source is likely C. 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 difficile ischemic colitis less likely but not excluded, histopathology given the differential of ischemic colitis versus C. difficile colitis 3patient white count has normalized patient stool C. difficile came back negative discontinue vancomycin continue with Zosyn and monitor clinical course closely 4oral thrush continue with nystatin swish and swallow Dictation was produced using [employer] dictation software. please excuse any grammatical, word or spelling errors. Time with Patient: Less than 30
[2024-11-01 18:28] LABS: Glucose,Whole Blood 126 mg/dL (70-110)
[2024-11-02 03:51] LABS: ALT 13 U/L (4-34); AST 30 U/L (14-36); African American GFR (CKD) >90 (>60 ml/min/1.73 sqM); Albumin 2.1 g/dL (3.5-5.0); Alkaline Phosphatase 68 U/L (38-126); Anion Gap 5 mmol/L; Blood Urea Nitrogen 12 mg/dL (7-17); Calcium 7.8 mg/dL (8.4-10.2); Carbon Dioxide 28 mmol/L (22-30); Chloride 102 mmol/L (98-107); Glucose 128 mg/dL (74-99); Non-African American GFR(CKD) >90 (>60 ml/min/1.73 sqM); Phosphorus 3.1 mg/dL (2.5-4.5); Sodium 135 mmol/L (137-145); Total Bilirubin 0.5 mg/dL (0.2-1.3); Total Protein 4.2 g/dL (6.3-8.2)
[2024-11-02 06:10] LABS: Glucose,Whole Blood 144 mg/dL (70-110)
[2024-11-02 08:33] LABS: Basophils # (A) 0.02 10*3/uL (0.00-0.10); Basophils % (A) 0.3 %; Eosinophils # (A) 0.16 10*3/uL (0.04-0.35); HCT 31.1 % (37.2-46.3); HGB 9.9 g/dL (12.0-15.0); Lymphocytes % (A) 8.8 %; MCH 30.6 pg (27.0-32.0); MCHC 31.8 g/dL (32.0-37.0); Mean Platelet Volume 9.4 fL (9.5-12.2); Monocytes # (A) 1.06 10*3/uL (0.20-1.00); Monocytes % (A) 13.3 %; Neutrophils # (A) 5.53 10*3/uL (1.80-7.70); Platelet Count 285 10*3/uL (140-440); RBC 3.24 10*6/uL (4.10-5.20)
--- NOTE | 2024-11-02 08:56 | P.PN ---
Subjective Progress Note Date: 11/02/24 Patient has had some output through the ileostomy. She feels slightly better than yesterday. On exam vital signs were stable. Abdomen soft. Stoma was pink. Status post subtotal colectomy for presumed C. difficile toxic colon. Patient is improving. She will be most likely downgraded to the surgical floor today. She can start clear liquids Objective - Vital Signs Vital signs: Vital Signs Temp 98.8 F 11/02/24 04:00 Pulse 74 11/02/24 07:00 Resp 17 11/02/24 07:00 BP 129/69 11/02/24 07:00 Pulse Ox 94 L 11/02/24 07:00 FiO2 50 10/29/24 12:00 Intake & Output 11/01/24 11/02/24 11/02/24 18:59 06:59 18:59 Intake Total 2545.5 1690.5 50 Output Total 1750 2400 200 Balance 795.5 -709.5 -150 Weight 91.1 kg Intake: IV 1495 650 50 Lactated Ringers 1,000 ml 690 550 50 @ 50 mls/hr IV .Q20H [facility] Rx#:[id number] Mvi, Adult No.4 with Vit 605 K 10 ml Trace (Conc-1Ml/ Dose) 1 ml In Amino Acid 5%-D20w+Lytes*E* 1,000 ml @ 30 mls/hr IV .Q24H [facility] Rx#:[id number] Potassium Chloride 10 meq 100 In Water For Injection 1 100ml.bag @ 100 mls/hr IVPB Q1H [facility] Rx#: [id number] metroNIDAZOLE-NS PMX 500 100 100 mg In Saline 1 100ml.bag @ 100 mls/hr IVPB Q8HR [facility] Rx#:[id number] Intake, IV Titration 995.5 1040.5 Amount Mvi, Adult No.4 with Vit 995.5 1040.5 K 10 ml Trace (Conc-1Ml/ Dose) 1 ml Calcium Gluconate 1 gm Sodium Acetate 15 meq Potassium Acetate 10 meq Magnesium Sulfate gm 1 gm Potassium Phosphate 15 mmol In Amino Acids 5 %/Dextrose 20 % 1,000 ml @ 55 mls/hr IV .P44T32G [facility] Rx#: [id number] TPN/PPN 55 Mvi, Adult No.4 with Vit 55 K 10 ml Trace (Conc-1Ml/ Dose) 1 ml In Amino Acid 5%-D20w+Lytes*E* 1,000 ml @ 30 mls/hr IV .Q24H [facility] Rx#:[id number] Output: Urine 1750 2350 200 Stool 50 Other: Voiding Method Indwelling Catheter Indwelling Catheter ABP, PAP, CO, CI - Last Documented Arterial Blood Pressure 136/49 - Labs CBC & Chem 7: 11/02/24 02:36 11/02/24 02:36 Labs: Abnormal Lab Results - Last 24 Hours (Table) 11/01/24 11/01/24 11/01/24 Range/Units 02:50 11:52 18:27 RBC (4.10-5.20) 10*6/uL Hgb (12.0-15.0) g/dL Hct (37.2-46.3) % MCHC (32.0-37.0) g/dL MPV (9.5-12.2) fL Immature Gran # (0.00-0.04) 10*3/uL Lymphocytes # 0.58 L (0.90-5.00) 10*3/uL Monocytes # 1.02 H (0.20-1.00) 10*3/uL Sodium (137-145) mmol/L Glucose (74-99) mg/dL POC Glucose (mg/dL) 119 H 126 H (70-110) mg/dL Calcium (8.4-10.2) mg/dL Total Protein (6.3-8.2) g/dL Albumin (3.5-5.0) g/dL 11/02/24 11/02/24 11/02/24 Range/Units 02:36 02:36 06:08 RBC 3.24 L (4.10-5.20) 10*6/uL Hgb 9.9 L (12.0-15.0) g/dL Hct 31.1 L (37.2-46.3) % MCHC 31.8 L (32.0-37.0) g/dL MPV 9.4 L (9.5-12.2) fL Immature Gran # 0.53 H (0.00-0.04) 10*3/uL Lymphocytes # (0.90-5.00) 10*3/uL Monocytes # (0.20-1.00) 10*3/uL Sodium 135 L (137-145) mmol/L Glucose 128 H (74-99) mg/dL POC Glucose (mg/dL) 144 H (70-110) mg/dL Calcium 7.8 L (8.4-10.2) mg/dL Total Protein 4.2 L (6.3-8.2) g/dL Albumin 2.1 L (3.5-5.0) g/dL Microbiology - Last 24 Hours (Table) 10/27/24 14:40 Blood Culture - Final Blood
--- NOTE | 2024-11-02 10:47 | P.PN ---
Subjective Patient is seen in follow-up for acute kidney injury. Renal function back to baseline. Receiving TPN. Now on clear liquid diet. Vital signs are stable. General: No acute distress. HEENT: On nasal cannula. LUNGS: No audible rhonchi or wheezes. HEART: Rate and Rhythm are regular. ABDOMEN: Colostomy noted. EXTREMITITES: No edema. Objective - Vital Signs Vital signs: Vital Signs Temp 98.8 F 11/02/24 08:00 Pulse 76 11/02/24 09:00 Resp 20 11/02/24 09:00 BP 130/78 11/02/24 09:00 Pulse Ox 93 L 11/02/24 09:00 FiO2 50 10/29/24 12:00 Intake & Output 11/01/24 11/02/24 11/02/24 18:59 06:59 18:59 Intake Total 2545.5 1690.5 310 Output Total 1750 2400 575 Balance 795.5 -709.5 -265 Weight 91.1 kg Intake: IV 1495 650 310 Lactated Ringers 1,000 ml 690 550 100 @ 50 mls/hr IV .Q20H [facility] Rx#:[id number] Mvi, Adult No.4 with Vit 110 K 10 ml Trace (Conc-1Ml/ Dose) 1 ml Calcium Gluconate 1 gm Sodium Acetate 15 meq Potassium Acetate 10 meq Magnesium Sulfate gm 1 gm Potassium Phosphate 15 mmol In Amino Acids 5 %/Dextrose 20 % 1,000 ml @ 55 mls/hr IV .[id number] [facility] Rx#: [id number] Mvi, Adult No.4 with Vit 605 K 10 ml Trace (Conc-1Ml/ Dose) 1 ml In Amino Acid 5%-D20w+Lytes*E* 1,000 ml @ 30 mls/hr IV .Q24H [facility] Rx#:[id number] Potassium Chloride 10 meq 100 In Water For Injection 1 100ml.bag @ 100 mls/hr IVPB Q1H [facility] Rx#: [id number] metroNIDAZOLE-NS PMX 500 100 100 100 mg In Saline 1 100ml.bag @ 100 mls/hr IVPB Q8HR [facility] Rx#:[id number] Intake, IV Titration 995.5 1040.5 Amount Mvi, Adult No.4 with Vit 995.5 1040.5 K 10 ml Trace (Conc-1Ml/ Dose) 1 ml Calcium Gluconate 1 gm Sodium Acetate 15 meq Potassium Acetate 10 meq Magnesium Sulfate gm 1 gm Potassium Phosphate 15 mmol In Amino Acids 5 %/Dextrose 20 % 1,000 ml @ 55 mls/hr IV .[id number] [facility] Rx#: [id number] TPN/PPN 55 Mvi, Adult No.4 with Vit 55 K 10 ml Trace (Conc-1Ml/ Dose) 1 ml In Amino Acid 5%-D20w+Lytes*E* 1,000 ml @ 30 mls/hr IV .Q24H [facility] Rx#:[id number] Output: Urine 1750 2350 575 Stool 50 Other: Voiding Method Indwelling Catheter Indwelling Catheter Indwelling Catheter ABP, PAP, CO, CI - Last Documented Arterial Blood Pressure 136/49 - Labs CBC & Chem 7: 11/02/24 02:36 11/02/24 02:36 Labs: Abnormal Lab Results - Last 24 Hours (Table) 11/01/24 11/01/24 11/02/24 Range/Units 11:52 18:27 02:36 RBC (4.10-5.20) 10*6/uL Hgb (12.0-15.0) g/dL Hct (37.2-46.3) % MCHC (32.0-37.0) g/dL MPV (9.5-12.2) fL Immature Gran # (0.00-0.04) 10*3/uL Lymphocytes # (0.90-5.00) 10*3/uL Monocytes # (0.20-1.00) 10*3/uL Sodium 135 L (137-145) mmol/L Glucose 128 H (74-99) mg/dL POC Glucose (mg/dL) 119 H 126 H (70-110) mg/dL Calcium 7.8 L (8.4-10.2) mg/dL Total Protein 4.2 L (6.3-8.2) g/dL Albumin 2.1 L (3.5-5.0) g/dL 11/02/24 11/02/24 Range/Units 02:36 06:08 RBC 3.24 L (4.10-5.20) 10*6/uL Hgb 9.9 L (12.0-15.0) g/dL Hct 31.1 L (37.2-46.3) % MCHC 31.8 L (32.0-37.0) g/dL MPV 9.4 L (9.5-12.2) fL Immature Gran # 0.53 H (0.00-0.04) 10*3/uL Lymphocytes # 0.70 L (0.90-5.00) 10*3/uL Monocytes # 1.06 H (0.20-1.00) 10*3/uL Sodium (137-145) mmol/L Glucose (74-99) mg/dL POC Glucose (mg/dL) 144 H (70-110) mg/dL Calcium (8.4-10.2) mg/dL Total Protein (6.3-8.2) g/dL Albumin (3.5-5.0) g/dL Microbiology - Last 24 Hours (Table) 10/31/24 19:26 Stool Culture - Preliminary Stool 10/27/24 14:40 Blood Culture - Final Blood Assessment and Plan Plan: Assessment: 1. Acute kidney injury secondary to ATN secondary to septic shock. Also rece ived IV contrast on October 27, 2024. Baseline creatinine 0.7-0.8 from September 2024. Creatinine peaked at 2.4 this admission and is 0.69 today. No hydronephrosis noted on CAT scan. 2. 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 3. Metabolic acidosis secondary to acute kidney injury, GI losses, lactic acidosis and IV fluids. Improved. 4. Hypokalemia from poor intake. Replaced. Better. 5. Septic shock secondary to colitis. Currently off Levophed. Plan: Encouraged oral intake. TPN per surgery. Continue to monitor renal function and urine output.
--- NOTE | 2024-11-02 10:58 | P.PN ---
Subjective Progress Note Date: 11/02/24 Principal diagnosis: Abdominal pain. Pulmonary consult dated October 28, 2024. 59-year-old female seen today in the intensive care unit, room 265. The patient apparently came to the emergency department, on October 27 complaining of abdominal pain, nausea and vomiting. She was in the emergency room on October 11, with abdominal pain, and was discharged. Back on September 03, at [facility], she had surgery on her abdomen, i.e. hernia repair, and may be something more. Anyway, a rapid response was called on this patient this morning, for severe abdominal pain, tachycardia, and hypotension. For that reason, we brought the patient to the ICU, to be further evaluated. We see her today in room 265. She is on room air. She is getting saline bolus. She got Zosyn IV, and p.o. Flagyl. We placed a left internal jugular triple-lumen catheter in her. I did speak to the surgeon, who plans on taking her to the operating room. She does have a history of colon cancer, with previous colectomy and subsequent reversal. Current laboratory data includes a white count of 56.3, hemoglobin 18.8, hematocrit 56.7, and a platelet count of 477,000. Sodium 136, potassium 4.2, chlorides 103, CO2 14, anion gap 19, BUN 24, creatinine 2.43. Lactic acid went from 3.9 up to 10.2. Glucose 191. Calcium 8.4. Lipase 18. Amylase 35. Albumin 2.9. CT of the abdomen and pelvi s shows marked diffuse thickening of the colon wall from marked subcutaneous mucosal edema consistent with ulcerative colitis or other diffuse colitis, moderate ascites, small right pleural effusion, 10 mm left lower lobe pulmonary nodule, and stable cholelithiasis. Plain film of the abdomen was nonspecific. Chest x-ray showed infiltrate or atelectasis in the left lower lobe, and a properly inserted, left internal jugular triple-lumen catheter. Progress note dated October 30, 2024. The patient is seen today in room 265. She is postop day #2, status post subtotal colectomy with ileostomy. She was extubated yesterday, October 29. She is getting saline at 100 cc an hour. NG tube in place. She is getting nasal O2 at 4 L. She is resting comfortably in bed. She does have some abdominal disc omfort, at the surgical site. White count was 18.9, hemoglobin 9.7, hematocrit 29.5, platelet count 344,000. Sodium 139, potassium 3.3, chlorides 110, CO2 25, BUN 23, creatinine 1.46. Glucose was 96. Albumin 1.9. Blood gases prior to extubation, showed a PO2 of 80, pCO2 of 41, pH of 7.38. Blood cultures are currently negative or pending. Chest x-ray shows bibasilar infiltrates, with small right-sided pleural effusion. Progress note dated October 31, 2024. 59-year-old female seen today in room 265. She is resting comfortably in bed. The patient is on 2 L nasal O2. NG tube remains in place. She is getting LR at 70 cc an hour, TPN at 30 cc an hour. She is on Zosyn. She is also getting p.o. Flagyl and vancomycin. Current laboratory data includes a white count of 10.9, hemoglobin 8.6, hematocrit 26.4, platelet count of 189,000. Sodium 141, potassium 3.7, chlorides 113, CO2 25, BUN 15, creatinine 0.95. Glucose is 139. Calcium 7.5. The rest of the labs look reasonable. Chest x-ray again shows bilateral pleural effusions, with bibasilar infiltrates, or atelectasis. Progress note dated November 01, 2024. 59-year-old female seen in room 265. She is resting comfortably in bed. She is postop day #4. She had a subtotal colectomy with ileostomy. She came in initially with abdominal discomfort. She is on 2 L of oxygen. She is getting LR at 70 cc an hour. She is getting TPN at 55 cc an hour. White count is 9.6, hemoglobin 9, hematocrit 28.5, platelet count is normal. Sodium 137, potassium 3.7, chlorides 105, CO2 27, BUN 11, creatinine 0.84. Glucose 129. Albumin is 1.9. Micro is thus far negative. No chest x-ray today. The patient is currently on Zosyn, Flagyl IV, and oral vancomycin. Progress note dated November 02, 2024. 59-year-old female seen today in room 265. She is postoperative day #5, status post subtotal colectomy, end ileostomy. She is on 2 L of oxygen. She is getting TPN at 55 cc an hour, and lactated Ringer's at 50 cc an hour. Current labs include a white count 8, hemoglobin 9.9, hematocrit 31.1, platelet count 285,000. Sodium 135, potassium 4, chlorides 102, CO2 28, BUN 12, creatinine 0.69. Glucose is 144. Albumin is 2.1. Objective - Vital Signs Vital signs: Vital Signs Temp 98.8 F 11/02/24 08:00 Pulse 76 11/02/24 09:00 Resp 20 11/02/24 09:00 BP 130/78 11/02/24 09:00 Pulse Ox 93 L 11/02/24 09:00 FiO2 50 10/29/24 12:00 Intake & Output 11/01/24 11/02/24 11/02/24 18:59 06:59 18:59 Intake Total 2545.5 1690.5 310 Output Total 1750 2400 575 Balance 795.5 -709.5 -265 Weight 91.1 kg Intake: IV 1495 650 310 Lactated Ringers 1,000 ml 690 550 100 @ 50 mls/hr IV .Q20H [facility] Rx#:[id number] Mvi, Adult No.4 with Vit 110 K 10 ml Trace (Conc-1Ml/ Dose) 1 ml Calcium Gluconate 1 gm Sodium Acetate 15 meq Potassium Acetate 10 meq Magnesium Sulfate gm 1 gm Potassium Phosphate 15 mmol In Amino Acids 5 %/Dextrose 20 % 1,000 ml @ 55 mls/hr IV .[id number] [facility] Rx#: [id number] Mvi, Adult No.4 with Vit 605 K 10 ml Trace (Conc-1Ml/ Dose) 1 ml In Amino Acid 5%-D20w+Lytes*E* 1,000 ml @ 30 mls/hr IV .Q24H [facility] Rx#:[id number] Potassium Chloride 10 meq 100 In Water For Injection 1 100ml.bag @ 100 mls/hr IVPB Q1H [facility] Rx#: [id number] metroNIDAZOLE-NS PMX 500 100 100 100 mg In Saline 1 100ml.bag @ 100 mls/hr IVPB Q8HR [facility] Rx#:[id number] Intake, IV Titration 995.5 1040.5 Amount Mvi, Adult No.4 with Vit 995.5 1040.5 K 10 ml Trace (Conc-1Ml/ Dose) 1 ml Calcium Gluconate 1 gm Sodium Acetate 15 meq Potassium Acetate 10 meq Magnesium Sulfate gm 1 gm Potassium Phosphate 15 mmol In Amino Acids 5 %/Dextrose 20 % 1,000 ml @ 55 mls/hr IV .[id number] [facility] Rx#: [id number] TPN/PPN 55 Mvi, Adult No.4 with Vit 55 K 10 ml Trace (Conc-1Ml/ Dose) 1 ml In Amino Acid 5%-D20w+Lytes*E* 1,000 ml @ 30 mls/hr IV .Q24H [facility] Rx#:[id number] Output: Urine 1750 2350 575 Stool 50 Other: Voiding Method Indwelling Catheter Indwelling Catheter Indwelling Catheter ABP, PAP, CO, CI - Last Documented Arterial Blood Pressure 136/49 - Exam No acute distress, oriented 3. HEENT examination is grossly unremarkable. Mucous membranes are moist. No oral lesions. Neck supple. Full range of motion. No adenopathy thyromegaly or neck vein distention. Cardiovascular examination reveals regular rhythm rate. S1-S2 normal. No S3 or S4. No discernible murmur noted. Lungs reveal mild scattered rhonchi. No wheezes. No crackles. Breath sounds equal bilaterally. Abdomen soft without bowel sounds. Ileostomy is noted. Extremities are intact. No cyanosis clubbing or edema. Skin is without rash or lesion. Neurologic examination is brief but nonfocal. - Labs CBC & Chem 7: 11/02/24 02:36 11/02/24 02:36 Labs: Abnormal Lab Results - Last 24 Hours (Table) 11/01/24 11/01/24 11/02/24 Range/Units 11:52 18:27 02:36 RBC (4.10-5.20) 10*6/uL Hgb (12.0-15.0) g/dL Hct (37.2-46.3) % MCHC (32.0-37.0) g/dL MPV (9.5-12.2) fL Immature Gran # (0.00-0.04) 10*3/uL Lymphocytes # (0.90-5.00) 10*3/uL Monocytes # (0.20-1.00) 10*3/uL Sodium 135 L (137-145) mmol/L Glucose 128 H (74-99) mg/dL POC Glucose (mg/dL) 119 H 126 H (70-110) mg/dL Calcium 7.8 L (8.4-10.2) mg/dL Total Protein 4.2 L (6.3-8.2) g/dL Albumin 2.1 L (3.5-5.0) g/dL 11/02/24 11/02/24 Range/Units 02:36 06:08 RBC 3.24 L (4.10-5.20) 10*6/uL Hgb 9.9 L (12.0-15.0) g/dL Hct 31.1 L (37.2-46.3) % MCHC 31.8 L (32.0-37.0) g/dL MPV 9.4 L (9.5-12.2) fL Immature Gran # 0.53 H (0.00-0.04) 10*3/uL Lymphocytes # 0.70 L (0.90-5.00) 10*3/uL Monocytes # 1.06 H (0.20-1.00) 10*3/uL Sodium (137-145) mmol/L Glucose (74-99) mg/dL POC Glucose (mg/dL) 144 H (70-110) mg/dL Calcium (8.4-10.2) mg/dL Total Protein (6.3-8.2) g/dL Albumin (3.5-5.0) g/dL Microbiology - Last 24 Hours (Table) 10/31/24 19:26 Stool Culture - Preliminary Stool 10/27/24 14:40 Blood Culture - Final Blood Assessment and Plan Assessment: Severe abdominal pain, with associated nausea and vomiting, secondary to diffuse colitis. Postoperative day #5, S/P exploratory laparotomy, subtotal colectomy, end ileostomy. Recent hernia repair, [facility], September 03, 2024. Profound leukocytosis, secondary to intra-abdominal process. Anion gap metabolic acidosis, secondary to lactic acidosis. Lactic acidemia. Acute kidney injury, likely secondary to hypotension, and ATN. Prior history of colon cancer, with colectomy/colostomy and subsequent reversal. Plan: Plan dated October 28, 2024. The patient was initially evaluated by the charge nurse in the ICU, because of a rapid response called on this patient. The patient was tachycardic and hypotensive, had severe abdominal pain, she was brought down to the intensive care unit, room 265. She was seen there, and we placed a left internal jugular triple-lumen catheter. She was seen by the surgeon, and the plan is for her to go to the operating room, sometime today. The patient had severe nausea, vomiting, and abdominal pain. CT scan of the abdomen and pelvis showed significant colitis, and the patient is acting septic. In addition, the patient may have acute kidney injury, secondary to ATN, and hypotension, as well as profound anion gap metabolic acidosis, secondary to lactic acidemia. All labs, x-rays, and medications are reviewed. The patient was placed on antibiotics. We will continue to follow the patient, make recommendations. She may end up coming back on the mechanical ventilator. Dictation was produced using [employer] software. Please excuse any grammatical, word or spelling errors. Plan dated October 30, 2024. The patient is seen today in room 265. She is resting comfortably in bed. She is laying flat on her back. She is nasal O2 at 4 L. She has an NG tube in place. She is getting saline at 100 cc an hour. Today is postoperative day #2, status post subtotal colectomy with ileostomy. She came in with severe abdominal pain, nausea and vomiting. Labs, x-rays, and all medications are rev iewed. We will continue to follow make recommendations along the way. Overall prognosis remains guarded. Recommend deep breathing, coughing, clearing of secretions, and hourly use of the incentive spirometer. Dictation was produced using [employer] software. Please excuse any grammatical, word or spelling errors. Plan dated October 31, 2024. The patient is seen today in room 265. She remains critically ill. She is on 2 L of oxygen. She has an NG tube in place. She is getting LR at 70 cc an hour, and TPN at 30 cc an hour. She continues on IV Zosyn. She is also on oral Flagyl and oral vancomycin. All labs, x-rays, and medications are reviewed. The patient is postoperative day #3. She had a subtotal colectomy with ileostomy. She presented with severe abdominal pain. We will continue to follow and make recommendations along the way. Prognosis is guarded. Dictation was produced using [employer] software. Please excuse any grammatical, word or spelling errors. Plan dated November 01, 2024. The patient is seen today in room 265. She continues on nasal O2 2 L. She is getting lactated Ringer's at 70 cc an hour. The patient is getting TPN at 55 cc an hour. Labs, x-rays, and medications are reviewed. Today's postop day #4. She continues to use the incentive spirometer, but is not motivated to use it. We will continue to follow make recommendations. Prognosis is guarded. Dictation was produced using [employer] software. Please excuse any grammatical, word or spelling errors. Plan dated November 02, 2024. The patient was seen today in room 265. She is has not been real good about using her incentive spirometer. Clinically, she is progressing nicely. She has postop day #5. Labs, x-rays, and all medications are reviewed. The patient continues on TPN at 55 cc an hour. We will continue to follow make recommendations where appropriate. Overall prognosis remains guarded. Dictation was produced using [employer] software. Please excuse any grammatical, word or spelling errors. Time with Patient: Less than 30
[2024-11-02 11:38] LABS: Glucose,Whole Blood 141 mg/dL (70-110)
--- NOTE | 2024-11-02 16:07 | P.PN ---
Subjective Progress Note Date: 11/01/24 59-year-old female, came to the emergency department, on October 27 complaining of abdominal pain, nausea and vomiting. She was in the emergency room on October 11, with abdominal pain, and was discharged. Back on September 03, at [facility], she had surgery on her abdomen. Earlier this morning, a rapid response was called on this patient this morning, for severe abdominal pain, tachycardia, and hypotension. Patient was transferred to the ICU, to be further evaluated. --She got Zosyn IV, and p.o. Flagyl. We placed a left internal jugular triple- lumen catheter in her. I did speak to the surgeon, who plans on taking her to the operating room. She does have a history of colon cancer, with previous colectomy and subsequent reversal. Blood work revealed a white count of 56.3, hemoglobin 18.8, hematocrit 56.7, and a platelet count of 477,000. Sodium 136, potassium 4.2, chlorides 103, CO2 14, anion gap 19, BUN 24, creatinine 2.43. Lactic acid went from 3.9 up to 10.2. Glucose 191. Calcium 8.4. Lipase 18. Amylase 35. Albumin 2.9. -CT of the abdomen and pelvis shows marked diffuse thickening of the colon wall from marked subcutaneous mucosal edema consistent with ulcerative colitis or other diffuse colitis, moderate ascites, small right pleural effusion, 10 mm left lower lobe pulmonary nodule, and stable cholelithiasis. - Abdominal x-ray was nonspecific. Chest x-ray showed infiltrate or atelectasis in the left lower lobe, and a properly inserted, left internal jugular triple- lumen catheter. 11/02/2024 Patient is seen and evaluated in ICU with family at bedside; resting comfortably in bedside chair. She is postop day #4. She had a subtotal colectomy with ileostomy. She came in initially with abdominal discomfort. She is on 2 L of oxygen. She is getting LR at 70 cc an hour. She is getting TPN at 55 cc an hour. Blood work is reviewed white count is 9.6, hemoglobin 9, hematocrit 28.5, platelet count is normal. Sodium 137, potassium 3.7, chlorides 105, CO2 27, BUN 11, creatinine 0.84. Glucose 129. Albumin is 1.9. Micro is thus far negative. -- The patient is currently on Zosyn, Flagyl IV, and oral vancomycin. -Patient to continue with TPN and is currently at 55 cc an hour - Encouraged to use incentive spirometer; increase activity Objective - Vital Signs Vital signs: Vital Signs Temp 98.5 F 11/01/24 08:00 Pulse 86 11/01/24 09:00 Resp 17 11/01/24 09:00 BP 127/72 11/01/24 09:00 Pulse Ox 96 11/01/24 09:00 FiO2 50 10/29/24 12:00 Intake & Output 10/31/24 11/01/24 11/01/24 18:59 06:59 18:59 Intake Total 2183.5 1675 500 Output Total 1170 1225 465 Balance 1013.5 450 35 Weight 91.5 kg Intake: IV 940 1070 445 Lactated Ringers 1,000 ml 910 770 190 @ 50 mls/hr IV .Q20H [facility] Rx#:[id number] Magnesium Sulfate-D5w Pmx 100 1 gm In Dextrose/Water 1 100ml.bag @ 100 mls/hr IVPB [facility] Rx#: [id number] Mvi, Adult No.4 with Vit 30 55 K 10 ml Trace (Conc-1Ml/ Dose) 1 ml In Amino Acid 5%-D20w+Lytes*E* 1,000 ml @ 30 mls/hr IV .Q24H [facility] Rx#:[id number] Piperacillin-Tazobactam 3 100 .375 gm In Sodium Chloride 0.9% 100 ml @ 25 mls/hr IVPB Q12H [facility] Rx# :[id number] Potassium Chloride 10 meq 100 100 In Water For Injection 1 100ml.bag @ 100 mls/hr IVPB Q1H [facility] Rx#: [id number] metroNIDAZOLE-NS PMX 500 100 mg In Saline 1 100ml.bag @ 100 mls/hr IVPB Q8HR [facility] Rx#:[id number] Intake, IV Titration 783.5 Amount Mvi, Adult No.4 with Vit 783.5 K 10 ml Trace (Conc-1Ml/ Dose) 1 ml In Amino Acid 5%-D20w+Lytes*E* 1,000 ml @ 30 mls/hr IV .Q24H [facility] Rx#:[id number] TPN/PPN 460 605 55 Mvi, Adult No.4 with Vit 460 605 55 K 10 ml Trace (Conc-1Ml/ Dose) 1 ml In Amino Acid 5%-D20w+Lytes*E* 1,000 ml @ 30 mls/hr IV .Q24H [facility] Rx#:[id number] Output: Drainage 0 LUQ Ostomy 0 Urine 1160 1150 465 Stool 10 75 Other: Voiding Method Indwelling Catheter Indwelling Catheter Indwelling Catheter ABP, PAP, CO, CI - Last Documented Arterial Blood Pressure 136/49 - Exam No acute distress, oriented 3. NG tube in place. Nasal O2 noted. HEENT examination is grossly unremarkable. Mucous membranes are moist. No oral lesions. Neck supple. Full range of motion. No adenopathy thyromegaly or neck vein distention. Cardiovascular examination reveals regular rhythm rate. S1-S2 normal. No S3 or S4. No discernible murmur noted. Lungs reveal mild scattered rhonchi. No wheezes. No crackles. Breath sounds equal bilaterally. Abdomen soft without bowel sounds. Ileostomy is noted. Extremities are intact. No cyanosis clubbing or edema. Skin is without rash or lesion. Neurologic examination is brief but nonfocal. - Labs CBC & Chem 7: 11/02/24 02:36 11/02/24 02:36 Labs: Abnormal Lab Results - Last 24 Hours (Table) 10/31/24 10/31/24 10/31/24 Range/Units 11:30 18:09 19:26 RBC (4.10-5.20) 10*6/uL Hgb (12.0-15.0) g/dL Hct (37.2-46.3) % MCHC (32.0-37.0) g/dL Immature Gran # (0.00-0.04) 10*3/uL Lymphocytes # (0.90-5.00) 10*3/uL Monocytes # (0.20-1.00) 10*3/uL Glucose (74-99) mg/dL POC Glucose (mg/dL) 139 H 132 H (70-110) mg/dL Calcium (8.4-10.2) mg/dL Total Protein (6.3-8.2) g/dL Albumin (3.5-5.0) g/dL Stool Lactoferrin Positive A (Negative) 10/31/24 11/01/2411/01/25 Range/Units 23:59 02:50 02:50 RBC 2.97 L (4.10-5.20) 10*6/uL Hgb 9.0 L (12.0-15.0) g/dL Hct 28.5 L (37.2-46.3) % MCHC 31.6 L (32.0-37.0) g/dL Immature Gran # 0.78 H (0.00-0.04) 10*3/uL Lymphocytes # 0.58 L (0.90-5.00) 10*3/uL Monocytes # 1.02 H (0.20-1.00) 10*3/uL Glucose 124 H (74-99) mg/dL POC Glucose (mg/dL) 138 H (70-110) mg/dL Calcium 7.5 L (8.4-10.2) mg/dL Total Protein 3.8 L (6.3-8.2) g/dL Albumin 1.9 L (3.5-5.0) g/dL Stool Lactoferrin (Negative) 11/01/24 Range/Units 06:08 RBC (4.10-5.20) 10*6/uL Hgb (12.0-15.0) g/dL Hct (37.2-46.3) % MCHC (32.0-37.0) g/dL Immature Gran # (0.00-0.04) 10*3/uL Lymphocytes # (0.90-5.00) 10*3/uL Monocytes # (0.20-1.00) 10*3/uL Glucose (74-99) mg/dL POC Glucose (mg/dL) 129 H (70-110) mg/dL Calcium (8.4-10.2) mg/dL Total Protein (6.3-8.2) g/dL Albumin (3.5-5.0) g/dL Stool Lactoferrin (Negative) Assessment and Plan Assessment: Severe abdominal pain, with associated nausea and vomiting, secondary to diffuse colitis. -- Postoperative day #3, S/P exploratory laparotomy, subtotal colectomy, end ileostomy. Recent hernia repair, [facility], September 03, 2024. Profound leukocytosis, secondary to intra-abdominal process; patient remains on IV Zosyn, oral Flagyl and oral vancomycin. Anion gap metabolic acidosis, secondary to lactic acidosis. Lactic acidemia related to diffuse colitis; continue to monitor and trend lactic acid levels. Acute kidney injury, likely secondary to hypotension, and ATN; slowly improving; patient remains on IV fluids; nephrology on board. Prior history of colon cancer, with colectomy/colostomy and subsequent reversal DVT prophylaxis; SCDs/subcu heparin CODE STATUS; full code
--- NOTE | 2024-11-02 16:09 | P.PN ---
Subjective Progress Note Date: 11/02/24 59-year-old female, came to the emergency department, on October 27 complaining of abdominal pain, nausea and vomiting. She was in the emergency room on October 11, with abdominal pain, and was discharged. Back on September 03, at [facility], she had surgery on her abdomen. Earlier this morning, a rapid response was called on this patient this morning, for severe abdominal pain, tachycardia, and hypotension. Patient was transferred to the ICU, to be further evaluated. --She got Zosyn IV, and p.o. Flagyl. We placed a left internal jugular triple- lumen catheter in her. I did speak to the surgeon, who plans on taking her to the operating room. She does have a history of colon cancer, with previous colectomy and subsequent reversal. Blood work revealed a white count of 56.3, hemoglobin 18.8, hematocrit 56.7, and a platelet count of 477,000. Sodium 136, potassium 4.2, chlorides 103, CO2 14, anion gap 19, BUN 24, creatinine 2.43. Lactic acid went from 3.9 up to 10.2. Glucose 191. Calcium 8.4. Lipase 18. Amylase 35. Albumin 2.9. -CT of the abdomen and pelvis shows marked diffuse thickening of the colon wall from marked subcutaneous mucosal edema consistent with ulcerative colitis or other diffuse colitis, moderate ascites, small right pleural effusion, 10 mm left lower lobe pulmonary nodule, and stable cholelithiasis. - Abdominal x-ray was nonspecific. Chest x-ray showed infiltrate or atelectasis in the left lower lobe, and a properly inserted, left internal jugular triple- lumen catheter. 11/01/2024 Patient is seen and evaluated in ICU with family at bedside; resting comfortably in bedside chair. She is postop day #4. She had a subtotal colectomy with ileostomy. She came in initially with abdominal discomfort. She is on 2 L of oxygen. She is getting LR at 70 cc an hour. She is getting TPN at 55 cc an hour. Blood work is reviewed white count is 9.6, hemoglobin 9, hematocrit 28.5, platelet count is normal. Sodium 137, potassium 3.7, chlorides 105, CO2 27, BUN 11, creatinine 0.84. Glucose 129. Albumin is 1.9. Micro is thus far negative. -- The patient is currently on Zosyn, Flagyl IV, and oral vancomycin. -Patient to continue with TPN and is currently at 55 cc an hour - Encouraged to use incentive spirometer; increase activity 11/02/2024 Patient is seen and evaluated resting in bedside recliner; reports feeling better since NG tube was removed Vital signs are reviewed and remained stable with temperature of 98.8, pulse 76, respiration 20 blood pressure 130/78 and O2 saturation of 93% on an FiO2 50% postoperative day #5, status post subtotal colectomy, end ileostomy. - She is getting TPN at 55 cc an hour, and lactated Ringer's at 50 cc an hour. - Current labs include a white count 8, hemoglobin 9.9, hematocrit 31.1, platelet count 285,000. Sodium 135, potassium 4, chlorides 102, CO2 28, BUN 12, creatinine 0.69. Glucose is 144. Albumin is 2.1. - Patient continued to show slow recovery; continue with current management Objective - Vital Signs Vital signs: Vital Signs Temp 98.8 F 11/02/24 08:00 Pulse 76 11/02/24 09:00 Resp 20 11/02/24 09:00 BP 130/78 11/02/24 09:00 Pulse Ox 93 L 11/02/24 09:00 FiO2 50 10/29/24 12:00 Intake & Output 11/01/24 11/02/24 11/02/24 18:59 06:59 18:59 Intake Total 2545.5 1690.5 310 Output Total 1750 2400 575 Balance 795.5 -709.5 -265 Weight 91.1 kg Intake: IV 1495 650 310 Lactated Ringers 1,000 ml 690 550 100 @ 50 mls/hr IV .Q20H [facility] Rx#:[id number] Mvi, Adult No.4 with Vit 110 K 10 ml Trace (Conc-1Ml/ Dose) 1 ml Calcium Gluconate 1 gm Sodium Acetate 15 meq Potassium Acetate 10 meq Magnesium Sulfate gm 1 gm Potassium Phosphate 15 mmol In Amino Acids 5 %/Dextrose 20 % 1,000 ml @ 55 mls/hr IV .[id number] [facility] Rx#: [id number] Mvi, Adult No.4 with Vit 605 K 10 ml Trace (Conc-1Ml/ Dose) 1 ml In Amino Acid 5%-D20w+Lytes*E* 1,000 ml @ 30 mls/hr IV .Q24H [facility] Rx#:[id number] Potassium Chloride 10 meq 100 In Water For Injection 1 100ml.bag @ 100 mls/hr IVPB Q1H [facility] Rx#: [id number] metroNIDAZOLE-NS PMX 500 100 100 100 mg In Saline 1 100ml.bag @ 100 mls/hr IVPB Q8HR [facility] Rx#:[id number] Intake, IV Titration 995.5 1040.5 Amount Mvi, Adult No.4 with Vit 995.5 1040.5 K 10 ml Trace (Conc-1Ml/ Dose) 1 ml Calcium Gluconate 1 gm Sodium Acetate 15 meq Potassium Acetate 10 meq Magnesium Sulfate gm 1 gm Potassium Phosphate 15 mmol In Amino Acids 5 %/Dextrose 20 % 1,000 ml @ 55 mls/hr IV .[id number] [facility] Rx#: [id number] TPN/PPN 55 Mvi, Adult No.4 with Vit 55 K 10 ml Trace (Conc-1Ml/ Dose) 1 ml In Amino Acid 5%-D20w+Lytes*E* 1,000 ml @ 30 mls/hr IV .Q24H [facility] Rx#:[id number] Output: Urine 1750 2350 575 Stool 50 Other: Voiding Method Indwelling Catheter Indwelling Catheter Indwelling Catheter ABP, PAP, CO, CI - Last Documented Arterial Blood Pressure 136/49 - Exam No acute distress, oriented 3. NG tube in place. Nasal O2 noted. HEENT examination is grossly unremarkable. Mucous membranes are moist. No oral lesions. Neck supple. Full range of motion. No adenopathy thyromegaly or neck vein distention. Cardiovascular examination reveals regular rhythm rate. S1-S2 normal. No S3 or S4. No discernible murmur noted. Lungs reveal mild scattered rhonchi. No wheezes. No crackles. Breath sounds equal bilaterally. Abdomen soft without bowel sounds. Ileostomy is noted. Extremities are intact. No cyanosis clubbing or edema. Skin is without rash or lesion. Neurologic examination is brief but nonfocal. - Labs CBC & Chem 7: 11/02/24 02:36 11/02/24 02:36 Labs: Abnormal Lab Results - Last 24 Hours (Table) 11/01/24 11/01/24 11/02/24 Range/Units 11:52 18:27 02:36 RBC (4.10-5.20) 10*6/uL Hgb (12.0-15.0) g/dL Hct (37.2-46.3) % MCHC (32.0-37.0) g/dL MPV (9.5-12.2) fL Immature Gran # (0.00-0.04) 10*3/uL Lymphocytes # (0.90-5.00) 10*3/uL Monocytes # (0.20-1.00) 10*3/uL Sodium 135 L (137-145) mmol/L Glucose 128 H (74-99) mg/dL POC Glucose (mg/dL) 119 H 126 H (70-110) mg/dL Calcium 7.8 L (8.4-10.2) mg/dL Total Protein 4.2 L (6.3-8.2) g/dL Albumin 2.1 L (3.5-5.0) g/dL 11/02/24 11/02/24 Range/Units 02:36 06:08 RBC 3.24 L (4.10-5.20) 10*6/uL Hgb 9.9 L (12.0-15.0) g/dL Hct 31.1 L (37.2-46.3) % MCHC 31.8 L (32.0-37.0) g/dL MPV 9.4 L (9.5-12.2) fL Immature Gran # 0.53 H (0.00-0.04) 10*3/uL Lymphocytes # 0.70 L (0.90-5.00) 10*3/uL Monocytes # 1.06 H (0.20-1.00) 10*3/uL Sodium (137-145) mmol/L Glucose (74-99) mg/dL POC Glucose (mg/dL) 144 H (70-110) mg/dL Calcium (8.4-10.2) mg/dL Total Protein (6.3-8.2) g/dL Albumin (3.5-5.0) g/dL Microbiology - Last 24 Hours (Table) 10/31/24 19:26 Stool Culture - Preliminary Stool 10/27/24 14:40 Blood Culture - Final Blood Assessment and Plan Assessment: Severe abdominal pain, with associated nausea and vomiting, secondary to diffuse colitis. -- Postoperative day #3, S/P exploratory laparotomy, subtotal colectomy, end ileostomy. Recent hernia repair, [facility], September 03, 2024. Profound leukocytosis, secondary to intra-abdominal process; patient remains on IV Zosyn, oral Flagyl and oral vancomycin. Anion gap metabolic acidosis, secondary to lactic acidosis. Lactic acidemia related to diffuse colitis; continue to monitor and trend lactic acid levels. Acute kidney injury, likely secondary to hypotension, and ATN; slowly improving; patient remains on IV fluids; nephrology on board. Prior history of colon cancer, with colectomy/colostomy and subsequent reversal DVT prophylaxis; SCDs/subcu heparin CODE STATUS; full code
--- NOTE | 2024-11-02 16:13 | P.PN ---
Subjective Progress Note Date: 11/02/24 Principal diagnosis: Reason for follow-up is sepsis/toxic megacolon Patient is a 59-year-old female with a past medical history significant for COPD chronic lower back pain recently completed course of antibiotic for UTI presenting to the hospital for evaluation of abdominal pain and diarrhea and evidence of significant colitis on the CT prompted this consultation patient was taken to the OR this morning status post subtotal colectomy. On today's evaluation that is 11/02/2024, Patient is afebrile patient is currently on 2 L nasal oxygen the patient is breathing comfortably the patient is hemodynamically stable and has been downgraded to the telemetry floor no medically worsening reported by the nursing staff. The patient white count is 8.0 creatinine 0.69 Objective - Vital Signs Vital signs: Vital Signs Temp 98.5 F 11/02/24 13:31 Pulse 79 11/02/24 13:31 Resp 16 11/02/24 13:31 BP 138/74 11/02/24 13:31 Pulse Ox 96 11/02/24 13:31 FiO2 50 10/29/24 12:00 Intake & Output 11/01/24 11/02/24 11/02/24 18:59 06:59 18:59 Intake Total 2545.5 1690.5 730 Output Total 1750 2400 1150 Balance 795.5 -709.5 -420 Weight 91.1 kg Intake: IV 1495 650 730 Lactated Ringers 1,000 ml 690 550 300 @ 50 mls/hr IV .Q20H [facility] Rx#:[id number] Mvi, Adult No.4 with Vit 330 K 10 ml Trace (Conc-1Ml/ Dose) 1 ml Calcium Gluconate 1 gm Sodium Acetate 15 meq Potassium Acetate 10 meq Magnesium Sulfate gm 1 gm Potassium Phosphate 15 mmol In Amino Acids 5 %/Dextrose 20 % 1,000 ml @ 55 mls/hr IV .[id number] [facility] Rx#: [id number] Mvi, Adult No.4 with Vit 605 K 10 ml Trace (Conc-1Ml/ Dose) 1 ml In Amino Acid 5%-D20w+Lytes*E* 1,000 ml @ 30 mls/hr IV .Q24H [facility] Rx#:[id number] Potassium Chloride 10 meq 100 In Water For Injection 1 100ml.bag @ 100 mls/hr IVPB Q1H [facility] Rx#: [id number] metroNIDAZOLE-NS PMX 500 100 100 100 mg In Saline 1 100ml.bag @ 100 mls/hr IVPB Q8HR [facility] Rx#:[id number] Intake, IV Titration 995.5 1040.5 Amount Mvi, Adult No.4 with Vit 995.5 1040.5 K 10 ml Trace (Conc-1Ml/ Dose) 1 ml Calcium Gluconate 1 gm Sodium Acetate 15 meq Potassium Acetate 10 meq Magnesium Sulfate gm 1 gm Potassium Phosphate 15 mmol In Amino Acids 5 %/Dextrose 20 % 1,000 ml @ 55 mls/hr IV .[id number] [facility] Rx#: [id number] TPN/PPN 55 Mvi, Adult No.4 with Vit 55 K 10 ml Trace (Conc-1Ml/ Dose) 1 ml In Amino Acid 5%-D20w+Lytes*E* 1,000 ml @ 30 mls/hr IV .Q24H [facility] Rx#:[id number] Output: Urine 1750 2350 1150 Stool 50 Other: Voiding Method Indwelling Catheter Indwelling Catheter Indwelling Catheter ABP, PAP, CO, CI - Last Documented Arterial Blood Pressure 136/49 - Labs CBC & Chem 7: 11/02/24 02:36 11/02/24 02:36 Labs: Abnormal Lab Results - Last 24 Hours (Table) 11/01/24 11/02/24 11/02/24 Range/Units 18:27 02:36 02:36 RBC 3.24 L (4.10-5.20) 10*6/uL Hgb 9.9 L (12.0-15.0) g/dL Hct 31.1 L (37.2-46.3) % MCHC 31.8 L (32.0-37.0) g/dL MPV 9.4 L (9.5-12.2) fL Immature Gran # 0.53 H (0.00-0.04) 10*3/uL Lymphocytes # 0.70 L (0.90-5.00) 10*3/uL Monocytes # 1.06 H (0.20-1.00) 10*3/uL Sodium 135 L (137-145) mmol/L Glucose 128 H (74-99) mg/dL POC Glucose (mg/dL) 126 H (70-110) mg/dL Calcium 7.8 L (8.4-10.2) mg/dL Total Protein 4.2 L (6.3-8.2) g/dL Albumin 2.1 L (3.5-5.0) g/dL 11/02/24 11/02/24 Range/Units 06:08 11:37 RBC (4.10-5.20) 10*6/uL Hgb (12.0-15.0) g/dL Hct (37.2-46.3) % MCHC (32.0-37.0) g/dL MPV (9.5-12.2) fL Immature Gran # (0.00-0.04) 10*3/uL Lymphocytes # (0.90-5.00) 10*3/uL Monocytes # (0.20-1.00) 10*3/uL Sodium (137-145) mmol/L Glucose (74-99) mg/dL POC Glucose (mg/dL) 144 H 141 H (70-110) mg/dL Calcium (8.4-10.2) mg/dL Total Protein (6.3-8.2) g/dL Albumin (3.5-5.0) g/dL Microbiology - Last 24 Hours (Table) 10/31/24 19:26 Stool Culture - Preliminary Stool 10/27/24 14:40 Blood Culture - Final Blood Assessment and Plan (1) Sepsis Current Visit: Yes Status: Acute Priority: High Code(s): A41.9 - SEPSIS, UNSPECIFIED ORGANISM SNOMED Code(s): 33062726 (2) Colitis Current Visit: Yes Status: Acute Priority: High Code(s): K52.9 - NONINFECTIVE GASTROENTERITIS AND COLITIS, UNSPECIFIED SNOMED Code(s): 45227709 (3) Oral thrush Current Visit: Yes Status: Acute Code(s): B37.0 - CANDIDAL STOMATITIS SNOMED Code(s): 43343338 Plan: 1patient presented to hospital with sepsis in this patient who did have tachycardia mild hypotension elevated white count meeting currently for SIRS/sepsis source is likely C. 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 difficile ischemic colitis less likely but not excluded, histopathology given the differential of ischemic colitis versus C. difficile colitis 3patient white count has normalized patient stool C. difficile came back negative vancomycin has been discontinued patient currently on Zosyn to continue will transition to short course of oral antibiotic on discharge 4oral thrush continue with nystatin swish and swallow Dictation was produced using [employer] dictation software. please excuse any grammatical, word or spelling errors. Time with Patient: Less than 30
[2024-11-02 18:02] LABS: Glucose,Whole Blood 151 mg/dL (70-110)
[2024-11-02] MEDS: MVI, ADULT NO.4 WITH VIT K 10 ML, TRACE (CONC-1ML/DOSE) 1 ML, CALCIUM GLUCONATE 1 GM, S... IV SCH (23:54)
[2024-11-03 00:13] LABS: Glucose,Whole Blood 166 mg/dL (70-110)
[2024-11-03 05:33] LABS: African American GFR (CKD) >90 (>60 ml/min/1.73 sqM); Anion Gap 6 mmol/L; Blood Urea Nitrogen 13 mg/dL (7-17); Calcium 7.9 mg/dL (8.4-10.2); Carbon Dioxide 28 mmol/L (22-30); Chloride 101 mmol/L (98-107); Glucose 141 mg/dL (74-99); Magnesium 1.8 mg/dL (1.6-2.3); Non-African American GFR(CKD) >90 (>60 ml/min/1.73 sqM); Phosphorus 3.1 mg/dL (2.5-4.5); Potassium 3.9 mmol/L (3.5-5.1); Sodium 135 mmol/L (137-145)
[2024-11-03 06:14] LABS: Glucose,Whole Blood 166 mg/dL (70-110)
--- NOTE | 2024-11-03 09:20 | P.PN ---
Subjective 59-year-old female, came to the emergency department, on October 27 complaining of abdominal pain, nausea and vomiting. She was in the emergency room on October 11, with abdominal pain, and was discharged. Back on September 03, at [facility], she had surgery on her abdomen. Earlier this morning, a rapid response was called on this patient this morning, for severe abdominal pain, tachycardia, and hypotension. Patient was transferred to the ICU, to be further evaluated. --She got Zosyn IV, and p.o. Flagyl. We placed a left internal jugular triple- lumen catheter in her. I did speak to the surgeon, who plans on taking her to the operating room. She does have a history of colon cancer, with previous colectomy and subsequent reversal. Blood work revealed a white count of 56.3, hemoglobin 18.8, hematocrit 56.7, and a platelet count of 477,000. Sodium 136, potassium 4.2, chlorides 103, CO2 14, anion gap 19, BUN 24, creatinine 2.43. Lactic acid went from 3.9 up to 10.2. Glucose 191. Calcium 8.4. Lipase 18. Amylase 35. Albumin 2.9. -CT of the abdomen and pelvis shows marked diffuse thickening of the colon wall from marked subcutaneous mucosal edema consistent with ulcerative colitis or other diffuse colitis, moderate ascites, small right pleural effusion, 10 mm left lower lobe pulmonary nodule, and stable cholelithiasis. - Abdominal x-ray was nonspecific. Chest x-ray showed infiltrate or atelectasis in the left lower lobe, and a properly inserted, left internal jugular triple- lumen catheter. 11/01/2024 Patient is seen and evaluated in ICU with family at bedside; resting comfortably in bedside chair. She is postop day #4. She had a subtotal colectomy with ileostomy. She came in initially with abdominal discomfort. She is on 2 L of oxygen. She is getting LR at 70 cc an hour. She is getting TPN at 55 cc an hour. Blood work is reviewed white count is 9.6, hemoglobin 9, hematocrit 28.5, platelet count is normal. Sodium 137, potassium 3.7, chlorides 105, CO2 27, BUN 11, creatinine 0.84. Glucose 129. Albumin is 1.9. Micro is thus far negative. -- The patient is currently on Zosyn, Flagyl IV, and oral vancomycin. -Patient to continue with TPN and is currently at 55 cc an hour - Encouraged to use incentive spirometer; increase activity 11/02/2024 Patient is seen and evaluated resting in bedside recliner; reports feeling better since NG tube was removed Vital signs are reviewed and remained stable with temperature of 98.8, pulse 76, respiration 20 blood pressure 130/78 and O2 saturation of 93% on an FiO2 50% postoperative day #5, status post subtotal colectomy, end ileostomy. - She is getting TPN at 55 cc an hour, and lactated Ringer's at 50 cc an hour. - Current labs include a white count 8, hemoglobin 9.9, hematocrit 31.1, platelet count 285,000. Sodium 135, potassium 4, chlorides 102, CO2 28, BUN 12, creatinine 0.69. Glucose is 144. Albumin is 2.1. - Patient continued to show slow recovery; continue with current management 11/03 Patient presents with severe colitis status post expiratory laparotomy and subtotal colectomy and end ileostomy Ileostomy on the left lower quadrant with formed brown stool in it Vertical wound with dressing in place with surrounding expected abdominal tender ness patient still getting TPN via central line, she might benefit from PICC line She remains on Flagyl, IV Zosyn as well Potassium 3.9, magnesium 1.9 today Objective - Vital Signs Vital signs: Vital Signs Temp 98.4 F 11/03/24 08:00 Pulse 74 11/03/24 08:00 Resp 16 11/03/24 08:00 BP 144/76 11/03/24 08:00 Pulse Ox 96 11/03/24 08:00 FiO2 50 10/29/24 12:00 Intake & Output 11/02/24 11/03/24 11/03/24 18:59 06:59 18:59 Intake Total 1410 1260 Output Total 1700 3100 Balance -290 -1840 Intake: IV 1410 1260 Lactated Ringers 1,000 ml 550 600 @ 50 mls/hr IV .Q20H [facility] Rx#:[id number] Mvi, Adult No.4 with Vit 660 660 K 10 ml Trace (Conc-1Ml/ Dose) 1 ml Calcium Gluconate 1 gm Sodium Acetate 15 meq Potassium Acetate 10 meq Magnesium Sulfate gm 1 gm Potassium Phosphate 15 mmol In Amino Acids 5 %/Dextrose 20 % 1,000 ml @ 55 mls/hr IV .[id number] [facility] Rx#: [id number] metroNIDAZOLE-NS PMX 500 200 mg In Saline 1 100ml.bag @ 100 mls/hr IVPB Q8HR [facility] Rx#:[id number] Output: Drainage 100 LUQ Ostomy 100 Urine 1700 3000 Other: Voiding Method Indwelling Catheter Indwelling Catheter Indwelling Catheter ABP, PAP, CO, CI - Last Documented Arterial Blood Pressure 136/49 - Exam GENERAL: The patient is alert and oriented x3, not in any acute distress. Well developed, well nourished. HEENT: Pupils are round and equally reacting to light. EOMI. No scleral icterus. No conjunctival pallor. Normocephalic, atraumatic. No pharyngeal erythema. No thyromegaly. CARDIOVASCULAR: S1 and S2 present. No murmurs, rubs, or gallops. PULMONARY: Chest is clear to auscultation, no wheezing , no crackles. -ABDOMEN: Soft, nontender, nondistended, normoactive bowel sounds. No palpable organomegaly. Central vertical wound with dressing in place. Left lower quadrant estomy in place MUSCULOSKELETAL: No joint swelling or deformity. EXTREMITIES: No cyanosis, clubbing, or pedal edema. NEUROLOGICAL: Gross neurological examination did not reveal any focal deficits. SKIN: No rashes. no petechiae. - Labs CBC & Chem 7: 11/02/24 02:36 11/03/24 04:32 Labs: Abnormal Lab Results - Last 24 Hours (Table) 11/02/24 11/02/24 11/03/24 Range/Units 11:37 18:01 00:11 Sodium (137-145) mmol/L Glucose (74-99) mg/dL POC Glucose (mg/dL) 141 H 151 H 166 H (70-110) mg/dL Calcium (8.4-10.2) mg/dL 11/03/24 11/03/24 Range/Units 04:32 06:12 Sodium 135 L (137-145) mmol/L Glucose 141 H (74-99) mg/dL POC Glucose (mg/dL) 166 H (70-110) mg/dL Calcium 7.9 L (8.4-10.2) mg/dL Microbiology - Last 24 Hours (Table) 06/20/25 19:26 Stool Culture - Preliminary Stool Assessment and Plan Assessment: Severe abdominal pain, with associated nausea and vomiting, secondary to diffuse colitis. -- Postoperative day #3, S/P exploratory laparotomy, subtotal colectomy, end ileostomy. Recent hernia repair, [facility], September 03, 2024. Profound leukocytosis, secondary to intra-abdominal process; patient remains on IV Zosyn, oral Flagyl and oral vancomycin. Anion gap metabolic acidosis, secondary to lactic acidosis. Lactic acidemia related to diffuse colitis; continue to monitor and trend lactic acid levels. Acute kidney injury, likely secondary to hypotension, and ATN; slowly improving; patient remains on IV fluids; nephrology on board. Prior history of colon cancer, with colectomy/colostomy and subsequent reversal DVT prophylaxis; SCDs/subcu heparin CODE STATUS; full code
--- NOTE | 2024-11-03 10:56 | P.PN ---
Subjective Progress Note Date: 11/03/24 SURGICAL PROGRESS NOTE CHIEF COMPLAINT: Toxic megacolon HISTORY OF PRESENT ILLNESS: Postop day #6 status post subtotal colectomy for toxic megacolon. Patient remains in the ICU. She reports she is feeling better. Her ostomy is functioning. She is tolerating the clear liquids. Pain is controlled. Afebrile. PHYSICAL EXAM: VITAL SIGNS: Reviewed. GENERAL: Well-developed in no acute distress. HEENT: No sclera icterus. Extraocular movements grossly intact. Moist buccal mucosa. Head is atraumatic, normocephalic. ABDOMEN: Soft. Nondistended. Colostomy with stool present NEUROLOGIC: Alert and oriented. Cranial nerves II through XII grossly intact. ASSESSMENT: 1. Toxic megacolon 2. Severe protein calorie malnutrition PLAN: -Advance diet to full liquids -Continue pain management -Encourage patient to increase activity level -Encourage patient to use incentive spirometer -Continue antibiotics -Continue TPN -DVT prophylaxis subcu heparin and GI prophylaxis Protonix Physician Yard Hostler note has been reviewed by physician. Signing provider agrees with the documented findings, assessment, and plan of care. Objective - Vital Signs Vital signs: Vital Signs Temp 98.4 F 11/03/24 08:00 Pulse 74 11/03/24 08:00 Resp 16 11/03/24 08:00 BP 144/76 11/03/24 08:00 Pulse Ox 96 11/03/24 08:00 FiO2 50 10/29/24 12:00 Intake & Output 11/02/24 11/03/24 11/03/24 18:59 06:59 18:59 Intake Total 1410 1260 Output Total 1700 3100 400 Balance -290 -1840 -400 Intake: IV 1410 1260 Lactated Ringers 1,000 ml 550 600 @ 50 mls/hr IV .Q20H [facility] Rx#:[id number] Mvi, Adult No.4 with Vit 660 660 K 10 ml Trace (Conc-1Ml/ Dose) 1 ml Calcium Gluconate 1 gm Sodium Acetate 15 meq Potassium Acetate 10 meq Magnesium Sulfate gm 1 gm Potassium Phosphate 15 mmol In Amino Acids 5 %/Dextrose 20 % 1,000 ml @ 55 mls/hr IV .[id number] [facility] Rx#: [id number] metroNIDAZOLE-NS PMX 500 200 mg In Saline 1 100ml.bag @ 100 mls/hr IVPB Q8HR [facility] Rx#:[id number] Output: Drainage 100 LUQ Ostomy 100 Urine 1700 3000 400 Other: Voiding Method Indwelling Catheter Indwelling Catheter Indwelling Catheter ABP, PAP, CO, CI - Last Documented Arterial Blood Pressure 136/49 - Labs CBC & Chem 7: 11/02/24 02:36 11/03/24 04:32 Labs: Abnormal Lab Results - Last 24 Hours (Table) 11/02/24 11/02/24 11/03/24 Range/Units 11:37 18:01 00:11 Sodium (137-145) mmol/L Glucose (74-99) mg/dL POC Glucose (mg/dL) 141 H 151 H 166 H (70-110) mg/dL Calcium (8.4-10.2) mg/dL 11/03/24 11/03/24 Range/Units 04:32 06:12 Sodium 135 L (137-145) mmol/L Glucose 141 H (74-99) mg/dL POC Glucose (mg/dL) 166 H (70-110) mg/dL Calcium 7.9 L (8.4-10.2) mg/dL Microbiology - Last 24 Hours (Table) 10/31/24 19:26 Stool Culture - Preliminary Stool Meryl albicans
[2024-11-03 11:45] LABS: Glucose,Whole Blood 165 mg/dL (70-110)
--- NOTE | 2024-11-03 11:56 | P.PN ---
Subjective Progress Note Date: 11/03/24 Pulmonary consult dated October 28, 2024. 59-year-old female seen today in the intensive care unit, room 265. The patient apparently came to the emergency department, on October 27 complaining of abdominal pain, nausea and vomiting. She was in the emergency room on October 11, with abdominal pain, and was discharged. Back on September 03, at [facility], she had surgery on her abdomen, i.e. hernia repair, and may be something more. Anyway, a rapid response was called on this patient this merlyn ng, for severe abdominal pain, tachycardia, and hypotension. For that reason, we brought the patient to the ICU, to be further evaluated. We see her today in room 265. She is on room air. She is getting saline bolus. She got Zosyn IV, and p.o. Flagyl. We placed a left internal jugular triple-lumen catheter in her. I did speak to the surgeon, who plans on taking her to the operating room. She does have a history of colon cancer, with previous colectomy and subsequent reversal. Current laboratory data includes a white count of 56.3, hemoglobin 18.8, hematocrit 56.7, and a platelet count of 477,000. Sodium 136, potassium 4.2, chlorides 103, CO2 14, anion gap 19, BUN 24, creatinine 2.43. Lactic acid went from 3.9 up to 10.2. Glucose 191. Calcium 8.4. Lipase 18. Amylase 35. Albumin 2.9. CT of the abdomen and pelvis shows marked diffuse thickening of the colon wall from marked subcutaneous mucosal edema consistent with ulcerative colitis or other diffuse colitis, moderate ascites, small right pleural effusion, 10 mm left lower lobe pulmonary nodule, and stable cholelithiasis. Plain film of the abdomen was nonspecific. Chest x-ray showed infiltrate or atelectasis in the left lower lobe, and a properly inserted, left internal jugular triple-lumen catheter. Progress note dated October 30, 2024. The patient is seen today in room 265. She is postop day #2, status post s ubtotal colectomy with ileostomy. She was extubated yesterday, October 29. She is getting saline at 100 cc an hour. NG tube in place. She is getting nasal O2 at 4 L. She is resting comfortably in bed. She does have some abdominal discomfort, at the surgical site. White count was 18.9, hemoglobin 9.7, hematocrit 29.5, platelet count 344,000. Sodium 139, potassium 3.3, chlorides 110, CO2 25, BUN 23, creatinine 1.46. Glucose was 96. Albumin 1.9. Blood gases prior to extubation, showed a PO2 of 80, pCO2 of 41, pH of 7.38. Blood cultures are currently negative or pending. Chest x-ray shows bibasilar infiltrates, with small right-sided pleural effusion. Progress note dated October 31, 2024. 59-year-old female seen today in room 265. She is resting comfortably in bed. The patient is on 2 L nasal O2. NG tube remains in place. She is getting LR at 70 cc an hour, TPN at 30 cc an hour. She is on Zosyn. She is also getting p.o. Flagyl and vancomycin. Current laboratory data includes a white count of 10.9, hemoglobin 8.6, hematocrit 26.4, platelet count of 189,000. Sodium 141, po tassium 3.7, chlorides 113, CO2 25, BUN 15, creatinine 0.95. Glucose is 139. Calcium 7.5. The rest of the labs look reasonable. Chest x-ray again shows bilateral pleural effusions, with bibasilar infiltrates, or atelectasis. Progress note dated November 01, 2024. 59-year-old female seen in room 265. She is resting comfortably in bed. She is postop day #4. She had a subtotal colectomy with ileostomy. She came in initially with abdominal discomfort. She is on 2 L of oxygen. She is getting LR at 70 cc an hour. She is getting TPN at 55 cc an hour. White count is 9.6, hemoglobin 9, hematocrit 28.5, platelet count is normal. Sodium 137, potassium 3.7, chlorides 105, CO2 27, BUN 11, creatinine 0.84. Glucose 129. Albumin is 1.9. Micro is thus far negative. No chest x-ray today. The patient is currently on Zosyn, Flagyl IV, and oral vancomycin. Progress note dated November 02, 2024. 59-year-old female seen today in room 265. She is postoperative day #5, status post subtotal colectomy, end ileostomy. She is on 2 L of oxygen. She is getting TPN at 55 cc an hour, and lactated Ringer's at 50 cc an hour. Current labs include a white count 8, hemoglobin 9.9, hematocrit 31.1, platelet count 285,000. Sodium 135, potassium 4, chlorides 102, CO2 28, BUN 12, creatinine 0.69. Glucose is 144. Albumin is 2.1. On 11/03/2024, the patient is being seen for a follow-up. The patient is awake and alert and sitting up in a chair. She seems to be quite comfortable. She did do some limited amount of walking yesterday. She is using the incentive spirometer. She is postop day #6 and the patient underwent an expected laparotomy and subtotal colectomy and end ileostomy. She remains on TPN for nutritional support. She was allowed to take some clear liquid diet today. Ileostomy is functioning there is positive output. Hemodynamically stable. Continues to have some abdominal pain. No nausea. No emesis. Electrolytes are all within normal limits. BUN is 13 with a creatinine of 0.7. The white cell count is at 8 with a hemoglobin 9.9 and a platelet count of 285. She is on Dilaudid for pain control. Antibiotic coverage is with a combination of Zosyn and Flagyl. No altered mentation. No chest pain. No significant respiratory distress and the patient remains on oxygen 2 L/min nasal cannula with a pulse ox of 96%. Objective - Vital Signs Vital signs: Vital Signs Temp 97.7 F 11/03/24 02:00 Pulse 80 11/03/24 06:24 Resp 13 11/03/24 02:00 BP 133/74 11/03/24 02:00 Pulse Ox 98 11/03/24 02:00 FiO2 50 10/29/24 12:00 Intake & Output 11/02/24 11/03/24 11/03/24 18:59 06:59 18:59 Intake Total 1410 1260 Output Total 1700 3100 Balance -290 -1840 Intake: IV 1410 1260 Lactated Ringers 1,000 ml 550 600 @ 50 mls/hr IV .Q20H [facility] Rx#:[id number] Mvi, Adult No.4 with Vit 660 660 K 10 ml Trace (Conc-1Ml/ Dose) 1 ml Calcium Gluconate 1 gm Sodium Acetate 15 meq Potassium Acetate 10 meq Magnesium Sulfate gm 1 gm Potassium Phosphate 15 mmol In Amino Acids 5 %/Dextrose 20 % 1,000 ml @ 55 mls/hr IV .[id number] [facility] Rx#: [id number] metroNIDAZOLE-NS PMX 500 200 mg In Saline 1 100ml.bag @ 100 mls/hr IVPB Q8HR [facility] Rx#:[id number] Output: Drainage 100 LUQ Ostomy 100 Urine 1700 3000 Other: Voiding Method Indwelling Catheter Indwelling Catheter ABP, PAP, CO, CI - Last Documented Arterial Blood Pressure 136/49 - Exam No acute distress, oriented 3. Currently on 2 L of oxygen by nasal cannula, obese with a BMI of 39.2 HEENT examination is grossly unremarkable. Mucous membranes are moist. No oral lesions. Neck supple. Full range of motion. No adenopathy thyromegaly or neck vein distention. Cardiovascular examination reveals regular rhythm rate. S1-S2 normal. No S3 or S4. No discernible murmur noted. Lungs reveal mild scattered rhonchi. No wheezes. No crackles. Breath sounds equal bilaterally. Abdomen soft without bowel sounds. Ileostomy is noted. There is mild direct abdominal tenderness. Bowel sounds are hypoactive. Ileostomy is functioning. Surgical site is dry clean and intact. Extremities are intact. No cyanosis clubbing or edema. Skin is without rash or lesion. Neurologic examination is brief but nonfocal. - Labs CBC & Chem 7: 11/02/24 02:36 11/03/24 04:32 Labs: Abnormal Lab Results - Last 24 Hours (Table) 11/02/24 11/02/24 11/02/24 Range/Units 02:36 11:37 18:01 RBC 3.24 L (4.10-5.20) 10*6/uL Hgb 9.9 L (12.0-15.0) g/dL Hct 31.1 L (37.2-46.3) % MCHC 31.8 L (32.0-37.0) g/dL MPV 9.4 L (9.5-12.2) fL Immature Gran # 0.53 H (0.00-0.04) 10*3/uL Lymphocytes # 0.70 L (0.90-5.00) 10*3/uL Monocytes # 1.06 H (0.20-1.00) 10*3/uL Sodium (137-145) mmol/L Glucose (74-99) mg/dL POC Glucose (mg/dL) 141 H 151 H (70-110) mg/dL Calcium (8.4-10.2) mg/dL 11/03/24 11/03/24 11/03/24 Range/Units 00:11 04:32 06:12 RBC (4.10-5.20) 10*6/uL Hgb (12.0-15.0) g/dL Hct (37.2-46.3) % MCHC (32.0-37.0) g/dL MPV (9.5-12.2) fL Immature Gran # (0.00-0.04) 10*3/uL Lymphocytes # (0.90-5.00) 10*3/uL Monocytes # (0.20-1.00) 10*3/uL Sodium 135 L (137-145) mmol/L Glucose 141 H (74-99) mg/dL POC Glucose (mg/dL) 166 H 166 H (70-110) mg/dL Calcium 7.9 L (8.4-10.2) mg/dL Microbiology - Last 24 Hours (Table) 10/31/24 19:26 Stool Culture - Preliminary Stool Assessment and Plan Plan: Severe abdominal pain, 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 The final pathology is consistent with acute pancolitis with mucosal ischemic type changes and necrosis and pseudomembrane formation and prominent submucosal edema. The mucosal resection margins were viable and there was no evidence of any malignancy. The patient is currently postoperative day #6, S/P exploratory laparotomy, subtotal colectomy, end ileostomy. TPN for nutritional support Recent hernia repair, [facility], September 03, 2024. Profound leukocytosis, secondary to intra-abdominal process, improving Anion gap metabolic acidosis, secondary to lactic acidosis, improved Lactic acidemia, improved Acute kidney injury, likely secondary to hypotension, and ATN, improved Prior history of colon cancer, with colectomy/colostomy and subsequent reversal. Plan: Continue using incentive spirometer Patient is currently on 2 L of oxygen by nasal cannula Increase mobility as tolerated Monitor the output from the ileostomy Allow clear liquid diet and advance diet as tolerated General Surgery is on the case Continue Zosyn and Flagyl The white cell count is improved. Metabolic acidosis recovered and the patient's renal function is also normalized. Continue lactated Ringer at rate of 50 cc an hour
[2024-11-03 12:43] VITALS: BMI 39.2
[2024-11-03 17:54] LABS: Glucose,Whole Blood 163 mg/dL (70-110)
[2024-11-04 03:48] LABS: Glucose,Whole Blood 164 mg/dL (70-110)
[2024-11-04 04:48] LABS: ALT 10 U/L (4-34); AST 27 U/L (14-36); African American GFR (CKD) >90 (>60 ml/min/1.73 sqM); Albumin 2.1 g/dL (3.5-5.0); Albumin/Globulin Ratio 0.9; Alkaline Phosphatase 42 U/L (38-126); Anion Gap 5 mmol/L; Blood Urea Nitrogen 14 mg/dL (7-17); Carbon Dioxide 24 mmol/L (22-30); Chloride 103 mmol/L (98-107); Globulin 2.3 g/dL; Glucose 153 mg/dL (74-99); Magnesium 1.8 mg/dL (1.6-2.3); Non-African American GFR(CKD) >90 (>60 ml/min/1.73 sqM); Phosphorus 3.5 mg/dL (2.5-4.5); Sodium 132 mmol/L (137-145); Total Bilirubin 0.6 mg/dL (0.2-1.3); Total Protein 4.4 g/dL (6.3-8.2)
[2024-11-04 05:55] LABS: Potassium 4.5 mmol/L (3.5-5.1)
[2024-11-04 06:21] LABS: Glucose,Whole Blood 153 mg/dL (70-110)
[2024-11-04 08:15] LABS: Basophils # (A) 0.03 X 10*3/uL (0.00-0.10); Basophils % (A) 0.3 %; Eosinophils # (A) 0.21 X 10*3/uL (0.04-0.35); HCT 29.3 % (37.2-46.3); HGB 9.3 g/dL (12.0-15.0); Lymphocytes # (A) 0.65 X 10*3/uL (0.90-5.00); Lymphocytes % (A) 6.3 %; MCH 31.1 pg (27.0-32.0); MCHC 31.7 g/dL (32.0-37.0); Mean Platelet Volume 9.4 FL (9.5-12.2); Monocytes # (A) 1.08 X 10*3/uL (0.20-1.00); Monocytes % (A) 10.5 %; NRBC Per 100 WBC 0 X 10*3/uL (0.00-0.01); Neutrophils # (A) 7.88 X 10*3/uL (1.80-7.70); Neutrophils % (A) 76.3 %; Platelet Count 357 X 10*3/uL (140-440); RBC 2.99 X 10*6/uL (4.10-5.20); RDW 15.6 % (11.5-14.5); WBC 10.32 X 10*3/uL (4.50-10.00)
--- NOTE | 2024-11-04 11:05 | P.PN ---
Subjective 59-year-old female, came to the emergency department, on October 27 complaining of abdominal pain, nausea and vomiting. She was in the emergency room on October 11, with abdominal pain, and was discharged. Back on September 03, at [facility], she had surgery on her abdomen. Earlier this morning, a rapid response was called on this patient this morning, for severe abdominal pain, tachycardia, and hypotension. Patient was transferred to the ICU, to be further evaluated. --She got Zosyn IV, and p.o. Flagyl. We placed a left internal jugular triple- lumen catheter in her. I did speak to the surgeon, who plans on taking her to the operating room. She does have a history of colon cancer, with previous colectomy and subsequent reversal. Blood work revealed a white count of 56.3, hemoglobin 18.8, hematocrit 56.7, and a platelet count of 477,000. Sodium 136, potassium 4.2, chlorides 103, CO2 14, anion gap 19, BUN 24, creatinine 2.43. Lactic acid went from 3.9 up to 10.2. Glucose 191. Calcium 8.4. Lipase 18. Amylase 35. Albumin 2.9. -CT of the abdomen and pelvis shows marked diffuse thickening of the colon wall from marked subcutaneous mucosal edema consistent with ulcerative colitis or other diffuse colitis, moderate ascites, small right pleural effusion, 10 mm left lower lobe pulmonary nodule, and stable cholelithiasis. - Abdominal x-ray was nonspecific. Chest x-ray showed infiltrate or atelectasis in the left lower lobe, and a properly inserted, left internal jugular triple- lumen catheter. 11/01/2024 Patient is seen and evaluated in ICU with family at bedside; resting comfortably in bedside chair. She is postop day #4. She had a subtotal colectomy with ileostomy. She came in initially with abdominal discomfort. She is on 2 L of oxygen. She is getting LR at 70 cc an hour. She is getting TPN at 55 cc an hour. Blood work is reviewed white count is 9.6, hemoglobin 9, hematocrit 28.5, platelet count is normal. Sodium 137, potassium 3.7, chlorides 105, CO2 27, BUN 11, creatinine 0.84. Glucose 129. Albumin is 1.9. Micro is thus far negative. -- The patient is currently on Zosyn, Flagyl IV, and oral vancomycin. -Patient to continue with TPN and is currently at 55 cc an hour - Encouraged to use incentive spirometer; increase activity 11/02/2024 Patient is seen and evaluated resting in bedside recliner; reports feeling better since NG tube was removed Vital signs are reviewed and remained stable with temperature of 98.8, pulse 76, respiration 20 blood pressure 130/78 and O2 saturation of 93% on an FiO2 50% postoperative day #5, status post subtotal colectomy, end ileostomy. - She is getting TPN at 55 cc an hour, and lactated Ringer's at 50 cc an hour. - Current labs include a white count 8, hemoglobin 9.9, hematocrit 31.1, platelet count 285,000. Sodium 135, potassium 4, chlorides 102, CO2 28, BUN 12, creatinine 0.69. Glucose is 144. Albumin is 2.1. - Patient continued to show slow recovery; continue with current management 11/03 Patient presents with severe colitis status post expiratory laparotomy and subtotal colectomy and end ileostomy Ileostomy on the left lower quadrant with formed brown stool in it Vertical wound with dressing in place with surrounding expected abdominal tender ness patient still getting TPN via central line, she might benefit from PICC line She remains on Flagyl, IV Zosyn as well Potassium 3.9, magnesium 1.9 today 11/04 Patient improvement, she has less GI symptoms today She is on liquid diet is going to be advanced more today. TPN is tapered down 55 mL/h output hypothyroidism and it will be lowered to 25 mL/h and stopped late r on today No chest pain or dyspnea Patient with plans for PT/OT evaluation. Patient states she will probably be able to walk well she looks very weak. Hemoglobin 9.3 and WBC 10.3. Remains on Flagyl and Zosyn Objective - Vital Signs Vital signs: Vital Signs Temp 98.5 F 11/04/24 07:30 Pulse 90 11/04/24 07:30 Resp 18 11/04/24 07:30 BP 130/75 11/04/24 07:30 Pulse Ox 94 L 11/04/24 07:30 FiO2 50 10/29/24 12:00 Intake & Output 11/03/24 11/04/24 11/04/24 18:59 06:59 18:59 Intake Total 1048 Output Total 1200 800 650 Balance -1200 248 -650 Weight 91.1 kg Intake: Intake, IV Titration 1048 Amount Mvi, Adult No.4 with Vit 1048 K 10 ml Trace (Conc-1Ml/ Dose) 1 ml Calcium Gluconate 1 gm Sodium Acetate 30 meq Potassium Chloride 10 meq Magnesium Sulfate gm 1 gm Potassium Phosphate 15 mmol In Amino Acids 5 %/ Dextrose 20 % 1,000 ml @ 55 mls/hr IV .Q19H4M [facility] Rx#:[id number] Output: Urine 1200 600 650 Stool 200 Other: Voiding Method Indwelling Catheter External Catheter External Catheter ABP, PAP, CO, CI - Last Documented Arterial Blood Pressure 136/49 - Exam GENERAL: The patient is alert and oriented x3, not in any acute distress. Well developed, well nourished. HEENT: Pupils are round and equally reacting to light. EOMI. No scleral icterus. No conjunctival pallor. Normocephalic, atraumatic. No pharyngeal erythema. No thyromegaly. CARDIOVASCULAR: S1 and S2 present. No murmurs, rubs, or gallops. PULMONARY: Chest is clear to auscultation, no wheezing , no crackles. -ABDOMEN: Soft, nontender, nondistended, normoactive bowel sounds. No palpable organomegaly. Central vertical wound with dressing in place. Left lower qu adrant estomy in place MUSCULOSKELETAL: No joint swelling or deformity. EXTREMITIES: No cyanosis, clubbing, or pedal edema. NEUROLOGICAL: Gross neurological examination did not reveal any focal deficits. SKIN: No rashes. no petechiae. - Labs CBC & Chem 7: 11/04/24 04:14 11/04/24 04:14 Labs: Abnormal Lab Results - Last 24 Hours (Table) 11/03/24 11/03/24 11/04/24 Range/Units 11:43 17:53 03:46 WBC (4.50-10.00) X 10*3/uL RBC (4.10-5.20) X 10*6/uL Hgb (12.0-15.0) g/dL Hct (37.2-46.3) % MCV (80.0-97.0) FL MCHC (32.0-37.0) g/dL RDW (11.5-14.5) % MPV (9.5-12.2) FL Immature Gran # (0.00-0.04) X 10*3/uL Neutrophils # (1.80-7.70) X 10*3/uL Lymphocytes # (0.90-5.00) X 10*3/uL Monocytes # (0.20-1.00) X 10*3/uL Sodium (137-145) mmol/L Glucose (74-99) mg/dL POC Glucose (mg/dL) 165 H 163 H 164 H (70-110) mg/dL Calcium (8.4-10.2) mg/dL Total Protein (6.3-8.2) g/dL Albumin (3.5-5.0) g/dL 11/04/24 11/04/24 11/04/24 Range/Units 04:14 04:14 06:20 WBC 10.32 H (4.50-10.00) X 10*3/uL RBC 2.99 L (4.10-5.20) X 10*6/uL Hgb 9.3 L (12.0-15.0) g/dL Hct 29.3 L (37.2-46.3) % MCV 98.0 H (80.0-97.0) FL MCHC 31.7 L (32.0-37.0) g/dL RDW 15.6 H (11.5-14.5) % MPV 9.4 L (9.5-12.2) FL Immature Gran # 0.47 H (0.00-0.04) X 10*3/uL Neutrophils # 7.88 H (1.80-7.70) X 10*3/uL Lymphocytes # 0.65 L (0.90-5.00) X 10*3/uL Monocytes # 1.08 H (0.20-1.00) X 10*3/uL Sodium 132 L (137-145) mmol/L Glucose 153 H (74-99) mg/dL POC Glucose (mg/dL) 153 H (70-110) mg/dL Calcium 8.0 L (8.4-10.2) mg/dL Total Protein 4.4 L (6.3-8.2) g/dL Albumin 2.1 L (3.5-5.0) g/dL Microbiology - Last 24 Hours (Table) 10/31/24 19:26 Stool Culture - Final Stool Meryl albicans Assessment and Plan Assessment: Severe abdominal pain, with associated nausea and vomiting, secondary to diffuse colitis. And toxic megacolon -- S/P exploratory laparotomy, subtotal colectomy, end ileostomy. -- Discontinue TPN and advance diet to soft/regular generalized weakness -- Secondary to above -- Plan for rehab, PT/OT evaluation Recent hernia repair, [facility], September 03, 2024. Profound leukocytosis, secondary to intra-abdominal process; patient remains on IV Zosyn, oral Flagyl and oral vancomycin. Improved Anion gap metabolic acidosis, secondary to lactic acidosis. Resolved Lactic acidemia related to diffuse colitis; continue to monitor and trend lactic acid levels. Resolved Acute kidney injury, likely secondary to hypotension, and ATN; slowly improving; patient remains on IV fluids; nephrology on board. Improved Prior history of colon cancer, with colectomy/colostomy and subsequent reversal DVT prophylaxis; SCDs/subcu heparin CODE STATUS; full code
--- NOTE | 2024-11-04 11:30 | P.PN ---
Subjective Progress Note Date: 11/04/24 SURGICAL PROGRESS NOTE CHIEF COMPLAINT: Toxic megacolon HISTORY OF PRESENT ILLNESS: Postop day #7 status post subtotal colectomy for toxic megacolon. Patient transferred out of the ICU to regular medical floor. Ostomy is functioning. Tolerating full liquids. Pain controlled. Afebrile. WBC 10.32 Hgb 9.3 PHYSICAL EXAM: VITAL SIGNS: Reviewed. GENERAL: Well-developed in no acute distress. HEENT: No sclera icterus. Extraocular movements grossly intact. Moist buccal mucosa. Head is atraumatic, normocephalic. ABDOMEN: Soft. Nondistended. Colostomy with stool present NEUROLOGIC: Alert and oriented. Cranial nerves II through XII grossly intact. ASSESSMENT: 1. Toxic megacolon with presumed C. difficile colitis 2. Severe protein calorie malnutrition PLAN: -Advance diet to regular -Discontinue TPN -Discontinue IV fluids -Discontinue central line and have peripheral line placed -Add oral [place] for pain management -Encourage patient to increase activity level -Encourage patient to use incentive spirometer -Continue antibiotics -DVT prophylaxis subcu heparin and GI prophylaxis Protonix Physician Blower Mechanic note has been reviewed by physician. Signing provider agrees with the documented findings, assessment, and plan of care. Objective - Vital Signs Vital signs: Vital Signs Temp 98.5 F 11/04/24 07:30 Pulse 90 11/04/24 07:30 Resp 18 11/04/24 07:30 BP 130/75 11/04/24 07:30 Pulse Ox 94 L 11/04/24 07:30 FiO2 50 10/29/24 12:00 Intake & Output 11/03/24 11/04/24 11/04/24 18:59 06:59 18:59 Intake Total 1048 Output Total 1200 800 650 Balance -1200 248 -650 Weight 91.1 kg Intake: Intake, IV Titration 1048 Amount Mvi, Adult No.4 with Vit 1048 K 10 ml Trace (Conc-1Ml/ Dose) 1 ml Calcium Gluconate 1 gm Sodium Acetate 30 meq Potassium Chloride 10 meq Magnesium Sulfate gm 1 gm Potassium Phosphate 15 mmol In Amino Acids 5 %/ Dextrose 20 % 1,000 ml @ 55 mls/hr IV .Q19H4M [facility] Rx#:[id number] Output: Urine 1200 600 650 Stool 200 Other: Voiding Method Indwelling Catheter External Catheter External Catheter ABP, PAP, CO, CI - Last Documented Arterial Blood Pressure 136/49 - Labs CBC & Chem 7: 11/04/24 04:14 11/04/24 04:14 Labs: Abnormal Lab Results - Last 24 Hours (Table) 11/03/24 11/03/24 11/04/24 Range/Units 11:43 17:53 03:46 WBC (4.50-10.00) X 10*3/uL RBC (4.10-5.20) X 10*6/uL Hgb (12.0-15.0) g/dL Hct (37.2-46.3) % MCV (80.0-97.0) FL MCHC (32.0-37.0) g/dL RDW (11.5-14.5) % MPV (9.5-12.2) FL Immature Gran # (0.00-0.04) X 10*3/uL Neutrophils # (1.80-7.70) X 10*3/uL Lymphocytes # (0.90-5.00) X 10*3/uL Monocytes # (0.20-1.00) X 10*3/uL Sodium (137-145) mmol/L Glucose (74-99) mg/dL POC Glucose (mg/dL) 165 H 163 H 164 H (70-110) mg/dL Calcium (8.4-10.2) mg/dL Total Protein (6.3-8.2) g/dL Albumin (3.5-5.0) g/dL 11/04/24 11/04/24 11/04/24 Range/Units 04:14 04:14 06:20 WBC 10.32 H (4.50-10.00) X 10*3/uL RBC 2.99 L (4.10-5.20) X 10*6/uL Hgb 9.3 L (12.0-15.0) g/dL Hct 29.3 L (37.2-46.3) % MCV 98.0 H (80.0-97.0) FL MCHC 31.7 L (32.0-37.0) g/dL RDW 15.6 H (11.5-14.5) % MPV 9.4 L (9.5-12.2) FL Immature Gran # 0.47 H (0.00-0.04) X 10*3/uL Neutrophils # 7.88 H (1.80-7.70) X 10*3/uL Lymphocytes # 0.65 L (0.90-5.00) X 10*3/uL Monocytes # 1.08 H (0.20-1.00) X 10*3/uL Sodium 132 L (137-145) mmol/L Glucose 153 H (74-99) mg/dL POC Glucose (mg/dL) 153 H (70-110) mg/dL Calcium 8.0 L (8.4-10.2) mg/dL Total Protein 4.4 L (6.3-8.2) g/dL Albumin 2.1 L (3.5-5.0) g/dL Microbiology - Last 24 Hours (Table) 10/31/24 19:26 Stool Culture - Final Stool Meryl albicans
[2024-11-04 12:02] LABS: Glucose,Whole Blood 130 mg/dL (70-110)
--- NOTE | 2024-11-04 16:08 | P.PN ---
Subjective Progress Note Date: 11/04/24 Pulmonary consult dated October 28, 2024. 59-year-old female seen today in the intensive care unit, room 265. The patient apparently came to the emergency department, on October 27 complaining of abdominal pain, nausea and vomiting. She was in the emergency room on October 11, with abdominal pain, and was discharged. Back on September 03, at [facility], she had surgery on her abdomen, i.e. hernia repair, and may be something more. Anyway, a rapid response was called on this patient this merlyn ng, for severe abdominal pain, tachycardia, and hypotension. For that reason, we brought the patient to the ICU, to be further evaluated. We see her today in room 265. She is on room air. She is getting saline bolus. She got Zosyn IV, and p.o. Flagyl. We placed a left internal jugular triple-lumen catheter in her. I did speak to the surgeon, who plans on taking her to the operating room. She does have a history of colon cancer, with previous colectomy and subsequent reversal. Current laboratory data includes a white count of 56.3, hemoglobin 18.8, hematocrit 56.7, and a platelet count of 477,000. Sodium 136, potassium 4.2, chlorides 103, CO2 14, anion gap 19, BUN 24, creatinine 2.43. Lactic acid went from 3.9 up to 10.2. Glucose 191. Calcium 8.4. Lipase 18. Amylase 35. Albumin 2.9. CT of the abdomen and pelvis shows marked diffuse thickening of the colon wall from marked subcutaneous mucosal edema consistent with ulcerative colitis or other diffuse colitis, moderate ascites, small right pleural effusion, 10 mm left lower lobe pulmonary nodule, and stable cholelithiasis. Plain film of the abdomen was nonspecific. Chest x-ray showed infiltrate or atelectasis in the left lower lobe, and a properly inserted, left internal jugular triple-lumen catheter. Progress note dated October 30, 2024. The patient is seen today in room 265. She is postop day #2, status post s ubtotal colectomy with ileostomy. She was extubated yesterday, October 29. She is getting saline at 100 cc an hour. NG tube in place. She is getting nasal O2 at 4 L. She is resting comfortably in bed. She does have some abdominal discomfort, at the surgical site. White count was 18.9, hemoglobin 9.7, hematocrit 29.5, platelet count 344,000. Sodium 139, potassium 3.3, chlorides 110, CO2 25, BUN 23, creatinine 1.46. Glucose was 96. Albumin 1.9. Blood gases prior to extubation, showed a PO2 of 80, pCO2 of 41, pH of 7.38. Blood cultures are currently negative or pending. Chest x-ray shows bibasilar infiltrates, with small right-sided pleural effusion. Progress note dated October 31, 2024. 59-year-old female seen today in room 265. She is resting comfortably in bed. The patient is on 2 L nasal O2. NG tube remains in place. She is getting LR at 70 cc an hour, TPN at 30 cc an hour. She is on Zosyn. She is also getting p.o. Flagyl and vancomycin. Current laboratory data includes a white count of 10.9, hemoglobin 8.6, hematocrit 26.4, platelet count of 189,000. Sodium 141, po tassium 3.7, chlorides 113, CO2 25, BUN 15, creatinine 0.95. Glucose is 139. Calcium 7.5. The rest of the labs look reasonable. Chest x-ray again shows bilateral pleural effusions, with bibasilar infiltrates, or atelectasis. Progress note dated November 01, 2024. 59-year-old female seen in room 265. She is resting comfortably in bed. She is postop day #4. She had a subtotal colectomy with ileostomy. She came in initially with abdominal discomfort. She is on 2 L of oxygen. She is getting LR at 70 cc an hour. She is getting TPN at 55 cc an hour. White count is 9.6, hemoglobin 9, hematocrit 28.5, platelet count is normal. Sodium 137, potassium 3.7, chlorides 105, CO2 27, BUN 11, creatinine 0.84. Glucose 129. Albumin is 1.9. Micro is thus far negative. No chest x-ray today. The patient is currently on Zosyn, Flagyl IV, and oral vancomycin. Progress note dated November 02, 2024. 59-year-old female seen today in room 265. She is postoperative day #5, status post subtotal colectomy, end ileostomy. She is on 2 L of oxygen. She is getting TPN at 55 cc an hour, and lactated Ringer's at 50 cc an hour. Current labs include a white count 8, hemoglobin 9.9, hematocrit 31.1, platelet count 285,000. Sodium 135, potassium 4, chlorides 102, CO2 28, BUN 12, creatinine 0.69. Glucose is 144. Albumin is 2.1. On 11/03/2024, the patient is being seen for a follow-up. The patient is awake and alert and sitting up in a chair. She seems to be quite comfortable. She did do some limited amount of walking yesterday. She is using the incentive spirometer. She is postop day #6 and the patient underwent an expected laparotomy and subtotal colectomy and end ileostomy. She remains on TPN for nutritional support. She was allowed to take some clear liquid diet today. Ileostomy is functioning there is positive output. Hemodynamically stable. Continues to have some abdominal pain. No nausea. No emesis. Electrolytes are all within normal limits. BUN is 13 with a creatinine of 0.7. The white cell count is at 8 with a hemoglobin 9.9 and a platelet count of 285. She is on Dilaudid for pain control. Antibiotic coverage is with a combination of Zosyn and Flagyl. No altered mentation. No chest pain. No significant respiratory distress and the patient remains on oxygen 2 L/min nasal cannula with a pulse ox of 96%. 11/04/2024, the patient is being seen for a follow-up. On today's evaluation, the patient is doing well. No specific complaints. She is tolerating diet. TPN is being gradually weaned off. The patient is status post exploratory laparotomy and subtotal colectomy end ileostomy and the patient is postop day #7. Afebrile. Hemodynamically stable. White cell count of 10 with a hemoglobin 9.3 and a platelet count of 357. Electrolytes are all within normal limits. BUN is 14 with a creatinine of 0.6. Remains on Dilaudid for pain control and oral [place] on an as-needed basis. Remains on Zosyn IV. Remains on oxygen the patient remains on 2 L of O2 nasal cannula. Using the incentive spirometer. Abdominal wound is dry clean and intact. Objective - Vital Signs Vital signs: Vital Signs Temp 98.5 F 11/04/24 07:30 Pulse 90 11/04/24 07:30 Resp 18 11/04/24 07:30 BP 130/75 11/04/24 07:30 Pulse Ox 94 L 11/04/24 07:30 FiO2 50 10/29/24 12:00 Intake & Output 11/03/24 11/04/24 11/04/24 18:59 06:59 18:59 Intake Total 1048 Output Total 1200 800 650 Balance -1200 248 -650 Weight 91.1 kg Intake: Intake, IV Titration 1048 Amount Mvi, Adult No.4 with Vit 1048 K 10 ml Trace (Conc-1Ml/ Dose) 1 ml Calcium Gluconate 1 gm Sodium Acetate 30 meq Potassium Chloride 10 meq Magnesium Sulfate gm 1 gm Potassium Phosphate 15 mmol In Amino Acids 5 %/ Dextrose 20 % 1,000 ml @ 55 mls/hr IV .Q19H4M [facility] Rx#:[id number] Output: Urine 1200 600 650 Stool 200 Other: Voiding Method Indwelling Catheter External Catheter External Catheter ABP, PAP, CO, CI - Last Documented Arterial Blood Pressure 136/49 - Exam No acute distress, oriented 3. Currently on 2 L of oxygen by nasal cannula, obese with a BMI of 39.2 HEENT examination is grossly unremarkable. Mucous membranes are moist. No oral lesions. Neck supple. Full range of motion. No adenopathy thyromegaly or neck vein distention. Cardiovascular examination reveals regular rhythm rate. S1-S2 normal. No S3 or S4. No discernible murmur noted. Lungs reveal mild scattered rhonchi. No wheezes. No crackles. Breath sounds equal bilaterally. Abdomen soft without bowel sounds. Ileostomy is noted. There is mild direct abdominal tenderness. Bowel sounds are hypoactive. Ileostomy is functioning. Surgical site is dry clean and intact. Extremities are intact. No cyanosis clubbing or edema. Skin is without rash or lesion. Neurologic examination is brief but nonfocal. - Labs CBC & Chem 7: 11/04/24 04:14 11/04/24 04:14 Labs: Abnormal Lab Results - Last 24 Hours (Table) 11/03/24 11/04/24 11/04/24 Range/Units 17:53 03:46 04:14 WBC 10.32 H (4.50-10.00) X 10*3/uL RBC 2.99 L (4.10-5.20) X 10*6/uL Hgb 9.3 L (12.0-15.0) g/dL Hct 29.3 L (37.2-46.3) % MCV 98.0 H (80.0-97.0) FL MCHC 31.7 L (32.0-37.0) g/dL RDW 15.6 H (11.5-14.5) % MPV 9.4 L (9.5-12.2) FL Immature Gran # 0.47 H (0.00-0.04) X 10*3/uL Neutrophils # 7.88 H (1.80-7.70) X 10*3/uL Lymphocytes # 0.65 L (0.90-5.00) X 10*3/uL Monocytes # 1.08 H (0.20-1.00) X 10*3/uL Sodium (137-145) mmol/L Glucose (74-99) mg/dL POC Glucose (mg/dL) 163 H 164 H (70-110) mg/dL Calcium (8.4-10.2) mg/dL Total Protein (6.3-8.2) g/dL Albumin (3.5-5.0) g/dL 11/04/24 11/04/24 11/04/24 Range/Units 04:14 06:20 11:59 WBC (4.50-10.00) X 10*3/uL RBC (4.10-5.20) X 10*6/uL Hgb (12.0-15.0) g/dL Hct (37.2-46.3) % MCV (80.0-97.0) FL MCHC (32.0-37.0) g/dL RDW (11.5-14.5) % MPV (9.5-12.2) FL Immature Gran # (0.00-0.04) X 10*3/uL Neutrophils # (1.80-7.70) X 10*3/uL Lymphocytes # (0.90-5.00) X 10*3/uL Monocytes # (0.20-1.00) X 10*3/uL Sodium 132 L (137-145) mmol/L Glucose 153 H (74-99) mg/dL POC Glucose (mg/dL) 153 H 130 H (70-110) mg/dL Calcium 8.0 L (8.4-10.2) mg/dL Total Protein 4.4 L (6.3-8.2) g/dL Albumin 2.1 L (3.5-5.0) g/dL Microbiology - Last 24 Hours (Table) 10/31/24 19:26 Stool Culture - Final Stool Meryl albicans Assessment and Plan Plan: Severe abdominal pain, 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 The final pathology is consistent with acute pancolitis with mucosal ischemic type changes and necrosis and pseudomembrane formation and prominent submucosal edema. The mucosal resection margins were viable and there was no evidence of any malignancy. The patient is currently postoperative day # 7, S/P exploratory laparotomy, subtotal colectomy, end ileostomy. TPN for nutritional support Recent hernia repair, [facility], September 03, 2024. Profound leukocytosis, secondary to intra-abdominal process, improving Anion gap metabolic acidosis, secondary to lactic acidosis, improved Lactic acidemia, improved Acute kidney injury, likely secondary to hypotension, and ATN, improved Prior history of colon cancer, with colectomy/colostomy and subsequent reversal. Plan: Continue using incentive spirometer Patient is currently on 2 L of oxygen by nasal cannula Increase mobility as tolerated Monitor the output from the ileostomy The patient is being advanced to a regular diet. TPN is being weaned off and likely be discontinued today. General Surgery is on the case Continue Zosyn Surgical wound site is dry clean and intact and the patient's ileostomy is functional. The white cell count is improved. Metabolic acidosis recovered and the patie nt's renal function is also normalized. Continue lactated Ringer at rate of 50 cc an hour We will continue to follow.
[2024-11-04] MEDS: MVI, ADULT NO.4 WITH VIT K 10 ML, TRACE (CONC-1ML/DOSE) 1 ML, CALCIUM GLUCONATE 1 GM, S... IV SCH (16:36)
[2024-11-04 16:43] LABS: Glucose,Whole Blood 133 mg/dL (70-110)
--- NOTE | 2024-11-04 16:52 | P.PN ---
Subjective Progress Note Date: 11/03/24 Principal diagnosis: Reason for follow-up is sepsis/toxic megacolon Patient is a 59-year-old female with a past medical history significant for COPD chronic lower back pain recently completed course of antibiotic for UTI presenting to the hospital for evaluation of abdominal pain and diarrhea and evidence of significant colitis on the CT prompted this consultation patient was taken to the OR this morning status post subtotal colectomy. On today's evaluation that is 11/03/2024, patient has been afebrile, patient is breathing comfortably and is currently on 2 L and oxygen, patient denies having any chest pain and cough, patient denies nausea vomiting improvement abdominal pain output in the ostomy. Patient did have creatinine 0.73 no CBC was done today Objective - Vital Signs Vital signs: Vital Signs Temp 98.4 F 11/03/24 08:00 Pulse 74 11/03/24 08:00 Resp 16 11/03/24 08:00 BP 144/76 11/03/24 08:00 Pulse Ox 96 11/03/24 08:00 FiO2 50 10/29/24 12:00 Intake & Output 11/02/24 11/03/24 11/03/24 18:59 06:59 18:59 Intake Total 1410 1260 Output Total 1700 3100 400 Balance -290 -1840 -400 Weight 91.1 kg Intake: IV 1410 1260 Lactated Ringers 1,000 ml 550 600 @ 50 mls/hr IV .Q20H [facility] Rx#:[id number] Mvi, Adult No.4 with Vit 660 660 K 10 ml Trace (Conc-1Ml/ Dose) 1 ml Calcium Gluconate 1 gm Sodium Acetate 15 meq Potassium Acetate 10 meq Magnesium Sulfate gm 1 gm Potassium Phosphate 15 mmol In Amino Acids 5 %/Dextrose 20 % 1,000 ml @ 55 mls/hr IV .[id number] [facility] Rx#: [id number] metroNIDAZOLE-NS PMX 500 200 mg In Saline 1 100ml.bag @ 100 mls/hr IVPB Q8HR [facility] Rx#:[id number] Output: Drainage 100 LUQ Ostomy 100 Urine 1700 3000 400 Other: Voiding Method Indwelling Catheter Indwelling Catheter Indwelling Catheter ABP, PAP, CO, CI - Last Documented Arterial Blood Pressure 136/49 - Exam GENERAL DESCRIPTION: Middle-age female lying in bed in no distress HEENT: Oral thrush RESPIRATORY SYSTEM: Unlabored breathing , decreased breath sounds at bases HEART: S1 S2 regular rate and rhythm , ABDOMEN: Soft , no tenderness EXTREMITIES: No edema feet - Labs CBC & Chem 7: 11/04/24 04:14 11/04/24 04:14 Labs: Abnormal Lab Results - Last 24 Hours (Table) 11/02/24 11/03/24 11/03/24 Range/Units 18:01 00:11 04:32 Sodium 135 L (137-145) mmol/L Glucose 141 H (74-99) mg/dL POC Glucose (mg/dL) 151 H 166 H (70-110) mg/dL Calcium 7.9 L (8.4-10.2) mg/dL 11/03/24 11/03/24 Range/Units 06:12 11:43 Sodium (137-145) mmol/L Glucose (74-99) mg/dL POC Glucose (mg/dL) 166 H 165 H (70-110) mg/dL Calcium (8.4-10.2) mg/dL Microbiology - Last 24 Hours (Table) 10/31/24 19:26 Stool Culture - Preliminary Stool Meryl albicans Assessment and Plan (1) Sepsis Current Visit: Yes Status: Acute Priority: High Code(s): A41.9 - SEPSIS, UNSPECIFIED ORGANISM SNOMED Code(s): 60125666 (2) Colitis Current Visit: Yes Status: Acute Priority: High Code(s): K52.9 - NONINFECTIVE GASTROENTERITIS AND COLITIS, UNSPECIFIED SNOMED Code(s): 21188666 (3) Oral thrush Current Visit: Yes Status: Acute Code(s): B37.0 - CANDIDAL STOMATITIS SNOMED Code(s): 76720359 Plan: 1patient presented to hospital with sepsis in this patient who did have tachycardia mild hypotension elevated white count meeting currently for SIRS/sepsis source is likely C. 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 difficile ischemic colitis less likely but not excluded, histopathology given the differential of ischemic colitis versus C. difficile colitis 3patient white count has normalized patient stool C. difficile came back negative 4patient currently on Zosyn along with nystatin swish and swallow and monitor clinical closely Dictation was produced using [employer] dictation software. please excuse any grammatical, word or spelling errors. Time with Patient: Less than 30
--- NOTE | 2024-11-04 16:53 | P.PN ---
Subjective Progress Note Date: 11/04/24 Principal diagnosis: Reason for follow-up is sepsis/toxic megacolon Patient is a 59-year-old female with a past medical history significant for COPD chronic lower back pain recently completed course of antibiotic for UTI presenting to the hospital for evaluation of abdominal pain and diarrhea and evidence of significant colitis on the CT prompted this consultation patient was taken to the OR this morning status post subtotal colectomy. On today's evaluation that is 11/04/2024, Patient is afebrile this morning patient denies having any chest pain shortness of breath or cough, the patient is currently on 2 L nasal oxygen, patient denies any abdominal pain no nausea no vomiting mention output in the ostomy bag. The patient white count is 10.32, creatinine 0.61 Objective - Vital Signs Vital signs: Vital Signs Temp 98.5 F 11/04/24 07:30 Pulse 77 11/04/24 14:00 Resp 18 11/04/24 14:00 BP 144/73 11/04/24 14:00 Pulse Ox 94 L 11/04/24 14:00 FiO2 50 10/29/24 12:00 Intake & Output 11/03/24 11/04/24 11/04/24 18:59 06:59 18:59 Intake Total 1048 Output Total 1200 800 650 Balance -1200 248 -650 Weight 91.1 kg Intake: Intake, IV Titration 1048 Amount Mvi, Adult No.4 with Vit 1048 K 10 ml Trace (Conc-1Ml/ Dose) 1 ml Calcium Gluconate 1 gm Sodium Acetate 30 meq Potassium Chloride 10 meq Magnesium Sulfate gm 1 gm Potassium Phosphate 15 mmol In Amino Acids 5 %/ Dextrose 20 % 1,000 ml @ 55 mls/hr IV .Q19H4M [facility] Rx#:[id number] Output: Urine 1200 600 650 Stool 200 Other: Voiding Method Indwelling Catheter External Catheter External Catheter ABP, PAP, CO, CI - Last Documented Arterial Blood Pressure 136/49 - Exam GENERAL DESCRIPTION: Middle-age female lying in bed in no distress HEENT: Oral thrush RESPIRATORY SYSTEM: Unlabored breathing , decreased breath sounds at bases HEART: S1 S2 regular rate and rhythm , ABDOMEN: Soft , no tenderness EXTREMITIES: No edema feet - Labs CBC & Chem 7: 11/04/24 04:14 11/04/24 04:14 Labs: Abnormal Lab Results - Last 24 Hours (Table) 11/03/24 11/04/24 11/04/24 Range/Units 17:53 03:46 04:14 WBC 10.32 H (4.50-10.00) X 10*3/uL RBC 2.99 L (4.10-5.20) X 10*6/uL Hgb 9.3 L (12.0-15.0) g/dL Hct 29.3 L (37.2-46.3) % MCV 98.0 H (80.0-97.0) FL MCHC 31.7 L (32.0-37.0) g/dL RDW 15.6 H (11.5-14.5) % MPV 9.4 L (9.5-12.2) FL Immature Gran # 0.47 H (0.00-0.04) X 10*3/uL Neutrophils # 7.88 H (1.80-7.70) X 10*3/uL Lymphocytes # 0.65 L (0.90-5.00) X 10*3/uL Monocytes # 1.08 H (0.20-1.00) X 10*3/uL Sodium (137-145) mmol/L Glucose (74-99) mg/dL POC Glucose (mg/dL) 163 H 164 H (70-110) mg/dL Calcium (8.4-10.2) mg/dL Total Protein (6.3-8.2) g/dL Albumin (3.5-5.0) g/dL 11/04/24 11/04/24 11/04/24 Range/Units 04:14 06:20 11:59 WBC (4.50-10.00) X 10*3/uL RBC (4.10-5.20) X 10*6/uL Hgb (12.0-15.0) g/dL Hct (37.2-46.3) % MCV (80.0-97.0) FL MCHC (32.0-37.0) g/dL RDW (11.5-14.5) % MPV (9.5-12.2) FL Immature Gran # (0.00-0.04) X 10*3/uL Neutrophils # (1.80-7.70) X 10*3/uL Lymphocytes # (0.90-5.00) X 10*3/uL Monocytes # (0.20-1.00) X 10*3/uL Sodium 132 L (137-145) mmol/L Glucose 153 H (74-99) mg/dL POC Glucose (mg/dL) 153 H 130 H (70-110) mg/dL Calcium 8.0 L (8.4-10.2) mg/dL Total Protein 4.4 L (6.3-8.2) g/dL Albumin 2.1 L (3.5-5.0) g/dL 11/04/24 Range/Units 16:39 WBC (4.50-10.00) X 10*3/uL RBC (4.10-5.20) X 10*6/uL Hgb (12.0-15.0) g/dL Hct (37.2-46.3) % MCV (80.0-97.0) FL MCHC (32.0-37.0) g/dL RDW (11.5-14.5) % MPV (9.5-12.2) FL Immature Gran # (0.00-0.04) X 10*3/uL Neutrophils # (1.80-7.70) X 10*3/uL Lymphocytes # (0.90-5.00) X 10*3/uL Monocytes # (0.20-1.00) X 10*3/uL Sodium (137-145) mmol/L Glucose (74-99) mg/dL POC Glucose (mg/dL) 133 H (70-110) mg/dL Calcium (8.4-10.2) mg/dL Total Protein (6.3-8.2) g/dL Albumin (3.5-5.0) g/dL Microbiology - Last 24 Hours (Table) 10/31/24 19:26 Stool Culture - Final Stool Meryl albicans Assessment and Plan (1) Sepsis Current Visit: Yes Status: Acute Priority: High Code(s): A41.9 - SEPSIS, UNSPECIFIED ORGANISM SNOMED Code(s): 62648182 (2) Colitis Current Visit: Yes Status: Acute Priority: High Code(s): K52.9 - NONINFECTIVE GASTROENTERITIS AND COLITIS, UNSPECIFIED SNOMED Code(s): 45644735 (3) Oral thrush Current Visit: Yes Status: Acute Code(s): B37.0 - CANDIDAL STOMATITIS SNOMED Code(s): 39748898 Plan: 1patient presented to hospital with sepsis in this patient who did have tachycardia mild hypotension elevated white count meeting currently for SIRS/sepsis source is likely C. 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 difficile ischemic colitis less likely but not excluded, histopathology given the differential of ischemic colitis versus C. difficile colitis 3patient remains to be afebrile blood culture negative stool culture with Meryl more likely colonizer 4patient to continue Zosyn along with nystatin swish and swallow and will transition to oral on discharge Dictation was produced using [employer] dictation software. please excuse any grammatical, word or spelling errors.
[2024-11-05 00:29] LABS: Glucose,Whole Blood 111 mg/dL (70-110)
[2024-11-05 04:57] LABS: Basophils # (A) 0.02 10*3/uL (0.00-0.10); Basophils % (A) 0.2 %; Eosinophils # (A) 0.26 10*3/uL (0.04-0.35); Eosinophils % (A) 2.7 %; Lymphocytes # (A) 0.57 10*3/uL (0.90-5.00); Lymphocytes % (A) 5.9 %; MCH 30.3 pg (27.0-32.0); MCHC 32.3 g/dL (32.0-37.0); MCV 93.9 fL (80.0-97.0); Monocytes # (A) 0.83 10*3/uL (0.20-1.00); Monocytes % (A) 8.6 %; Neutrophils # (A) 7.56 10*3/uL (1.80-7.70); Neutrophils % (A) 78.6 %; Platelet Count 429 10*3/uL (140-440); RDW 15.6 % (11.5-14.5); WBC 9.63 10*3/uL (4.50-10.00)
[2024-11-05 05:07] LABS: Magnesium 1.7 mg/dL (1.6-2.3); Phosphorus 3.7 mg/dL (2.5-4.5)
[2024-11-05 05:08] LABS: ALT 11 U/L (4-34); AST 22 U/L (14-36); African American GFR (CKD) >90 (>60 ml/min/1.73 sqM); Albumin 2.4 g/dL (3.5-5.0); Alkaline Phosphatase 68 U/L (38-126); Anion Gap 8 mmol/L; Blood Urea Nitrogen 13 mg/dL (7-17); Calcium 8.3 mg/dL (8.4-10.2); Carbon Dioxide 22 mmol/L (22-30); Chloride 103 mmol/L (98-107); Globulin 2.4 g/dL; Glucose 117 mg/dL (74-99); Non-African American GFR(CKD) >90 (>60 ml/min/1.73 sqM); Potassium 4.6 mmol/L (3.5-5.1); Sodium 133 mmol/L (137-145); Total Bilirubin 0.6 mg/dL (0.2-1.3); Total Protein 4.8 g/dL (6.3-8.2)
[2024-11-05 06:13] LABS: Glucose,Whole Blood 106 mg/dL (70-110)
[2024-11-05] MEDS: HYDROcodone/APAP 5-325MG 1 EACH TAB PO PRN (08:41)
--- NOTE | 2024-11-05 10:53 | P.PN ---
Subjective 59-year-old female, came to the emergency department, on October 27 complaining of abdominal pain, nausea and vomiting. She was in the emergency room on October 11, with abdominal pain, and was discharged. Back on September 03, at [facility], she had surgery on her abdomen. Earlier this morning, a rapid response was called on this patient this morning, for severe abdominal pain, tachycardia, and hypotension. Patient was transferred to the ICU, to be further evaluated. --She got Zosyn IV, and p.o. Flagyl. We placed a left internal jugular triple- lumen catheter in her. I did speak to the surgeon, who plans on taking her to the operating room. She does have a history of colon cancer, with previous colectomy and subsequent reversal. Blood work revealed a white count of 56.3, hemoglobin 18.8, hematocrit 56.7, and a platelet count of 477,000. Sodium 136, potassium 4.2, chlorides 103, CO2 14, anion gap 19, BUN 24, creatinine 2.43. Lactic acid went from 3.9 up to 10.2. Glucose 191. Calcium 8.4. Lipase 18. Amylase 35. Albumin 2.9. -CT of the abdomen and pelvis shows marked diffuse thickening of the colon wall from marked subcutaneous mucosal edema consistent with ulcerative colitis or other diffuse colitis, moderate ascites, small right pleural effusion, 10 mm left lower lobe pulmonary nodule, and stable cholelithiasis. - Abdominal x-ray was nonspecific. Chest x-ray showed infiltrate or atelectasis in the left lower lobe, and a properly inserted, left internal jugular triple- lumen catheter. 11/01/2024 Patient is seen and evaluated in ICU with family at bedside; resting comfortably in bedside chair. She is postop day #4. She had a subtotal colectomy with ileostomy. She came in initially with abdominal discomfort. She is on 2 L of oxygen. She is getting LR at 70 cc an hour. She is getting TPN at 55 cc an hour. Blood work is reviewed white count is 9.6, hemoglobin 9, hematocrit 28.5, platelet count is normal. Sodium 137, potassium 3.7, chlorides 105, CO2 27, BUN 11, creatinine 0.84. Glucose 129. Albumin is 1.9. Micro is thus far negative. -- The patient is currently on Zosyn, Flagyl IV, and oral vancomycin. -Patient to continue with TPN and is currently at 55 cc an hour - Encouraged to use incentive spirometer; increase activity 11/02/2024 Patient is seen and evaluated resting in bedside recliner; reports feeling better since NG tube was removed Vital signs are reviewed and remained stable with temperature of 98.8, pulse 76, respiration 20 blood pressure 130/78 and O2 saturation of 93% on an FiO2 50% postoperative day #5, status post subtotal colectomy, end ileostomy. - She is getting TPN at 55 cc an hour, and lactated Ringer's at 50 cc an hour. - Current labs include a white count 8, hemoglobin 9.9, hematocrit 31.1, platelet count 285,000. Sodium 135, potassium 4, chlorides 102, CO2 28, BUN 12, creatinine 0.69. Glucose is 144. Albumin is 2.1. - Patient continued to show slow recovery; continue with current management 11/03 Patient presents with severe colitis status post expiratory laparotomy and subtotal colectomy and end ileostomy Ileostomy on the left lower quadrant with formed brown stool in it Vertical wound with dressing in place with surrounding expected abdominal tender ness patient still getting TPN via central line, she might benefit from PICC line She remains on Flagyl, IV Zosyn as well Potassium 3.9, magnesium 1.9 today 11/04 Patient improvement, she has less GI symptoms today She is on liquid diet is going to be advanced more today. TPN is tapered down 55 mL/h output hypothyroidism and it will be lowered to 25 mL/h and stopped late r on today No chest pain or dyspnea Patient with plans for PT/OT evaluation. Patient states she will probably be able to walk well she looks very weak. Hemoglobin 9.3 and WBC 10.3. Remains on Flagyl and Zosyn 11/05 Patient eats more than yesterday No bowel movement noticed, there is little liquid in her left lower patient is up and walking Afebrile vital stable Labs stabilized. Patient currently Zosyn. Flagyl has been discontinued. Objective - Vital Signs Vital signs: Vital Signs Temp 98.0 F 11/05/24 08:00 Pulse 91 11/05/24 08:00 Resp 14 11/05/24 08:00 BP 128/80 11/05/24 08:00 Pulse Ox 95 11/05/24 08:00 FiO2 50 06/18/25 12:00 Intake & Output 11/04/24 11/05/24 11/05/24 18:59 06:59 18:59 Output Total 650 800 Balance -650 -800 Output: Urine 650 800 Other: Voiding Method External Catheter External Catheter # Voids 3 1 ABP, PAP, CO, CI - Last Documented Arterial Blood Pressure 136/49 - Exam GENERAL: The patient is alert and oriented x3, not in any acute distress. Well developed, well nourished. HEENT: Pupils are round and equally reacting to light. EOMI. No scleral icterus. No conjunctival pallor. Normocephalic, atraumatic. No pharyngeal erythema. No thyromegaly. CARDIOVASCULAR: S1 and S2 present. No murmurs, rubs, or gallops. PULMONARY: Chest is clear to auscultation, no wheezing , no crackles. -ABDOMEN: Soft, nontender, nondistended, normoactive bowel sounds. No palpable organomegaly. Central vertical wound with dressing in place. Left lower quadrant estomy in place MUSCULOSKELETAL: No joint swelling or deformity. EXTREMITIES: No cyanosis, clubbing, or pedal edema. NEUROLOGICAL: Gross neurological examination did not reveal any focal deficits. SKIN: No rashes. no petechiae. - Labs CBC & Chem 7: 11/05/24 03:35 11/05/24 03:35 Labs: Abnormal Lab Results - Last 24 Hours (Table) 11/04/24 11/04/24 11/05/24 Range/Units 11:59 16:39 00:27 RBC (4.10-5.20) 10*6/uL Hgb (12.0-15.0) g/dL Hct (37.2-46.3) % RDW (11.5-14.5) % MPV (9.5-12.2) fL Immature Gran # (0.00-0.04) 10*3/uL Lymphocytes # (0.90-5.00) 10*3/uL Sodium (137-145) mmol/L Glucose (74-99) mg/dL POC Glucose (mg/dL) 130 H 133 H 111 H (70-110) mg/dL Calcium (8.4-10.2) mg/dL Total Protein (6.3-8.2) g/dL Albumin (3.5-5.0) g/dL 11/05/24 11/05/24 Range/Units 03:35 03:35 RBC 3.30 L (4.10-5.20) 10*6/uL Hgb 10.0 L (12.0-15.0) g/dL Hct 31.0 L (37.2-46.3) % RDW 15.6 H (11.5-14.5) % MPV 9.0 L (9.5-12.2) fL Immature Gran # 0.39 H (0.00-0.04) 10*3/uL Lymphocytes # 0.57 L (0.90-5.00) 10*3/uL Sodium 133 L (137-145) mmol/L Glucose 117 H (74-99) mg/dL POC Glucose (mg/dL) (70-110) mg/dL Calcium 8.3 L (8.4-10.2) mg/dL Total Protein 4.8 L (6.3-8.2) g/dL Albumin 2.4 L (3.5-5.0) g/dL Microbiology - Last 24 Hours (Table) 10/31/24 19:26 Stool Culture - Final Stool Meryl albicans Assessment and Plan Assessment: Severe abdominal pain, with associated nausea and vomiting, secondary to diffuse colitis. And toxic megacolon -- S/P exploratory laparotomy, subtotal colectomy, end ileostomy. -- Discontinue TPN and advance diet to soft/regular. generalized weakness -- Secondary to above -- Plan for rehab, PT/OT evaluation Recent hernia repair, [facility], September 03, 2024. Profound leukocytosis, secondary to intra-abdominal process; patient remains on IV Zosyn, oral Flagyl and oral vancomycin. Improved Anion gap metabolic acidosis, secondary to lactic acidosis. Resolved Lactic acidemia related to diffuse colitis; continue to monitor and trend lactic acid levels. Resolved Acute kidney injury, likely secondary to hypotension, and ATN; slowly improving; patient remains on IV fluids; nephrology on board. Improved Prior history of colon cancer, with colectomy/colostomy and subsequent reversal DVT prophylaxis; SCDs/subcu heparin CODE STATUS; full code
--- NOTE | 2024-11-05 11:03 | P.PN ---
Subjective Progress Note Date: 11/05/24 SURGICAL PROGRESS NOTE CHIEF COMPLAINT: Toxic megacolon HISTORY OF PRESENT ILLNESS: Postop day #8 status post subtotal colectomy for toxic megacolon. Pain controlled. Denies any nausea or vomiting. Ostomy functioning. Afebrile. WBC 9.63. Patient reports he has been up and ambulating. She has worked with physical therapy. Possible ECF at discharge for rehab. TPN discontinued. Afebrile. PHYSICAL EXAM: VITAL SIGNS: Reviewed. GENERAL: Well-developed in no acute distress. HEENT: No sclera icterus. Extraocular movements grossly intact. Moist buccal mucosa. Head is atraumatic, normocephalic. ABDOMEN: Soft. Nondistended. Colostomy with stool present NEUROLOGIC: Alert and oriented. Cranial nerves II through XII grossly intact. ASSESSMENT: 1. Toxic megacolon with presumed C. difficile colitis 2. Severe protein calorie malnutrition PLAN: -Continue regular diet -Continue pain management -Continue antibiotics -manager of housekeeping working on possible ECF placement at discharge -Anticipate discharge possibly tomorrow -DVT prophylaxis subcu heparin and GI prophylaxis Protonix Physician Log Deck Tender note has been reviewed by physician. Signing provider agrees with the documented findings, assessment, and plan of care. Objective - Vital Signs Vital signs: Vital Signs Temp 98.0 F 11/05/24 08:00 Pulse 91 11/05/24 08:00 Resp 14 11/05/24 08:00 BP 128/80 11/05/24 08:00 Pulse Ox 95 11/05/24 08:00 FiO2 50 10/29/24 12:00 Intake & Output 11/04/24 11/05/24 11/05/24 18:59 06:59 18:59 Output Total 650 800 Balance -650 -800 Output: Urine 650 800 Other: Voiding Method External Catheter External Catheter # Voids 3 1 ABP, PAP, CO, CI - Last Documented Arterial Blood Pressure 136/49 - Labs CBC & Chem 7: 11/05/24 03:35 11/05/24 03:35 Labs: Abnormal Lab Results - Last 24 Hours (Table) 11/04/24 11/04/24 11/05/24 Range/Units 11:59 16:39 00:27 RBC (4.10-5.20) 10*6/uL Hgb (12.0-15.0) g/dL Hct (37.2-46.3) % RDW (11.5-14.5) % MPV (9.5-12.2) fL Immature Gran # (0.00-0.04) 10*3/uL Lymphocytes # (0.90-5.00) 10*3/uL Sodium (137-145) mmol/L Glucose (74-99) mg/dL POC Glucose (mg/dL) 130 H 133 H 111 H (70-110) mg/dL Calcium (8.4-10.2) mg/dL Total Protein (6.3-8.2) g/dL Albumin (3.5-5.0) g/dL 11/05/24 11/05/24 Range/Units 03:35 03:35 RBC 3.30 L (4.10-5.20) 10*6/uL Hgb 10.0 L (12.0-15.0) g/dL Hct 31.0 L (37.2-46.3) % RDW 15.6 H (11.5-14.5) % MPV 9.0 L (9.5-12.2) fL Immature Gran # 0.39 H (0.00-0.04) 10*3/uL Lymphocytes # 0.57 L (0.90-5.00) 10*3/uL Sodium 133 L (137-145) mmol/L Glucose 117 H (74-99) mg/dL POC Glucose (mg/dL) (70-110) mg/dL Calcium 8.3 L (8.4-10.2) mg/dL Total Protein 4.8 L (6.3-8.2) g/dL Albumin 2.4 L (3.5-5.0) g/dL Microbiology - Last 24 Hours (Table) 10/31/24 19:26 Stool Culture - Final Stool Meryl albicans
[2024-11-05 11:53] LABS: Glucose,Whole Blood 113 mg/dL (70-110)
--- NOTE | 2024-11-05 17:58 | CDI ---
Documentation Clarification Form Date: 11/05/2024 05:14:30 PM From: Elsi Murphy RN CCDS Phone: [phone] Admit Date: 10/27/2024 03:37:00 PM Patient Name: Breanne Murdock Visit Number: [id number] Discharge Date: ATTENTION: The Clinical Documentation Specialists (CDI) and [facility] Coding Staff appreciate your assistance in clarifying documentation. Please respond to the clarification below the line at the bottom and electronically sign. The CDI & [facility] Coding staff will review the response and follow-up if needed. Please note: Queries are made part of the Legal Health Record. If you have any questions, please contact the author of this message via ITS. Doctor: Eliot E Sheet Sepsis is documented Medicine note, 10/28], but is not noted in subsequent documentation. Clarification is requested. History/Risk Factors: This 59-year-old woman presents with abdomen discomfort, vomiting and diarrhea, with a past history of multiple medical problems including colon cancer reversal, was recently treated with UTI. The patient received a course of antibiotics, Augmentin for 10 days. There is no history of fever, rigors, or chills. White count is significantly elevated.The CT scan of the abdomen showed significant colitis.The patient had colon cancer surgery in [facility]. 10/27 HP. Clinical Indicators: VSS, 10/27: B/P 113/99, HR 114, Temp 96 F Oral, RR 20, SpO2 94% ra LABS, 10/27: Wbc 51.57, Neutrophils 47.96, Lactic Acid 5.4 Blood Culture 10/27: No growth after 5 days. Stool Lactoferrin, 10/31: Positive A CT Abdomen, 10/27: Interval development of marked diffuse thickening of the colon wall from marked subcutaneous mucosal edema consistent with ulcerative colitis or other diffuse colitis. ID Consult, 10/27: patient presented to hospital with sepsis in this patient who did have tachycardia mild hypotension elevated white count meeting currently for SIRS/sepsis source is likely C. difficile colitis in this patient with evidence of diffuse colitis seen on the CT and has recently completed a course of antibiotic for the UTI Medicine note, 10/28: 1.Significant severe colitis, possibly ischemic colitis or C diff colitis with toxic megacolon with hypotension and sepsis. toxic megacolon Treatment: 10/27 Benyl IM x 1 ; 10/28 - 11/02 Norepinephrine IV; 10/28 10/31 Propofol IV, 10/28 Sodium Bicarb IV x 1 Fluids: 10/27 0.9NS IV 1L IV x 1, 10/28 0.9NS IV 1L x 1 ; 10/28 Lactated Ringers IV 2L, Antibiotics: 10/27 Zosyn IV x1, 10/27 Vancomycin PO x 1, 10/27 11/03 Flagyl IVPB Q8H, 10/27 11/01 Vancomycin PO QID, 10/28 10/30 Zosyn IVPB Q12, 10/30 11/05 Zoysn IVPB Q8H, ID Consult above: Please clarify if the Sepsis is: [ ] Sepsis confirmed, remains under treatment [ x ] Sepsis confirmed, resolved, leukocytosis and tachycardia [ ] Sepsis ruled out [ ] Other condition, please specify [ ] Unable to determine (Template Last Revised: July 2020) MTDD
--- NOTE | 2024-11-05 21:27 | P.PN ---
Subjective Progress Note Date: 11/05/24 Pulmonary consult dated October 28, 2024. 59-year-old female seen today in the intensive care unit, room 265. The patient apparently came to the emergency department, on October 27 complaining of abdominal pain, nausea and vomiting. She was in the emergency room on October 11, with abdominal pain, and was discharged. Back on September 03, at [facility], she had surgery on her abdomen, i.e. hernia repair, and may be something more. Anyway, a rapid response was called on this patient this merlyn ng, for severe abdominal pain, tachycardia, and hypotension. For that reason, we brought the patient to the ICU, to be further evaluated. We see her today in room 265. She is on room air. She is getting saline bolus. She got Zosyn IV, and p.o. Flagyl. We placed a left internal jugular triple-lumen catheter in her. I did speak to the surgeon, who plans on taking her to the operating room. She does have a history of colon cancer, with previous colectomy and subsequent reversal. Current laboratory data includes a white count of 56.3, hemoglobin 18.8, hematocrit 56.7, and a platelet count of 477,000. Sodium 136, potassium 4.2, chlorides 103, CO2 14, anion gap 19, BUN 24, creatinine 2.43. Lactic acid went from 3.9 up to 10.2. Glucose 191. Calcium 8.4. Lipase 18. Amylase 35. Albumin 2.9. CT of the abdomen and pelvis shows marked diffuse thickening of the colon wall from marked subcutaneous mucosal edema consistent with ulcerative colitis or other diffuse colitis, moderate ascites, small right pleural effusion, 10 mm left lower lobe pulmonary nodule, and stable cholelithiasis. Plain film of the abdomen was nonspecific. Chest x-ray showed infiltrate or atelectasis in the left lower lobe, and a properly inserted, left internal jugular triple-lumen catheter. Progress note dated October 30, 2024. The patient is seen today in room 265. She is postop day #2, status post s ubtotal colectomy with ileostomy. She was extubated yesterday, October 29. She is getting saline at 100 cc an hour. NG tube in place. She is getting nasal O2 at 4 L. She is resting comfortably in bed. She does have some abdominal discomfort, at the surgical site. White count was 18.9, hemoglobin 9.7, hematocrit 29.5, platelet count 344,000. Sodium 139, potassium 3.3, chlorides 110, CO2 25, BUN 23, creatinine 1.46. Glucose was 96. Albumin 1.9. Blood gases prior to extubation, showed a PO2 of 80, pCO2 of 41, pH of 7.38. Blood cultures are currently negative or pending. Chest x-ray shows bibasilar infiltrates, with small right-sided pleural effusion. Progress note dated October 31, 2024. 59-year-old female seen today in room 265. She is resting comfortably in bed. The patient is on 2 L nasal O2. NG tube remains in place. She is getting LR at 70 cc an hour, TPN at 30 cc an hour. She is on Zosyn. She is also getting p.o. Flagyl and vancomycin. Current laboratory data includes a white count of 10.9, hemoglobin 8.6, hematocrit 26.4, platelet count of 189,000. Sodium 141, po tassium 3.7, chlorides 113, CO2 25, BUN 15, creatinine 0.95. Glucose is 139. Calcium 7.5. The rest of the labs look reasonable. Chest x-ray again shows bilateral pleural effusions, with bibasilar infiltrates, or atelectasis. Progress note dated November 01, 2024. 59-year-old female seen in room 265. She is resting comfortably in bed. She is postop day #4. She had a subtotal colectomy with ileostomy. She came in initially with abdominal discomfort. She is on 2 L of oxygen. She is getting LR at 70 cc an hour. She is getting TPN at 55 cc an hour. White count is 9.6, hemoglobin 9, hematocrit 28.5, platelet count is normal. Sodium 137, potassium 3.7, chlorides 105, CO2 27, BUN 11, creatinine 0.84. Glucose 129. Albumin is 1.9. Micro is thus far negative. No chest x-ray today. The patient is currently on Zosyn, Flagyl IV, and oral vancomycin. Progress note dated November 02, 2024. 59-year-old female seen today in room 265. She is postoperative day #5, status post subtotal colectomy, end ileostomy. She is on 2 L of oxygen. She is getting TPN at 55 cc an hour, and lactated Ringer's at 50 cc an hour. Current labs include a white count 8, hemoglobin 9.9, hematocrit 31.1, platelet count 285,000. Sodium 135, potassium 4, chlorides 102, CO2 28, BUN 12, creatinine 0.69. Glucose is 144. Albumin is 2.1. On 11/03/2024, the patient is being seen for a follow-up. The patient is awake and alert and sitting up in a chair. She seems to be quite comfortable. She did do some limited amount of walking yesterday. She is using the incentive spirometer. She is postop day #6 and the patient underwent an expected laparotomy and subtotal colectomy and end ileostomy. She remains on TPN for nutritional support. She was allowed to take some clear liquid diet today. Ileostomy is functioning there is positive output. Hemodynamically stable. Continues to have some abdominal pain. No nausea. No emesis. Electrolytes are all within normal limits. BUN is 13 with a creatinine of 0.7. The white cell count is at 8 with a hemoglobin 9.9 and a platelet count of 285. She is on Dilaudid for pain control. Antibiotic coverage is with a combination of Zosyn and Flagyl. No altered mentation. No chest pain. No significant respiratory distress and the patient remains on oxygen 2 L/min nasal cannula with a pulse ox of 96%. 11/04/2024, the patient is being seen for a follow-up. On today's evaluation, the patient is doing well. No specific complaints. She is tolerating diet. TPN is being gradually weaned off. The patient is status post exploratory laparotomy and subtotal colectomy end ileostomy and the patient is postop day #7. Afebrile. Hemodynamically stable. White cell count of 10 with a hemoglobin 9.3 and a platelet count of 357. Electrolytes are all within normal limits. BUN is 14 with a creatinine of 0.6. Remains on Dilaudid for pain control and oral [place] on an as-needed basis. Remains on Zosyn IV. Remains on oxygen the patient remains on 2 L of O2 nasal cannula. Using the incentive spirometer. Abdominal wound is dry clean and intact. On 11/05/2024, the patient is being seen for a follow-up hip patient is postop day #8. The patient underwent subtotal colectomy for toxic megacolon. Patient is currently off TPN and the patient is tolerating diet. Her ostomy is functional. Her pain is essentially subsiding. No fever. No chills. The white seconds at 9.6 with a hemoglobin of 10 and platelet count of 429. Normal electrolytes. Antibiotics are with IV Zosyn. Dilaudid for pain control. Tylenol was also added. He remains on heparin subcu for DVT prophylaxis. Ambulating. Using the incentive spirometer. Objective - Vital Signs Vital signs: Vital Signs Temp 98.0 F 11/05/24 08:00 Pulse 84 11/05/24 11:30 Resp 14 11/05/24 08:00 BP 128/80 11/05/24 08:00 Pulse Ox 95 11/05/24 08:00 FiO2 50 10/29/24 12:00 Intake & Output 11/04/24 11/05/24 11/05/24 18:59 06:59 18:59 Output Total 650 800 Balance -650 -800 Output: Urine 650 800 Other: Voiding Method External Catheter External Catheter # Voids 3 1 ABP, PAP, CO, CI - Last Documented Arterial Blood Pressure 136/49 - Exam No acute distress, oriented 3. Currently on room air oxygen, obese with a BMI of 39.2 HEENT examination is grossly unremarkable. Mucous membranes are moist. No oral lesions. Neck supple. Full range of motion. No adenopathy thyromegaly or neck vein distention. Cardiovascular examination reveals regular rhythm rate. S1-S2 normal. No S3 or S4. No discernible murmur noted. Lungs reveal mild scattered rhonchi. No wheezes. No crackles. Breath sounds equal bilaterally. Abdomen soft without bowel sounds. Ileostomy is noted. There is mild direct abdominal tenderness. Bowel sounds are hypoactive. Ileostomy is functioning. Surgical site is dry clean and intact. Extremities are intact. No cyanosis clubbing or edema. Skin is without rash or lesion. Neurologic examination is brief but nonfocal. - Labs CBC & Chem 7: 11/05/24 03:35 11/05/24 03:35 Labs: Abnormal Lab Results - Last 24 Hours (Table) 11/04/24 11/05/24 11/05/24 Range/Units 16:39 00:27 03:35 RBC (4.10-5.20) 10*6/uL Hgb (12.0-15.0) g/dL Hct (37.2-46.3) % RDW (11.5-14.5) % MPV (9.5-12.2) fL Immature Gran # (0.00-0.04) 10*3/uL Lymphocytes # (0.90-5.00) 10*3/uL Sodium 133 L (137-145) mmol/L Glucose 117 H (74-99) mg/dL POC Glucose (mg/dL) 133 H 111 H (70-110) mg/dL Calcium 8.3 L (8.4-10.2) mg/dL Total Protein 4.8 L (6.3-8.2) g/dL Albumin 2.4 L (3.5-5.0) g/dL 11/05/11/05/24 Range/Units 03:35 11:50 RBC 3.30 L (4.10-5.20) 10*6/uL Hgb 10.0 L (12.0-15.0) g/dL Hct 31.0 L (37.2-46.3) % RDW 15.6 H (11.5-14.5) % MPV 9.0 L (9.5-12.2) fL Immature Gran # 0.39 H (0.00-0.04) 10*3/uL Lymphocytes # 0.57 L (0.90-5.00) 10*3/uL Sodium (137-145) mmol/L Glucose (74-99) mg/dL POC Glucose (mg/dL) 113 H (70-110) mg/dL Calcium (8.4-10.2) mg/dL Total Protein (6.3-8.2) g/dL Albumin (3.5-5.0) g/dL Assessment and Plan Plan: Severe abdominal pain, 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 The final pathology is consistent with acute pancolitis with mucosal ischemic type changes and necrosis and pseudomembrane formation and prominent submucosal edema. The mucosal resection margins were viable and there was no evidence of any malignancy. The patient is currently postoperative day # 8, S/P exploratory laparotomy, subtotal colectomy, end ileostomy. TPN for nutritional support, currently off TPN and the patient is tolerating diet Recent hernia repair, [facility], September 03, 2024. Profound leukocytosis, secondary to intra-abdominal process, improving Anion gap metabolic acidosis, secondary to lactic acidosis, improved Lactic acidemia, improved Acute kidney injury, likely secondary to hypotension, and ATN, improved Prior history of colon cancer, with colectomy/colostomy and subsequent reversal. Plan: Continue using incentive spirometer Patient is currently on room air oxygen Increase mobility as tolerated Monitor the output from the ileostomy The patient is being advanced to a regular diet. TPN has been discontinued General Surgery is on the case Continue Zosyn Surgical wound site is dry clean and intact and the patient's ileostomy is fu nctional. The white cell count is improved. Metabolic acidosis recovered and the patient's renal function is also normalized. Continue lactated Ringer at rate of 50 cc an hour We will continue to follow.
--- NOTE | 2024-11-06 12:03 | P.PN ---
Subjective Progress Note Date: 11/06/24 SURGICAL PROGRESS NOTE CHIEF COMPLAINT: Toxic megacolon HISTORY OF PRESENT ILLNESS: Postop day #9 status post subtotal colectomy for toxic megacolon. Pain controlled. Denies any nausea or vomiting. Ostomy functioning. Afebrile. Patient to be discharged to F today. PHYSICAL EXAM: VITAL SIGNS: Reviewed. GENERAL: Well-developed in no acute distress. HEENT: No sclera icterus. Extraocular movements grossly intact. Moist buccal mucosa. Head is atraumatic, normocephalic. ABDOMEN: Soft. Nondistended. Colostomy with stool present NEUROLOGIC: Alert and oriented. Cranial nerves II through XII grossly intact. ASSESSMENT: 1. Toxic megacolon with presumed C. difficile colitis 2. Severe protein calorie malnutrition PLAN: -Patient can be discharged from surgical standpoint -Continue regular diet -Discharge antibiotics per ID service -DVT prophylaxis subcu heparin and GI prophylaxis Protonix Physician [employer] note has been reviewed by physician. Signing provider agrees with the documented findings, assessment, and plan of care. Objective - Vital Signs Vital signs: Vital Signs Temp 98.7 F 11/06/24 07:43 Pulse 86 11/06/24 07:43 Resp 19 11/06/24 07:43 BP 130/73 11/06/24 07:43 Pulse Ox 96 11/06/24 11:18 FiO2 50 10/29/24 12:00 Intake & Output 11/05/24 11/06/24 11/06/24 18:59 06:59 18:59 Other: Voiding Method Toilet Toilet # Voids 2 1 # Bowel Movements 2 ABP, PAP, CO, CI - Last Documented Arterial Blood Pressure 136/49 - Labs CBC & Chem 7: 11/05/24 03:35 11/05/24 03:35 Labs: Microbiology - Last 24 Hours (Table) 10/31/24 19:26 Stool Culture - Final Stool Meryl albicans
--- NOTE | 2024-11-06 13:06 | P.DS ---
Providers Date of admission: 10/27/24 15:37 Attending physician: Ed Bull Consults: 10/27/24 15:35 Consult Physician Urgent Consulting Provider: Reynaldo Pereira Consult Reason/Comments: colitis Do you want consulting provider notified?: Yes 10/27/24 15:51 Consult Physician Urgent Consulting Provider: Zak Park Consult Reason/Comments: Colitis Do you want consulting provider notified?: Yes 10/27/24 16:56 Consult Physician Routine Consulting Provider: Ashish Cano Consult Reason/Comments: ca colon Do you want consulting provider notified?: Yes 10/28/24 07:04 Consult Physician Urgent Consulting Provider: Reynaldo Pereira Consult Reason/Comments: possible peritonitis Do you want consulting provider notified?: Yes, Notify in am 10/28/24 12:43 Consult Physician Urgent Consulting Provider: Lee Posadas Consult Reason/Comments: ICU management Do you want consulting provider notified?: Already Contacted 10/28/24 13:16 Consult Physician Routine Consulting Provider: Genaro Quigley Consult Reason/Comments: arf Do you want consulting provider notified?: Yes Primary care physician: Pat Tao [facility] Course: Diagnoses: toxic megacolon, secondary to severe colitis, -- S/P exploratory laparotomy, subtotal colectomy, end ileostomy. generalized weakness Recent hernia repair, [facility], September 03, 2024. Profound leukocytosis, secondary to intra-abdominal process; resolved Anion gap metabolic acidosis, secondary to lactic acidosis. Resolved Lactic acidemia related to diffuse colitis; continue to monitor and trend lactic acid levels. Resolved Acute kidney injury, likely secondary to hypotension, and ATN; slowly improving; patient remains on IV fluids; nephrology on board. Resolved Prior history of colon cancer, with colectomy/colostomy and subsequent reversal Hospital course: 59-year-old female, came to the emergency department, on October 27 complaining of abdominal pain, nausea and vomiting. She was in the emergency room on October 11, with abdominal pain, and was discharged. Back on September 03, at [facility], she had surgery on her abdomen. Earlier in morning, a rapid response was called on this patient this morning, for severe abdominal pain, tachycardia, and hypotension. Patient was transferred to the ICU, to be further evaluated. --She got Zosyn IV, and p.o. Flagyl. We placed a left internal jugular triple- lumen catheter in her. I did speak to the surgeon, who plans on taking her to the operating room. She does have a history of colon cancer, with previous colectomy and subsequent reversal. Patient was found to have toxic megacolon she underwent subtotal colectomy and end ileostomy with surgery team. Postoperatively she keeps improving. Mentation at baseline abdominal pain is minimal she eats her regular diet with good appetite this morning she has few small bowel movement, her abdominal wound is healing, surgical drain is in place and patient is states to me she is going to follow-up with the surgeon this coming Sunday for repeat evaluation of her drain and wound and everything. No other complaint vital stable afebrile leukocytosis and creatinine are back to chris. Surgery team texted me today she is cleared for discharge. Also she is cleared by all consultants Patient will be discharged on oral antibiotics Patient is going to problems and management plan were discussed with the patient and he verbalized understanding and acceptance Patient was found stable and can be discharged home in guarded prognosis however he needs follow-up as an outpatient. Patient was instructed to follow up with PCP within one week and patient agrees Patient instructed to follow-up with the surgeon Dr. pereira in 1 week. Patient is instructed to follow-up with her oncologist Dr. Allen in 1 to 2 weeks and her PCP Dr. Tao in 1 week Physical exam Gen: patient is a AAOx3, no distress CVS: S1-S2, RRR, no murmur Lungs: B/L CTA, no wheezing -Abdomen: soft, no distention, n distention o tenderness, positive bowel sounds. Surgical wound closed. Drain in place. Extremity: no leg edema or induration Time spent more than [facility] [place] Patient Condition at Discharge: Serious Plan - Discharge Summary Discharge Rx Participant: Yes New Discharge Prescriptions: New HYDROcodone/APAP 5-325MG [[place] 5-325] 1 tab PO Q6HR PRN 3 Days #12 tab PRN Reason: Pain No Action Acetaminophen Tab [Tylenol] 650 mg PO Q6H PRN PRN Reason: Pain Naproxen Sodium [Aleve] 220 mg PO Q8H PRN PRN Reason: Pain Discharge Medication List Acetaminophen Tab [Tylenol] 650 mg PO Q6H PRN 10/11/24 [History] Naproxen Sodium [Aleve] 220 mg PO Q8H PRN 10/27/24 [History] HYDROcodone/APAP 5-325MG [[place] 5-325] 1 tab PO Q6HR PRN 3 Days #12 tab 11/06/24 [Rx] Follow up Appointment(s)/Referral(s): Pat Tao MD [Primary Care Provider] - 1-2 days Reynaldo Pereira MD [STAFF PHYSICIAN] - 2 Weeks Patient Instructions/Handouts: Colectomy (DC) Activity/Diet/Wound Care/Special Instructions: No driving while taking [place] No lifting over 10 pounds You may shower. No soaking or tub baths for 2 weeks Very light activity until you are reevaluated at your follow up appointment with your surgeon Remove radhames from midline incision on November 12 Ostomy: [place] 1 piece flat #[id number] applied with Albert ring every 3 to 5 days and if leaking; use no sting skin prep to prevent skin breakdown. Empty when no more than half full. Patient does request to change to [employer] supplies after discharge; recommend [employer] equivalent of supplies mentioned above. Last changed: 11/06/24 Discharge Disposition: TRANSFER TO SNF/ECF
[2024-11-06 13:56] VITALS: BP 119/77; PULSE 81; RESP 18; TEMP 99
--- NOTE | 2024-11-06 16:42 | P.PN ---
Subjective Progress Note Date: 11/05/24 Principal diagnosis: Reason for follow-up is sepsis/toxic megacolon Patient is a 59-year-old female with a past medical history significant for COPD chronic lower back pain recently completed course of antibiotic for UTI presenting to the hospital for evaluation of abdominal pain and diarrhea and evidence of significant colitis on the CT prompted this consultation patient was taken to the OR this morning status post subtotal colectomy. On today's evaluation that is 11/05/2024,the patient denies any fever or any chills, patient is breathing comfortably on room air, the patient denies chest pain shortness of breath and no significant cough, patient denies having abdominal pain no nausea no vomiting. Patient white count is 9.63, creatinine 0.60 Objective - Vital Signs Vital signs: Vital Signs Temp 98.0 F 11/05/24 08:00 Pulse 84 11/05/24 11:30 Resp 14 11/05/24 08:00 BP 128/80 11/05/24 08:00 Pulse Ox 95 11/05/24 08:00 FiO2 50 10/29/24 12:00 Intake & Output 11/04/24 11/05/24 11/05/24 18:59 06:59 18:59 Output Total 650 800 Balance -650 -800 Output: Urine 650 800 Other: Voiding Method External Catheter External Catheter # Voids 3 1 ABP, PAP, CO, CI - Last Documented Arterial Blood Pressure 136/49 - Exam GENERAL DESCRIPTION: Middle-age female lying in bed in no distress HEENT: Oral thrush RESPIRATORY SYSTEM: Unlabored breathing , decreased breath sounds at bases HEART: S1 S2 regular rate and rhythm , ABDOMEN: Soft , no tenderness EXTREMITIES: No edema feet - Labs CBC & Chem 7: 11/05/24 03:35 11/05/24 03:35 Labs: Abnormal Lab Results - Last 24 Hours (Table) 11/04/24 11/05/24 11/05/24 Range/Units 16:39 00:27 03:35 RBC (4.10-5.20) 10*6/uL Hgb (12.0-15.0) g/dL Hct (37.2-46.3) % RDW (11.5-14.5) % MPV (9.5-12.2) fL Immature Gran # (0.00-0.04) 10*3/uL Lymphocytes # (0.90-5.00) 10*3/uL Sodium 133 L (137-145) mmol/L Glucose 117 H (74-99) mg/dL POC Glucose (mg/dL) 133 H 111 H (70-110) mg/dL Calcium 8.3 L (8.4-10.2) mg/dL Total Protein 4.8 L (6.3-8.2) g/dL Albumin 2.4 L (3.5-5.0) g/dL 11/05/24 11/05/24 Range/Units 03:35 11:50 RBC 3.30 L (4.10-5.20) 10*6/uL Hgb 10.0 L (12.0-15.0) g/dL Hct 31.0 L (37.2-46.3) % RDW 15.6 H (11.5-14.5) % MPV 9.0 L (9.5-12.2) fL Immature Gran # 0.39 H (0.00-0.04) 10*3/uL Lymphocytes # 0.57 L (0.90-5.00) 10*3/uL Sodium (137-145) mmol/L Glucose (74-99) mg/dL POC Glucose (mg/dL) 113 H (70-110) mg/dL Calcium (8.4-10.2) mg/dL Total Protein (6.3-8.2) g/dL Albumin (3.5-5.0) g/dL Assessment and Plan (1) Sepsis Current Visit: Yes Status: Acute Priority: High Code(s): A41.9 - SEPSIS, UNSPECIFIED ORGANISM SNOMED Code(s): 36734508 (2) Colitis Current Visit: Yes Status: Acute Priority: High Code(s): K52.9 - NONINFECTIVE GASTROENTERITIS AND COLITIS, UNSPECIFIED SNOMED Code(s): 29002403 (3) Oral thrush Current Visit: Yes Status: Acute Code(s): B37.0 - CANDIDAL STOMATITIS SNOMED Code(s): 70084148 Plan: 1patient presented to hospital with sepsis in this patient who did have tachycardia mild hypotension elevated white count meeting currently for SIRS/sepsis source is likely C. 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 difficile ischemic colitis less likely but not excluded, histopathology given the differential of ischemic colitis versus C. difficile colitis 3patient remains to be afebrile blood culture negative stool culture with Meryl more likely colonizer 4patient did have normalization of the white count currently on Zosyn and ny statin swish and swallow to continue while inpatient Dictation was produced using [employer] dictation software. please excuse any grammatical, word or spelling errors. Time with Patient: Less than 30
--- NOTE | 2024-11-06 16:43 | P.PN ---
Subjective Progress Note Date: 11/06/24 Principal diagnosis: Reason for follow-up is sepsis/toxic megacolon Patient is a 59-year-old female with a past medical history significant for COPD chronic lower back pain recently completed course of antibiotic for UTI presenting to the hospital for evaluation of abdominal pain and diarrhea and evidence of significant colitis on the CT prompted this consultation patient was taken to the OR this morning status post subtotal colectomy. On today's evaluation that is 11/06/2024,the patient remains to be afebrile, patient is on room air not requiring supplemental oxygen and denies any shortness of breath no chest pain or cough.Patient denies having any nausea or vomiting, no abdominal pain and mention feeling better. No new lab has been obtained today Objective - Vital Signs Vital signs: Vital Signs Temp 98.7 F 11/06/24 07:43 Pulse 86 11/06/24 07:43 Resp 19 11/06/24 07:43 BP 130/73 11/06/24 07:43 Pulse Ox 96 11/06/24 11:18 FiO2 50 10/29/24 12:00 Intake & Output 11/05/24 11/06/24 11/06/24 18:59 06:59 18:59 Output Total 50 Balance -50 Output: Stool 50 Other: Voiding Method Toilet Toilet # Voids 2 1 2 # Bowel Movements 2 ABP, PAP, CO, CI - Last Documented Arterial Blood Pressure 136/49 - Exam GENERAL DESCRIPTION: Middle-age female lying in bed in no distress HEENT: Oral thrush RESPIRATORY SYSTEM: Unlabored breathing , decreased breath sounds at bases HEART: S1 S2 regular rate and rhythm , ABDOMEN: Soft , no tenderness EXTREMITIES: No edema feet - Labs CBC & Chem 7: 11/05/24 03:35 11/05/24 03:35 Labs: Microbiology - Last 24 Hours (Table) 10/31/24 19:26 Stool Culture - Final Stool Meryl albicans Assessment and Plan (1) Sepsis Current Visit: Yes Status: Acute Priority: High Code(s): A41.9 - SEPSIS, UNSPECIFIED ORGANISM SNOMED Code(s): 82377256 (2) Colitis Current Visit: Yes Status: Acute Priority: High Code(s): K52.9 - N ONINFECTIVE GASTROENTERITIS AND COLITIS, UNSPECIFIED SNOMED Code(s): 35882376 (3) Oral thrush Current Visit: Yes Status: Acute Code(s): B37.0 - CANDIDAL STOMATITIS SNOMED Code(s): 01141058 Plan: 1patient presented to hospital with sepsis in this patient who did have tachycardia mild hypotension elevated white count meeting currently for SIRS/sepsis source is likely C. 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 difficile ischemic colitis less likely but not excluded, histopathology given the differential of ischemic colitis versus C. difficile colitis 3patient remains to be afebrile blood culture negative stool culture with Meryl more likely colonizer 4patient did have normalization of the white count and has received a 10-day course of antibiotic should have enough and we will monitor patient closely off antibiotic therapy at this point Dictation was produced using [employer] dictation software. please excuse any grammatical, word or spelling errors. Time with Patient: Less than 30
--- NOTE | 2024-11-06 22:48 | P.PN ---
Subjective Progress Note Date: 11/06/24 Pulmonary consult dated October 28, 2024. 59-year-old female seen today in the intensive care unit, room 265. The patient apparently came to the emergency department, on October 27 complaining of abdominal pain, nausea and vomiting. She was in the emergency room on October 11, with abdominal pain, and was discharged. Back on September 03, at [facility], she had surgery on her abdomen, i.e. hernia repair, and may be something more. Anyway, a rapid response was called on this patient this merlyn ng, for severe abdominal pain, tachycardia, and hypotension. For that reason, we brought the patient to the ICU, to be further evaluated. We see her today in room 265. She is on room air. She is getting saline bolus. She got Zosyn IV, and p.o. Flagyl. We placed a left internal jugular triple-lumen catheter in her. I did speak to the surgeon, who plans on taking her to the operating room. She does have a history of colon cancer, with previous colectomy and subsequent reversal. Current laboratory data includes a white count of 56.3, hemoglobin 18.8, hematocrit 56.7, and a platelet count of 477,000. Sodium 136, potassium 4.2, chlorides 103, CO2 14, anion gap 19, BUN 24, creatinine 2.43. Lactic acid went from 3.9 up to 10.2. Glucose 191. Calcium 8.4. Lipase 18. Amylase 35. Albumin 2.9. CT of the abdomen and pelvis shows marked diffuse thickening of the colon wall from marked subcutaneous mucosal edema consistent with ulcerative colitis or other diffuse colitis, moderate ascites, small right pleural effusion, 10 mm left lower lobe pulmonary nodule, and stable cholelithiasis. Plain film of the abdomen was nonspecific. Chest x-ray showed infiltrate or atelectasis in the left lower lobe, and a properly inserted, left internal jugular triple-lumen catheter. Progress note dated October 30, 2024. The patient is seen today in room 265. She is postop day #2, status post s ubtotal colectomy with ileostomy. She was extubated yesterday, October 29. She is getting saline at 100 cc an hour. NG tube in place. She is getting nasal O2 at 4 L. She is resting comfortably in bed. She does have some abdominal discomfort, at the surgical site. White count was 18.9, hemoglobin 9.7, hematocrit 29.5, platelet count 344,000. Sodium 139, potassium 3.3, chlorides 110, CO2 25, BUN 23, creatinine 1.46. Glucose was 96. Albumin 1.9. Blood gases prior to extubation, showed a PO2 of 80, pCO2 of 41, pH of 7.38. Blood cultures are currently negative or pending. Chest x-ray shows bibasilar infiltrates, with small right-sided pleural effusion. Progress note dated October 31, 2024. 59-year-old female seen today in room 265. She is resting comfortably in bed. The patient is on 2 L nasal O2. NG tube remains in place. She is getting LR at 70 cc an hour, TPN at 30 cc an hour. She is on Zosyn. She is also getting p.o. Flagyl and vancomycin. Current laboratory data includes a white count of 10.9, hemoglobin 8.6, hematocrit 26.4, platelet count of 189,000. Sodium 141, po tassium 3.7, chlorides 113, CO2 25, BUN 15, creatinine 0.95. Glucose is 139. Calcium 7.5. The rest of the labs look reasonable. Chest x-ray again shows bilateral pleural effusions, with bibasilar infiltrates, or atelectasis. Progress note dated November 01, 2024. 59-year-old female seen in room 265. She is resting comfortably in bed. She is postop day #4. She had a subtotal colectomy with ileostomy. She came in initially with abdominal discomfort. She is on 2 L of oxygen. She is getting LR at 70 cc an hour. She is getting TPN at 55 cc an hour. White count is 9.6, hemoglobin 9, hematocrit 28.5, platelet count is normal. Sodium 137, potassium 3.7, chlorides 105, CO2 27, BUN 11, creatinine 0.84. Glucose 129. Albumin is 1.9. Micro is thus far negative. No chest x-ray today. The patient is currently on Zosyn, Flagyl IV, and oral vancomycin. Progress note dated November 02, 2024. 59-year-old female seen today in room 265. She is postoperative day #5, status post subtotal colectomy, end ileostomy. She is on 2 L of oxygen. She is getting TPN at 55 cc an hour, and lactated Ringer's at 50 cc an hour. Current labs include a white count 8, hemoglobin 9.9, hematocrit 31.1, platelet count 285,000. Sodium 135, potassium 4, chlorides 102, CO2 28, BUN 12, creatinine 0.69. Glucose is 144. Albumin is 2.1. On 11/03/2024, the patient is being seen for a follow-up. The patient is awake and alert and sitting up in a chair. She seems to be quite comfortable. She did do some limited amount of walking yesterday. She is using the incentive spirometer. She is postop day #6 and the patient underwent an expected laparotomy and subtotal colectomy and end ileostomy. She remains on TPN for nutritional support. She was allowed to take some clear liquid diet today. Ileostomy is functioning there is positive output. Hemodynamically stable. Continues to have some abdominal pain. No nausea. No emesis. Electrolytes are all within normal limits. BUN is 13 with a creatinine of 0.7. The white cell count is at 8 with a hemoglobin 9.9 and a platelet count of 285. She is on Dilaudid for pain control. Antibiotic coverage is with a combination of Zosyn and Flagyl. No altered mentation. No chest pain. No significant respiratory distress and the patient remains on oxygen 2 L/min nasal cannula with a pulse ox of 96%. 11/04/2024, the patient is being seen for a follow-up. On today's evaluation, the patient is doing well. No specific complaints. She is tolerating diet. TPN is being gradually weaned off. The patient is status post exploratory laparotomy and subtotal colectomy end ileostomy and the patient is postop day #7. Afebrile. Hemodynamically stable. White cell count of 10 with a hemoglobin 9.3 and a platelet count of 357. Electrolytes are all within normal limits. BUN is 14 with a creatinine of 0.6. Remains on Dilaudid for pain control and oral [place] on an as-needed basis. Remains on Zosyn IV. Remains on oxygen the patient remains on 2 L of O2 nasal cannula. Using the incentive spirometer. Abdominal wound is dry clean and intact. On 11/05/2024, the patient is being seen for a follow-up hip patient is postop day #8. The patient underwent subtotal colectomy for toxic megacolon. Patient is currently off TPN and the patient is tolerating diet. Her ostomy is functional. Her pain is essentially subsiding. No fever. No chills. The white seconds at 9.6 with a hemoglobin of 10 and platelet count of 429. Normal electrolytes. Antibiotics are with IV Zosyn. Dilaudid for pain control. Tylenol was also added. He remains on heparin subcu for DVT prophylaxis. Ambulating. Using the incentive spirometer. On today's evaluation of 11/06/2024, the patient is doing well. No specific complaints. She is recovering from her surgery. The patient has undergone subtotal colectomy for toxic megacolon and the patient is postop day #9. No nausea or vomiting. Pain is under adequate control. She is afebrile. Hemodynamically stable. The patient is currently on room air oxygen. The patient will be discharged to [facility]CF. Otherwise, no other significant issues overnight. The patient is using the incentive spirometer. The patient is also being followed up by general surgery and infectious disease. The patient did have normalization of the white cell count and the patient will not need any outpatient antibiotics. The patient is being discharged to ECF today. Labs from yesterday was noted. Hemoglobin was 10. Ambulating. Objective - Vital Signs Vital signs: Vital Signs Temp 98.7 F 11/06/24 07:43 Pulse 86 11/06/24 07:43 Resp 19 11/06/24 07:43 BP 130/73 11/06/24 07:43 Pulse Ox 96 11/06/24 11:18 FiO2 50 10/29/24 12:00 Intake & Output 11/05/24 11/06/24 11/06/24 18:59 06:59 18:59 Output Total 50 Balance -50 Output: Stool 50 Other: Voiding Method Toilet Toilet # Voids 2 1 2 # Bowel Movements 2 ABP, PAP, CO, CI - Last Documented Arterial Blood Pressure 136/49 - Exam No acute distress, oriented 3. Currently on room air oxygen, obese with a BMI of 39.2, currently on room air oxygen HEENT examination is grossly unremarkable. Mucous membranes are moist. No oral lesions. Neck supple. Full range of motion. No adenopathy thyromegaly or neck vein dis tention. Cardiovascular examination reveals regular rhythm rate. S1-S2 normal. No S3 or S4. No discernible murmur noted. Lungs reveal mild scattered rhonchi. No wheezes. No crackles. Breath sounds equal bilaterally. Abdomen soft without bowel sounds. Ileostomy is noted. There is mild direct abdominal tenderness. Bowel sounds are hypoactive. Ileostomy is functioning. Surgical site is dry clean and intact. Extremities are intact. No cyanosis clubbing or edema. Skin is without rash or lesion. Neurologic examination is brief but nonfocal. - Labs CBC & Chem 7: 11/05/24 03:35 11/05/24 03:35 Labs: Microbiology - Last 24 Hours (Table) 10/31/24 19:26 Stool Culture - Final Stool Meryl albicans Assessment and Plan Plan: Severe abdominal pain, 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 The final pathology is consistent with acute pancolitis with mucosal ischemic type changes and necrosis and pseudomembrane formation and prominent submucosal edema. The mucosal resection margins were viable and there was no evidence of any malignancy. The patient is currently postoperative day # 9, S/P exploratory laparotomy, subtotal colectomy, end ileostomy. TPN for nutritional support, currently off TPN and the patient is tolerating diet Recent hernia repair, [facility], September 03, 2024. Profound leukocytosis, secondary to intra-abdominal process, improving Anion gap metabolic acidosis, secondary to lactic acidosis, improved Lactic acidemia, improved Acute kidney injury, likely secondary to hypotension, and ATN, improved Prior history of colon cancer, with colectomy/colostomy and subsequent reversal. Plan: Continue using incentive spirometer Patient is currently on room air oxygen Increase mobility as tolerated Monitor the output from the ileostomy The patient is being advanced to a regular diet. TPN has been discontinued General Surgery is on the case Completed the course of antibiotics and the patient will not read any outpatient antibiotic therapy. Surgical wound site is dry clean and intact and the patient's ileostomy is functional. The white cell count is improved. Metabolic acidosis recovered and the patient's renal function is also normalized. Discharged to [facility]. Pulmonary critical care services will sign off.
== END 2024-11-06 17:39 | DRG 853 ==
LOC: EC 13:31 → 5NMEDONC 15:37 → 3SCARD 19:08 → 2SICU 10-28 08:17 → 4SSUR 11-03 19:07
PROVIDERS: ADMIT Hospitalist; ATTEND Hospitalist
PROC: 02HV33Z Insertion of Infusion Device into Superior Vena Cava, Percutaneous Approach (ICD-10-PCS; 2024-10-28)
PROC: 4A133B1 Monitoring of Arterial Pressure, Peripheral, Percutaneous Approach (ICD-10-PCS; 2024-10-28)
PROC: 4A133J1 Monitoring of Arterial Pulse, Peripheral, Percutaneous Approach (ICD-10-PCS; 2024-10-28)
PROC: 03HY32Z Insertion of Monitoring Device into Upper Artery, Percutaneous Approach (ICD-10-PCS; 2024-10-28)
PROC: 0DTE0ZZ Resection of Large Intestine, Open Approach (ICD-10-PCS; principal; 2024-10-28 11:10)
PROC: 3E0336Z Introduction of Nutritional Substance into Peripheral Vein, Percutaneous Approach (ICD-10-PCS; 2024-10-31)
PROC: 05H933Z Insertion of Infusion Device into Right Brachial Vein, Percutaneous Approach (ICD-10-PCS; 2024-11-05 14:30)
DX: A41.9 Sepsis, unspecified organism (principal); E43 Unspecified severe protein-calorie malnutrition; N17.0 Acute kidney failure with tubular necrosis; R65.21 Severe sepsis with septic shock; J96.01 Acute respiratory failure with hypoxia; K59.31 Toxic megacolon; R18.8 Other ascites; C20 Malignant neoplasm of rectum; J44.9 Chronic obstructive pulmonary disease, unspecified; Z68.39 Body mass index [BMI] 39.0-39.9, adult; E03.9 Hypothyroidism, unspecified; K76.0 Fatty (change of) liver, not elsewhere classified; B37.0 Candidal stomatitis; E87.0 Hyperosmolality and hypernatremia; E87.20 Acidosis, unspecified; E87.1 Hypo-osmolality and hyponatremia; N39.0 Urinary tract infection, site not specified; Z93.3 Colostomy status; G89.29 Other chronic pain; E87.6 Hypokalemia; Z79.890 Hormone replacement therapy; K31.89 Other diseases of stomach and duodenum; M54.50 Low back pain, unspecified; K80.20 Calculus of gallbladder without cholecystitis without obstruction; Z85.048 Personal history of other malignant neoplasm of rectum, rectosigmoid junction, and anus; Z92.21 Personal history of antineoplastic chemotherapy; Z92.3 Personal history of irradiation; Z82.49 Family history of ischemic heart disease and other diseases of the circulatory system; Z88.5 Allergy status to narcotic agent
CPT/HCPCS: 36410; 36415; 71045; 74018; 74177; 76937; 80048; 80053; 81001; 82150; 82330; 82805; 83605; 83630; 83690; 83735; 83880; 83993; 84100; 84132; 84145; 84478; 85025; 85610; 85730; 87040; 87045; 87046; 87493; 87636; 88309; 93306; 94002; 94003; 94640; 94760; 96361; 96365; 96372; 96375; 99285